=== PATIENT | male | born 1940 | race Caucasian/White ===

== ENCOUNTER → 2018-02-15 | Outpatient (CLI) | payer OTHER ==
[~2018-02-15] MED LIST: ANT125 PO; ASPEC325 PO; BTMOPS5; CHOLTAB3 PO; FLCO60; FLVUNK PO; MULT-506 PO; NICO21DI12 EXT; OMEG10007 PO; OXYC-57 PO; PYRI100T4 PO; VTMB12UNK PO; VTMEUNK
--- NOTE | 2018-02-15 17:10 | DIAGNOSTIC IMAGING REPORT ---
RENAL ULTRASOUND CLINICAL HISTORY: Gross hematuria. COMPARISON STUDY: None. TECHNIQUE: Sonography of the kidneys and the urinary bladder was performed. FINDINGS: The right kidney measures 10.8 x 5.7 x 5.9 cm and the left kidney measures 12 x 5.8 x 6.6 cm. There is mild right collecting system prominence without rip hydronephrosis. There is no left hydronephrosis. A few small renal cysts are noted. No shadowing renal calculi are noted. Both ureteral jets were identified. Note was made of multiple echogenic nonmobile abnormalities which appear adherent to the bladder wall. Several these contain color flow. These measure up to 2.2 cm. IMPRESSION: 1. Multiple echogenic lesions which appear adherent to the bladder wall, several of which contain color flow. These may be partially calcified. Given the clinical history, the findings are suspicious for multifocal urothelial lesions and correlation with cystoscopy to evaluate for malignancy. 2. Mild right pelvicaliectasis without rip hydronephrosis. Electronically signed by: Tanner Becker M.D. 02/15/2018 5:09 PM Dictated Date/Time: 02/15/2018 5:03 PM
== END | disposition home or self-care (01) ==
LOC: C.ULTR 16:15
PROVIDERS: ATTEND Internal Medicine
DX: R31.0 Gross hematuria (principal)

== ENCOUNTER 2018-05-30 13:24 | Inpatient (IN) | payer OTHER ==
[~2018-05-30] VITALS: Ht 172.7 cm; Wt 83.5 kg
[~2018-05-30 13:24] MED LIST changes: -ANT125 PO; -ASPEC325 PO; +ASPI81TA28 PO; +ATOR-22 PO; +AUG0.05C12 TOP; -BTMOPS5; +CHOL100010 PO; -CHOLTAB3 PO; +CYAN100020 PO; -FLCO60; +FLUO-245; -FLVUNK PO; +FOLITAB13 PO; +LISI10TA PO; +LUTE15CA PO; +MAGN250T3 PO; -NICO21DI12 EXT; +ONDA-170 PO; +OXGN; -OXYC-57 PO; +PROC10TA PO; +SILD1TAB25 PO; +TIMO0.5S2 OP; +UMEC1AER INH; +VITA1TAB4 PO; -VTMB12UNK PO; -VTMEUNK
[2018-05-30] MEDS ORDERED: SODIUM CHLORIDE 0.9% 1000ML 1,000 ML IV STA (13:59)
--- NOTE | 2018-05-30 14:03 | EMERGENCY ROOM VISIT NOTE ---
History Report prepared by Darnell: Main Santos Under the Supervision of: Dr. Oleg Keita M.D. First contact with patient: 13:35 Chief Complaint: SYNCOPE Stated Complaint: SYNCOPE/HYPERTENSION History of Present Illness The patient is a 77 year old white male with a past medical history of bladder cancer who presents to the Emergency Room from the [facility] after having a syncopal episode that occurred immediately prior to arrival. The patient's states that the patient was receiving IV-chemotherapy this morning when he went to use the restroom. The patient was on he way back to his room when he became suddenly "lightheaded." The notes that he was supporting his weight on the IV-bag davis and was shaking. He then lost consciousness and dropped to the ground. The states that the [facility] nurses noted that he was unresponsive for about 3 minutes. The patient notes that he feels well right now and denies any headache, chest pain, shortness of breath, or weakness. The patient is followed by Dr. Corbett at [facility] urology oncology for his bladder cancer. He wears 1 liter of oxygen at baseline. Source of History: patient Onset: Immediately [employer] Position: head Quality: other ("lightheaded" ) Timing: other (3 minute syncopal episode) Associated Symptoms: + LOC, No headache, No chest pain, No SOB Review of Systems See HPI for pertinent positives and negatives. A total of ten systems were reviewed and were otherwise negative. Past Medical & Surgical History of bladder cancer. Social History Smoking Status: Current Every Day Smoker Drug Use: none Marital Status: Housing Status: lives with family Current/Historical Medications Scheduled Aspirin (Aspirin), 325 MG PO DAILY Atorvastatin (Lipitor), 20 MG PO DAILY Betamethasone Dipropionate Aug (Diprolene Af), 1 APPLN TOP BID Cholecalciferol (Vitamin D), 1 TAB PO DAILY Cyanocobalamin (Vitamin B12), 1,000 MG PO DAILY Fluocinonide Emulsified Base (Fluocinonide Emulsified), DIRECTED Folic Acid-Vit B2-Vit B6-Vit B (Folic Acid Xtra), 800 MCG PO DAILY Home O2 Therapy (Oxygen), 1 LITER NA PRN Lisinopril (Prinivil), 10 MG PO DAILY Lutein-Zeaxanthin (Lutein), 20 MG PO DAILY Magnesium (Magnacaps), 100 MG PO DAILY Multivitamin (Multivitamin), 1 TAB PO DAILY Pyridoxine (Vitamin B6), 100 MG PO DAILY Timolol Maleate (Ophth) (Timoptic), 1 DROP OPB QAM Umeclidinium-Vilanterol (Anoro Ellipta 62.5-25 Mcg/INH), 1 PUFF INH DAILY Vitamin E (Vitamin E), 1 CAP PO DAILY Scheduled PRN Ondansetron Hcl (Zofran), 8 MG PO TID PRN for Nausea Sildenafil Citrate (Revatio), 1 TAB PO DAILY PRN for ERECTILE DYSFUNCTION Allergies Coded Allergies: No Known Allergies (Verified , 05/30/18) Physical Exam Vital Signs Date Time Temp Pulse Resp B/P (MAP) Pulse Ox O2 Delivery O2 Flow Rate FiO2 05/30/18 17:30 99 20 146/101 94 Nasal Cannula 2.0 05/30/18 15:30 05/30/18 15:30 96 19 140/87 96 Nasal Cannula 2.0 100 143/91 100 166/100 05/30/18 14:40 99 18 115/72 96 Nasal Cannula 2.0 05/30/18 13:41 97 Nasal Cannula 1.0 05/30/18 13:39 99 05/30/18 13:30 96 Nasal Cannula 1.0 05/30/18 13:30 36.4 100 24 140/80 77 Room Air Physical Exam GENERAL: Awake, alert, well-appearing, NAD. Nasal cannula in place. HENT: Normocephalic, atraumatic. EYES: Normal conjunctiva. Sclera non-icteric. RightPERRL. No anisocoria. Irregular and unreactive left pupil. NECK: Supple. No nuchal rigidity. FROM. RESPIRATORY: No rhonchi, wheezing. Crackles at the left abse. CARDIAC: RRR, no MRG ABDOMEN: Soft, NTND, BS+ MSK: No chest wall TTP, no LE edema NEURO: GCS 15, CN 2-12 intact, moves all 4s on command SKIN: No rash or jaundice noted. Medical Decision & Procedures ER Provider Diagnostic Interpretation: Radiology results as stated below per my review and radiologist interpretation: CHEST ONE VIEW PORTABLE HISTORY: EVALUATE ALTERED MENTAL STATUS/WEAKNESS COMPARISON: None. FINDINGS: Bibasilar linear densities favor subsegmental atelectasis. The lungs are otherwise clear. The heart is normal in size. No pleural effusions. No pneumothorax. No evidence for pulmonary edema. IMPRESSION: No acute process. Electronically signed by: Zuhair Pate M.D. 05/30/2018 2:14 PM Dictated Date/Time: 05/30/2018 2:[address] OF THE HEAD WITHOUT CONTRAST CLINICAL HISTORY: Syncope. Weakness. COMPARISON STUDY: Head CT November 22, 2010 and MRI of the brain April 28, 2011. CT DOSE: 881.47 mGy.cm TECHNIQUE: Helical axial images of the head were obtained without IV contrast. Automated exposure control was utilized for the study. A dose lowering technique was utilized adhering to the principles of ALARA. FINDINGS: No acute intracranial hemorrhage, midline shift or mass effect is present. Ventricular system is unremarkable for age. Basilar cisterns are patent. There are no extra axial collections. White matter hypodensities suggest extensive small vessel disease. There are no findings to suggest acute dural sinus thrombosis or acute territorial infarct. There are no significant calvarial abnormalities. There is mild ethmoid sinus mucosal thickening. Mastoid air cells are clear. IMPRESSION: No acute intracranial findings. Electronically signed by: Tanner Becker M.D. 05/30/2018 2:41 PM Dictated Date/Time: 05/30/2018 2:33 PM Laboratory Results 05/30/18 13:40 Red Blood Count 3.54, Mean Corpuscular Volume 93.2, Mean Corpuscular Hemoglobin 29.4, Mean Corpuscular Hemoglobin Concent 31.5, Mean Platelet Volume 10.0, Neutrophils (%) (Auto) 73.6, Lymphocytes (%) (Auto) 16.1, Monocytes (%) (Auto) 4.9, Eosinophils (%) (Auto) 4.0, Basophils (%) (Auto) 0.4, Neutrophils # (Auto) 4.96, Lymphocytes # (Auto) 1.09, Monocytes # (Auto) 0.33, Eosinophils # (Auto) 0.27, Basophils # (Auto) 0.03 05/30/18 13:40 Test 05/30/18 13:40 White Blood Count 6.75 K/uL (4.8-10.8) Red Blood Count 3.54 M/uL (4.7-6.1) Hemoglobin 10.4 g/dL (14.0-18.0) Hematocrit 33.0 % (42-52) Mean Corpuscular Volume 93.2 fL (80-100) Mean Corpuscular Hemoglobin 29.4 pg (25-34) Mean Corpuscular Hemoglobin Concent 31.5 g/dl (32-36) Platelet Count 423 K/uL (130-400) Mean Platelet Volume 10.0 fL (7.4-10.4) Neutrophils (%) (Auto) 73.6 % Lymphocytes (%) (Auto) 16.1 % Monocytes (%) (Auto) 4.9 % Eosinophils (%) (Auto) 4.0 % Basophils (%) (Auto) 0.4 % Neutrophils # (Auto) 4.96 K/uL (1.4-6.5) Lymphocytes # (Auto) 1.09 K/uL (1.2-3.4) Monocytes # (Auto) 0.33 K/uL (0.11-0.59) Eosinophils # (Auto) 0.27 K/uL (0-0.5) Basophils # (Auto) 0.03 K/uL (0-0.2) RDW Standard Deviation 66.5 fL (36.4-46.3) RDW Coefficient of Variation 21.7 % (11.5-14.5) Immature Granulocyte % (Auto) 1.0 % Immature Granulocyte # (Auto) 0.07 K/uL (0.00-0.02) Polychromasia 1+ Anisocytosis PRESENT Spherocytes 1+ Stomatocytes 1+ Urine Color YELLOW Urine Appearance CLEAR (CLEAR) Urine pH 7.0 (4.5-7.5) Urine Specific Hamer 1.009 (1.000-1.030) Urine Protein NEG (NEG) Urine Glucose (UA) TRACE (NEG) Urine Ketones NEG (NEG) Urine Occult Blood TRACE (NEG) Urine Nitrite NEG (NEG) Urine Bilirubin NEG (NEG) Urine Urobilinogen NEG (NEG) Urine Leukocyte Esterase TRACE (NEG) Urine WBC (Auto) 5-10 /hpf (0-5) Urine RBC (Auto) 0-4 /hpf (0-4) Urine Hyaline Casts (Auto) 1-5 /lpf (0-5) Urine Epithelial Cells (Auto) 0-5 /lpf (0-5) Urine Bacteria (Auto) NEG (NEG) Anion Gap 7.0 mmol/L (3-11) Est Creatinine Clear Calc Drug Dose 65.2 ml/min Estimated GFR () 81.0 Estimated GFR (Non- 69.9 BUN/Creatinine Ratio 16.7 (10-20) Calcium Level 7.8 mg/dl (8.5-10.1) Magnesium Level 1.5 mg/dl (1.8-2.4) Total Bilirubin 0.2 mg/dl (0.2-1) Direct Bilirubin < 0.1 mg/dl (0-0.2) Aspartate Amino Transf (AST/SGOT) 71 U/L (15-37) Alanine Aminotransferase (ALT/SGPT) 49 U/L (12-78) Alkaline Phosphatase 103 U/L (45-117) Troponin I 0.051 ng/ml (0-0.045) Total Protein 7.5 gm/dl (6.4-8.2) Albumin 3.3 gm/dl (3.4-5.0) Thyroid Stimulating Hormone (TSH) 1.330 uIu/ml (0.300-4.500) Laboratory results reviewed by me Medications Administered Medications (Trade) Dose Ordered Sig/Zakiya Route Start Time Stop Time Status Last Admin Dose Admin Sodium Chloride 1,000 ml @ 999 mls/hr Q1H1M STAT IV 05/30/18 13:59 05/30/18 14:59 DC 05/30/18 13:59 999 MLS/HR Magnesium Oxide (Mag-Ox Tab) 800 mg ONE STAT PO 05/30/18 14:48 05/30/18 14:50 DC 05/30/18 15:19 800 MG Potassium Chloride (Klor-Con M10) 20 meq STK-MED ONCE .ROUTE 05/30/18 15:07 05/30/18 15:08 DC 05/30/18 15:19 20 MEQ Calcium Carbonate (Tums Chew Tab) 1,500 mg ONE STAT PO 05/30/18 15:40 05/30/18 15:42 DC 05/30/18 17:03 1,500 MG Aspirin (Aspirin Chew) 324 mg NOW STAT PO 05/30/18 16:28 05/30/18 16:29 DC 05/30/18 17:02 324 MG ECG Per My Interpretation Indication: syncope Rate (beats per minute): 104 Rhythm: sinus tachycardia Findings: ST depression (Anterior and lateral), other (Normal interval, normal axis) Comparison ECG Date: 04/29/2011 Change: ST-depressions are new ED Course 1349: The patient was evaluated in room A2. A complete history and physical exam was performed. 1532: I updated the patient at this time. I suggest he stay in the hospital, he declines admission at this time. Denies chest pain or SOB. 1637: The patient is now willing to stay. 1658: I discussed the case with U[facility] Hospitalist ZACHARY Garland. She will evaluate for further treatment. Medical Decision The patient is a 77 year old white male with a past medical history of bladder cancer who presents to the Emergency Room from the [facility] after having a syncopal episode that occurred immediately prior to arrival. Nursing notes reviewed. Ancillary studies and prior records reviewed. Differential diagnosis: Etiologies such as vasovagal event, infection, hypoglycemia, electrolyte abnormalities, cardiac sources, intracerebral event, toxicologic, neurologic, as well as others were entertained. Patient was seen and evaluated the bedside. Patient does have a prior history of bladder CA and was at [facility] today which point he did receive IV Lasix did have a positional change and had a subsequent syncopal episode. He is apparently difficult to arouse for approximately 3 minutes. No evidence of any seizure-like activity and did have a normal sugar. The patient is unsure as to whether or not he is incontinent as he was walking around with an IV pole with fluids and this also spilled onto the floor where he had fallen. No prior history of seizures. Patient currently denies any chest pain, shortness of breath, or chest pain. Patient does have an irregular left pupil which is chronic per patient. The patient has a normal neurologic exam at baseline and no issues currently. Patient did have blood work completed, EKG, troponin, CT of the brain and chest x-ray. Patient CT brain negative. Chest x-ray is unremarkable. Patient's blood work does show that the patient does have some electrolyte abnormalities which were repleted. The patient's EKG is concerning as he does have some new ST segment changes in the lateral anteriorly concerning for depression. Again the patient denies any chest pains or shortness of breath. Troponin is not undetectable. Again the patient denies any chest pain or shortness of breath. Patient was given an aspirin. I did order a CT PE protocol to further rule out PE as a possible source even given the patient's lack of other symptoms. I did speak with the on-call hospitalist who agreed to further evaluate and treat the patient. Patient was counseled on smoking cessation. Medication Reconcilliation Current Medication List: was personally reviewed by me Blood Pressure Screening Patient's blood pressure: Elevated blood pressure Consults Time Called: 1649 [facility] Returned Call: [phone] I discussed the case with [facility] SHANEKA. She will evaluate for further treatment. Impression Primary Impression: Syncope Additional Impressions: Acute electrocardiogram changes Elevated troponin Anemia Hypocalcemia Hypomagnesemia Encounter for smoking cessation counseling Scribe Attestation The scribe's documentation has been prepared under my direction and personally reviewed by me in its entirety. I confirm that the note above accurately reflects all work, treatment, procedures, and medical decision making performed by me. Departure Information Dispostion Being Evaluated By Hospitalist Referrals Donal Crabtree MD (PCP) Patient Instructions My [facility] Problem Qualifiers Primary Impression: Syncope Syncope type: unspecified Qualified Codes: R55 - Syncope and collapse Additional Impressions: Anemia Anemia type: unspecified type Qualified Codes: D64.9 - Anemia, unspecified
--- NOTE | 2018-05-30 14:16 | DIAGNOSTIC IMAGING REPORT ---
CHEST ONE VIEW PORTABLE HISTORY: EVALUATE ALTERED MENTAL STATUS/WEAKNESS COMPARISON: None. FINDINGS: Bibasilar linear densities favor subsegmental atelectasis. The lungs are otherwise clear. The heart is normal in size. No pleural effusions. No pneumothorax. No evidence for pulmonary edema. IMPRESSION: No acute process. Electronically signed by: Zuhair Pate M.D. 05/30/2018 2:14 PM Dictated Date/Time: 05/30/2018 2:13 PM
[2018-05-30 14:24] LABS: BASO % 0.4 %; BASO ABS # 0.03 K/uL (0-0.2); EOS ABS # 0.27 K/uL (0-0.5); HEMOGLOBIN 10.4 g/dL (14.0-18.0); IG# 0.07 K/uL (0.00-0.02); LYMPH % 16.1 %; LYMPH ABS # 1.09 K/uL (1.2-3.4); MEAN CELL VOLUME 93.2 fL (80-100); MEAN CORPUSCULAR HEMOGLOBIN 29.4 pg (25-34); MEAN CORPUSCULAR HGB CONC 31.5 g/dl (32-36); MONO % 4.9 %; MONO ABS # 0.33 K/uL (0.11-0.59); NEUT % 73.6 %; NEUT ABS # 4.96 K/uL (1.4-6.5); PLATELET COUNT 423 K/uL (130-400); RED CELL DISTRIBUTION WIDTH CV 21.7 % (11.5-14.5); RED CELL DISTRIBUTION WIDTH SD 66.5 fL (36.4-46.3); WHITE BLOOD COUNT 6.75 K/uL (4.8-10.8)
--- NOTE | 2018-05-30 14:42 | DIAGNOSTIC IMAGING REPORT ---
CT OF THE HEAD WITHOUT CONTRAST CLINICAL HISTORY: Syncope. Weakness. COMPARISON STUDY: Head CT November 22, 2010 and MRI of the brain April 28, 2011. CT DOSE: 881.47 mGy.cm TECHNIQUE: Helical axial images of the head were obtained without IV contrast. Automated exposure control was utilized for the study. A dose lowering technique was utilized adhering to the principles of ALARA. FINDINGS: No acute intracranial hemorrhage, midline shift or mass effect is present. Ventricular system is unremarkable for age. Basilar cisterns are patent. There are no extra axial collections. White matter hypodensities suggest extensive small vessel disease. There are no findings to suggest acute dural sinus thrombosis or acute territorial infarct. There are no significant calvarial abnormalities. There is mild ethmoid sinus mucosal thickening. Mastoid air cells are clear. IMPRESSION: No acute intracranial findings. Electronically signed by: Tanner Becker M.D. 05/30/2018 2:41 PM Dictated Date/Time: 05/30/2018 2:33 PM
[2018-05-30] MEDS ORDERED: OXGN (14:43)
[2018-05-30] MEDS ORDERED: MAGN100C PO (14:43)
[2018-05-30 14:45] LABS: ALBUMIN 3.3 gm/dl (3.4-5.0); ALKALINE PHOSPHATASE 103 U/L (45-117); ALT/SGPT 49 U/L (12-78); AST/SGOT 71 U/L (15-37); BLOOD UREA NITROGEN 17 mg/dl (7-18); CALCIUM 7.8 mg/dl (8.5-10.1); CARBON DIOXIDE 28 mmol/L (21-32); CREATININE 1.04 mg/dl (0.60-1.40); GLUCOSE 189 mg/dl (70-99); POTASSIUM 4.3 mmol/L (3.5-5.1); SODIUM 138 mmol/L (136-145); TOTAL PROTEIN 7.5 gm/dl (6.4-8.2)
[2018-05-30] MEDS ORDERED: ASPECOTC PO (14:46)
[2018-05-30] MEDS ORDERED: TIMO-31 OPB (14:46)
[2018-05-30] MEDS ORDERED: POTASSIUM CHLORIDE 20 MEQ TABCR PO STA (14:48)
[2018-05-30] MEDS ORDERED: MAGNESIUM OXIDE 400 MG TAB PO STA (14:48)
[2018-05-30] MEDS ORDERED: POTASSIUM CHLORIDE 10 MEQ TABCR ONE (15:07)
[2018-05-30] MEDS ORDERED: CALCIUM CARBONATE 500 MG CHEWABLE PO STA (15:40)
[2018-05-30] MEDS ORDERED: ASPIRIN 324 MG CHEW PO STA (16:28)
[2018-05-30] MEDS ORDERED: OPTIRAY 320 IV PRN (17:15)
--- NOTE | 2018-05-30 17:33 | DIAGNOSTIC IMAGING REPORT ---
(CHEST FOR PE) ANGIO WITH CT DOSE: 462.24 mGy.cm HISTORY: 77 years-old Male with . Presents with acute atypical chest pain TECHNIQUE: Multiple CTA images of the chest were obtained after the intravenous administration of 100 ml Optiray 320. Coronal and sagittal MIPS were obtained from the axial data set and were submitted for review. A dose lowering technique was utilized adhering to the principles of ALARA. COMPARISON: Chest radiograph of same day FINDINGS: CTA: Heart is upper limits of normal in size without pericardial effusion. Coronary arterial and aortic annular calcifications are noted. There is no thoracic aortic aneurysm or dissection. Extensive mixed atheromatous and atherosclerotic plaque formation about the thoracic aorta and proximal great vessels. The distal thoracic aorta is not well opacified secondary to contrast bolus timing. The pulmonary arterial tree is opacified to the level of the proximal segmental branches. The distal segmental and subsegmental branches are not well-seen secondary to contrast bolus timing and respiratory motion. No focal filling defects identified to suggest pulmonary thromboembolic disease. CT CHEST: No dominant thyroid nodule identified. Mildly prominent nonenlarged mediastinal and hilar lymph nodes are likely physiologic. There are bilateral partially calcified pleural plaques. No pneumothorax. Trace right pleural effusion. Moderate emphysema. Bilateral bronchial wall thickening with areas of mucous plugging. 3 mm solid nodule of the right upper lobe on image 220 series 4 appears to be centrally calcified suggesting a granuloma. There are subsegmental right basilar opacities of the basal right lower lobe and right middle lobe, not well seen secondary to respiratory motion. 3 mm fissural lymph nodes seen adjacent to the left major fissure, image 122 series 4. Punctate calculus of the superior pole left kidney. Small sliding-type hilar hernia. The soft tissues are within normal limits. The bones appear to be intact. There are degenerative changes of the shoulders and spine. IMPRESSION: 1. No acute aortic pathology or evidence of pulmonary thromboembolic disease. 2. Emphysema with bilateral bronchial wall thickening suggestive of bronchitis. Associated bronchial secretions are also noted. 3. Subsegmental groundglass opacities of the basal right lower lobe and right middle lobe are suspicious for pneumonitis with trace right pleural effusion. 4. Small hiatal hernia. 5. Punctate nonobstructing calculus of the superior pole left kidney. 6. 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 The above report was generated using voice recognition software. It may contain grammatical, syntax or spelling errors. Electronically signed by: Saqib Sepulveda M.D. 05/30/2018 5:31 PM Dictated Date/Time: 05/30/2018 5:19 PM
[2018-05-30 17:48] VITALS: O2SAT 94; BMI 28.6
[2018-05-30] MEDS ORDERED: ONDANSETRON INJ 2 MG/ML 2 ML VIAL IV PRN (18:30)
[2018-05-30] MEDS ORDERED: PROCHLORPERAZINE MALEATE 10 MG TAB PO ONE (18:45)
[2018-05-30] MEDS ORDERED: FOLI800T PO (18:59)
[2018-05-30] MEDS ORDERED: OMEP20CA9 PO (18:59)
[2018-05-30] MEDS ORDERED: MAGN250T8 PO (18:59)
[2018-05-30] MEDS ORDERED: LORA-741 PO (18:59)
[2018-05-30] MEDS ORDERED: LPT40 PO (18:59)
[2018-05-30] MEDS ORDERED: PROC10TA PO (18:59)
[2018-05-30] MEDS ORDERED: CHOL100010 PO (18:59)
[2018-05-30] MEDS ORDERED: VNTHFA/IN INH (18:59)
[2018-05-30] MEDS ORDERED: OXYB5TAB21 PO (18:59)
[2018-05-30] MEDS ORDERED: PROCHLORPERAZINE MALEATE 10 MG TAB PO PRN (19:00)
[2018-05-30] MEDS ORDERED: LEVALBUTEROL/IPRATROPIUM NEB INH PRN (19:00)
[2018-05-30] MEDS: ACETAMINOPHEN 325 MG TAB PO PRN (19:07)
[2018-05-30] MEDS ORDERED: GLUCOSE 10 TABS/TUBE PO PRN (19:15)
[2018-05-30] MEDS ORDERED: CARBOHYDRATES FOR HYPOGLYCEMIA PO PRN (19:15)
[2018-05-30] MEDS ORDERED: DEXTROSE 50% 50 ML SYR IV PRN (19:15)
[2018-05-30] MEDS ORDERED: GLUCAGON FOR INJ 1 MG VIAL SQ PRN (19:15)
[2018-05-30] MEDS ORDERED: GLUCOSE 40% GEL 15 GM TUBE PO PRN (19:15)
--- NOTE | 2018-05-30 19:21 | DIAGNOSTIC IMAGING REPORT ---
L SHOULDER MIN 2 VIEWS ROUTINE, L HUMERUS MIN 2 VIEWS ROUTINE, L ELBOW MIN 3 VIEWS ROUTINE, L WRIST MIN 3 VIEWS ROUTINE HISTORY: 77 years-old Male L arm pain acute pain of the left upper extremity COMPARISON: None available TECHNIQUE: 3 views of the left shoulder, 2 views of the left humerus, 3 views of the left elbow and 4 views of the left wrist FINDINGS: SHOULDER: Rotator cuff calcific tendinosis with calcifications measuring up to 5 mm. Moderate glenohumeral and AC joint osteoarthritis. No acute fracture or dislocation. Interstitial opacities about the left lung. HUMERUS: No acute fracture or dislocation. ELBOW: Degenerative marginal spurring about the elbow. There is no acute fracture, dislocation, opaque foreign body or large joint effusion. WRIST: Widening of the scapholunate interval compatible with scapholunate ligamentous injury. Mild radiocarpal with moderate triscaphe and severe first carpometacarpal osteoarthritis. Peripheral arterial calcifications noted. No acute fracture or dislocation. IMPRESSION: 1. No acute fracture or dislocation of the imaged left upper extremity. 2. Degenerative and chronic findings as above. The above report was generated using voice recognition software. It may contain grammatical, syntax or spelling errors. Electronically signed by: Saqib Sepulveda M.D. 05/30/2018 7:20 PM Dictated Date/Time: 05/30/2018 7:16 PM
[2018-05-30] MEDS ORDERED: IPRATROPIUM BROMIDE NEB SOLN 0.02% 2.5 ML VIAL INH PRN (19:30)
[2018-05-30] MEDS ORDERED: LEVALBUTEROL 1.25MG/0.5ML NEB INH PRN (19:30)
[2018-05-30 19:41] LABS: PTT PATIENT 25.3 SECONDS (21.0-31.0)
[2018-05-30 19:45] VITALS: BP 170/84; PULSE 108; TEMP 36.6; O2SAT 93
--- NOTE | 2018-05-30 19:48 | History and Physical ---
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 Patient was receiving chemo today. He had dose IV Lasix 20 mg 1 L NSS and was receiving and he got up to use the bathroom when walking back became dizzy and lightheaded and had syncopal episode. It is reported patient had LOC for 3 minutes. It is reported patient was hypoxic 70% up to 94% with Oximask applied and his pulse was 103. Patient was denying any chest pain or shortness of breath in ER. Patient reports left arm pain primarily to left humerus and left anterior elbow that has been intermittent for the past 3 weeks and also left chest pain, patient is unsure if the 2 are related. States notices pain primarily at night. Pain sometimes self resolves after 30 minutes or sometimes will take Tylenol. Patient was taken off aspirin April secondary to thrombocytopenia with platelet count of 70. It has since been up in the 300s. Patient was taken off lisinopril several weeks ago per secondary to hypertension. Chronic dry cough, denies worsening. Denies fever/chills, diaphoresis, N/V/D/C, GILLETTE, vision changes, neck pain, increased SOB, orthopnea, palpitations, hemoptysis, sore throat, choking, otalgia, rhinorrhea, abdominal pain, paresthesias, extremity weakness, extremity edema, rashes, urinary symptoms. Past Medical/Surgical History Medical Problems: (1) Bladder cancer Status: Chronic (2) Carotid atherosclerosis Status: Chronic (3) COPD (chronic obstructive pulmonary disease) Status: Chronic (4) DM type 2 (diabetes mellitus, type 2) Status: Chronic (5) Dyslipidemia Status: Chronic (6) Glaucoma Status: Chronic (7) HTN (hypertension) Status: Chronic (8) Tobacco abuse Status: Chronic (9) Tourette syndrome Status: Chronic Surgical Problems: (1) History of bladder surgery Status: Resolved (2) History of carotid endarterectomy Permanent Comment: Left Status: Resolved (3) Hx of cataract surgery Status: Resolved Family History Diabetes mellitus FH: heart disease Hypertension Social History Smoking Status: Current Every Day Smoker (down to 0.5 ppd ) Smokeless Tobacco Use: No Alcohol Use: none Drug Use: none Marital Status: Housing status: lives with significant other Immunizations History of Influenza Vaccine: N/A History of Tetanus Vaccine?: Unknown History of Pneumococcal: Yes History of Hepatitis B Vaccine: No Allergies Coded Allergies: No Known Allergies (Verified , 05/30/18) Home Medications Scheduled Albuterol Hfa (Ventolin Hfa), 2 PUFFS INH Q4 Atorvastatin (Lipitor), 1 TAB PO PM Betamethasone Dipropionate Aug (Diprolene Af), 1 APPLN TOP BID Cholecalciferol (Vitamin D), 1 TAB PO DAILY Cyanocobalamin (Vitamin B12), 1,000 MG PO DAILY Folic Acid (Folic Acid), 1 TAB PO DAILY Home O2 Therapy (Oxygen), 1 LITER NA CONTINOUS Lutein-Zeaxanthin (Lutein), 20 MG PO DAILY Magnesium Oxide (Mg Supplement (Magnesium), 1 TAB PO TID Omeprazole (Prilosec), 20 MG PO DAILY Oxybutynin Chloride (Ditropan Xl), 1 TAB PO DAILY Pyridoxine (Vitamin B6), 100 MG PO DAILY Timolol Maleate (Ophth) (Timoptic), 1 DROP OPB QAM Umeclidinium-Vilanterol (Anoro Ellipta 62.5-25 Mcg/INH), 1 PUFF INH DAILY Vitamin E (Vitamin E), 1 CAP PO DAILY Scheduled PRN Lorazepam (Ativan), 0.5 MG PO BID PRN for Anxiety Ondansetron Hcl (Zofran), 8 MG PO TID PRN for Nausea Prochlorperazine Maleate (Compazine), 1 TAB PO Q6 PRN for Nausea Sildenafil Citrate (Revatio), 1 TAB PO DAILY PRN for ERECTILE DYSFUNCTION Review of Systems See HPI for pertinent positives & negatives. All other systems reviewed and were otherwise negative Physical Exam Vital Signs Date Time Temp Pulse Resp B/P (MAP) Pulse Ox O2 Delivery O2 Flow Rate FiO2 05/30/18 17:48 94 Nasal Cannula 2.0 05/30/18 17:42 106 05/30/18 17:30 99 20 146/101 94 Nasal Cannula 2.0 05/30/18 15:30 05/30/18 15:30 96 19 140/87 96 Nasal Cannula 2.0 100 143/91 100 166/100 05/30/18 14:40 99 18 115/72 96 Nasal Cannula 2.0 05/30/18 13:41 97 Nasal Cannula 1.0 05/30/18 13:39 99 05/30/18 13:30 96 Nasal Cannula 1.0 05/30/18 13:30 36.4 100 24 140/80 77 Room Air General Appearance: WD/WN, no apparent distress Head: normocephalic, atraumatic Eyes: EOMI, sclerae normal, + pertinent finding (left pupil larger than right ( chronic)) ENT: hearing grossly normal, pharynx normal, + pertinent finding (mucous membranes moist) Neck: supple, trachea midline Respiratory/Chest: no respiratory distress, no accessory muscle use, + decreased breath sounds (faint scattered wheeze, clears with coughing) Cardiovascular: no murmur, normal peripheral pulses, + tachycardia (106) Abdomen/GI: normal bowel sounds, non tender, soft Extremities/Musculoskelatal: no calf tenderness, normal capillary refill, no pedal edema, normal range of motion, + pertinent finding (left upper extremity: no edema/erythema/ecchymosis, ROM intact to shoulder, elbow, wrist. Humerus, anterior elbow with tenderness which improves with palpation area) Neurologic/Psych: alert, normal mood/affect, oriented x 3 Skin: warm/dry Diagnostics Laboratory Results Results Past 24 Hours Test 05/30/18 13:40 05/30/18 18:50 05/30/18 19:00 Range/Units White Blood Count 6.75 4.8-10.8 K/uL Red Blood Count 3.54 4.7-6.1 M/uL Hemoglobin 10.4 14.0-18.0 g/dL Hematocrit 33.0 42-52 % Mean Corpuscular Volume 93.2 80-100 fL Mean Corpuscular Hemoglobin 29.4 25-34 pg Mean Corpuscular Hemoglobin Concent 31.5 32-36 g/dl Platelet Count 423 130-400 K/uL Mean Platelet Volume 10.0 7.4-10.4 fL Neutrophils (%) (Auto) 73.6 % Lymphocytes (%) (Auto) 16.1 % Monocytes (%) (Auto) 4.9 % Eosinophils (%) (Auto) 4.0 % Basophils (%) (Auto) 0.4 % Neutrophils # (Auto) 4.96 1.4-6.5 K/uL Lymphocytes # (Auto) 1.09 1.2-3.4 K/uL Monocytes # (Auto) 0.33 0.11-0.59 K/uL Eosinophils # (Auto) 0.27 0-0.5 K/uL Basophils # (Auto) 0.03 0-0.2 K/uL RDW Standard Deviation 66.5 36.4-46.3 fL RDW Coefficient of Variation 21.7 11.5-14.5 % Immature Granulocyte % (Auto) 1.0 % Immature Granulocyte # (Auto) 0.07 0.00-0.02 K/uL Polychromasia 1+ Anisocytosis PRESENT Spherocytes 1+ Stomatocytes 1+ Urine Color YELLOW Urine Appearance CLEAR CLEAR Urine pH 7.0 4.5-7.5 Urine Specific [place] 1.009 1.000-1.030 Urine Protein NEG NEG Urine Glucose (UA) TRACE NEG Urine Ketones NEG NEG Urine Occult Blood TRACE NEG Urine Nitrite NEG NEG Urine Bilirubin NEG NEG Urine Urobilinogen NEG NEG Urine Leukocyte Esterase TRACE NEG Urine WBC (Auto) 5-10 0-5 /hpf Urine RBC (Auto) 0-4 0-4 /hpf Urine Hyaline Casts (Auto) 1-5 0-5 /lpf Urine Epithelial Cells (Auto) 0-5 0-5 /lpf Urine Bacteria (Auto) NEG NEG Sodium Level 138 136-145 mmol/L Potassium Level 4.3 3.5-5.1 mmol/L Chloride Level 103 98-107 mmol/L Carbon Dioxide Level 28 21-32 mmol/L Anion Gap 7.0 3-11 mmol/L Blood Urea Nitrogen 17 7-18 mg/dl Creatinine 1.04 0.60-1.40 mg/dl Est Creatinine Clear Calc Drug Dose 65.2 ml/min Estimated GFR () 81.0 Estimated GFR (Non- 69.9 BUN/Creatinine Ratio 16.7 10-20 Random Glucose 189 70-99 mg/dl Calcium Level 7.8 8.5-10.1 mg/dl Magnesium Level 1.5 1.8-2.4 mg/dl Total Bilirubin 0.2 0.2-1 mg/dl Direct Bilirubin < 0.1 0-0.2 mg/dl Aspartate Amino Transf (AST/SGOT) 71 15-37 U/L Alanine Aminotransferase (ALT/SGPT) 49 12-78 U/L Alkaline Phosphatase 103 45-117 U/L Troponin I 0.051 0-0.045 ng/ml Total Protein 7.5 6.4-8.2 gm/dl Albumin 3.3 3.4-5.0 gm/dl Thyroid Stimulating Hormone (TSH) 1.330 0.300-4.500 uIu/ml Diagnostic Radiology CXR: IMPRESSION: No acute process. CT HEAD: IMPRESSION: No acute intracranial findings. CT CHEST: IMPRESSION: 1. No acute aortic pathology or evidence of pulmonary thromboembolic disease. 2. Emphysema with bilateral bronchial wall thickening suggestive of bronchitis. Associated bronchial secretions are also noted. 3. Subsegmental groundglass opacities of the basal right lower lobe and right middle lobe are suspicious for pneumonitis with trace right pleural effusion. 4. Small hiatal hernia. 5. Punctate nonobstructing calculus of the superior pole left kidney. 6. 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 L SHOULDER/HUMERUS/ELBOW/WRIST XRAY: FINDINGS: SHOULDER: Rotator cuff calcific tendinosis with calcifications measuring up to 5 mm. Moderate glenohumeral and AC joint osteoarthritis. No acute fracture or dislocation. Interstitial opacities about the left lung. HUMERUS: No acute fracture or dislocation. ELBOW: Degenerative marginal spurring about the elbow. There is no acute fracture, dislocation, opaque foreign body or large joint effusion. WRIST: Widening of the scapholunate interval compatible with scapholunate ligamentous injury. Mild radiocarpal with moderate triscaphe and severe first carpometacarpal osteoarthritis. Peripheral arterial calcifications noted. No acute fracture or dislocation. EKG EKG: sinus tachycardia, rate 105, ST depression anterior lateral leads Read by inspector subassembly: Sinus tachycardia ST depression, consider subendocardial injury Abnormal ECG When compared with ECG of 29-APR-2011 15:18, ST now depressed in Anterolateral leads Nonspecific T wave abnormality now evident in Inferior leads Confirmed by FRANCIE BERRY ([id number]) on 05/30/2018 4:40:29 PM Impression Assessment and Plan Pt is 77 y/o M with PMH of bladder CA surgery and on current chemo, COPD oxygen dependent 1L O2, dyslipidemia, HTN, glaucoma, history of carotid atherosclerotic disease S/P left carotid endarterectomy, 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 Patient was receiving chemo today. He had dose IV Lasix 20 mg 1 L NSS and was receiving and he got up to use the bathroom when walking back became dizzy and lightheaded and had syncopal episode. It is reported patient had LOC for 3 minutes. It is reported patient was hypoxic 70% up to 94% with Oximask applied and his pulse was 103. Patient was denying any chest pain or shortness of breath in ER. SYNCOPE DDX: secondary to hypoxia, orthostatic hypotension, ACS, carotid stenosis, arrhythmia In ER afebrile, pulse: 100, R: 24 down to 19, current BP: 146/101, 77% on RA up to 96% on 2L NC. No hypotension with orthostatics in ER. No PE on CT chest. Hx carotid u/s 11/2017: Internal carotid artery less than 50% stenosis, right internal coronary artery 50-69% stenosis (stable since 2014). Hx L carotid endarterectomy -tele to monitor for arrhythmias -carotid u/s -echo -cbc, prp in am EKG CHANGES MILDLY ELEVATED TROPONIN R/O ACS Risk factors: HTN, hyperlipidemia, tobacco use. Hx atherosclerotic dz carotids In ER pt with ST depression to anterior, lateral leads on EKG. Troponin: 0.05. Pt was denying CP. Does c/o L arm pain, and some L CP to Admitting providers. History stress echo 11/2015: Diffuse inferior lateral ST segment depression and T -wave inversion occurred with exercise and persisted through recovery, stress test was terminated secondary to to fatigue, patient denied any chest pain. -Monitor Vitals -Repeat EKG in am -Will trend troponin -Echo -lipid panel, continue statin -ASA -Nitro paste -Cardiology consult - spoke with information director, recommends holding IV heparin at this time -monitor cbc, prp, magnesium labs HYPOMAGNESIA magnesium: 1.5, given magnesium 800mg po in ER -monitor -will continue pt's home magnesium of 250mg TID for now, monitor and adjust as appropriate H/O BLADDER CA S/P SURGERY On current chemo. Follows with Dr Franks oncology, Dr Corbett urology [facility]. On cisplatin & gemcitabine, started 04/04/18 Had chemo today -Pt receives compazine night of chemo treatment and zofran 30 minutes prior to breakfast and dinner the day after chemo treatment HTN Elevated: Likely situational Recently discontinued on lisinopril 2/2 low blood pressures current BP 146/101 -monitor -nitro paste with holding parameters L ARM PAIN Xray L shoulder, humerus, elbow, wrist no acute fracture. degenerative changes -Tylenol prn -may need to consider ortho consult DM II A1c: 6.5 on 10/2017 -A1c in am -basal bolus insulin per protocol COPD CHRONIC HYPOXIC RESPIRATORY FAILURE On 1L oxygen NC continuous Has some faint wheezing clears with cough. Reports chronic cough, no increase or sputum production. Denies increased SOB. Afebrile. no leukocytosis. -continue supplemental oxygen -continue home inhalers -Xopenex/Atrovent nebs prn HX ATHEROSCLEROTIC DISEASE Hx carotid artery atherosclerosis s/p L carotid endarterectomy Hx atherosclerosis disease aorta, possible aortic dissection Hx carotid u/s 11/2017: Internal carotid artery less than 50% stenosis, right internal coronary artery 50-69% stenosis (stable since 2014). -continue statin, ASA -U/S carotids DYSLIPIDEMIA -continue statin GERD -continue PPI TOBACCO ABUSE -smoking cessation discussed, pt reports cut back to 0.5ppd DVT Prophylaxis -Heparin SQ Admit tele Full Code as per discussion with pt and pt's on phone Follows with Dr Crabtree for routine care Pt was seen with Dr Mora. See addendum Attending Note: Patient is a 77 yr male with multiple comorbidities presents with history of a syncope episode after receiving chemotherapy today. Patient was found to be hypoxic and was placed on Oxymask. Patient lost consciousness for about 3 minutes. He reports intermittent left sided chest pain and left arm pain since 2 -3 weeks duration. He has been taken off of Aspirin and lisinopril secondary to thrombocytopenia and low blood pressures. Please review HPI for details. His Troponin is elevated at 0.[address] depression in liseth-lateral leads. Internist Line Service Person was made aware. On Exam Patient had B/L scattered wheezes, Tachycardia and Left eye pupillary dilatation and blurry vision. Chest Pain R/O ACS Possible NSTEMI: H/O Diffuse inferior lateral ST segment depression and T-wave inversion on prior stress test Trend Cardiac Enzymes Check resting ECHO Low Inclination to start IV heparin if troponin trends up or chest pain worsens Cardiology consulted Nitro for BP management Left UE Imaging studies negative for any fractures continue statin, resume aspirin Rest of management as above Possible Bronchitis/Pneumonitis as per CT Empirically start on Abx Syncope Work up as above I personally reviewed the record. Patient is interviewed and examined at bedside. Patient's care is coordinated with Marley Laguna PA-C. Please refer to the documentation above for details of patient's presentation and for discussion of other issues. Advanced Directives Existing Living Will: No Existing Power of Weigher And Mixer: No Resuscitation Status VTE Prophylaxis Will order VTE Prophylaxis: Yes Additional Copies To Donal Crabtree MD
[2018-05-30] MEDS: ATORVASTATIN 40 MG TAB PO SCH (21:00)
[2018-05-30] MEDS: CEFTRIAXONE SOD INJ 1 GM in DEXTROSE 5% ADD-VANTAGE 50ML 50 ML IV SCH (21:19)
[2018-05-30] MEDS: DOXYCYCLINE HYCLATE 100 MG CAP PO SCH (21:20)
[2018-05-30] MEDS: MAGNESIUM OXIDE 400 MG TAB PO SCH (21:21)
[2018-05-30] MEDS ORDERED: MoRPHine SULFATE 2 MG/ML CARP IV PRN (21:30)
[2018-05-30] MEDS: INSULIN GLARGINE SOLOSTAR 100 UNITS/ML 3 ML PEN SC SCH (21:30)
[2018-05-30] MEDS: INSULIN ASPART 100 UNITS/ML 3 ML PEN SC SCH (21:31)
[2018-05-30] MEDS: NITROGLYCERIN 2% OINTMENT 30GM TUBE EXT SCH (21:49)
[2018-05-30] MEDS ORDERED: HEPARIN SOD 5000 UNIT/0.5 ML CARP SQ SCH (22:00)
[2018-05-30] MEDS: HEPARIN 25,000 UNIT/500ML D5W 500 ML IV SCH (22:48)
[2018-05-30] MEDS: LORAZEPAM 0.5 MG TAB PO PRN (23:14)
[2018-05-31] VITALS (10 sets, daily range): BP systolic 93–164; BP diastolic 58–81; PULSE 68–110; TEMP 36.4–37.9; O2SAT 90–94; Ht 172.7 cm; Wt 83.5 kg
[2018-05-31] MEDS: NITROGLYCERIN 2% OINTMENT 30GM TUBE EXT SCH ×5 (00:10→23:24)
[2018-05-31] MEDS ORDERED: METOPROLOL TARTRATE 1 MG/ML VIAL IV. SCH (04:00)
[2018-05-31 04:57] LABS: HEMATOCRIT 31.7 % (42-52); HEMOGLOBIN 10.2 g/dL (14.0-18.0); MEAN CELL VOLUME 93.5 fL (80-100); MEAN CORPUSCULAR HEMOGLOBIN 30.1 pg (25-34); MEAN CORPUSCULAR HGB CONC 32.2 g/dl (32-36); MEAN PLATELET VOLUME 9.7 fL (7.4-10.4); PLATELET COUNT 340 K/uL (130-400); RED CELL DISTRIBUTION WIDTH CV 21.8 % (11.5-14.5); RED CELL DISTRIBUTION WIDTH SD 72.2 fL (36.4-46.3); WHITE BLOOD COUNT 9.54 K/uL (4.8-10.8)
[2018-05-31 05:13] LABS: PTT PATIENT 44.9 SECONDS (21.0-31.0)
[2018-05-31 05:15] LABS: CALCIUM 8.2 mg/dl (8.5-10.1); CREATININE 1.07 mg/dl (0.60-1.40); POTASSIUM 5.5 mmol/L (3.5-5.1)
[2018-05-31] MEDS ORDERED: METOPROLOL TARTRATE 1 MG/ML VIAL IV PRN (06:00)
[2018-05-31] MEDS: HEPARIN 25,000 UNIT/500ML D5W 500 ML IV SCH ×3 (06:06→16:59)
[2018-05-31] MEDS: METOPROLOL TARTRATE 25 MG TAB PO SCH ×2 (06:11→21:00)
[2018-05-31] MEDS ORDERED: HEPARIN IV BOLUS 3,000 UNIT in SYRINGE 0 ML IV ONE (06:15)
[2018-05-31 06:16] LABS: HEMOGLOBIN A1C 7.5 % (4.5-5.6)
[2018-05-31] MEDS ORDERED: SODIUM POLYST. SULF SUSP 15G/60ML PO ONE (06:45)
[2018-05-31] MEDS ORDERED: MAGNESIUM SULFATE 1GM / D5W 100 ML IV ONE (06:45)
[2018-05-31] MEDS ORDERED: ONDANSETRON 8 MG TAB PO SCH ×2 (07:30→16:30)
--- NOTE | 2018-05-31 08:09 | DIAGNOSTIC IMAGING REPORT ---
CAROTID ARTERY ULTRASOUND CLINICAL HISTORY: Syncope. History of atherosclerosis. Previous left carotid endarterectomy. COMPARISON STUDY: None. TECHNIQUE: Real-time, grayscale, and color Doppler sonography of the carotid and vertebral arteries was performed. Images were viewed in the transverse and longitudinal planes. FINDINGS: There is extensive atherosclerotic plaque. Velocity measurements are listed below. COMMON CAROTID PEAK SYSTOLIC VELOCITY (CM/S): RIGHT 78 LEFT 120 ICA PEAK SYSTOLIC VELOCITY (CM/S): RIGHT 345 LEFT 154 Systolic ratio between the right internal to common carotid artery is elevated at 4.4. Systolic ratio between the left internal to common carotid artery is normal 1.3. Therefore, there is no evidence for a high-grade stenosis of the left internal carotid artery. Antegrade flow is seen in the vertebral arteries. The external carotid arteries are patent. Blood pressure could not be obtained in this patient due to IV. IMPRESSION: Extensive atherosclerotic plaque with findings suggestive of greater than 70% stenosis of the proximal right internal carotid artery. Electronically signed by: Tanner Becker M.D. 05/31/2018 8:08 AM Dictated Date/Time: 05/31/2018 8:04 AM
[2018-05-31] MEDS: CYANOCOBALAMIN 500 MCG TAB (VIT B-12) PO SCH (08:22)
[2018-05-31] MEDS: PYRIDOXINE HCL 50 MG TAB PO SCH (08:22)
[2018-05-31] MEDS: ASPIRIN 81 MG ECTAB PO SCH (08:22)
[2018-05-31] MEDS: DOXYCYCLINE HYCLATE 100 MG CAP PO SCH ×2 (08:22→21:34)
[2018-05-31] MEDS: CHOLECALCIFEROL 1000 INTER.UNIT TAB PO SCH (08:22)
[2018-05-31] MEDS: PANTOprazole SOD 40 MG TAB PO SCH (08:22)
[2018-05-31] MEDS: TOCOPHERYL, DL-ALPHA 400 INTER.UNIT CAP PO SCH (08:22)
[2018-05-31] MEDS: MAGNESIUM OXIDE 400 MG TAB PO SCH ×3 (08:22→21:33)
[2018-05-31] MEDS: OXYBUTYNIN CHLORIDE 5 MG TABCR PO SCH (08:22)
[2018-05-31] MEDS: TIMOLOL MALEATE 0.5% OP SOLN 5 ML BTL OPB SCH (08:23)
[2018-05-31] MEDS: INSULIN ASPART 100 UNITS/ML 3 ML PEN SC SCH ×4 (08:42→21:00)
[2018-05-31] MEDS: INSULIN GLARGINE SOLOSTAR 100 UNITS/ML 3 ML PEN SC SCH ×2 (08:43→21:39)
[2018-05-31] MEDS ORDERED: NURSING VERBAL MED ORDER ONE (08:45)
[2018-05-31 12:50] LABS: POTASSIUM 4.9 mmol/L (3.5-5.1)
[2018-05-31 13:28] LABS: PHOSPHORUS 4.3 mg/dl (2.5-4.9)
--- NOTE | 2018-05-31 14:06 | Cardiology Consultation ---
Cardiology Consultation Date of Service May 31, 2018. Cardiology Consultation Indication: Consultation for non-STEMI History: This is a 77-year-old male patient with a complex medical history. He has Tourette's syndrome. He is also an avid cigarette smoker with COPD and diffuse arteriosclerotic vascular disease. Recently he was diagnosed with bladder cancer and underwent local resection but is also receiving chemotherapy including [place]. He is status post carotid endarterectomy. 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 He had a ureteral stent placed which was recently removed. He received chemotherapy yesterday. He got up to go to the bathroom and suddenly had a syncopal event. He states that after that event he had mild chest discomfort that lasted through most of the day. He was admitted to the hospital yesterday. His troponins have peaked at 25. His admission EKG reveals lateral ST segment depressions. He is currently pain-free and has no current cardiac complaints during my evaluation. Allergies: No known medical allergies Reported Home Medications Medications Dose Route/Sig Max Daily Dose Days Date Category Compazine (Prochlorperazine Maleate) 10 Mg Tab 1 Tab PO Q6 PRN 7 05/30/18 Reported Ditropan Xl (Oxybutynin Chloride) 5 Mg Tab 1 Tab PO DAILY 30 05/30/18 Reported Prilosec (Omeprazole) 20 Mg Cap 20 Mg PO DAILY 05/30/18 Reported Magnesium (Magnesium Oxide (Mg Supplement) 250 Mg Tab 1 Tab PO TID 05/30/18 Reported Ativan (Lorazepam) 0.5 Mg Tab 0.5 Mg PO BID PRN 05/30/18 Reported Folic Acid 800 Mcg Tab 1 Tab PO DAILY 05/30/18 Reported Lipitor (Atorvastatin Calcium) 40 Mg Tab 1 Tab PO PM 05/30/18 Reported Ventolin Hfa (Albuterol) 200 Puffs/90297 Mcg Aers 2 Puffs INH Q4 05/30/18 Reported Timoptic (Timolol Maleate (Ophth)) 0.5 % Raya 1 Drop OPB QAM 05/30/18 Reported Oxygen Gas 1 Liter NA CONTINOUS 05/30/18 Reported Vitamin E 400 Unit Tab 1 Cap PO DAILY 04/10/18 Reported Vitamin D (Cholecalciferol) 1,000 Unit Tab 1 Tab PO DAILY 04/10/18 Reported Anoro Ellipta 62.5-25 Mcg/INH (Umeclidinium-Vilanterol) 1 Aer Aer 1 Puff INH DAILY 04/10/18 Reported Revatio (Sildenafil Citrate) 20 Mg Tab 1 Tab PO DAILY PRN 04/10/18 Reported Zofran (Ondansetron HCl) 8 Mg Tab 8 Mg PO TID PRN 04/10/18 Reported Lutein (Lutein-Zeaxanthin) 1 Cap Cap 20 Mg PO DAILY 04/10/18 Reported Vitamin B12 (Cyanocobalamin) 1,000 Mcg Tab 1,000 Mg PO DAILY 04/10/18 Reported Diprolene Af (Betamethasone Dipropionate Aug) 0.05 % Cre 1 Appln TOP BID 04/10/18 Reported Vitamin B6 (Pyridoxine HCl) 100 Mg Tab 100 Mg PO DAILY 04/28/11 Reported Past medical history: As outlined above the patient has been an avid smoker his whole life and has tobacco associated COPD. He has Tourette's syndrome. He has diffuse arteriosclerotic vascular disease and is status post carotid endarterectomy. Earlier this year he was found to have a penetrating ulcerated atheromatous plaque of his descending thoracic aorta felt medical management was indicated. He is also had a previous CT of the abdomen that shows a likely chronic dissection of the abdominal aorta. On the CT there is also evidence of calcium of the coronary arteries consistent with coronary artery disease. He has been treated for bladder cancer which when locally resected indicated invasion into the bladder muscle. He has been receiving chemotherapy including [place] which she received the morning of admission. Social history: The patient lives with his . He has a long smoking history Family history: Noncontributory Review of systems: The 10 point review of systems is negative except for the history of chief complaint Vital Signs Past 12 Hours Date Time Temp Pulse Resp B/P (MAP) Pulse Ox O2 Delivery O2 Flow Rate FiO2 05/31/18 12:30 36.8 84 16 117/64 (81) 94 Nasal Cannula 2.0 05/31/18 08:00 Nasal Cannula 2.0 05/31/18 07:36 36.5 68 16 101/58 (72) 90 Nasal Cannula 3.0 05/31/18 04:12 36.7 110 24 121/68 (85) 90 2.0 General Appearance: Alert and Oriented x3. NAD. Head: Normocephalic Atraumatic. Eyes: PERRLA, EOMI, conjunctiva and sclera clear Neck: Supple. No carotid bruits noted. No JVD. No HJD. Respiratory: Breath sounds clear to auscultation bilaterally. No w/r/r. Cardiovascular: Reg rate and rhythm. S1 and S2 noted. No murmurs, rubs, gallops. PMI non displace. Abdomen: Normal bowel sounds, soft nontender. no abdominal bruits. Extremities: No edema, no clubbing or cyanosis. distal pulses 2/4 bilaterally. Neuro: No focal deficits. Psychiatric: Normal affect. Last 24 Hours Test 05/30/18 20:12 05/30/18 21:24 05/31/18 01:06 05/31/18 04:49 Troponin I 0.580 ng/ml 9.600 ng/ml 12.900 ng/ml Bedside Glucose 227 mg/dl White Blood Count 9.54 K/uL Red Blood Count 3.39 M/uL Hemoglobin 10.2 g/dL Hematocrit 31.7 % Mean Corpuscular Volume 93.5 fL Mean Corpuscular Hemoglobin 30.1 pg Mean Corpuscular Hemoglobin Concent 32.2 g/dl RDW Standard Deviation 72.2 fL RDW Coefficient of Variation 21.8 % Platelet Count 340 K/uL Mean Platelet Volume 9.7 fL Activated Partial Thromboplast Time 44.9 SECONDS Partial Thromboplastin Ratio 1.7 Sodium Level 137 mmol/L Potassium Level 5.5 mmol/L Chloride Level 101 mmol/L Carbon Dioxide Level 32 mmol/L Anion Gap 4.0 mmol/L Blood Urea Nitrogen 23 mg/dl Creatinine 1.07 mg/dl Est Creatinine Clear Calc Drug Dose 63.4 ml/min Estimated GFR () 78.3 Estimated GFR (Non- 67.5 BUN/Creatinine Ratio 21.1 Random Glucose 116 mg/dl Estimated Average Glucose 169 mg/dl Hemoglobin A1c 7.5 % Calcium Level 8.2 mg/dl Magnesium Level 1.6 mg/dl Triglycerides Level 63 mg/dl Cholesterol Level 122 mg/dl HDL Cholesterol 63 mg/dl LDL Cholesterol, Calculated 46 mg/dl VLDL Cholesterol, Calculated 13 mg/dl Cholesterol/HDL Ratio 1.9 Test 05/31/18 08:29 05/31/18 11:46 05/31/18 12:02 Bedside Glucose 128 mg/dl 112 mg/dl Activated Partial Thromboplast Time 87.0 SECONDS Partial Thromboplastin Ratio 3.3 Potassium Level 4.9 mmol/L Phosphorus Level 4.3 mg/dl Magnesium Level 1.8 mg/dl Troponin I 24.500 ng/ml Impression: 1. Non-STEMI infarct 2. Severe diffuse arteriosclerotic vascular disease 3. Tobacco associated COPD 4. Bladder cancer Recommendations: The patient is complex. He has severe arteriosclerotic vascular disease and now has a recent infarct. He has significant aortic pathology as well as a previous carotid endarterectomy. He received [place] yesterday and I believe if we taken to the cardiac catheterization lab it would be potentially catastrophic to his kidneys. He is currently clinically stable and I believe that we should continue to treat him medically unless he becomes unstable.
--- NOTE | 2018-05-31 18:38 | Progress Note ---
Progress Note Date of Service May 31, 2018. Progress Note Subjective: Patient examined multiple times today and again at 6:30 PM. denies chest pain or shortness of breath. denies arm pain Physical Exam General Appearance: occasional grunts and shakes from history of Tourette syndrome Head: normocephalic, atraumatic Eyes: EOMI, ENT: hearing grossly normal, pharynx normal Neck: supple, trachea midline Respiratory/Chest: no respiratory distress, no accessory muscle use, good air entry, no wheezes Cardiovascular: regular rate Abdomen/GI: normal bowel sounds, non tender, soft Extremities/Musculoskelatal: no calf tenderness, normal capillary refill, no pedal edema, normal range of motion, Neurologic/Psych: alert, normal mood/affect, oriented x 3 Assessment and Plan Pt is 77 y/o M with PMH of bladder CA surgery and on current chemo, COPD oxygen dependent 1L O2, dyslipidemia, HTN, glaucoma, history of carotid atherosclerotic disease S/P left carotid endarterectomy, 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 Patient found to have NSTEMI -has been on heparin drip -cardiology has evaluated the patient and aware that troponin has been as high as 24.5 -however because of recent cis-[place] and other co-morbidities, cardiology service has opted for continue medical management with heparin drip -despite elevation in troponins patient currently denies chest pain -continue aspirin and statin and metoprolol Syncope may be from NSTEMI -currently asymptomatic HX ATHEROSCLEROTIC DISEASE Hx carotid artery atherosclerosis s/p L carotid endarterectomy Hx atherosclerosis disease aorta, possible aortic dissection Hx carotid u/s 11/2017: Internal carotid artery less than 50% stenosis, right internal coronary artery 50-69% stenosis (stable since 2014). -there is extensive atherosclerotic plaque with findings suggestive of greater than 70% stenosis of the proximal right internal carotid artery -would continue heparin drip at this time COPD CHRONIC HYPOXIC RESPIRATORY FAILURE On 1L oxygen [place] continuous -continue supplemental oxygen -continue home inhalers -Xopenex/Atrovent nebs prn Left ARM PAIN -Xray L shoulder, humerus, elbow, wrist no acute fracture. degenerative changes -pain controlled currently H/O BLADDER CA S/P SURGERY -On current chemo. Follows with Dr Franks oncology, Dr Corbett urology [place]. On cisplatin & gemcitabine, started 04/04/18 Hypomagnesemia -improving on oral magnesium Blood pressure controlled DM II HbA1c 7.5 -basal bolus insulin per protocol GERD -continue PPI TOBACCO ABUSE -smoking cessation counseling Tourette Syndrome -occasional grunts and shakes from history of Tourette syndrome DVT Prophylaxis
[2018-05-31 20:16] LABS: PTT PATIENT 62.6 SECONDS (21.0-31.0)
[2018-05-31] MEDS: CEFTRIAXONE SOD INJ 1 GM in DEXTROSE 5% ADD-VANTAGE 50ML 50 ML IV SCH (21:32)
[2018-05-31] MEDS: ATORVASTATIN 40 MG TAB PO SCH (21:33)
[2018-05-31] MEDS: LORAZEPAM 0.5 MG TAB PO PRN (21:33)
[2018-05-31] MEDS: ACETAMINOPHEN 325 MG TAB PO PRN (21:33)
[2018-05-31 21:43] LABS: HEMATOCRIT 28.3 % (42-52); HEMOGLOBIN 9.2 g/dL (14.0-18.0)
[2018-06-01] VITALS (11 sets, daily range): BP systolic 94–120; BP diastolic 55–70; PULSE 70–102; TEMP 36.3–37; O2SAT 90–93
[2018-06-01 05:22] LABS: HEMATOCRIT 30.5 % (42-52); HEMOGLOBIN 9.7 g/dL (14.0-18.0); MEAN CELL VOLUME 94.4 fL (80-100); MEAN PLATELET VOLUME 9.7 fL (7.4-10.4); PLATELET COUNT 298 K/uL (130-400); RED CELL DISTRIBUTION WIDTH CV 22.2 % (11.5-14.5); RED CELL DISTRIBUTION WIDTH SD 73.2 fL (36.4-46.3); WHITE BLOOD COUNT 9.14 K/uL (4.8-10.8)
[2018-06-01 05:34] LABS: MEAN CORPUSCULAR HGB CONC 31.8 g/dl (32-36)
[2018-06-01] MEDS: NITROGLYCERIN 2% OINTMENT 30GM TUBE EXT SCH ×4 (05:46→23:32)
[2018-06-01 06:01] LABS: CALCIUM 8.1 mg/dl (8.5-10.1); CREATININE 1.2 mg/dl (0.60-1.40); POTASSIUM 4.6 mmol/L (3.5-5.1); TOTAL PROTEIN 7.1 gm/dl (6.4-8.2)
[2018-06-01 06:03] LABS: PTT PATIENT 68.6 SECONDS (21.0-31.0)
[2018-06-01] MEDS: HEPARIN 25,000 UNIT/500ML D5W 500 ML IV SCH ×2 (06:14→12:21)
[2018-06-01] MEDS: ONDANSETRON 4 MG TAB PO SCH ×2 (08:29→16:52)
[2018-06-01] MEDS: METOPROLOL TARTRATE 25 MG TAB PO SCH ×2 (08:30→21:00)
[2018-06-01] MEDS: CHOLECALCIFEROL 1000 INTER.UNIT TAB PO SCH (08:30)
[2018-06-01] MEDS: CYANOCOBALAMIN 500 MCG TAB (VIT B-12) PO SCH (08:30)
[2018-06-01] MEDS: OXYBUTYNIN CHLORIDE 5 MG TABCR PO SCH (08:30)
[2018-06-01] MEDS: TOCOPHERYL, DL-ALPHA 400 INTER.UNIT CAP PO SCH (08:30)
[2018-06-01] MEDS: PANTOprazole SOD 40 MG TAB PO SCH (08:30)
[2018-06-01] MEDS: MAGNESIUM OXIDE 400 MG TAB PO SCH ×3 (08:31→21:18)
[2018-06-01] MEDS: DOXYCYCLINE HYCLATE 100 MG CAP PO SCH ×2 (08:31→21:19)
[2018-06-01] MEDS: PYRIDOXINE HCL 50 MG TAB PO SCH (08:31)
[2018-06-01] MEDS: ASPIRIN 81 MG ECTAB PO SCH (08:31)
[2018-06-01] MEDS: UMECLIDINIUM VILANTEROL INH SCH (08:32)
[2018-06-01] MEDS: TIMOLOL MALEATE 0.5% OP SOLN 5 ML BTL OPB SCH (08:32)
[2018-06-01] MEDS: INSULIN GLARGINE SOLOSTAR 100 UNITS/ML 3 ML PEN SC SCH ×2 (08:40→21:06)
[2018-06-01] MEDS: INSULIN ASPART 100 UNITS/ML 3 ML PEN SC SCH ×4 (08:40→21:00)
[2018-06-01] MEDS ORDERED: CLOPIDOGREL BISULFATE 75 MG TAB PO ONE (11:00)
--- NOTE | 2018-06-01 11:00 | Cardiology Follow-Up ---
Subjective Subjective Date of Service: Jun 01, 2018. Pt evaluation today including: conversation w/ patient, conversation w/ family , physical exam, chart review, lab review, review of studies, conversation w/ sr solutions consultant Additional Details: The patient has had no additional chest pain. He has no new cardiac complaints today. He does have some darkened urine but no rip blood. Problem List Medical Problems: (1) Acute electrocardiogram changes Status: Acute (2) Elevated troponin Status: Acute (3) Syncope Status: Acute Objective Vital Signs Last Vital Signs Documentation Date Time Temp Pulse Resp B/P (MAP) Pulse Ox O2 Delivery O2 Flow Rate FiO2 06/01/18 08:00 Nasal Cannula 2.0 06/01/18 07:05 36.8 98 20 115/65 (82) 92 Physical Exam: General Appearance: no apparent distress ENT: normal ENT inspection Neck: no adenopathy, thyroid normal, no JVD Respiratory/Chest: no respiratory distress, no accessory muscle use, + wheezing Cardiovascular: regular rate, rhythm, no JVD, no murmur Abdomen: normal bowel sounds, non tender, soft, no organomegaly Extremities: normal range of motion, non-tender, normal inspection Neurologic/Psychiatric: activity therapy teacher II-XII nml as tested, no motor/sensory deficits, alert Skin: normal color, warm/dry, no rash Lymphatic: no adenopathy Assessment and Plan Impression: 1. Non-STEMI infarct 2. Severe diffuse arteriosclerotic vascular disease 3. Tobacco associated COPD 4. Bladder cancer receiving systemic chemotherapy Recommendations: As outlined previously I believe we should try to treat him medically. So far he has remained stable with no additional chest pain. His echocardiogram shows preserved left ventricular function and no serious wall motion abnormalities. He continues on IV heparin and aspirin. He stated that he did have some dark urine this morning but does not describe blood. This is certainly going to be a concern and we may have to stop anticoagulation. I will put him on Plavix 75 mg daily along with the heparin and aspirin for now. If he starts to have hematuria then we may have to reconsider our antiplatelet therapy. Medications: Current Inpatient Medications Medications (Trade) Dose Ordered Sig/Zakiya Route Start Time Stop Time Status Last Admin Dose Admin Ioversol (Optiray 320) 111 ml UD PRN IV 05/30/18 17:15 06/03/18 17:14 Acetaminophen (Tylenol Tab) 650 mg Q4H PRN PO 05/30/18 18:30 06/29/18 18:29 05/31/18 21:33 650 MG Ondansetron HCl (Zofran Inj) 4 mg Q6H PRN IV 05/30/18 18:30 06/29/18 18:29 Nitroglycerin (Nitroglycerin 2% Oint) 1 inch Q6 EXT 05/30/18 18:30 06/29/18 18:29 06/01/18 05:46 1 INCH Aspirin (Ecotrin Tab) 81 mg QAM PO 05/31/18 09:00 06/30/18 08:59 06/01/18 08:31 81 MG Atorvastatin Calcium (Lipitor Tab) 40 mg PM PO 05/30/18 21:00 06/29/18 20:59 05/31/18 21:33 40 MG Cholecalciferol (Vitamin D Tab) 1,000 inter.unit DAILY PO 05/31/18 09:00 06/30/18 08:59 06/01/18 08:30 1,000 INTER.UNIT Lorazepam (Ativan Tab) 0.5 mg BID PRN PO 05/30/18 19:00 06/29/18 18:59 05/31/18 21:33 0.5 MG Oxybutynin Chloride (Ditropan-Xl Tab) 5 mg DAILY PO 05/31/18 09:00 06/30/18 08:59 06/01/18 08:30 5 MG Prochlorperazine Maleate (Compazine Tab) 10 mg Q6 PRN PO 05/30/18 19:00 06/29/18 18:59 05/31/18 21:56 10 MG Pyridoxine HCl (Vitamin B-6 Tab) 100 mg DAILY PO 05/31/18 09:00 06/30/18 08:59 06/01/18 08:31 100 MG Timolol Maleate (Timoptic 0.5% Oph Soln) 1 drops QAM OPB 05/31/18 09:00 06/30/18 08:59 06/01/18 08:32 1 DROPS Cyanocobalamin (Vitamin B-12 Tab) 1,000 mcg DAILY PO 05/31/18 09:00 06/30/18 08:59 06/01/18 08:30 1,000 MCG Folic Acid (Folvite Tab) 1 mg DAILY PO 05/31/18 09:00 06/30/18 08:59 06/01/18 08:30 1 MG Magnesium Oxide (Mag-Ox Tab) 400 mg TID PO 05/30/18 21:00 06/29/18 20:59 06/01/18 08:31 400 MG Pantoprazole Sodium (Protonix Tab) 40 mg DAILY PO 05/31/18 09:00 06/30/18 08:59 06/01/18 08:30 40 MG eo-[id number]-[id number] Acetate (Vitamin E Cap) 400 interunit DAILY PO 05/31/18 09:00 06/30/18 08:59 06/01/18 08:30 400 INTERUNIT Insulin Glargine (Lantus Solostar Pen) 5 units Q12 SC 05/30/18 21:00 06/29/18 20:59 Future hold 06/01/18 08:40 5 UNITS Insulin Aspart (novoLOG ASPART) SLIDING SCALE If C... ACHS SC 05/30/18 21:00 06/29/18 20:59 06/01/18 08:40 9 UNITS Glucose (Glucose 40% Gel) 15-30 GRAMS 15 GRAMS... UD PRN PO 05/30/18 19:15 06/29/18 19:14 Glucose (Glucose Chew Tab) 4-8 Tablets 4 Tabl... UD PRN PO 05/30/18 19:15 06/29/18 19:14 Dextrose (Dextrose 50% 50ML Syringe) 25-50ML 25ML FOR ... UD PRN IV 05/30/18 19:15 06/29/18 19:14 Glucagon (Glucagon Inj) 1 mg UD PRN SQ 05/30/18 19:15 06/29/18 19:14 Carbohydrates (Carbohydrates For Hypoglycemia) 15-30 GRAMS 15 grams if BSG 54-69... UD PRN PO 05/30/18 19:15 06/29/18 19:14 Ipratropium [place] (Atrovent 0.02% 0.5MG/2.5ML Neb) 0.5 mg Q6R PRN INH 05/30/18 19:30 06/29/18 19:29 Levalbuterol (Xopenex 1.25MG/ 0.5ML Neb) 1.25 mg Q6R PRN INH 05/30/18 19:30 06/29/18 19:29 Ceftriaxone Sodium 1 gm/ Dextrose 50 ml @ 100 mls/hr Q24H IV 05/30/18 21:00 06/06/18 20:59 05/31/18 21:32 100 MLS/HR Doxycycline Hyclate (Vibramycin Cap) 100 mg BID PO 05/30/18 21:00 06/06/18 20:59 06/01/18 08:31 100 MG Morphine Sulfate (MoRPHine SULFATE INJ) 2 mg Q2HWA PRN IV 05/30/18 21:30 06/13/18 21:29 Heparin Sodium/ Dextrose 500 ml @ 27 mls/hr [id number] IV 05/30/18 22:00 06/29/18 21:59 06/01/18 06:14 27 MLS/HR Metoprolol Tartrate (Lopressor Iv) 2.5 mg Q6H PRN IV 05/31/18 06:00 06/30/18 03:59 Metoprolol Tartrate (Lopressor Tab) 25 mg BID PO 05/31/18 05:45 06/30/18 05:44 06/01/18 08:30 25 MG Ondansetron HCl (Zofran Tab) 4 mg BID@0730,1630 PO 06/01/18 07:30 07/01/18 07:29 06/01/18 08:29 4 MG Prochlorperazine Maleate (Compazine Tab) 5 mg HS PO 06/01/18 21:00 07/01/18 20:59 Clopidogrel Bisulfate (plAVix TAB) 75 mg QAM PO 06/02/18 09:00 07/02/18 08:59 Clopidogrel Bisulfate (plAVix TAB) 75 mg NOW ONCE PO 06/01/18 11:00 06/01/18 11:01 Lab Results: Last 24 Hours Test 05/31/18 11:46 05/31/18 12:02 05/31/18 16:35 05/31/18 19:18 Bedside Glucose 112 mg/dl 139 mg/dl Activated Partial Thromboplast Time 87.0 SECONDS 62.6 SECONDS Partial Thromboplastin Ratio 3.3 2.4 Potassium Level 4.9 mmol/L Phosphorus Level 4.3 mg/dl Magnesium Level 1.8 mg/dl Troponin I 24.500 ng/ml 11.400 ng/ml Test 05/31/18 20:38 05/31/18 21:19 06/01/18 05:05 06/01/18 07:25 Bedside Glucose 121 mg/dl 117 mg/dl Hemoglobin 9.2 g/dL 9.7 g/dL Hematocrit 28.3 % 30.5 % White Blood Count 9.14 K/uL Red Blood Count 3.23 M/uL Mean Corpuscular Volume 94.4 fL Mean Corpuscular Hemoglobin 30.0 pg Mean Corpuscular Hemoglobin Concent 31.8 g/dl RDW Standard Deviation 73.2 fL RDW Coefficient of Variation 22.2 % Platelet Count 298 K/uL Mean Platelet Volume 9.7 fL Activated Partial Thromboplast Time 68.6 SECONDS Partial Thromboplastin Ratio 2.6 Sodium Level 136 mmol/L Potassium Level 4.6 mmol/L Chloride Level 97 mmol/L Carbon Dioxide Level 35 mmol/L Anion Gap 4.0 mmol/L Blood Urea Nitrogen 28 mg/dl Creatinine 1.20 mg/dl Est Creatinine Clear Calc Drug Dose 55.6 ml/min Estimated GFR () 68.1 Estimated GFR (Non- 58.8 BUN/Creatinine Ratio 23.5 Random Glucose 100 mg/dl Calcium Level 8.1 mg/dl Total Bilirubin 0.3 mg/dl Aspartate Amino Transf (AST/SGOT) 103 U/L Alanine Aminotransferase (ALT/SGPT) 57 U/L Alkaline Phosphatase 80 U/L Total Protein 7.1 gm/dl Albumin 3.0 gm/dl Globulin 4.1 gm/dl Albumin/Globulin Ratio 0.7
[2018-06-01] MEDS: ALBUTEROL HFA 8 GM INHALER INH SCH ×3 (13:28→21:09)
--- NOTE | 2018-06-01 17:45 | Progress Note ---
Progress Note Date of Service Jun 01, 2018. Progress Note Subjective: Patient examined. Denies chest pain or shortness of breath or arm pain. Has hematuria Physical Exam General Appearance: occasional grunts and shakes from history of Tourette syndrome Head: normocephalic, atraumatic Eyes: EOMI, ENT: hearing grossly normal, pharynx normal Neck: supple, trachea midline Respiratory/Chest: no respiratory distress, no accessory muscle use, good air entry, no wheezes Cardiovascular: regular rate Abdomen/GI: normal bowel sounds, non tender, soft Extremities/Musculoskelatal: no calf tenderness, normal capillary refill, no pedal edema, normal range of motion, Neurologic/Psych: alert, normal mood/affect, oriented x 3 Assessment and Plan Pt is 77 y/o M with PMH of bladder CA surgery and on current chemo, COPD oxygen dependent 1L O2, dyslipidemia, HTN, glaucoma, history of carotid atherosclerotic disease S/P left carotid endarterectomy, 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 Patient found to have NSTEMI -has been on heparin drip for medical management as was evaluated by cardiology -patient has hematuria while on heparin drip -will discontinue heparin drip by tomorrow AM to ensure 48 hour of therapeutic heparinization -cardiology started patient on plavix -continue aspirin and statin and metoprolol Syncope may be from NSTEMI -currently asymptomatic HX ATHEROSCLEROTIC DISEASE Hx carotid artery atherosclerosis s/p L carotid endarterectomy Hx atherosclerosis disease aorta, possible aortic dissection Hx carotid u/s 11/2017: Internal carotid artery less than 50% stenosis, right internal coronary artery 50-69% stenosis (stable since 2014). -there is extensive atherosclerotic plaque with findings suggestive of greater than 70% stenosis of the proximal right internal carotid artery -would continue heparin drip at this time Left ARM PAIN -Xray L shoulder, humerus, elbow, wrist no acute fracture. degenerative changes -pain controlled currently COPD CHRONIC HYPOXIC RESPIRATORY FAILURE On 1L oxygen [place] continuous -continue supplemental oxygen -continue home inhalers -Xopenex/Atrovent nebs prn H/O bladder cancer and bladder surgery -Follows with Dr. Lonny Franks oncology, Dr Corbett urology [place] - has been previously on cisplatin & gemcitabine which was started 04/04/18 -has hematuria likely provoked by anticoagulation, would trend CBC Anemia /Hematuria -has chronic anemia, would monitor CBC with hematuria Hypomagnesemia -improving on oral magnesium Blood pressure controlled DM II HbA1c 7.5 -basal bolus insulin per protocol GERD -continue PPI TOBACCO ABUSE -smoking cessation counseling Tourette Syndrome -occasional grunts and shakes from history of Tourette syndrome DVT Prophylaxis: on heparin drip, will order SCDs once off heparin drip
[2018-06-01] MEDS ORDERED: PROCHLORPERAZINE MALEATE 5 MG TAB PO SCH (21:00)
[2018-06-01] MEDS: CEFTRIAXONE SOD INJ 1 GM in DEXTROSE 5% ADD-VANTAGE 50ML 50 ML IV SCH (21:09)
[2018-06-01] MEDS: ATORVASTATIN 40 MG TAB PO SCH (21:18)
[2018-06-02] VITALS: O2SAT 91
[2018-06-02 00:26] VITALS: BP 102/60; PULSE 75; TEMP 36.9; O2SAT 92
[2018-06-02] MEDS ORDERED: *HEPARIN DRIP*STOP ORDER ONE (01:00)
[2018-06-02 04:30] LABS: HEMATOCRIT 27.3 % (42-52); HEMOGLOBIN 8.6 g/dL (14.0-18.0); MEAN CELL VOLUME 94.1 fL (80-100); MEAN CORPUSCULAR HEMOGLOBIN 29.7 pg (25-34); MEAN CORPUSCULAR HGB CONC 31.5 g/dl (32-36); MEAN PLATELET VOLUME 9.8 fL (7.4-10.4); PLATELET COUNT 230 K/uL (130-400); RED CELL DISTRIBUTION WIDTH CV 21.5 % (11.5-14.5); RED CELL DISTRIBUTION WIDTH SD 71.2 fL (36.4-46.3)
[2018-06-02 04:39] LABS: PTT PATIENT 27.7 SECONDS (21.0-31.0)
[2018-06-02] MEDS: NITROGLYCERIN 2% OINTMENT 30GM TUBE EXT SCH ×2 (05:42→12:00)
[2018-06-02 06:57] VITALS: PULSE 95; TEMP 36.9; O2SAT 95
[2018-06-02] MEDS: ONDANSETRON 4 MG TAB PO SCH (07:26)
[2018-06-02] MEDS: TIMOLOL MALEATE 0.5% OP SOLN 5 ML BTL OPB SCH (08:04)
[2018-06-02] MEDS: DOXYCYCLINE HYCLATE 100 MG CAP PO SCH (08:04)
[2018-06-02] MEDS: ALBUTEROL HFA 8 GM INHALER INH SCH ×2 (08:04→12:00)
[2018-06-02] MEDS: UMECLIDINIUM VILANTEROL INH SCH (08:04)
[2018-06-02] MEDS: ASPIRIN 81 MG ECTAB PO SCH (08:05)
[2018-06-02] MEDS: METOPROLOL TARTRATE 25 MG TAB PO SCH (08:05)
[2018-06-02] MEDS: CYANOCOBALAMIN 500 MCG TAB (VIT B-12) PO SCH (08:05)
[2018-06-02] MEDS: MAGNESIUM OXIDE 400 MG TAB PO SCH (08:06)
[2018-06-02] MEDS: TOCOPHERYL, DL-ALPHA 400 INTER.UNIT CAP PO SCH (08:06)
[2018-06-02] MEDS: PYRIDOXINE HCL 50 MG TAB PO SCH (08:06)
[2018-06-02] MEDS: INSULIN GLARGINE SOLOSTAR 100 UNITS/ML 3 ML PEN SC SCH (08:15)
[2018-06-02] MEDS: INSULIN ASPART 100 UNITS/ML 3 ML PEN SC SCH ×2 (08:15→12:00)
[2018-06-02 08:25] VITALS: BP 111/75; PULSE 88; TEMP 36.5; O2SAT 90
[2018-06-02] MEDS: PANTOprazole SOD 40 MG TAB PO SCH (08:36)
[2018-06-02] MEDS: OXYBUTYNIN CHLORIDE 5 MG TABCR PO SCH (08:36)
[2018-06-02] MEDS: CHOLECALCIFEROL 1000 INTER.UNIT TAB PO SCH (08:36)
[2018-06-02] MEDS ORDERED: CLOPIDOGREL BISULFATE 75 MG TAB PO SCH (09:00)
--- NOTE | 2018-06-02 11:24 | Progress Note ---
Internal Med Progress Note Date of Service: Jun 02, 2018. Provider Documentation: Subjective: Patient examined. Denies chest pain or shortness of breath or arm pain. Has hematuria but reports that the urine is more clear since being off the heparin drip Physical Exam General Appearance: occasional grunts and shakes from history of Tourette syndrome Head: normocephalic, atraumatic Eyes: EOMI, ENT: hearing grossly normal, pharynx normal Neck: supple, trachea midline Respiratory/Chest: no respiratory distress, no accessory muscle use, good air entry, no wheezes Cardiovascular: regular rate Abdomen/GI: normal bowel sounds, non tender, soft Extremities/Musculoskelatal: no calf tenderness, normal capillary refill, no pedal edema, normal range of motion, Neurologic/Psych: alert, normal mood/affect, oriented x 3 ASSESSMENT & PLAN: Hospital Course and Plans Pt is 77 y/o M with PMH of bladder CA surgery and on current chemo, COPD oxygen dependent 1L O2, dyslipidemia, HTN, glaucoma, history of carotid atherosclerotic disease S/P left carotid endarterectomy, 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 Patient found to have NSTEMI (non ST elevation myocardial infarction) -troponin peaked at 24.5 -evaluated by cardiology service -echocardiogram shows preserved left ventricular function and no serious wall motion abnormalities. -patient completed 48 hours of heparin drip for medical management of NSTEMI -cardiology started patient on clopidogrel, also to be discharged with aspirin and statin and metoprolol Syncope may be from NSTEMI -currently asymptomatic HX ATHEROSCLEROTIC DISEASE Hx carotid artery atherosclerosis s/p L carotid endarterectomy Hx atherosclerosis disease aorta, possible aortic dissection Hx carotid u/s 11/2017: Internal carotid artery less than 50% stenosis, right internal coronary artery 50-69% stenosis (stable since 2014). -there is extensive atherosclerotic plaque with findings suggestive of greater than 70% stenosis of the proximal right internal carotid artery -completed heparin drip during the hospital course Left ARM PAIN -Xray L shoulder, humerus, elbow, wrist no acute fracture. degenerative changes -pain controlled currently COPD CHRONIC HYPOXIC RESPIRATORY FAILURE On 1L oxygen [place] continuous -continue supplemental oxygen -was empirically given antibiotics for bronchitis but antibiotics can be stopped on discahrge -continue home inhalers / bronchodilators H/O bladder cancer and bladder surgery -Follows with Dr. Lonny Franks oncology, Dr Corbett urology [place] - has been previously on cisplatin & gemcitabine which was started 04/04/18 -has hematuria likely provoked by anticoagulation -patient would need to have outpatient repeat CBC Anemia /Hematuria -has chronic anemia, patient would need to have outpatient repeat CBC Hypomagnesemia -has been treated with supplements Blood pressure controlled DM II HbA1c 7.5 -discharge with metformin GERD -continue PPI TOBACCO USE -smoking cessation encouraged Tourette Syndrome -occasional grunts and shakes from history of Tourette syndrome Discharge to home Patient will have new medication prescription of aspirin daily, clopidogrel daily, metoprolol twice a day, and continue atorvastatin for heart health Patient also with new medication prescription of metformin daily for Diabetes Patient should have follow up appointments to these clinic appointments as below. Patient should have outpatient CBC lab checked to follow up the hematuria Upcoming appointments 06/06/2018 8:45 AM Lab [facility] 06/06/2018 9:45 AM Chair 5 Hem Onc [facility] Hematology/Oncology Treatment, [place] 06/08/2018 1:00 PM Donal Crabtree MD General Internal Medicine [facility] 06/15/2018 10:00 AM Jung Gallardo DO Cardiology, [facility] Vital Signs: Date Time Temp Pulse Resp B/P (MAP) Pulse Ox O2 Delivery O2 Flow Rate FiO2 06/02/18 11:40 36.5 88 16 90 Nasal Cannula 06/02/18 08:25 36.5 88 16 111/75 (87) 90 Nasal Cannula 3.0 06/02/18 08:00 Nasal Cannula 2.0 06/02/18 06:57 36.9 95 20 95 Nasal Cannula 2.0 06/02/18 00:26 36.9 75 18 102/60 (74) 92 Nasal Cannula 3.0 06/02/18 00:00 91 Nasal Cannula 2.0 06/01/18 21:14 90 95/57 (70) 90 06/01/18 19:17 36.9 79 18 96/58 (71) 91 Nasal Cannula 3.0 06/01/18 19:16 37.0 78 16 102/58 (73) 93 Nasal Cannula 3.0 83 99 06/01/18 18:20 78 102/58 (73) 06/01/18 16:00 90 Nasal Cannula 2.5 06/01/18 14:52 37.0 70 16 101/63 (87) 93 Nasal Cannula 3.0 Lab Results: Results Past 24 Hours Test 06/01/18 16:49 06/01/18 20:55 06/02/18 04:14 06/02/18 07:28 Range/Units Bedside Glucose 105 116 97 70-99 mg/dl White Blood Count 6.20 4.8-10.8 K/uL Red Blood Count 2.90 4.7-6.1 M/uL Hemoglobin 8.6 14.0-18.0 g/dL Hematocrit 27.3 42-52 % Mean Corpuscular Volume 94.1 80-100 fL Mean Corpuscular Hemoglobin 29.7 25-34 pg Mean Corpuscular Hemoglobin Concent 31.5 32-36 g/dl RDW Standard Deviation 71.2 36.4-46.3 fL RDW Coefficient of Variation 21.5 11.5-14.5 % Platelet Count 230 130-400 K/uL Mean Platelet Volume 9.8 7.4-10.4 fL Activated Partial Thromboplast Time 27.7 21.0-31.0 SECONDS Partial Thromboplastin Ratio 1.1
[2018-06-02] MEDS ORDERED: ASPI-461 PO (11:35)
[2018-06-02] MEDS ORDERED: LPR25 PO (11:35)
[2018-06-02] MEDS ORDERED: PLV75 PO (11:35)
[2018-06-02] MEDS ORDERED: GLC500 OR (11:37)
[2018-06-02 11:40] VITALS: BP 111/75; PULSE 88; TEMP 36.5; O2SAT 90
--- NOTE | 2018-06-02 11:57 | Discharge Instructions ---
Discharge Instructions Date of Service Jun 02, 2018. Admission Reason for Admission: Elevated Troponin,Syncope Discharge Discharge Diagnosis / Problem: NSTEMI, syncope, diabetes mellitus type 2, hematuria Discharge Goals Goal(s): Improve function, Improve disease control Activity Recommendations Activity Limitations: per Instructions/Follow-up section . 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 Patient found to have NSTEMI (non ST elevation myocardial infarction) -troponin peaked at 24.5 -evaluated by cardiology service -echocardiogram shows preserved left ventricular function and no serious wall motion abnormalities. -patient completed 48 hours of heparin drip for medical management of NSTEMI -cardiology started patient on clopidogrel, also to be discharged with aspirin and statin and metoprolol Syncope may be from NSTEMI -currently asymptomatic HX ATHEROSCLEROTIC DISEASE Hx carotid artery atherosclerosis s/p L carotid endarterectomy Hx atherosclerosis disease aorta, possible aortic dissection Hx carotid u/s 11/2017: Internal carotid artery less than 50% stenosis, right internal coronary artery 50-69% stenosis (stable since 2014). -there is extensive atherosclerotic plaque with findings suggestive of greater than 70% stenosis of the proximal right internal carotid artery -completed heparin drip during the hospital course Left ARM PAIN -Xray L shoulder, humerus, elbow, wrist no acute fracture. degenerative changes -pain controlled currently COPD CHRONIC HYPOXIC RESPIRATORY FAILURE On 1L oxygen [place] continuous -continue supplemental oxygen -was empirically given antibiotics for bronchitis but antibiotics can be stopped on discahrge -continue home inhalers / bronchodilators H/O bladder cancer and bladder surgery -Follows with Dr. Lonny Franks oncology, Dr Corbett urology [place] - has been previously on cisplatin & gemcitabine which was started 04/04/18 -has hematuria likely provoked by anticoagulation -patient would need to have outpatient repeat CBC Anemia /Hematuria -has chronic anemia, patient would need to have outpatient repeat CBC Hypomagnesemia -has been treated with supplements Blood pressure controlled DM II HbA1c 7.5 -discharge with metformin GERD -continue PPI TOBACCO USE -smoking cessation encouraged Tourette Syndrome -occasional grunts and shakes from history of Tourette syndrome Discharge to home Patient will have new medication prescription of aspirin daily, clopidogrel daily, metoprolol twice a day, and continue atorvastatin for heart health Patient also with new medication prescription of metformin daily for Diabetes Patient should have follow up appointments to these clinic appointments as below. Patient should have outpatient CBC lab checked to follow up the hematuria Upcoming appointments 06/06/2018 8:45 AM Lab [facility] Laboratory [facility] 06/06/2018 9:45 AM Chair 5 Hem Onc [facility] Hematology/Oncology Treatment, [place] 06/08/2018 1:00 PM Donal Crabtree MD General Internal Medicine [facility] 06/15/2018 10:00 AM Jung Gallardo DO Cardiology, [facility] Current Hospital Diet Patient's current hospital diet: AHA Diet (Heart Healthy), Diabetes Type 2 Diet Discharge Diet Recommended Diet: Diabetes Type 2 Diet Pending Studies Studies pending at discharge: no Laboratory Results 06/02/18 04:14 06/01/18 05:05 Test 05/30/18 13:40 05/31/18 04:49 05/31/18 12:02 05/31/18 19:18 Immature Granulocyte % (Auto) 1.0 % White Blood Count 6.75 K/uL (4.8-10.8) Red Blood Count 3.54 M/uL (4.7-6.1) Hemoglobin 10.4 g/dL (14.0-18.0) Hematocrit 33.0 % (42-52) Mean Corpuscular Volume 93.2 fL (80-100) Mean Corpuscular Hemoglobin 29.4 pg (25-34) Mean Corpuscular Hemoglobin Concent 31.5 g/dl (32-36) Platelet Count 423 K/uL (130-400) Mean Platelet Volume 10.0 fL (7.4-10.4) Neutrophils (%) (Auto) 73.6 % Lymphocytes (%) (Auto) 16.1 % Monocytes (%) (Auto) 4.9 % Eosinophils (%) (Auto) 4.0 % Basophils (%) (Auto) 0.4 % Neutrophils # (Auto) 4.96 K/uL (1.4-6.5) Lymphocytes # (Auto) 1.09 K/uL (1.2-3.4) Monocytes # (Auto) 0.33 K/uL (0.11-0.59) Eosinophils # (Auto) 0.27 K/uL (0-0.5) Basophils # (Auto) 0.03 K/uL (0-0.2) Immature Granulocyte # (Auto) 0.07 K/uL (0.00-0.02) Polychromasia 1+ Anisocytosis PRESENT Spherocytes 1+ Stomatocytes 1+ Prothrombin Time 10.1 SECONDS (9.0-12.0) Prothromb Time International Ratio 1.0 (0.9-1.1) Urine Color YELLOW Urine Appearance CLEAR (CLEAR) Urine pH 7.0 (4.5-7.5) Urine Specific [place] 1.009 (1.000-1.030) Urine Protein NEG (NEG) Urine Glucose (UA) TRACE (NEG) Urine Ketones NEG (NEG) Urine Occult Blood TRACE (NEG) Urine Nitrite NEG (NEG) Urine Bilirubin NEG (NEG) Urine Urobilinogen NEG (NEG) Urine Leukocyte Esterase TRACE (NEG) Urine WBC (Auto) 5-10 /hpf (0-5) Urine RBC (Auto) 0-4 /hpf (0-4) Urine Hyaline Casts (Auto) 1-5 /lpf (0-5) Urine Epithelial Cells (Auto) 0-5 /lpf (0-5) Urine Bacteria (Auto) NEG (NEG) Direct Bilirubin < 0.1 mg/dl (0-0.2) Thyroid Stimulating Hormone (TSH) 1.330 uIu/ml (0.300-4.500) Estimated Average Glucose 169 mg/dl Hemoglobin A1c 7.5 % (4.5-5.6) Triglycerides Level 63 mg/dl (0-150) Cholesterol Level 122 mg/dl (0-200) HDL Cholesterol 63 mg/dl LDL Cholesterol, Calculated 46 mg/dl VLDL Cholesterol, Calculated 13 mg/dl Cholesterol/HDL Ratio 1.9 Phosphorus Level 4.3 mg/dl (2.5-4.9) Magnesium Level 1.8 mg/dl (1.8-2.4) Troponin I 11.400 ng/ml (0-0.045) Test 06/01/18 05:05 06/02/18 04:14 06/02/18 07:28 Anion Gap 4.0 mmol/L (3-11) Est Creatinine Clear Calc Drug Dose 55.6 ml/min Estimated GFR () 68.1 Estimated GFR (Non- 58.8 BUN/Creatinine Ratio 23.5 (10-20) Calcium Level 8.1 mg/dl (8.5-10.1) Total Bilirubin 0.3 mg/dl (0.2-1) Aspartate Amino Transf (AST/SGOT) 103 U/L (15-37) Alanine Aminotransferase (ALT/SGPT) 57 U/L (12-78) Alkaline Phosphatase 80 U/L (45-117) Total Protein 7.1 gm/dl (6.4-8.2) Albumin 3.0 gm/dl (3.4-5.0) Globulin 4.1 gm/dl (2.5-4.0) Albumin/Globulin Ratio 0.7 (0.9-2) Red Blood Count 2.90 M/uL (4.7-6.1) Mean Corpuscular Volume 94.1 fL (80-100) Mean Corpuscular Hemoglobin 29.7 pg (25-34) Mean Corpuscular Hemoglobin Concent 31.5 g/dl (32-36) RDW Standard Deviation 71.2 fL (36.4-46.3) RDW Coefficient of Variation 21.5 % (11.5-14.5) Mean Platelet Volume 9.8 fL (7.4-10.4) Activated Partial Thromboplast Time 27.7 SECONDS (21.0-31.0) Partial Thromboplastin Ratio 1.1 Bedside Glucose 97 mg/dl (70-99) Hemoglobin A1c Test 05/31/18 04:49 Range/Units Estimated Average Glucose 169 mg/dl Hemoglobin A1c 7.5 H 4.5-5.6 % Lipid Panel Test 05/31/18 04:49 Range/Units Triglycerides Level 63 0-150 mg/dl Cholesterol Level 122 0-200 mg/dl HDL Cholesterol 63 mg/dl Cholesterol/HDL Ratio 1.9 LDL Cholesterol, Calculated 46 mg/dl Medical Emergencies . Who to Call and When: Medical Emergencies: If at any time you feel your situation is an emergency, please call 911 immediately. . Non-Emergent Contact Non-Emergency issues call your: Primary Care Provider, Frontload Driver, Oncologist Call Non-Emergent contact if: you have any medication questions . . "Provider Documentation" section prepared by Phu Travis. .
--- NOTE | 2018-06-02 11:59 | Discharge Summary ---
Discharge Summary Date of Service Jun 02, 2018. Discharge Summary Admission Date: May 30, 2018 at 18:20 Discharge Date: Jun 02, 2018 Discharge Disposition: Home Principal Diagnosis: NSTEMI (non ST elevation myocardial infarction), syncope, diabetes mellitus type 2, hematuria secondary to heparin Secondary Diagnoses/Problems: bladder cancer on recent chemotherapy, hypomagnesemia COPD history and oxygen dependent carotid atherosclerotic disease [place] Medication Reconciliation New Medications: Metformin HCl (Metformin HCl) 500 Mg Tab 1 TAB OR DAILY for 30 Days, #30 TAB Aspirin (Aspirin) 81 Mg Tab 81 MG PO QAM for 30 Days, #30 TAB Clopidogrel Bisulfate (Clopidogrel) 75 Mg Tab 75 MG PO QAM for 30 Days, #30 TAB Metoprolol Tartrate (Lopressor) 25 Mg Tab 25 MG PO BID for 30 Days, #60 TAB Continued Medications: Albuterol Hfa (Ventolin Hfa) 200 Puffs/42505 Mcg Aers 2 PUFFS INH Q4 for SOB/Wheezing, #1 INHALER Atorvastatin (Lipitor) 40 Mg Tab 1 TAB PO PM Betamethasone Dipropionate Aug (Diprolene Af) 0.05 % Cre 1 APPLN TOP BID, #50 GM Cholecalciferol (Vitamin D) 1,000 Unit Tab 1 TAB PO DAILY Cyanocobalamin (Vitamin B12) 1,000 Mcg Tab 1000 MG PO DAILY Folic Acid (Folic Acid) 800 Mcg Tab 1 TAB PO DAILY Home O2 Therapy (Oxygen) Gas 1 LITER NA CONTINOUS Lorazepam (Ativan) 0.5 Mg Tab 0.5 MG PO BID PRN for Anxiety, TAB Lutein-Zeaxanthin (Lutein) 1 Cap Cap 20 MG PO DAILY Magnesium Oxide (Mg Supplement (Magnesium) 250 Mg Tab 1 TAB PO TID Omeprazole (Prilosec) 20 Mg Cap 20 MG PO DAILY, CAP Ondansetron Hcl (Zofran) 8 Mg Tab 8 MG PO TID PRN for Nausea Oxybutynin Chloride (Ditropan Xl) 5 Mg Tab 1 TAB PO DAILY for 30 Days, #30 TAB 5 Refills Prochlorperazine Maleate (Compazine) 10 Mg Tab 1 TAB PO Q6 PRN for Nausea for 7 Days, #30 TAB 3 Refills Pyridoxine (Vitamin B6) 100 Mg Tab 100 MG PO DAILY, 0 Refills Sildenafil Citrate (Revatio) 20 Mg Tab 1 TAB PO DAILY PRN for ERECTILE DYSFUNCTION Timolol Maleate (Ophth) (Timoptic) 0.5 % Raya 1 DROP OPB QAM Umeclidinium-Vilanterol (Anoro Ellipta 62.5-25 Mcg/INH) 1 Aer Aer 1 PUFF INH DAILY Vitamin E (Vitamin E) 400 Unit Tab 1 CAP PO DAILY Admission Information HPI (per Admitting provider): Pt is 77 y/o M with PMH of bladder CA surgery and on current chemo, COPD oxygen dependent 1L O2, dyslipidemia, HTN, glaucoma, history of carotid atherosclerotic disease S/P left carotid endarterectomy, 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 Patient was receiving chemo today. He had dose IV Lasix 20 mg 1 L NSS and was receiving and he got up to use the bathroom when walking back became dizzy and lightheaded and had syncopal episode. It is reported patient had LOC for 3 minutes. It is reported patient was hypoxic 70% up to 94% with Oximask applied and his pulse was 103. Patient was denying any chest pain or shortness of breath in ER. Patient reports left arm pain primarily to left humerus and left anterior elbow that has been intermittent for the past 3 weeks and also left chest pain, patient is unsure if the 2 are related. States notices pain primarily at night. Pain sometimes self resolves after 30 minutes or sometimes will take Tylenol. Patient was taken off aspirin April secondary to thrombocytopenia with platelet count of 70. It has since been up in the 300s. Patient was taken off lisinopril several weeks ago per secondary to hypertension. Chronic dry cough, denies worsening. Denies fever/chills, diaphoresis, N/V/D/C, GILLETTE, vision changes, neck pain, increased SOB, orthopnea, palpitations, hemoptysis, sore throat, choking, otalgia, rhinorrhea, abdominal pain, paresthesias, extremity weakness, extremity edema, rashes, urinary symptoms. Physical Exam (per Admitting): General Appearance: WD/WN, no apparent distress Head: normocephalic, atraumatic Eyes: EOMI, sclerae normal, + pertinent finding (left pupil larger than right (chronic)) ENT: hearing grossly normal, pharynx normal, + pertinent finding (mucous membranes moist) Neck: supple, trachea midline Respiratory/Chest: no respiratory distress, no accessory muscle use, + decreased breath sounds (faint scattered wheeze, clears with coughing) Cardiovascular: no murmur, normal peripheral pulses, + tachycardia (106) Abdomen/GI: normal bowel sounds, non tender, soft Extremities/Musculoskelatal: no calf tenderness, normal capillary refill, no pedal edema, normal range of motion, + pertinent finding (left upper extremity: no edema/erythema/ecchymosis, ROM intact to shoulder, elbow, wrist. 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 Patient found to have NSTEMI (non ST elevation myocardial infarction) -troponin peaked at 24.5 -evaluated by cardiology service -echocardiogram shows preserved left ventricular function and no serious wall motion abnormalities. -patient completed 48 hours of heparin drip for medical management of NSTEMI -cardiology started patient on clopidogrel, also to be discharged with aspirin and statin and metoprolol Syncope may be from NSTEMI -currently asymptomatic HX ATHEROSCLEROTIC DISEASE Hx carotid artery atherosclerosis s/p L carotid endarterectomy Hx atherosclerosis disease aorta, possible aortic dissection Hx carotid u/s 11/2017: Internal carotid artery less than 50% stenosis, right internal coronary artery 50-69% stenosis (stable since 2014). -there is extensive atherosclerotic plaque with findings suggestive of greater than 70% stenosis of the proximal right internal carotid artery -completed heparin drip during the hospital course Left ARM PAIN -Xray L shoulder, humerus, elbow, wrist no acute fracture. degenerative changes -pain controlled currently COPD CHRONIC HYPOXIC RESPIRATORY FAILURE On 1L oxygen [place] continuous -continue supplemental oxygen -was empirically given antibiotics for bronchitis but antibiotics can be stopped on discahrge -continue home inhalers / bronchodilators H/O bladder cancer and bladder surgery -Follows with Dr. Lonny Franks oncology, Dr Corbett urology [place] - has been previously on cisplatin & gemcitabine which was started 04/04/18 -has hematuria likely provoked by anticoagulation -patient would need to have outpatient repeat CBC Anemia /Hematuria -has chronic anemia, patient would need to have outpatient repeat CBC Hypomagnesemia -has been treated with supplements Blood pressure controlled DM II HbA1c 7.5 -discharge with metformin GERD -continue PPI TOBACCO USE -smoking cessation encouraged Tourette Syndrome -occasional grunts and shakes from history of Tourette syndrome Discharge to home Patient will have new medication prescription of aspirin daily, clopidogrel daily, metoprolol twice a day, and continue atorvastatin for heart health Patient also with new medication prescription of metformin daily for Diabetes Patient should have follow up appointments to these clinic appointments as below. Patient should have outpatient CBC lab checked to follow up the hematuria Upcoming appointments 06/06/2018 8:45 AM Lab [facility] Laboratory [facility] 06/06/2018 9:45 AM Chair 5 Hem Onc [facility] Hematology/Oncology Treatment, [place] 06/08/2018 1:00 PM Donal Crabtree MD General Internal Medicine [facility] 06/15/2018 10:00 AM Jung Gallardo DO Cardiology, [facility] Total time spent on discharge = 40 minutes This includes examination of the patient, discharge planning, medication reconciliation, and communication with other providers. Discharge Instructions see above
== END 2018-06-02 13:18 | disposition home or self-care (01) | DRG 281 ==
LOC: EDBD 13:24 → C.EDA 13:24 → C.MED 18:20 → ENRESERV 18:44 → EDBEDREQ 19:04 → C.MED 06-01 22:57
PROVIDERS: ADMIT Internal Medicine; ATTEND Hospitalist
DX: I21.4 Non-ST elevation (NSTEMI) myocardial infarction (principal); T45.515A Adverse effect of anticoagulants, initial encounter; J96.11 Chronic respiratory failure with hypoxia; I10 Essential (primary) hypertension; C67.9 Malignant neoplasm of bladder, unspecified; Z79.82 Long term (current) use of aspirin; E83.50 Unspecified disorder of calcium metabolism; E83.42 Hypomagnesemia; Z71.6 Tobacco abuse counseling; F95.2 Tourette's disorder; J44.9 Chronic obstructive pulmonary disease, unspecified; Z99.81 Dependence on supplemental oxygen; H40.9 Unspecified glaucoma; E78.5 Hyperlipidemia, unspecified; E11.9 Type 2 diabetes mellitus without complications; I70.0 Atherosclerosis of aorta; K21.9 Gastro-esophageal reflux disease without esophagitis; R31.0 Gross hematuria; Y92.238 Other place in hospital as the place of occurrence of the external cause; I65.29 Occlusion and stenosis of unspecified carotid artery; D64.9 Anemia, unspecified; F17.210 Nicotine dependence, cigarettes, uncomplicated

== ENCOUNTER 2019-02-03 18:39 | Inpatient (IN) ==
[2019-02-03] MEDS ORDERED: methylPREDNISolone 125 MG/2 ML VIAL IV STA (18:58)
[2019-02-03] MEDS ORDERED: ALBUT/IPRATROP 3MG/0.5MG NEB 3 ML VIAL NEB STA (18:58)
[2019-02-03 19:30] LABS: Basophils # (auto) 0.03 K/uL (0-0.2); Basophils % (auto) 0.3 %; Eosinophils # (auto) 0.34 K/uL (0-0.5); Eosinophils % (auto) 3.2 %; Hematocrit (blood only) 28.3 % (42-52); Hemoglobin 9.1 g/dL (14.0-18.0); Immature Granulocytes # (auto) 0.07 K/uL (0.00-0.02); Immature Granulocytes % (auto) 0.7 %; Lymphocytes # (auto) 1.39 K/uL (1.2-3.4); Mean Corpuscular Hgb Conc 32.2 g/dL (32-36); Mean Corpuscular Volume 104.8 fL (80-100); Mean Platelet Volume 10.4 fL (7.4-10.4); Monocytes # (auto) 1.36 K/uL (0.11-0.59); Monocytes % (auto) 12.7 %; Neutrophils # (auto) 7.52 K/uL (1.4-6.5); Neutrophils % (auto) 70.1 %; Nucleated RBC # (auto) 0.06 K/uL (0-0); Nucleated RBC % (auto) 0.6 %; Platelet Count 165 K/uL (130-400); RDW Coefficient of Variation 23.3 % (11.5-14.5); RDW Standard Deviation 87.4 fL (36.4-46.3); White Blood Count 10.71 K/uL (4.8-10.8)
--- NOTE | 2019-02-03 19:34 | XRay Report ---
XR chest 1V portable HISTORY: 78 years-old Male jordan L lung sounds diminished R side wheezing hx ca acute wheezing with hi story of lung cancer COMPARISON: Chest radiograph 10/18/2018, chest CT 10/09/2018 TECHNIQUE: Portable AP view the chest FINDINGS: Cardiac silhouette is mildly enlarged. There is mild pulmonary vascular congestion with interstitial coarsening. Patchy right greater than left bibasilar alveolar opacities are noted with small right pl eural effusion. Calcification the thoracic aortic arch. Degenerative changes of the shoulders and spi ne. IMPRESSION: 1. Cardiomegaly with pulmonary vascular congestion and mild interstitial coarsening suggestive of mil d pulmonary edema. 2. Small right pleural effusion with right greater than left bibasilar airspace opacities. Correlate clinically to exclude pneumonitis. The above report was generated using voice recognition software. It may contain grammatical, syntax o r spelling errors. Electronically signed by: Saqib Sepulveda M.D. 02/03/2019 7:33 PM
[2019-02-03 19:40] LABS: Prothrombin Time 10.6 Seconds (9.0-12.0)
[2019-02-03 19:41] LABS: Alanine Aminotransferase 44 U/L (12-78); Albumin Level 2.6 gm/dl (3.4-5.0); Aspartate Aminotransferase 35 U/L (15-37); BUN Creatinine Ratio 24.9 (10-20); Bilirubin Direct < 0.1 mg/dl (0-0.2); Blood Urea Nitrogen 22 mg/dl (7-18); Calcium 8.6 mg/dl (8.5-10.1); Carbon Dioxide 34 mmol/L (21-32); Chloride 101 mmol/L (98-107); Creatinine Clr Calc Pharmacy 69.5 ml/min; Est GFR (African American) 96.3; Est GFR (Non-African American) 83.1; Glucose 102 mg/dl (70-99); Magnesium 1.9 mg/dl (1.8-2.4); Potassium 4.1 mmol/L (3.5-5.1); Sodium 138 mmol/L (136-145)
[2019-02-03 19:53] LABS: Anisocytosis Present
[2019-02-03 20:05] LABS: Alkaline Phosphatase 93 U/L (45-117); Bilirubin,Total 0.3 mg/dl (0.2-1); NT Pro B Type Natriuretic Pept 2529 pg/ml (0-1800); Total Protein 6.9 gm/dl (6.4-8.2); Troponin I 0.075 ng/ml (0-0.045)
[2019-02-03 20:09] LABS: Influenza A virus by PCR Neg for Influ A (Neg); Influenza B virus by PCR Neg for Influ B (Neg)
[2019-02-03 20:21] LABS: Oxygen Saturation VBG 69.7 %; pH VBG 7.39 (7.36-7.41)
[2019-02-03] MEDS ORDERED: OPTIRAY 320 125ml IV PRN (20:29)
--- NOTE | 2019-02-03 20:54 | CT Scan Report ---
CT angio chest PE protocol CT DOSE: 424.97 mGy.cm HISTORY: 78 years-old Male with ro pe. Acute shortness of breath with atypical chest pain TECHNIQUE: Multiple CTA images of the chest were obtained after the intravenous administration of 119 ml Optiray 320. Coronal and sagittal MIPS were obtained from the axial data set and were submitted for review. All measurements were obtained according to NASCET criteria. A dose lowering technique w as utilized adhering to the principles of ALARA. COMPARISON: CTA chest 05/30/2018. FINDINGS: CTA: Heart is upper limits of normal in size. No pericardial effusion. Coronary arterial calcifications ar e noted. Calcification of the aorta and proximal great vessels without aneurysm or dissection. Calcif ied plaque at the origin of the left subclavian artery results in 70% luminal narrowing. The pulmonar y arterial tree is opacified to level the proximal segmental branches and demonstrates no focal filli ng defects to suggest pulmonary thromboembolic disease. CT CHEST: No dominant thyroid nodule identified. Prominent mediastinal and hilar lymph nodes. Unchanged. Bilate ral calcified pleural plaques redemonstrated. Small left and small to moderate right pleural effusion s. No pneumothorax. Moderate emphysema. Bilateral intralobular septal thickening with moderate bilate ral bronchial wall thickening. Bibasilar right greater the left groundglass with dependent predominan t consolidation. There are no suspicious pulmonary nodules or masses identified. Subpleural reticulat ion with groundglass densities are noted within the right middle lobe which are unchanged suggestive of scarring/atelectasis. Central airways appear to be generally patent. Mild wall thickening about the distal esophagus. Small sliding-type hiatal hernia. Mild generalized b kaitlin wall edema. The bones appear to be intact. Degenerative changes of the spine and shoulders. IMPRESSION: 1. No acute aortic pathology or evidence of pulmonary thromboembolic disease. 2. Mild pulmonary edema with small left and small to moderate right pleural effusions. 3. Right greater than left bibasilar dependent predominant groundglass and consolidative opacities fa vor compressive atelectasis. Superimposed pneumonitis is considered less likely however is also withi n the differential. 4. Emphysema. 5. Bilateral calcified pleural plaques redemonstrated suggestive of asbestos related pleural disease. 6. Small sliding-type hiatal hernia with mild wall thickening of the mid and distal esophagus. The above report was generated using voice recognition software. It may contain grammatical, syntax o r spelling errors. Electronically signed by: aSqib Sepulveda M.D. 02/03/2019 8:52 PM
[2019-02-03] MEDS ORDERED: FUROSEMIDE 40 MG/4 ML VIAL IV STA (21:26)
--- NOTE | 2019-02-03 22:52 | History & Physical Report ---
Date of Service February 03, 2019 Assessment & Plan (1) Respiratory failure with hypoxia and hypercapnia: (2) CHF exacerbation: (3) COPD (chronic obstructive pulmonary disease): (4) CAD (coronary artery disease): (5) Carotid atherosclerosis: (6) Tobacco abuse: (7) Bladder cancer: (8) Tourette syndrome: (9) Dyslipidemia: (10) DM type 2 (diabetes mellitus, type 2): (11) HTN (hypertension): History of Present Illness Chief Complaint: Shortness of breath Primary Care Provider: Donal Crabtree MD 78-year-old male with a past medical history of hypertension, diabetes type 2, hyperlipidemia, Tourette's syndrome, COPD, glaucoma, urothelial bladder cancer, coronary artery disease with an acute SD, tobacco use disorder, and carotid disease presents the emergency room tonight with shortness of breath which is been getting progressively worse for the last 2-3 days. On scans patient was found to be in congestive heart failure and had lower extremity edema. He admitted under inpatient status likely to be here more than 2 midnights. According to his he was getting progressively short of breath over the last 2-3 days, she tried to keep his legs elevated, but she was unable to treat a shortness of breath at home. She notes that he is not on any cardiac meds at home for edema. Assessment and Plan Acute systolic congestive heart failure Respiratory failure with hypoxemia and hypercarbia Edema Type 2 diabetes Hypertension Dyslipidemia COPD Urothelial bladder cancer CAD Tobacco use Carotid disease We will continue outpatient medications were appropriate, will give him IV Lasix 40 mg every 12, monitor daily labs, cardiology consult if does not improve, insulin sliding scale, pharmacy to monitor glucose, DVT prophylaxis with subcu heparin and SCDs. Influenza negative., Inhalers/nebulizers. Cards eval, TTE IMPRESSION: CXR 1. Cardiomegaly with pulmonary vascular congestion and mild interstitial coarsening suggestive of mild pulmonary edema. 2. Small right pleural effusion with right greater than left bibasilar airspace opacities. Correlate clinically to exclude pneumonitis. IMPRESSION: CTA Chest 1. No acute aortic pathology or evidence of pulmonary thromboembolic disease. 2. Mild pulmonary edema with small left and small to moderate right pleural effusions. 3. Right greater than left bibasilar dependent predominant groundglass and consolidative opacities favor compressive atelectasis. Superimposed pneumonitis is considered less likely however is also within the differential. 4. Emphysema. 5. Bilateral calcified pleural plaques redemonstrated suggestive of asbestos related pleural disease. 6. Small sliding-type hiatal hernia with mild wall thickening of the mid and distal esophagus. ROS-No Headache, No Visual Changes, No Fever, No Chills, No Neck Pain or Stiffness, No Chest Pain, No Palpitations, No SOB, No VASQUEZ, No Cough, No Sputum, No Wheezing, No Abdominal Pain, No Diarrhea, No Hematemesis, No Hemoptysis, No Unexpected Weight Loss, No Flank pain, No Melena, No Hematochezia, No Frequency, No Urgency, No Burning, No Hematuria, No Rashes, No Diaphoresis. Appetite is Normal Physical Exam Gen-AAO x 3, NAD, Afebrile Head-NCAT, EOMI, PERRLA, Anicteric Sclera, No Posterior Pharyngeal Erythema Neck-Supple, No JVD, No Thyromegaly, No Masses, No LAD, No Bruits Lungs-B/L Rales, No Rhonchi, mild wheezing, better after cough, no Crepitus Chest-No S4, +S1, +S2, No S3, No Murmurs, No Rubs, No Gallops, No Ectopy Abdomen-Soft, Bowel Sounds Present, Non Tender, Non Distended, No Hepatomegaly, No Splenomegaly, No Palpable Masses, No Rebound, No Rigidity, No Guarding Musculoskeletal-Full Range of Motion Bilaterally, No CVAT Extremities-No Cyanosis, No Clubbing, + Edema Nuero-Cranial Nerves II-XII grossly intact, Motor WNL, DTRs WNL, Strength WNL, No Focal Psych-Normal Mood PMH-hypertension, diabetes type 2, hyperlipidemia, Tourette's syndrome, COPD, glaucoma, bladder cancer, urothelial bladder CA, carotid disease, coronary a rtery disease, acute SD, tobacco use disorder, has received XRT PSH-bladder surgery, EGD, left heart cath. 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 Meds reviewed and Reconciled Labs Reviewed Allergies Allergy/AdvReac Type Severity Reaction Status Date / Time No Known Allergies Allergy Verified 02/03/19 21:19 Home Medications Home Medications Medication Instructions Recorded Confirmed Type acetaminophen [Tylenol Extra 500 mg PO Q6H PRN 02/03/19 02/03/19 History Strength] albuterol sulfate [Ventolin HFA] 2 puff INHALATION Q4H PRN 02/03/19 02/03/19 History aspirin 81 mg PO QAM 02/03/19 02/03/19 History atorvastatin 40 mg PO QDD 02/03/19 02/03/19 History betamethasone, augmented 1 applic TOPICAL BID 02/03/19 02/03/19 History [Diprolene] cholecalciferol (vitamin D3) 1,000 unit PO QAM 02/03/19 02/03/19 History [Vitamin D3] clopidogrel [Plavix] 75 mg PO QAM 02/03/19 02/03/19 History cyanocobalamin (vitamin B-12) 1,000 mcg PO QAM 02/03/19 02/03/19 History [Vitamin B-12] folic acid 0.8 mg PO QAM 02/03/19 02/03/19 History lorazepam 0.5 mg SUBLINGUAL BID PRN 02/03/19 02/03/19 History lutein 20 mg PO QAM 02/03/19 02/03/19 History magnesium 250 mg PO QAM 02/03/19 02/03/19 History metformin 500 mg PO QDD 02/03/19 02/03/19 History metoprolol tartrate 25 mg PO BIDM 02/03/19 02/03/19 History multivitamin 1 tab PO QAM 02/03/19 02/03/19 History nitroglycerin [Nitrostat] 0.4 mg SUBLINGUAL UD 02/03/19 02/03/19 History oxybutynin chloride 5 mg PO QDD 02/03/19 02/03/19 History pyridoxine (vitamin B6) [Vitamin 100 mg PO QAM 02/03/19 02/03/19 History B-6] sildenafil (antihypertensive) 20 mg PO DAILY PRN 02/03/19 02/03/19 History [Revatio] timolol maleate 1 drp OPL QAM 02/03/19 02/03/19 History trazodone 50 mg PO HS 02/03/19 02/03/19 History umeclidinium-vilanterol [Anoro 1 inh INHALATION PM 02/03/19 02/03/19 History Ellipta] Past Med/Surg History Medical History HTN (hypertension) (Chronic) DM type 2 (diabetes mellitus, type 2) (Chronic) Dyslipidemia (Chronic) Tourette syndrome (Chronic) Glaucoma (Chronic) Bladder cancer (Chronic 02/22/18) "Gross hematuria Status post urine for cytology February 22, 2018 revealing urothelial carcinoma Status post TURBT March 06, 2018, invasion into the muscularis propria Clinical T2 N0 M0 Initiation of neoadjuvant chemotherapy Day 1 of cycle 3 May 30, 2018. Patient passed out and was brought to the emergency room and admitted. He had an SD. Deemed nonsurgical and non-chemotherapy candidate. Current plan of treatment is radiation therapy alone. Patient is seeking a second opinion cardiology evaluation to determine if he could be a surgical candidate." COPD (chronic obstructive pulmonary disease) (Chronic) Carotid atherosclerosis (Chronic) Tobacco abuse (Chronic) Social History Preferred Language: Indonesian Beliefs That Will Affect Care: None Feels Safe at Home: Yes Smoking Status: Current every day smoker Physical Exam Vital Signs (Past 24 Hours): Last Vital Signs Temp 36.7 C 02/03/19 18:44 Pulse 78 02/03/19 21:00 Resp 30 H 02/03/19 21:00 BP 148/79 H 02/03/19 21:00 Pulse Ox 78 L 02/03/19 21:05 Results & Data Laboratory Results Allergies No Known Allergies Allergy (Verified 02/03/19 21:19) Height/Weight/Isolation Height 5 ft 8.5 in Weight 80.7 kg CBC 02/03/19 02/03/19 02/03/19 19:10 19:10 19:10 WBC 10.71 RBC 2.70 L Hgb 9.1 L Hct 28.3 L MCV 104.8 H MCH 33.7 MCHC 32.2 RDW Std Deviation 87.4 H RDW Coeff of Silvano 23.3 H Plt Count 165 MPV 10.4 Immature Gran % (Auto) 0.7 Neut % (Auto) 70.1 Lymph % (Auto) 13.0 Bates % (Auto) 12.7 Eos % (Auto) 3.2 Baso % (Auto) 0.3 Immature Gran # (Auto) 0.07 H Neut # (Auto) 7.52 H Lymph # (Auto) 1.39 Bates # (Auto) 1.36 H Eos # (Auto) 0.34 Baso # (Auto) 0.03 Absolute Nucleated RBC 0.06 H Nucleated RBC % (auto) 0.6 Anisocytosis Present PT 10.6 INR 1.0 APTT 27.0 PTT Ratio 1.0 VBG pH VBG pCO2 VBG pO2 VBG HCO3 VBG O2 Saturation VBG Base Excess Barometric Pressure Sodium 138 Potassium 4.1 Chloride 101 Carbon Dioxide 34 H Anion Gap 3.0 BUN 22 H Creatinine 0.89 Est Cr Clr Drug Dosing 69.5 Est GFR ( Amer) 96.3 Est GFR (Non-Af Amer) 83.1 BUN/Creatinine Ratio 24.9 H Glucose 102 H Lactate Calcium 8.6 Magnesium 1.9 Total Bilirubin 0.3 Direct Bilirubin < 0.1 AST 35 ALT 44 Alkaline Phosphatase 93 Troponin I 0.075 H* NT-Pro-B Natriuret Pep 2529 H Total Protein 6.9 Albumin 2.6 L Lipase 44 L Influenza Type A (PCR) Influenza Type B (PCR) 02/03/19 02/03/19 02/03/19 19:10 19:10 20:01 WBC RBC Hgb Hct MCV MCH MCHC RDW Std Deviation RDW Coeff of Silvano Plt Count MPV Immature Gran % (Auto) Neut % (Auto) Lymph % (Auto) Bates % (Auto) Eos % (Auto) Baso % (Auto) Immature Gran # (Auto) Neut # (Auto) Lymph # (Auto) Bates # (Auto) Eos # (Auto) Baso # (Auto) Absolute Nucleated RBC Nucleated RBC % (auto) Anisocytosis PT INR APTT PTT Ratio VBG pH 7.39 VBG pCO2 58 H VBG pO2 38 VBG HCO3 34 VBG O2 Saturation 69.7 VBG Base Excess 8.0 Barometric Pressure 723.7 Sodium Potassium Chloride Carbon Dioxide Anion Gap BUN Creatinine Est Cr Clr Drug Dosing Est GFR ( Amer) Est GFR (Non-Af Amer) BUN/Creatinine Ratio Glucose Lactate 0.9 Calcium Magnesium Total Bilirubin Direct Bilirubin AST ALT Alkaline Phosphatase Troponin I NT-Pro-B Natriuret Pep Total Protein Albumin Lipase Influenza Type A (PCR) Neg for Influ A Influenza Type B (PCR) Neg for Influ B Chemistry 02/03/19 19:10 Sodium 138 Potassium 4.1 Chloride 101 Carbon Dioxide 34 H Anion Gap 3.0 BUN 22 H Creatinine 0.89 Glucose 102 H Microbiology 02/03/19 19:25 Blood Blood Culture - Pending 02/03/19 19:10 Blood Blood Culture - Pending (1) CHF exacerbation Heart failure type: unspecified Qualified Code(s): I50.9 - Heart failure, unspecified
[2019-02-03] MEDS ORDERED: DEXTROSE 50% 50 ML SYRINGE IV PRN (23:37)
[2019-02-03] MEDS ORDERED: GLUCOSE 10 TABS/TUBE PO PRN (23:37)
[2019-02-03] MEDS ORDERED: LORazepam 0.5 MG TAB SL PRN (23:37)
[2019-02-03] MEDS ORDERED: ACETAMINOPHEN 325 MG TAB PO PRN (23:37)
[2019-02-03] MEDS ORDERED: NITROGLYCERIN SL 0.4 MG/TAB TAB SL SCH (23:37)
[2019-02-03] MEDS ORDERED: ACETAMINOPHEN 500 MG TAB PO PRN (23:37)
[2019-02-03] MEDS ORDERED: CARBOHYDRATES FOR HYPOGLYCEMIA PO PRN (23:37)
[2019-02-03] MEDS ORDERED: POLYETHYLENE (MIRALAX) 17 GM PACK PO PRN (23:37)
[2019-02-03] MEDS ORDERED: ONDANSETRON INJ 2 MG/ML 2 ML VIAL IV PRN (23:37)
[2019-02-03] MEDS ORDERED: GLUCOSE 40% GEL 15 GM TUBE PO PRN (23:37)
[2019-02-03] MEDS ORDERED: GLUCAGON FOR INJ 1 MG VIAL SQ PRN (23:37)
[2019-02-03] MEDS ORDERED: ALBUTEROL HFA 8 GM INHALER INH PRN (23:37)
[2019-02-04] MEDS ORDERED: PHARMACY GLYCEMIC MGMT CONSULT PRN (00:07)
--- NOTE | 2019-02-04 00:29 | Emergency Department Note ---
Entered by Marino Franks acting as a scribe for History of Present Illness General Chief complaint: Shortness of Breath/Dyspnea Stated complaint: SOB, LOW 02, BLOOD PRESSURE HIGH Time Seen by Provider: 02/03/19 18:53 Source: patient Limitations: no limitations History of Present Illness Onset (ago): hour(s) (this afternoon) Location: chest Pain Consistency: + constant Quality: + constant Associated symptoms: + denies other symptoms (abdominal pain, diarrhea, black stools, ); no chest pain, no fever/chills and no nausea/vomiting Treatments prior to arrival: other (albuterol) The patient is a 78 year old male who presents to the Emergency Room with compla ints of constant SOB starting this afternoon. The patient's states the patient went to the bathroom today and when he returned he felt weak and his O2 sat was down. The patient's states the patient finished chemotherapy last week for bladder cancer. She states the patient gets radiation at [facility]. The states the patient has swollen calves. The states the patient wears 1L of O2 at night and does not wear O2 during the daytime. The patient notes he has been coughing. The patient denies chest pain, abdominal pain, nausea, vomiting, diarrhea, fevers, black stool, and blood coming up with his cough. The patient's states she gave the patient albuterol before coming to the ED and that did not help much. She states the patient had plural effusion on the left side for a while. She states Dr. Franks is their radiation oncologist doctor. Home Medications Home Medications Medication Instructions Recorded Confirmed Type acetaminophen [Tylenol Extra 500 mg PO Q6H PRN 02/03/19 02/03/19 History Strength] albuterol sulfate [Ventolin HFA] 2 puff INHALATION Q4H PRN 02/03/19 02/03/19 History aspirin 81 mg PO QAM 02/03/19 02/03/19 History atorvastatin 40 mg PO QDD 02/03/19 02/03/19 History betamethasone, augmented 1 applic TOPICAL BID 02/03/19 02/03/19 History [Diprolene] cholecalciferol (vitamin D3) 1,000 unit PO QAM 02/03/19 02/03/19 History [Vitamin D3] clopidogrel [Plavix] 75 mg PO QAM 02/03/19 02/03/19 History cyanocobalamin (vitamin B-12) 1,000 mcg PO QAM 02/03/19 02/03/19 History [Vitamin B-12] folic acid 0.8 mg PO QAM 02/03/19 02/03/19 History lorazepam 0.5 mg SUBLINGUAL BID PRN 02/03/19 02/03/19 History lutein 20 mg PO QAM 02/03/19 02/03/19 History magnesium 250 mg PO QAM 02/03/19 02/03/19 History metformin 500 mg PO QDD 02/03/19 02/03/19 History metoprolol tartrate 25 mg PO BIDM 02/03/19 02/03/19 History multivitamin 1 tab PO QAM 02/03/19 02/03/19 History nitroglycerin [Nitrostat] 0.4 mg SUBLINGUAL UD 02/03/19 02/03/19 History oxybutynin chloride 5 mg PO QDD 02/03/19 02/03/19 History pyridoxine (vitamin B6) [Vitamin 100 mg PO QAM 02/03/19 02/03/19 History B-6] sildenafil (antihypertensive) 20 mg PO DAILY PRN 02/03/19 02/03/19 History [Revatio] timolol maleate 1 drp OPL QAM 02/03/19 02/03/19 History trazodone 50 mg PO HS 02/03/19 02/03/19 History umeclidinium-vilanterol [Anoro 1 inh INHALATION PM 02/03/19 02/03/19 History Ellipta] Allergies Allergy/AdvReac Type Severity Reaction Status Date / Time No Known Allergies Allergy Verified 02/03/19 21:19 Past Med/Surg History Medical History HTN (hypertension) (Chronic) DM type 2 (diabetes mellitus, type 2) (Chronic) Dyslipidemia (Chronic) Tourette syndrome (Chronic) Glaucoma (Chronic) Bladder cancer (Chronic 02/22/18) "Gross hematuria Status post urine for cytology February 22, 2018 revealing urothelial carcinoma Status post TURBT March 06, 2018, invasion into the muscularis propria Clinical T2 N0 M0 Initiation of neoadjuvant chemotherapy Day 1 of cycle 3 May 30, 2018. Patient passed out and was brought to the emergency room and admitted. He had an DC. Deemed nonsurgical and non-chemotherapy candidate. Current plan of treatment is radiation therapy alone. Patient is seeking a second opinion cardiology evaluation to determine if he could be a surgical candidate." COPD (chronic obstructive pulmonary disease) (Chronic) Carotid atherosclerosis (Chronic) Tobacco abuse (Chronic) Social History Preferred Language: German Communication Ability: Effective Beliefs That Will Affect Care: None Current Living Situation: Spouse Other Information That Helps Us Care for You: No Feels Safe at Home: Yes Safety Concerns: Feels Safe At This Time Smoking Status: Current every day smoker Hx Alcohol Use: No Hx Substance Use: No Review of Systems See HPI for pertinent positives & negatives. and A total of 10 systems reviewed and were otherwise negative Physical Exam Vital Signs Vital Signs - 24 hr 02/03/19 18:44 02/03/19 18:58 02/03/19 19:00 Temperature 36.7 C Temperature Source Oral Sepsis Recent Fever Within 48 Hours No Sepsis New/Unexplained Change in Mental Status No Sepsis Action Taken by Nursing No Action Required Pulse Rate 87 Pulse Rate [Left] Pulse Rate from SpO2 Sensor Pulse Rhythm Regular Pulse Strength Normal Respiratory Rate 22 Respiratory Effort / Characteristics Non-Labored Spontaneous Respiratory Depth Normal Respiratory Pattern Regular Blood Pressure 143/77 H Blood Pressure [Right Arm] Blood Pressure Mean 99 Blood Pressure Mean [Right Arm] Blood Pressure Position Sitting Pulse Oximetry 83 L 95 84 L Pulse Oximetry [Right Index Finger] Oxygen Delivery Method Room Air Nasal Cannula Nasal Cannula Oxygen Delivery Method [Right Index Finger] Oxygen Flow Rate 3 0 Oxygen Flow Rate [Right Index Finger] 02/03/19 19:59 02/03/19 20:34 02/03/19 20:35 Temperature Temperature Source Sepsis Recent Fever Within 48 Hours Sepsis New/Unexplained Change in Mental Status Sepsis Action Taken by Nursing Pulse Rate 80 80 Pulse Rate [Left] 81 Pulse Rate from SpO2 Sensor 82 81 Pulse Rhythm Pulse Strength Respiratory Rate 22 31 H 26 H Respiratory Effort / Characteristics Respiratory Depth Respiratory Pattern Blood Pressure 151/69 H 152/87 H Blood Pressure [Right Arm] 152/87 H Blood Pressure Mean 96 108 Blood Pressure Mean [Right Arm] 108 Blood Pressure Position Pulse Oximetry 96 92 92 Pulse Oximetry [Right Index Finger] Oxygen Delivery Method Nasal Cannula Nasal Cannula Nasal Cannula Oxygen Delivery Method [Right Index Finger] Oxygen Flow Rate 3 3 3 Oxygen Flow Rate [Right Index Finger] 03/30/19 21:00 02/03/19 21:05 02/03/19 21:31 Temperature Temperature Source Sepsis Recent Fever Within 48 Hours Sepsis New/Unexplained Change in Mental Status Sepsis Action Taken by Nursing Pulse Rate 78 81 Pulse Rate [Left] Pulse Rate from SpO2 Sensor 78 78 Pulse Rhythm Pulse Strength Respiratory Rate 30 H 22 Respiratory Effort / Characteristics Respiratory Depth Respiratory Pattern Blood Pressure 148/79 H 147/74 H Blood Pressure [Right Arm] Blood Pressure Mean 102 98 Blood Pressure Mean [Right Arm] Blood Pressure Position Pulse Oximetry 92 78 L 92 Pulse Oximetry [Right Index Finger] Oxygen Delivery Method Nasal Cannula Room Air Nasal Cannula Oxygen Delivery Method [Right Index Finger] Oxygen Flow Rate 3 4 Oxygen Flow Rate [Right Index Finger] 02/03/19 22:00 02/03/19 22:31 02/03/19 23:30 Temperature 36.8 C Temperature Source Oral Sepsis Recent Fever Within 48 Hours Sepsis New/Unexplained Change in Mental Status Sepsis Action Taken by Nursing Pulse Rate Pulse Rate [Left] 84 Pulse Rate from SpO2 Sensor 84 81 Pulse Rhythm Pulse Strength Respiratory Rate 18 Respiratory Effort / Characteristics Non-Labored Spontaneous Respiratory Depth Normal Respiratory Pattern Regular Blood Pressure 160/97 H 152/75 H Blood Pressure [Right Arm] 143/84 H Blood Pressure Mean 118 100 Blood Pressure Mean [Right Arm] 103 Blood Pressure Position Pulse Oximetry 93 94 95 Pulse Oximetry [Right Index Finger] Oxygen Delivery Method Nasal Cannula Nasal Cannula Nasal Cannula Oxygen Delivery Method [Right Index Finger] Oxygen Flow Rate 4 4 4 Oxygen Flow Rate [Right Index Finger] 02/03/19 23:37 Temperature Temperature Source Sepsis Recent Fever Within 48 Hours Sepsis New/Unexplained Change in Mental Status Sepsis Action Taken by Nursing Pulse Rate Pulse Rate [Left] Pulse Rate from SpO2 Sensor Pulse Rhythm Pulse Strength Respiratory Rate Respiratory Effort / Characteristics Respiratory Depth Respiratory Pattern Blood Pressure Blood Pressure [Right Arm] Blood Pressure Mean Blood Pressure Mean [Right Arm] Blood Pressure Position Pulse Oximetry Pulse Oximetry [Right Index Finger] 96 Oxygen Delivery Method Oxygen Delivery Method [Right Index Finger] Nasal Cannula Oxygen Flow Rate Oxygen Flow Rate [Right Index Finger] 4 GENERAL: He is oriented to person, place, and time. He appears well-developed and well-nourished. He does not appear distressed. HENT: Exam performed. - Head: Normocephalic and atraumatic. - Right Ear: External ear normal. No mastoid tenderness. - Left Ear: External ear normal. No mastoid tenderness. - Mouth/Throat: The oropharynx is clear and moist. No trismus in the jaw. No dental abscesses or uvula swelling. No oropharyngeal exudate or tonsillar abscesses. EYES: Conjunctivae and EOM are normal. Pupils are equal, round, and reactive to light. Right eye exhibits no discharge. Left eye exhibits no discharge. No scleral icterus. NECK: Normal range of motion. Neck supple. No JVD present. No spinous process tenderness present. No carotid bruit present. No rigidity. No tracheal deviation and normal range of motion present. No Brudzinski's sign and no Kernig's sign noted. CV: Normal rate, regular rhythm, normal heart sounds and intact distal pulses. There is no peripheral edema. Palpable radial pulses bue. PULM/CHEST: Left sided lung sounds diminished. Scant expiratory wheezes on right side. - Chest Wall: He exhibits no tenderness. ABD: The abdomen is soft. Bowel sounds are normal. He has no distension. No mass is present. There is no tenderness. There is no rebound, no guarding, no Pimentel's sign and no tenderness at McBurney's point. Rovsig negative. MUSC/SKEL: Normal range of motion. There is no peripheral edema, tenderness or deformity. LYMPH: No cervical adenopathy. NEURO: He is alert and oriented to person, place, and time. He has normal strength. No cranial nerve deficit or sensory deficit. Coordination and gait normal. GCS eye subscore is 4. GCS verbal subscore is 5. GCS motor subscore is 6. Cerebellar tests wnl. SKIN: Skin is warm and dry. He is not diaphoretic. PSYCH: He has a normal mood and affect. Behavior is normal. Judgment and thought content normal. Course 1854: Past medical records reviewed. The patient was evaluated in room D3A, and a complete history and physical examination were performed. 2220: I reevaluated the patient. The patient's O2 sat dropped to 78 when he was not on O2. He is currently on 4L O2. Imaging shows no PE but it does show findings consistent with congestive heart failure. Labs show a proBNP of 2529 and an elevated troponin of 0.075. It is thought that the troponin elevation is due to the patient's acute exacerbation of congestive heart failure. Patient not reporting any chest pain. He initally wanted to leave AMA and I advised against this. He was going to sign out AMA but his stated she preferred him to be admitted as he had difficulty breathing and she cannot take care of him at home. He is agreeable to stay. I reviewed the patient's case with Dr. Gregoria South Hospitalist. He will evaluate the patient for further management. No anticoagulation will be started on this patient at this moment as the troponin elevation is again thought to be due to the patient's CHF. Hospitalist team will trend the troponin. Administered Medications Ioversol (Optiray 320 125ml) 119 ml IV ONCE PRN PRN Reason: Interaction Checking Stop: 02/07/19 20:28 Last Admin: 02/03/19 20:29 Dose: 119 ml Documented by: [id number] Discontinued Medications Albuterol (Duoneb) 3 ml NEB NOW STA Stop: 02/03/19 18:59 Last Admin: 02/03/19 19:43 Dose: 3 ml Documented by: [id number] Furosemide (Lasix) 40 mg IV NOW STA Stop: 02/03/19 21:27 Last Admin: 02/03/19 21:36 Dose: 40 mg Documented by: [id number] Methylprednisolone (Solumedrol) 125 mg IV NOW STA Stop: 02/03/19 18:59 Last Admin: 02/03/19 19:43 Dose: 125 mg Documented by: [id number] Medical Decision Making Medical Records Attestation: I reviewed the patient's medical records. Home Medications Current Medication List: was personally reviewed by me Laboratory Data Attestation: I reviewed the patient's lab results. Result diagrams: 02/03/19 19:10 02/03/19 19:10 Lab Results 02/03/19 02/03/19 02/03/19 Range/Units 19:10 19:10 19:10 WBC 10.71 (4.8-10.8) K/uL RBC 2.70 L (4.7-6.1) M/uL Hgb 9.1 L (14.0-18.0) g/dL Hct 28.3 L (42-52) % MCV 104.8 H (80-100) fL MCH 33.7 (25-34) pg MCHC 32.2 (32-36) g/dL RDW Std Deviation 87.4 H (36.4-46.3) fL RDW Coeff of Silvano 23.3 H (11.5-14.5) % Plt Count 165 (130-400) K/uL MPV 10.4 (7.4-10.4) fL Immature Gran % (Auto) 0.7 % Neut % (Auto) 70.1 % Lymph % (Auto) 13.0 % Russell % (Auto) 12.7 % Eos % (Auto) 3.2 % Baso % (Auto) 0.3 % Immature Gran # (Auto) 0.07 H (0.00-0.02) K/uL Neut # (Auto) 7.52 H (1.4-6.5) K/uL Lymph # (Auto) 1.39 (1.2-3.4) K/uL Russell # (Auto) 1.36 H (0.11-0.59) K/uL Eos # (Auto) 0.34 (0-0.5) K/uL Baso # (Auto) 0.03 (0-0.2) K/uL Absolute Nucleated RBC 0.06 H (0-0) K/uL Nucleated RBC % (auto) 0.6 % Anisocytosis Present PT 10.6 (9.0-12.0) Seconds INR 1.0 (0.9-1.1) APTT 27.0 (21.0-31.0) Seconds PTT Ratio 1.0 VBG pH (7.36-7.41) VBG pCO2 (38-50) mmHg VBG pO2 mmHg VBG HCO3 mmol/L VBG O2 Saturation % VBG Base Excess mEq/L Barometric Pressure mm/Hg Sodium 138 (136-145) mmol/L Potassium 4.1 (3.5-5.1) mmol/L Chloride 101 (98-107) mmol/L Carbon Dioxide 34 H (21-32) mmol/L Anion Gap 3.0 (3-11) BUN 22 H (7-18) mg/dl Creatinine 0.89 (0.6-1.4) mg/dl Est Cr Clr Drug Dosing 69.5 ml/min Est GFR ( Amer) 96.3 Est GFR (Non-Af Amer) 83.1 BUN/Creatinine Ratio 24.9 H (10-20) Glucose 102 H (70-99) mg/dl Lactate (0.4-2.0) mmol/L Calcium 8.6 (8.5-10.1) mg/dl Magnesium 1.9 (1.8-2.4) mg/dl Total Bilirubin 0.3 (0.2-1) mg/dl Direct Bilirubin < 0.1 (0-0.2) mg/dl AST 35 (15-37) U/L ALT 44 (12-78) U/L Alkaline Phosphatase 93 (45-117) U/L Troponin I 0.075 H* (0-0.045) ng/ml NT-Pro-B Natriuret Pep 2529 H (0-1800) pg/ml Total Protein 6.9 (6.4-8.2) gm/dl Albumin 2.6 L (3.4-5.0) gm/dl Lipase 44 L (73-393) U/L Influenza Type A (PCR) (Neg) Influenza Type B (PCR) (Neg) 02/03/19 02/03/19 02/03/19 Range/Units 19:10 19:10 20:01 WBC (4.8-10.8) K/uL RBC (4.7-6.1) M/uL Hgb (14.0-18.0) g/dL Hct (42-52) % MCV (80-100) fL MCH (25-34) pg MCHC (32-36) g/dL RDW Std Deviation (36.4-46.3) fL RDW Coeff of Silvano (11.5-14.5) % Plt Count (130-400) K/uL MPV (7.4-10.4) fL Immature Gran % (Auto) % Neut % (Auto) % Lymph % (Auto) % Russell % (Auto) % Eos % (Auto) % Baso % (Auto) % Immature Gran # (Auto) (0.00-0.02) K/uL Neut # (Auto) (1.4-6.5) K/uL Lymph # (Auto) (1.2-3.4) K/uL Russell # (Auto) (0.11-0.59) K/uL Eos # (Auto) (0-0.5) K/uL Baso # (Auto) (0-0.2) K/uL Absolute Nucleated RBC (0-0) K/uL Nucleated RBC % (auto) % Anisocytosis PT (9.0-12.0) Seconds INR (0.9-1.1) APTT (21.0-31.0) Seconds PTT Ratio VBG pH 7.39 (7.36-7.41) VBG pCO2 58 H (38-50) mmHg VBG pO2 38 mmHg VBG HCO3 34 mmol/L VBG O2 Saturation 69.7 % VBG Base Excess 8.0 mEq/L Barometric Pressure 723.7 mm/Hg Sodium (136-145) mmol/L Potassium (3.5-5.1) mmol/L Chloride (98-107) mmol/L Carbon Dioxide (21-32) mmol/L Anion Gap (3-11) BUN (7-18) mg/dl Creatinine (0.6-1.4) mg/dl Est Cr Clr Drug Dosing ml/min Est GFR ( Amer) Est GFR (Non-Af Amer) BUN/Creatinine Ratio (10-20) Glucose (70-99) mg/dl Lactate 0.9 (0.4-2.0) mmol/L Calcium (8.5-10.1) mg/dl Magnesium (1.8-2.4) mg/dl Total Bilirubin (0.2-1) mg/dl Direct Bilirubin (0-0.2) mg/dl AST (15-37) U/L ALT (12-78) U/L Alkaline Phosphatase (45-117) U/L Troponin I (0-0.045) ng/ml NT-Pro-B Natriuret Pep (0-1800) pg/ml Total Protein (6.4-8.2) gm/dl Albumin (3.4-5.0) gm/dl Lipase (73-393) U/L Influenza Type A (PCR) Neg for Influ A (Neg) Influenza Type B (PCR) Neg for Influ B (Neg) Imaging Data Radiologist's Impression: Radiology results as stated below per my review and the radiologist's interpretation: XR chest 1V portable HISTORY: 78 years-old Male jordan L lung sounds diminished R side wheezing hx ca acute wheezing with history of lung cancer COMPARISON: Chest radiograph 10/18/2018, chest CT 10/09/2018 TECHNIQUE: Portable AP view the chest FINDINGS: Cardiac silhouette is mildly enlarged. There is mild pulmonary vascular congestion with interstitial coarsening. Patchy right greater than left bibasilar alveolar opacities are noted with small right pleural effusion. Calcification the thoracic aortic arch. Degenerative changes of the shoulders and spine. IMPRESSION: 1. Cardiomegaly with pulmonary vascular congestion and mild interstitial coarsening suggestive of mild pulmonary edema. 2. Small right pleural effusion with right greater than left bibasilar airspace opacities. Correlate clinically to exclude pneumonitis. The above report was generated using voice recognition software. It may contain grammatical, syntax or spelling errors. Electronically signed by: Saqib Sepulveda M.D. 02/03/2019 7:[address] angio chest PE protocol CT DOSE: 424.97 mGy.cm HISTORY: 78 years-old Male with ro pe. Acute shortness of breath with atypical chest pain TECHNIQUE: Multiple CTA images of the chest were obtained after the intravenous administration of 119 ml Optiray 320. Coronal and sagittal MIPS were obtained from the axial data set and were submitted for review. All measurements were obtained according to NASCET criteria. A dose lowering technique was utilized adhering to the principles of ALARA. COMPARISON: CTA chest 05/30/2018. FINDINGS: CTA: Heart is upper limits of normal in size. No pericardial effusion. Coronary arterial calcifications are noted. Calcification of the aorta and proximal great vessels without aneurysm or dissection. Calcified plaque at the origin of the left subclavian artery results in 70% luminal narrowing. The pulmonary arterial tree is opacified to level the proximal segmental branches and demonstrates no focal filling defects to suggest pulmonary thromboembolic disease. CT CHEST: No dominant thyroid nodule identified. Prominent mediastinal and hilar lymph nodes. Unchanged. Bilateral calcified pleural plaques redemonstrated. Small left and small to moderate right pleural effusions. No pneumothorax. Moderate emphysema. Bilateral intralobular septal thickening with moderate bilateral bronchial wall thickening. Bibasilar right greater the left groundglass with dependent predominant consolidation. There are no suspicious pulmonary nodules or masses identified. Subpleural reticulation with groundglass densities are not ed within the right middle lobe which are unchanged suggestive of scarring/atelectasis. Central airways appear to be generally patent. Mild wall thickening about the distal esophagus. Small sliding-type hiatal hernia. Mild generalized body wall edema. The bones appear to be intact. Degenerative changes of the spine and shoulders. IMPRESSION: 1. No acute aortic pathology or evidence of pulmonary thromboembolic disease. 2. Mild pulmonary edema with small left and small to moderate right pleural effusions. 3. Right greater than left bibasilar dependent predominant groundglass and consolidative opacities favor compressive atelectasis. Superimposed pneumonitis is considered less likely however is also within the differential. 4. Emphysema. 5. Bilateral calcified pleural plaques redemonstrated suggestive of asbestos related pleural disease. 6. Small sliding-type hiatal hernia with mild wall thickening of the mid and distal esophagus. The above report was generated using voice recognition software. It may contain grammatical, syntax or spelling errors. Electronically signed by: Saqib Sepulveda M.D. 02/03/2019 8:52 PM ECG Data Attestation: I personally reviewed and interpreted this ECG as follows: Indication: SOB/dyspnea Rate (beats per minute): 81 Rhythm: sinus with SA Findings: + other (OH, QRS, and QTc wnls); no ST depression and no ST elevation Blood Pressure Blood Pressure Findings: Elevated blood pressure Blood Pressure Disposition: further management by hospitalist COLE Narrative 1853: Past medical records reviewed. The patient was evaluated in room D3A, and a complete history and physical examination were performed. 0: I reevaluated the patient. The patient's O2 sat dropped to 78 when he was not on O2. He is currently on 4L O2. Imaging shows no PE but it does show findings consistent with congestive heart failure. Labs show a proBNP of 2529 and an elevated troponin of 0.075. It is thought that the troponin elevation is due to the patient's acute exacerbation of congestive heart failure. Patient not reporting any chest pain. He initally wanted to leave AMA and I advised against this. He was going to sign out AMA but his stated she preferred him to be admitted as he had difficulty breathing and she cannot take care of him at home. He is agreeable to stay. I reviewed the patient's case with Dr. Gregoria South Hospitalist. He will evaluate the patient for further management. No anticoagulation will be started on this patient at this moment as the troponin elevation is again thought to be due to the patient's CHF. Hospitalist team will trend the troponin. Impression & Plan Hypoxia, CHF exacerbation Discharge Plan Visit Data Chief Complaint: Shortness of Breath/Dyspnea Stated Complaint: SOB, LOW 02, BLOOD PRESSURE HIGH ED Provider: Michael Ling Discharge Problem: Hypoxia, CHF exacerbation Patient Disposition: Being Evaluated by Hospitalist Discharge Instructions Interventions: ED Discharge Assessment Last Done: 02/03/19 22:58 Discharge Problem: CHF exacerbation Qualifiers: Heart failure type: unspecified Qualified Code(s): I50.9 - Heart failure, unspecified The scribe's documentation has been prepared under my direction and personally reviewed by me in its entirety. I confirm that the note above accurately reflects all work, treatment, procedures, and medical decision making performed by me.
[2019-02-04] MEDS: INSULIN ASPART 100 UNITS/ML 3 ML PEN SC SCH ×3 (01:16→11:41)
[2019-02-04] MEDS: HEPARIN SOD 5,000 UNIT/0.5 ML VIAL SQ SCH ×2 (05:27→13:24)
[2019-02-04] MEDS ORDERED: FUROSEMIDE 40 MG in SYRINGE 0 ML IV SCH (06:00)
[2019-02-04 06:17] LABS: Hematocrit (blood only) 27.9 % (42-52); Mean Corpuscular Hgb Conc 32.3 g/dL (32-36); Mean Platelet Volume 10.9 fL (7.4-10.4); Nucleated RBC # (auto) 0.02 K/uL (0-0); Nucleated RBC % (auto) 0.3 %; Platelet Count 181 K/uL (130-400); RDW Coefficient of Variation 22.8 % (11.5-14.5); RDW Standard Deviation 83.3 fL (36.4-46.3); Red Blood Count 2.71 M/uL (4.7-6.1); White Blood Count 6.86 K/uL (4.8-10.8)
[2019-02-04 06:52] LABS: BUN Creatinine Ratio 23.1 (10-20); Calcium 8.5 mg/dl (8.5-10.1); Creatinine Clr Calc Pharmacy 49.4 ml/min; Est GFR (African American) 65.7; Est GFR (Non-African American) 56.7; Potassium 4.7 mmol/L (3.5-5.1); Troponin I 0.062 ng/ml (0-0.045)
[2019-02-04 07:08] LABS: Beta-Hydroxybutyrate 0.71 mg/dl (0.2-2.81)
[2019-02-04] MEDS ORDERED: METOPROLOL TARTRATE 25 MG TAB PO SCH (08:00)
[2019-02-04] MEDS ORDERED: INSULIN GLARGINE SOLOSTAR 100 UNITS/ML 3 ML PEN SC STA (08:26)
[2019-02-04] MEDS ORDERED: ASPIRIN 81 MG ECTAB PO SCH (09:00)
[2019-02-04] MEDS ORDERED: TIMOLOL MALEATE 0.25% OP SOLN 5 ML BTL OPL SCH (09:00)
[2019-02-04] MEDS ORDERED: BETAMETHASONE DIP AUG 0.05% OINT 15 GM TUBE TOP SCH (09:00)
[2019-02-04] MEDS ORDERED: CLOPIDOGREL BISULFATE 75 MG TAB PO SCH (09:00)
[2019-02-04] MEDS ORDERED: MULTIVITAMIN TAB PO SCH (09:00)
[2019-02-04] MEDS ORDERED: MAGNESIUM OXIDE 400 MG TAB PO SCH (09:00)
[2019-02-04] MEDS ORDERED: CHOLECALCIFEROL 1,000 UNITS TAB PO SCH (09:00)
[2019-02-04] MEDS ORDERED: NON-FORMULARY MEDICATION (Lutein 20 MG) PO SCH (09:00)
[2019-02-04] MEDS ORDERED: CYANOCOBALAMIN 500 MCG TABLET (VITAMIN B-12) PO SCH (09:00)
[2019-02-04] MEDS ORDERED: PYRIDOXINE HCL 50 MG TAB PO SCH (09:00)
[2019-02-04] MEDS ORDERED: FOLIC ACID 400 MCG TAB PO SCH (09:00)
[2019-02-04 12:05] VITALS: BP 141/73; PULSE 74; O2SAT 92
--- NOTE | 2019-02-04 12:09 | Hospitalist Progress Note ---
Date of Service February 04, 2019 Assessment & Plan (1) Respiratory failure with hypoxia and hypercapnia: (2) CHF exacerbation: Acute heart failure with reduced ejection fraction and diastolic dysfunction CTA chest showed no acute aortic pathology or evidence of pulmonary thromboembolic disease. Mild pulmonary edema with small left and small to moderate right pleural effusions. CXR on admission showed Cardiomegaly with pulmonary vascular congestion Doubt about any infectious process Influenza PCR negative and procalcitonin negative Pro BNP above 2.5K Received Lasix IV and solumedrol in the ER On IV lasix for now Cardio on board ECHO Showed moderate size inferior septal and inferior wall motion abnormality with akinesis of the basal inferior septal wall. Grade 1 diastolic dysfunction with Ejection fraction 45-50%. Repeat CXR showed cardiomegaly with decreased pulmonary edema. Small right and trace left pleural effusions with mildly improved aeration of the lung bases. Case discussed with cardiology and recommended to change lasix to 40mg oral Check BMP in 1 week while on lasix Clinically improves OK from cardiology standpoint to discharge home Follow up with PCP with 1 week Follow up with cardio in 1-2 weeks Elevated Troponin Chronic trop elevation by reviewing chart Possible related to CHF exacerbation Trop 0.075->0.059-->0.62 Continue aspirin, plavix, statin and metoprolol Echo pending Clinically stable Diabetes Type 2 BS elevated mostly due to steroid Hba1c pending Metformin on hold Pharmacy on board for glycemic management On insulin sliding sliding scale Monitor BS Tobacco abuse Counseling on smoking cessation Bladder Cancer Completed chemotherapy Follow with Dr. Franks DVT px on heparin subq CODE STATUS FULL CODE Disposition Discharge Home Continue Oxygen supplement Follow up with PCP Subjective Pt was seen and examined Lying in bed with no distress Pt said that he feels fine He said that his breathing is good Pt said that he feels back to his baseline He is complaint about the food He wants to go home today Denies any chest pain, palpitation, dizziness Physical Exam Vital Signs (Past 24 Hours): Last Vital Signs Temp 36.3 C L 02/04/19 07:56 Pulse 89 02/04/19 07:56 Resp 18 02/04/19 07:56 BP 134/72 02/04/19 07:56 Pulse Ox 93 02/04/19 11:22 Physical Exam: General- No acute distress Head- atraumatic Eyes- PERRL, EOMI, ENT- oropharynx clear Neck- supple, no JVD Lungs- diminished BS Heart- regular rhythm Abdomen- normal bowel sounds, soft, nontender Extremities- no calf tenderness, No edema Neuro- alert, oriented x 3; PERRL, EOMI; no facial palsy; no dysarthria Skin- warm & dry (1) CHF exacerbation Heart failure type: unspecified Qualified Code(s): I50.9 - Heart failure, unspecified
--- NOTE | 2019-02-04 14:01 | XRay Report ---
XR chest 1V portable HISTORY: 78 years-old Male f/u follow-up study in a patient with acute shortness of breath and bibas ilar opacities COMPARISON: Chest radiograph and CTA chest 02/03/2019 TECHNIQUE: Portable AP view of the chest FINDINGS: Decreased pulmonary edema. Cardiac silhouette is enlarged, unchanged. Emphysema without pneumothorax. Small right and trace left pleural effusions. Mildly improved aeration of the lung bases. Calcificat ion the thoracic aortic arch. Degenerative changes of the shoulders and spine. IMPRESSION: 1. Cardiomegaly with decreased pulmonary edema. 2. Small right and trace left pleural effusions with mildly improved aeration of the lung bases. 3. Emphysema. The above report was generated using voice recognition software. It may contain grammatical, syntax o r spelling errors. Electronically signed by: Saqib Sepulveda M.D. 02/04/2019 2:00 PM
--- NOTE | 2019-02-04 14:04 | Pharmacy Report ---
Pharmacy Glycemic Short Note 2 - Date of Service February 04, 2019 - Glycemic Short BSG Results (Last 24 hours): 02/03/19 02/04/19 02/04/19 19:10 05:25 07:08 Glucose 102 H 347 H POC Glucose 355 H* 02/04/19 11:15 Glucose POC Glucose 79 OUTPATIENT ANTIDIABETIC REGIMEN: * Metformin 500mg QD ASSESSMENT: * Mr. Arce is a 78yo M unknown to the pharmacy glycemic service. FBS was 355mg/dL this AM, likely steroid induced hyperglycemia. Will provide a one time lantus dose to help suppress hyperglycemia. A1C is ordered for tomorrow. PLAN FOR INPATIENT GLYCEMIC CONTROL: * Hold outpatient oral diabetes medications * Basal insulin 15 units X1 this AM to prevent sustained hyperglycemia * Bolus insulin * NovoLog per scale ACHS or Q6hrs while NPO * Goal Range: Low 120 mg/dL - High 150 mg/dL * Correction Factor: 30 mg/dL/unit * Nutritional / Prandial insulin per carb ratio of 1 unit per 10 grams CHO consumed
--- NOTE | 2019-02-04 14:28 | Cardiology Consultation ---
Date of Consultation February 04, 2019 Assessment & Plan (1) Acute heart failure with reduced ejection fraction and diastolic d ysfunction: Mr. Arce has a complex history of bladder carcinoma and recently completed chemotherapy and radiation therapy. As noted, he received 2 doses of IV furosemide with subsequent significant urine output and improvement in his subjective symptoms of lower extremity swelling and shortness of breath. CT and chest x-ray both revealed pleural effusions, and repeat chest x-ray today reveals a small right and trace left pleural effusion with improved aeration of the lung bases compared to the prior studies. I would recommend ongoing treatment for his chronic coronary heart disease including aspirin, clopidogrel, and atorvastatin. Given his LV systolic dysfunction, metoprolol tartrate is to be transitioned to the evidence based beta-lisbet for systolic heart failure, metoprolol succinate. Would recommend discharging the patient on furosemide 40 mg daily. Based on review of his past chest x-ray data, I think he would benefit from daily diuretic therapy. He will need a chemistry panel to follow-up his electrolytes and kidney function within a week of discharge. Recommend PCP and cardiology follow-up. Perhaps cardiology follow-up with Dr. Gallardo or [place] within 1-2 weeks of discharge. He was noted to have a low-grade temperature on his most recent set of vital signs at 12:02 PM. He has no symptoms suggestive of infection. His nurse took his temperature again while he was standing at the bedside on 02/04/19 at 2:44 PM and his temperature is normal at 36.7 C (98.1 F). She recalls that when his previous vital signs were taken that he had been drinking hot coffee and perhaps this caused an erroneous result. History of Present Illness Attending Physician: Darinel Banks MD History of Present Illness Adrian Arce is a 78-year-old male seen in cardiology consultation per the request of Dr. Kinney for the evaluation of congestive heart failure. The patient's primary fishery division chief is Dr. Gallardo of our practice with most recently seen the patient in routine outpatient cardiology follow-up in October 2018. At that time stable cardiac signs and symptoms were noted. The patient has a complex history of bladder carcinoma for which he is received chemotherapy and radiation therapy. While receiving chemotherapy he had a non-ST segment elevation myocardial infarction May 2018 with peak troponin of 24.5 at that time. An echocardiogram performed during that admission revealed inferoseptal and inferior wall motion abnormality and moderate left ventricular systolic dysfunction. 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 The patient was found to have a high-grade stenosis of the mid LAD that underwent successful PCI and placement of a drug-eluting stent. A 50% residual lesion was noted in the left circumflex after the first marginal. The patient presented via the emergency room last night with progressive shortness of breath and "low oxygen levels at home ". He received 40 mg of IV furosemide last night in the emergency room and again this morning and he feels markedly improved subjectively. 1.785 L of urine output was noted overnight last night and an additional 1.2 L was noted thus far today. He states that his lower legs have been swollen and this is resolved. The patient states he feels much better and he is very enthusiastic to go home. Allergies Allergy/AdvReac Type Severity Reaction Status Date / Time No Known Allergies Allergy Verified 02/03/19 21:19 Home Medications Home Medications Medication Instructions Recorded Confirmed Type acetaminophen [Tylenol Extra 500 mg PO Q6H PRN 02/03/19 02/03/19 History Strength] albuterol sulfate [Ventolin HFA] 2 puff INHALATION Q4H PRN 02/03/19 02/03/19 History aspirin 81 mg PO QAM 02/03/19 02/03/19 History atorvastatin 40 mg PO QDD 02/03/19 02/03/19 History betamethasone, augmented 1 applic TOPICAL BID 02/03/19 02/03/19 History [Diprolene] cholecalciferol (vitamin D3) 1,000 unit PO QAM 02/03/19 02/03/19 History [Vitamin D3] clopidogrel [Plavix] 75 mg PO QAM 02/03/19 02/03/19 History cyanocobalamin (vitamin B-12) 1,000 mcg PO QAM 02/03/19 02/03/19 History [Vitamin B-12] folic acid 0.8 mg PO QAM 02/03/19 02/03/19 History lorazepam 0.5 mg SUBLINGUAL BID PRN 02/03/19 02/03/19 History lutein 20 mg PO QAM 02/03/19 02/03/19 History magnesium 250 mg PO QAM 02/03/19 02/03/19 History metformin 500 mg PO QDD 02/03/19 02/03/19 History metoprolol tartrate 25 mg PO BIDM 02/03/19 02/03/19 History multivitamin 1 tab PO QAM 02/03/19 02/03/19 History nitroglycerin [Nitrostat] 0.4 mg SUBLINGUAL UD 02/03/19 02/03/19 History oxybutynin chloride 5 mg PO QDD 02/03/19 02/03/19 History pyridoxine (vitamin B6) [Vitamin 100 mg PO QAM 02/03/19 02/03/19 History B-6] sildenafil (antihypertensive) 20 mg PO DAILY PRN 02/03/19 02/03/19 History [Revatio] timolol maleate 1 drp OPL QAM 02/03/19 02/03/19 History trazodone 50 mg PO HS 02/03/19 02/03/19 History umeclidinium-vilanterol [Anoro 1 inh INHALATION PM 02/03/19 02/03/19 History Ellipta] Patient History Medical History HTN (hypertension) (Chronic) DM type 2 (diabetes mellitus, type 2) (Chronic) Dyslipidemia (Chronic) Tourette syndrome (Chronic) Glaucoma (Chronic) Bladder cancer (Chronic 02/22/18) "Gross hematuria Status post urine for cytology February 22, 2018 revealing urothelial carcinoma Status post TURBT March 06, 2018, invasion into the muscularis propria Clinical T2 N0 M0 Initiation of neoadjuvant chemotherapy Day 1 of cycle 3 May 30, 2018. Patient passed out and was brought to the emergency room and admitted. He had an [place]. Deemed nonsurgical and non-chemotherapy candidate. Current plan of treatment is radiation therapy alone. Patient is seeking a second opinion cardiology evaluation to determine if he could be a surgical candidate." COPD (chronic obstructive pulmonary disease) (Chronic) Carotid atherosclerosis (Chronic) Tobacco abuse (Chronic) Social History Preferred Language: Gabonese Communication Ability: Effective Beliefs That Will Affect Care: None Current Living Situation: Spouse Other Information That Helps Us Care for You: No Feels Safe at Home: Yes Safety Concerns: Feels Safe At This Time Smoking Status: Current every day smoker Hx Alcohol Use: No Hx Substance Use: No Review of Systems 10 point review of systems was reviewed and is negative with the exception of that above Physical Exam Vital Signs (Past 24 Hours): Last Vital Signs Temp 37.8 C H 02/04/19 12:02 Pulse 74 02/04/19 12:02 Resp 18 02/04/19 12:02 BP 141/73 H 02/04/19 12:02 Pulse Ox 92 02/04/19 12:02 Physical Exam: General: no acute distress and stated age Eyes: conjunctiva are pink and non-injected, sclera clear Neck: normal jugular venous pulse, no hepatojugular reflux Chest: normal shape and normal respiratory effort Lungs: Mildly decreased breath sounds in the bases bilaterally Cardiac Exam: - regular heart sounds, no murmurs, rubs, or gallops, no jugular venous distention Abdomen: abdomen soft, non-tender, no abnormal masses and no hepatosplenomegaly Extremities: no edema and no cyanosis Neuro:awake, coversant, follows commands, no focal motor deficits Results & Data Laboratory Results Cardiac Enzymes 02/03/19 02/04/19 02/04/19 Range/Units 19:10 00:24 05:25 AST 35 (15-37) U/L Troponin I 0.075 H* 0.059 H* 0.062 H* (0-0.045) ng/ml Coagulation 02/03/19 Range/Units 19:10 PT 10.6 (9.0-12.0) Seconds APTT 27.0 (21.0-31.0) Seconds CBC 02/03/19 02/04/19 Range/Units 19:10 05:25 WBC 10.71 6.86 (4.8-10.8) K/uL RBC 2.70 L 2.71 L (4.7-6.1) M/uL Hgb 9.1 L 9.0 L (14.0-18.0) g/dL Hct 28.3 L 27.9 L (42-52) % Plt Count 165 181 (130-400) K/uL Neut # (Auto) 7.52 H (1.4-6.5) K/uL Lymph # (Auto) 1.39 (1.2-3.4) K/uL Martin # (Auto) 1.36 H (0.11-0.59) K/uL Eos # (Auto) 0.34 (0-0.5) K/uL Baso # (Auto) 0.03 (0-0.2) K/uL Comprehensive Metabolic Panel 02/03/19 02/04/19 Range/Units 19:10 05:25 Sodium 138 139 (136-145) mmol/L Potassium 4.1 4.7 (3.5-5.1) mmol/L Chloride 101 99 (98-107) mmol/L Carbon Dioxide 34 H 37 H (21-32) mmol/L BUN 22 H 28 H (7-18) mg/dl Creatinine 0.89 1.23 D (0.6-1.4) mg/dl Glucose 102 H 347 H (70-99) mg/dl Calcium 8.6 8.5 (8.5-10.1) mg/dl Direct Bilirubin < 0.1 (0-0.2) mg/dl AST 35 (15-37) U/L ALT 44 (12-78) U/L Alkaline Phosphatase 93 (45-117) U/L Total Protein 6.9 (6.4-8.2) gm/dl Albumin 2.6 L (3.4-5.0) gm/dl Intake and Output 02/03/19 02/04/19 02/04/19 22:59 06:59 14:59 Intake Total 240 / 240 Output Total 1085 / 1785 700 / 1785 1200 / 1200 Balance -1085 / -1785 -700 / -1785 -960 / -960 Intake: Oral 240 / 240 Output: Urine 1085 / 1785 700 / 1785 1200 / 1200 Other: Weight 80.7 kg 79.1 kg Diagnostic Findings Echocardiogram performed today 02/04/19 reviewed independently by the undersigned: There is a moderate-sized inferoseptal and inferior wall motion abnormality with akinesis of the basal inferoseptal wall, and the inferior wall at the basal and mid levels. Mild mitral regurgitation is present. Grade 1 diastolic dysfunction is noted. Compared to the images of the prior study dated 05/31/18, the inferoseptal and inferior wall motion abnormality is consistent with right coronary artery territory scar and is unchanged. There is been a subtle overall improvement in the left ventricular systolic function with ejection fraction of 35-40% on the prior study as compared to 45-50% on the present study. Although an EKG had been ordered during the patient's emergency room stay, I cannot find evidence in the tracing in the MUSE system or on his paper chart. Repeat EKG performed today 02/04/19 at 2:40 PM reveals stable sinus rhythm at 76 bpm with borderline QT interval prolongation of 480 ms. Mild repolarization abnormalities noted in the inferior leads consistent with his history of RCA territory myocardial infarction. Stable findings. Medications Administered Current Inpatient Medications Acetaminophen (Tylenol) 650 mg PO Q4H PRN PRN Reason: Pain or Fever Stop: 03/05/19 23:36 Albuterol (Ventolin Hfa) 2 puffs INH Q4H PRN PRN Reason: Shortness Of Breath Or Wheezin Stop: 03/05/19 23:36 Aspirin (Ecotrin Ectab) 81 mg PO QAM [facility] Stop: 03/06/19 08:59 Last Admin: 02/04/19 07:45 Dose: 81 mg Documented by: Atorvastatin Calcium (Lipitor) 40 mg PO QDD [facility] Stop: 03/06/19 16:29 Last Admin: 02/04/19 07:45 Dose: 40 mg Documented by: Betamethasone Dipropion Augmented (Diprolene 0.05%) 1 appln TOP BID [facility] Stop: 03/06/19 08:59 Last Admin: 02/04/19 07:51 Dose: Not Given Documented by: Clopidogrel Bisulfate (Plavix) 75 mg PO QAM [facility] Stop: 03/06/19 08:59 Last Admin: 02/04/19 07:45 Dose: 75 mg Documented by: Cyanocobalamin (Vitamin B-12) 1,000 mcg PO QAM [facility] Stop: 03/06/19 08:59 Last Admin: 02/04/19 07:46 Dose: 1,000 mcg Documented by: Dextrose (Dextrose 50%) 25 - 50 ml IV UD PRN; Protocol PRN Reason: Hypoglycemia Protocol Stop: 03/05/19 23:36 Folic Acid (Folvite) 800 mcg PO QAM [facility] Stop: 03/06/19 08:59 Last Admin: 02/04/19 07:47 Dose: 800 mcg Documented by: Glucagon (Glucagen) 1 mg SQ UD PRN; Protocol PRN Reason: Hypoglycemia Protocol Stop: 03/05/19 23:36 Glucose (Dex4 Glucose) 4 - 8 tabs PO UD PRN; Protocol PRN Reason: Hypoglycemia Protocol Stop: 03/05/19 23:36 Glucose (Glucose 40%) 15 - 30 gm PO UD PRN; Protocol PRN Reason: Hypoglycemia Protocol Stop: 03/05/19 23:36 Heparin Sodium (Porcine) (Heparin Sodium (Porcine)) 5,000 units SQ Q8 [facility] Stop: 03/06/19 05:59 Last Admin: 02/04/19 13:24 Dose: 5,000 units Documented by: Furosemide 40 mg/ Syringe 4 mls @ 4 mls/min IV Q12H [facility] Stop: 03/06/19 05:59 Last Admin: 02/04/19 05:27 Dose: 4 mls/min Documented by: Insulin Aspart (Novolog Flexpen) 0 units SC ACHS [facility] Stop: 03/06/19 01:59 Last Admin: 02/04/19 11:41 Dose: Not Given Documented by: Ioversol (Optiray 320 125ml) 119 ml IV ONCE PRN PRN Reason: Interaction Checking Stop: 02/07/19 20:28 Last Admin: 02/03/19 20:29 Dose: 119 ml Documented by: Lorazepam (Ativan) 0.5 mg SL BID PRN PRN Reason: Anxiety Stop: 03/05/19 23:36 Magnesium Oxide (Mag-Ox) 400 mg PO QAM [facility] Stop: 03/06/19 08:59 Last Admin: 02/04/19 07:46 Dose: 400 mg Documented by: Metoprolol Tartrate (Lopressor) 25 mg PO BIDM [facility] Stop: 03/06/19 07:59 Last Admin: 02/04/19 07:48 Dose: 25 mg Documented by: Miscellaneous (Carbohydrates For Hypoglycemia) 15 - 30 gm PO UD PRN PRN Reason: Hypoglycemia Treatment Stop: 03/05/19 23:36 Miscellaneous (Order Awaiting Action) 1 ea N/A DAILY [facility] Stop: 03/06/19 08:59 Last Admin: 02/04/19 07:49 Dose: Not Given Documented by: Miscellaneous Information (Consult Glycemic Management Pharmacy) 1 ea N/A UD PRN; Protocol PRN Reason: Consult Stop: 03/06/19 00:06 Multivitamins (Multivitamin Tab) 1 tab PO QAM [facility] Stop: 03/06/19 08:59 Last Admin: 02/04/19 07:46 Dose: 1 tab Documented by: Nitroglycerin (Nitrostat) 0.4 mg SL UD [facility] Stop: 03/05/19 23:36 Ondansetron HCl (Zofran) 4 mg IV Q6H PRN PRN Reason: Nausea Stop: 03/05/19 23:36 Oxybutynin Chloride (Ditropan) 5 mg PO QDD [facility] Stop: 03/06/19 16:29 Last Admin: 02/04/19 00:46 Dose: 5 mg Documented by: Polyethylene Glycol (Miralax Powder Packet) 17 gm PO DAILY PRN PRN Reason: Constipation Stop: 03/05/19 23:36 Pyridoxine HCl (Vitamin B-6) 100 mg PO [facility] Stop: 03/06/19 08:59 Last Admin: 02/04/19 07:49 Dose: 100 mg Documented by: Timolol Maleate (Timoptic 0.25% Oph) 1 drops OPL [facility] Stop: 03/06/19 08:59 Last Admin: 02/04/19 07:50 Dose: 1 drops Documented by: Trazodone HCl (Desyrel) 50 mg PO [facility] Stop: 03/06/19 20:59 Last Admin: 02/04/19 00:46 Dose: 50 mg Documented by: Vitamin D (Vitamin D3) [facility] Stop: 03/06/19 08:59 Last Admin: 02/04/19 07:45 Dose: 1,000 units Documented by:
[2019-02-04 14:44] VITALS: TEMP 98.2
[2019-02-04] MEDS ORDERED: ATORVASTATIN 40 MG TAB PO SCH (16:30)
[2019-02-04] MEDS ORDERED: OXYBUTYNIN CHLORIDE 5 MG TAB PO SCH (16:30)
[2019-02-04] MEDS ORDERED: TRAZODONE HCL 50 MG TAB PO SCH (21:00)
[2019-02-05 08:09] LABS: Estimated Average Glucose 151 mg/dl; Hemoglobin A1C 6.9 % (4.5-5.6)
--- NOTE | 2019-02-05 08:37 | Discharge Summary ---
Date of Service February 03, 2019 Admission HPI Per Admitting Provider 78-year-old male with a past medical history of hypertension, diabetes type 2, hyperlipidemia, Tourette's syndrome, COPD, glaucoma, urothelial bladder cancer, coronary artery disease with an acute [place], tobacco use disorder, and carotid disease presents the emergency room tonight with shortness of breath which is been getting progressively worse for the last 2-3 days. On scans patient was found to be in congestive heart failure and had lower extremity edema. He admitted under inpatient status likely to be here more than 2 midnights. According to his he was getting progressively short of breath over the last 2-3 days, she tried to keep his legs elevated, but she was unable to treat a shortness of breath at home. She notes that he is not on any cardiac meds at home for edema. Assessment and Plan Acute systolic congestive heart failure Respiratory failure with hypoxemia and hypercarbia Edema Type 2 diabetes Hypertension Dyslipidemia COPD Urothelial bladder cancer CAD Tobacco use Carotid disease We will continue outpatient medications were appropriate, will give him IV Lasix 40 mg every 12, monitor daily labs, cardiology consult if does not improve, insulin sliding scale, pharmacy to monitor glucose, DVT prophylaxis with subcu heparin and SCDs. Influenza negative., Inhalers/nebulizers. Cards eval, TTE IMPRESSION: CXR 1. Cardiomegaly with pulmonary vascular congestion and mild interstitial coarsening suggestive of mild pulmonary edema. 2. Small right pleural effusion with right greater than left bibasilar airspace opacities. Correlate clinically to exclude pneumonitis. IMPRESSION: CTA Chest 1. No acute aortic pathology or evidence of pulmonary thromboembolic disease. 2. Mild pulmonary edema with small left and small to moderate right pleural effusions. 3. Right greater than left bibasilar dependent predominant groundglass and consolidative opacities favor compressive atelectasis. Superimposed pneumonitis is considered less likely however is also within the differential. 4. Emphysema. 5. Bilateral calcified pleural plaques redemonstrated suggestive of asbestos related pleural disease. 6. Small sliding-type hiatal hernia with mild wall thickening of the mid and distal esophagus. ROS-No Headache, No Visual Changes, No Fever, No Chills, No Neck Pain or Stiffness, No Chest Pain, No Palpitations, No SOB, No VASQUEZ, No Cough, No Sputum, No Wheezing, No Abdominal Pain, No Diarrhea, No Hematemesis, No Hemoptysis, No Unexpected Weight Loss, No Flank pain, No Melena, No Hematochezia, No Frequency, No Urgency, No Burning, No Hematuria, No Rashes, No Diaphoresis. Appetite is Normal Admission Exam Per Admitting Provider Gen-AAO x 3, NAD, Afebrile Head-NCAT, EOMI, PERRLA, Anicteric Sclera, No Posterior Pharyngeal Erythema Neck-Supple, No JVD, No Thyromegaly, No Masses, No LAD, No Bruits Lungs-B/L Rales, No Rhonchi, mild wheezing, better after cough, no Crepitus Chest-No S4, +S1, +S2, No S3, No Murmurs, No Rubs, No Gallops, No Ectopy Abdomen-Soft, Bowel Sounds Present, Non Tender, Non Distended, No Hepatomegaly, No Splenomegaly, No Palpable Masses, No Rebound, No Rigidity, No Guarding Musculoskeletal-Full Range of Motion Bilaterally, No CVAT Extremities-No Cyanosis, No Clubbing, + Edema Nuero-Cranial Nerves II-XII grossly intact, Motor WNL, DTRs WNL, Strength WNL, No Focal Psych-Normal Mood Principal Diagnosis Respiratory failure with hypoxia and hypercapnia: CHF exacerbation: Elevated Troponin DM type 2 Discharge Exam General- No acute distress Head- atraumatic Eyes- PERRL, EOMI, ENT- oropharynx clear Neck- supple, no JVD Lungs- diminished BS Heart- regular rhythm Abdomen- normal bowel sounds, soft, nontender Extremities- no calf tenderness, No edema Neuro- alert, oriented x 3; PERRL, EOMI; no facial palsy; no dysarthria Skin- warm & dry Discharge Data Allergies Allergy/AdvReac Type Severity Reaction Status Date / Time No Known Allergies Allergy Verified 02/03/19 21:19 Consultations 02/03/19 21:30 ED Decision to Admit Stat 02/03/19 23:58 Consult Cardiology Routine Ordered Studies 02/03/19 18:58 CT angio chest PE protocol Stat CT angio chest PE protocol CT DOSE: 424.97 mGy.cm HISTORY: 78 years-old Male with ro pe. Acute shortness of breath with atypical chest pain TECHNIQUE: Multiple CTA images of the chest were obtained after the intravenous administration of 119 ml Optiray 320. Coronal and sagittal MIPS were obtained from the axial data set and were submitted for review. All measurements were obtained according to NASCET criteria. A dose lowering technique was utilized adhering to the principles of ALARA. COMPARISON: CTA chest 05/30/2018. FINDINGS: CTA: Heart is upper limits of normal in size. No pericardial effusion. Coronary arterial calcifications are noted. Calcification of the aorta and proximal great vessels without aneurysm or dissection. Calcified plaque at the origin of the left subclavian artery results in 70% luminal narrowing. The pulmonary arterial tree is opacified to level the proximal segmental branches and demonstrates no focal filling defects to suggest pulmonary thromboembolic disease. CT CHEST: No dominant thyroid nodule identified. Prominent mediastinal and hilar lymph nodes. Unchanged. Bilateral calcified pleural plaques redemonstrated. Small left and small to moderate right pleural effusions. No pneumothorax. Moderate emphysema. Bilateral intralobular septal thickening with moderate bilateral bronchial wall thickening. Bibasilar right greater the left groundglass with dependent predominant consolidation. There are no suspicious pulmonary nodules or masses identified. Subpleural reticulation with groundglass densities are noted within the right middle lobe which are unchanged suggestive of scarring/atelectasis. Central airways appear to be generally patent. Mild wall thickening about the distal esophagus. Small sliding-type hiatal hernia. Mild generalized body wall edema. The bones appear to be intact. Degenerative changes of the spine and shoulders. IMPRESSION: 1. No acute aortic pathology or evidence of pulmonary thromboembolic disease. 2. Mild pulmonary edema with small left and small to moderate right pleural effusions. 3. Right greater than left bibasilar dependent predominant groundglass and consolidative opacities favor compressive atelectasis. Superimposed pneumonitis is considered less likely however is also within the differential. 4. Emphysema. 5. Bilateral calcified pleural plaques redemonstrated suggestive of asbestos related pleural disease. 6. Small sliding-type hiatal hernia with mild wall thickening of the mid and distal esophagus. The above report was generated using voice recognition software. It may contain grammatical, syntax or spelling errors. Electronically signed by: Saqib Sepulveda M.D. 02/03/2019 8:52 PM Dictated: 02/03/192043 Transcribed: 02/03/192043 XR chest 1V portable HISTORY: 78 years-old Male jordan L lung sounds diminished R side wheezing hx ca acute wheezing with history of lung cancer COMPARISON: Chest radiograph 10/18/2018, chest CT 10/09/2018 TECHNIQUE: Portable AP view the chest FINDINGS: Cardiac silhouette is mildly enlarged. There is mild pulmonary vascular congestion with interstitial coarsening. Patchy right greater than left bibasilar alveolar opacities are noted with small right pleural effusion. Calcification the thoracic aortic arch. Degenerative changes of the shoulders and spine. IMPRESSION: 1. Cardiomegaly with pulmonary vascular congestion and mild interstitial coarsening suggestive of mild pulmonary edema. 2. Small right pleural effusion with right greater than left bibasilar airspace opacities. Correlate clinically to exclude pneumonitis. The above report was generated using voice recognition software. It may contain grammatical, syntax or spelling errors. Electronically signed by: Saqib Sepulveda M.D. 02/03/2019 7:33 PM Dictated: 02/03/191930 Transcribed: 02/03/191930 XR chest 1V portable HISTORY: 78 years-old Male f/u follow-up study in a patient with acute shortnes s of breath and bibasilar opacities COMPARISON: Chest radiograph and CTA chest 02/03/2019 TECHNIQUE: Portable AP view of the chest FINDINGS: Decreased pulmonary edema. Cardiac silhouette is enlarged, unchanged. Emphysema without pneumothorax. Small right and trace left pleural effusions. Mildly improved aeration of the lung bases. Calcification the thoracic aortic arch. Degenerative changes of the shoulders and spine. IMPRESSION: 1. Cardiomegaly with decreased pulmonary edema. 2. Small right and trace left pleural effusions with mildly improved aeration of the lung bases. 3. Emphysema. The above report was generated using voice recognition software. It may contain grammatical, syntax or spelling errors. Electronically signed by: Saqib Sepulveda M.D. 02/04/2019 2:00 PM Dictated: 02/04/19 1358 Transcribed: 02/04/19 1358 Hospital Course (1) Respiratory failure with hypoxia and hypercapnia: Possible related CHF exarcebation CXR on admission showed Cardiomegaly with pulmonary vascular congestion Doubt about any infectious process F (2) CHF exacerbation: Acute heart failure with reduced ejection fraction and diastolic dysfunction CTA chest showed no acute aortic pathology or evidence of pulmonary thromboembolic disease. Mild pulmonary edema with small left and small to moderate right pleural effusions. CXR on admission showed Cardiomegaly with pulmonary vascular congestion Doubt about any infectious process Influenza PCR negative and procalcitonin negative Pro BNP above 2.5K Received Lasix IV and solumedrol in the ER On IV lasix for now Cardio on board ECHO Showed moderate size inferior septal and inferior wall motion abnormality with akinesis of the basal inferior septal wall. Grade 1 diastolic dysfunction with Ejection fraction 45-50%. Repeat CXR showed cardiomegaly with decreased pulmonary edema. Small right and trace left pleural effusions with mildly improved aeration of the lung bases. Case discussed with cardiology and recommended to change lasix to 40mg oral Check BMP in 1 week while on lasix Clinically improves OK from cardiology standpoint to discharge home Follow up with PCP with 1 week Follow up with cardio in 1-2 weeks Elevated Troponin Chronic trop elevation by reviewing chart Possible related to CHF exacerbation Trop 0.075->0.059-->0.62 Continue aspirin, plavix, statin and metoprolol Echo pending Clinically stable Diabetes Type 2 BS elevated mostly due to steroid Hba1c pending Metformin on hold Pharmacy on board for glycemic management On insulin sliding sliding scale Monitor BS Tobacco abuse Counseling on smoking cessation Bladder Cancer Completed chemotherapy Follow with Dr. Franks DVT px on heparin subq CODE STATUS FULL CODE Disposition Discharge Home Continue Oxygen supplement Follow up with PCP Total Time Total Time Spent Total Time Spent (In Minutes): 35 minutes Total Time Includes: Examination of the Patient, Discharge Planning, Medication Reconciliation, Communication With Other Providers and Other Discharge Plan Discharge Items Patient Disposition: Home - Self-Care Reason For Visit: CHF,EDEMA Discharge Diagnosis: Respiratory failure with hypoxia and hypercapnia: CHF exacerbation: Elevated Troponin DM type 2 Discharge Goals: Decrease discomfort, Improve disease control, Improve function and Increase independence Activity: Resume your previous activity Non-emergency contact: Primary Care Provider and [employer] Manager Call non-emergency contact if: you have any medication questions, your symptoms worsen and your temperature is above 101 Follow-up/Referrals: Donal Crabtree MD [Primary Care Provider] - Diet: Carb Consistent or DM2 and Heart Healthy Addtl Provider Instructions: Follow up with your primary care provider in 1 week (Please call to schedule for the follow up appointment) Follow up with cardiology on Tuesday (Already have an appointment schedule) Check BMP in 1 week to monitor electrolytes and kidney function Continue oxygen supplement OK to resume Metformin tomorrow night Follow a low salt diet Fluid restriction to 1.5 liter daily Fall precaution Prescriptions: New metoprolol succinate 50 mg Tablet Extended Release 24 Hr 50 mg PO QAM 30 Days Qty: 30 RF: 0 furosemide [Lasix] 40 mg tablet 40 mg PO DAILY Qty: 30 RF: 0 Continued multivitamin Tablet 1 tab PO QAM RF: 0 atorvastatin 40 mg Tablet 40 mg PO QDD RF: 0 trazodone 50 mg Tablet 50 mg PO HS RF: 0 cyanocobalamin (vitamin B-12) [Vitamin B-12] 1,000 mcg Tablet 1,000 mcg PO QAM RF: 0 clopidogrel [Plavix] 75 mg Tablet 75 mg PO QAM RF: 0 aspirin 81 mg Tablet,Delayed Release (Dr/Ec) 81 mg PO QAM RF: 0 acetaminophen [Tylenol Extra Strength] 500 mg Tablet 500 mg PO Q6H PRN (Reason: Pain) RF: 0 lorazepam 0.5 mg Tablet 0.5 mg SUBLINGUAL BID PRN (Reason: Anxiety) RF: 0 nitroglycerin [Nitrostat] 0.4 mg Tablet, Sublingual 0.4 mg sublingual UD RF: 0 betamethasone, augmented [Diprolene] 0.05 % Ointment 1 applic TOPICAL BID RF: 0 magnesium 250 mg Tablet 250 mg PO QAM RF: 0 pyridoxine (vitamin B6) [Vitamin B-6] 100 mg Tablet 100 mg PO QAM RF: 0 albuterol sulfate [Ventolin HFA] 90 mcg/actuation Hfa Aerosol Inhaler 2 puff INHALATION Q4H PRN (Reason: Shortness Of Breath Or Wheezing) RF: 0 timolol maleate 0.5 % Drops 1 drp OPL QAM RF: 0 oxybutynin chloride 5 mg Tablet 5 mg PO QDD RF: 0 metformin 500 mg Tablet Extended Release 24 Hr 500 mg PO QDD RF: 0 folic acid 800 mcg Tablet 0.8 mg PO QAM RF: 0 cholecalciferol (vitamin D3) [Vitamin D3] 1,000 unit Capsule 1,000 unit PO QAM RF: 0 sildenafil (antihypertensive) [Revatio] 20 mg Tablet 20 mg PO DAILY PRN (Reason: PAH) RF: 0 lutein 20 mg Tablet 20 mg PO QAM RF: 0 Anoro Ellipta 62.5-25 mcg/actuation Blister With Device 1 inh INHALATION PM RF: 0 Discontinued metoprolol tartrate 25 mg Tablet 25 mg PO BIDM RF: 0 Stand-Alone Forms: [facility] Discharge Orders: Discharge Order (Routine); Ordered 02/04/19 Ordered By: Darinel Banks Admission Data Admit Date/Time: 02/03/19 22:45 Attending Provider: Darinel Banks Admit Provider: Phu Kinney Primary Care Provider: Donal Crabtree Other Providers: Phu Kinney ; [place] Service: Telemetry Other Interventions: Discharge Summary Assessment (RN) Last Done: 02/04/19 15:00 DC Date/Time DO NOT enter until pt leaves facility: 02/04/19 16:44
[2019-02-05] MEDS ORDERED: METOPROLOL SUCC 50MG EXT REL TAB PO SCH (09:00)
== END 2019-02-04 16:44 | disposition home or self-care (01) | DRG 291 ==
LOC: ED 18:39 → 2S 22:45

== ENCOUNTER 2019-07-27 15:02 | Inpatient (IN) ==
[2019-07-27 16:16] LABS: Hematocrit (blood only) 20.9 % (42-52); Hemoglobin 6.4 g/dL (14.0-18.0); Mean Corpuscular Hemoglobin 28.7 pg (25-34); Mean Corpuscular Hgb Conc 30.6 g/dL (32-36); Mean Corpuscular Volume 93.7 fL (80-100); Platelet Count 340 K/uL (130-400); RDW Standard Deviation 71.4 fL (36.4-46.3); Red Blood Count 2.23 M/uL (4.7-6.1)
[2019-07-27 16:24] LABS: Partial Thromboplastin Ratio 0.8; Partial Thromboplastin Time 22.8 Seconds (21.0-31.0); Prothrombin Time 10.3 Seconds (9.0-12.0)
[2019-07-27 16:27] LABS: BUN Creatinine Ratio 21.4 (10-20); Calcium 8.5 mg/dl (8.5-10.1); Creatinine Clr Calc Pharmacy 47.5 ml/min; Est GFR (African American) 62.6; Potassium 4.2 mmol/L (3.5-5.1)
[2019-07-27] MEDS ORDERED: SODIUM CHLORIDE 0.9% 250 ML IV PRN ×2 (16:28→18:58)
[2019-07-27 16:52] LABS: Ferritin 42.6 ng/ml (8-388); Troponin I 0.021 ng/ml (0-0.045)
[2019-07-27 16:58] LABS: Anisocytosis Present; Basophils # (auto) 0.02 K/uL (0-0.2); Basophils % (auto) 0.3 %; Eosinophils % (auto) 5.3 %; Hypochromasia Present; Immature Granulocytes # (auto) 0.03 K/uL (0.00-0.02); Immature Granulocytes % (auto) 0.4 %; Lymphocytes # (auto) 0.53 K/uL (1.2-3.4); Monocytes # (auto) 1.72 K/uL (0.11-0.59); Monocytes % (auto) 22.6 %; Neutrophils % (auto) 64.4 %; Polychromasia 1+
[2019-07-27 17:02] LABS: Reticulocyte % 5.3 % (0.5-2.0); Reticulocytes # 0.12 10^6/uL (0.02-0.10)
[2019-07-27] MEDS ORDERED: PANTOprazole 80 MG in DEXTROSE 5% 100 ML IV ONE (17:15)
[2019-07-27 17:59] LABS: Folate (Folic Acid) > 24.00 ng/ml (>5.38); Vitamin B12 1691 pg/ml (211-911)
--- NOTE | 2019-07-27 18:04 | Emergency Department Note ---
Entered by Jayjay Claire acting as a scribe for Michael Ling History of Present Illness General Chief complaint: Referred by Doctor Stated complaint: PCP REFERRED, POTENTIAL BLOOD LOSS Time Seen by Provider: 07/27/19 15:28 Source: other (benefits director) History of Present Illness Onset (ago): hour(s) (this morning) Location: chest Pain Consistency: + other (episode) Quality: + other (low blood pressure) Associated symptoms: + other (-blood in urine/stools; -black stools ); no chest pain The patient is a 78 year old male who presents to the Emergency Room with complaints of an episode of low blood pressure that occurred earlier this morning, per the patient's benefits director. The patient went to see his PCP, Dr. Crabtree, for symptoms, and blood work at the patient's PCP showed hemoglobin level of 1.5, according to the patient's benefits director. The benefits director reports the patient had a carotid endarterectomy on July 02. The benefits director reports the s urgery went well but complications occurred the next morning when the patient was found unresponsive. The benefits director states the patient's heart rate got too low. The patient denies chest pain, blood in urine/stool, or black stool. The benefits director reports the patient's kidney values are low and that the patient has been on oxygen ever since the endarterectomy. Home Medications Home Medications Medication Instructions Recorded Confirmed Type Anoro Ellipta 1 inh INHALATION PM 02/03/19 07/27/19 History albuterol sulfate [Ventolin HFA] 2 puff INHALATION Q4H PRN 02/03/19 07/27/19 History aspirin 81 mg PO QAM 02/03/19 07/27/19 History atorvastatin 40 mg PO QDD 02/03/19 07/27/19 History betamethasone, augmented 1 applic TOPICAL BID 02/03/19 07/27/19 History [Diprolene] cholecalciferol (vitamin D3) 1,000 unit PO QAM 02/03/19 07/27/19 History [Vitamin D3] clopidogrel [Plavix] 75 mg PO QAM 02/03/19 07/27/19 History cyanocobalamin (vitamin B-12) 1,000 mcg PO QAM 02/03/19 07/27/19 History [Vitamin B-12] folic acid 0.8 mg PO QAM 02/03/19 07/27/19 History lutein 20 mg PO QAM 02/03/19 07/27/19 History magnesium 250 mg PO QAM 02/03/19 07/27/19 History metformin 500 mg PO QDD 02/03/19 07/27/19 History multivitamin 1 tab PO QAM 02/03/19 07/27/19 History nitroglycerin [Nitrostat] 0.4 mg SUBLINGUAL UD PRN 02/03/19 07/27/19 History oxybutynin chloride 5 mg PO QDD 02/03/19 07/27/19 History pyridoxine (vitamin B6) [Vitamin 100 mg PO QAM 02/03/19 07/27/19 History B-6] sildenafil (antihypertensive) 20 mg PO DAILY PRN 02/03/19 07/27/19 History [Revatio] timolol maleate 1 drp OPL QAM 02/03/19 07/27/19 History ascorbic acid (vitamin C) [Vitamin 500 mg PO Q2D 07/27/19 07/27/19 History C] ferrous sulfate [iron] 325 mg PO Q2D 07/27/19 07/27/19 History furosemide [Lasix] 20 mg PO QAM 07/27/19 07/27/19 History metoprolol succinate 6.25 mg PO BID 07/27/19 07/27/19 History trazodone 50 mg PO HS 07/27/19 07/27/19 History Allergies Allergy/AdvReac Type Severity Reaction Status Date / Time No Known Allergies Allergy Verified 07/27/19 17:39 Past Med/Surg History Medical History HTN (hypertension) (Chronic) DM type 2 (diabetes mellitus, type 2) (Chronic) Dyslipidemia (Chronic) Tourette syndrome (Chronic) Glaucoma (Chronic) Bladder cancer (Chronic 02/22/18) Onset of gross hematuria Status post cystoscopy and finding of urothelial cell carcinoma of the bladder 02/22/2018 Status post TURBT 03/06/2018 Initiation of systemic chemotherapy 04/04/2018 gemcitabine and cisplatin Status post acute AL 05/30/2018. Chemotherapy stopped. Status post cardiac catheterization with stent placement 07/14/2018 Recheck cystoscopy 09/06/2018 at [facility]. Biopsy shows residual noninvasive high-grade papillary urothelial carcinoma. Recommendation for combined radiation and chemotherapy. Patient now had improved cardiac status. Status post completion of combined radiation and chemotherapy 01/23/2019. He received 6440 cGy. COPD (chronic obstructive pulmonary disease) (Chronic) Carotid atherosclerosis (Chronic) Tobacco abuse (Chronic) Family History Other No significant family history Social History Preferred Language: [place] Communication Ability: Effective Audio Video Tech Required: Yes Beliefs That Will Affect Care: None Current Living Situation: Spouse Feels Safe at Home: Yes Smoking Status: Current every day smoker Tobacco Type: cigarettes ; Hx Alcohol Use: No Hx Substance Use: No Review of Systems See HPI for pertinent positives & negatives. and A total of 10 systems reviewed and were otherwise negative Physical Exam Vital Signs Vital Signs - 24 hr 07/27/19 15:25 07/27/19 15:35 07/27/19 15:58 Temperature 36.8 C Temperature Source Oral Sepsis Recent Fever Within 48 Hours No Sepsis Action Taken by Nursing No Action Required Pulse Rate 101 H 91 H Pulse Rhythm Regular Respiratory Rate 26 H 24 Blood Pressure 114/56 L 107/55 L Blood Pressure Mean 75 72 Blood Pressure Position Sitting Pulse Oximetry 98 92 Oxygen Delivery Method Nasal Cannula Room Air Room Air Oxygen Flow Rate 2 07/27/19 16:00 07/27/19 16:30 07/27/19 17:52 Temperature 36.7 C Temperature Source Oral Sepsis Recent Fever Within 48 Hours Sepsis Action Taken by Nursing Pulse Rate 91 H 94 H 94 H Pulse Rhythm Respiratory Rate 24 17 20 Blood Pressure 94/55 L 108/62 121/80 Blood Pressure Mean 68 77 93 Blood Pressure Position Pulse Oximetry 98 99 95 Oxygen Delivery Method Room Air Room Air Oxygen Flow Rate 2 GENERAL: He is oriented to person, place, and time. He appears well-developed and well-nourished. He does not appear distressed. HENT: Exam performed. - Head: Normocephalic and atraumatic. - Right Ear: External ear normal. No mastoid tenderness. - Left Ear: External ear normal. No mastoid tenderness. - Mouth/Throat: The oropharynx is clear and moist. No trismus in the jaw. No de ntal abscesses or uvula swelling. No oropharyngeal exudate or tonsillar abscesses. EYES: Conjunctivae and EOM are normal. Pupils are equal, round, and reactive to light. Right eye exhibits no discharge. Left eye exhibits no discharge. No scleral icterus. NECK: Normal range of motion. Neck supple. No JVD present. No spinous process tenderness present. No carotid bruit present. No rigidity. No tracheal deviation and normal range of motion present. No Brudzinski's sign and no Kernig's sign noted. CV: Normal rate, regular rhythm, normal heart sounds and intact distal pulses. There is no peripheral edema. Palpable radial pulses bue. PULM/CHEST: Effort normal and breath sounds normal. No respiratory distress. No stridor. He has no wheezes. He has no rales. - Chest Wall: He exhibits no tenderness. ABD: The abdomen is soft. Bowel sounds are normal. He has no distension. No mass is present. There is no tenderness. There is no rebound, no guarding, no Pimentel's sign and no tenderness at McBurney's point. Rovsig negative. MUSC/SKEL: Normal range of motion. There is no peripheral edema, tenderness or deformity. RECTAL: Melanotic stool that was hemoccult positive. LYMPH: No cervical adenopathy. NEURO: He is alert and oriented to person, place, and time. He has normal strength. No cranial nerve deficit or sensory deficit. Coordination and gait normal. GCS eye subscore is 4. GCS verbal subscore is 5. GCS motor subscore is 6. Cerebellar tests wnl. SKIN: Skin is warm, dry, and pale. He is not diaphoretic. PSYCH: He has a normal mood and affect. Behavior is normal. Judgment and thought content normal. Course 1530: Past medical records reviewed. The patient was seen by Dr. Conley for low blood pressure and fatigue. [employer] was able to obtain records from [facility] which showed the patient's hemoglobin level was at7.2 The patient was evaluated in room A4B. A complete history and physical exam was performed. 1630: Vital signs stable. Labs show hemoglobin of 6.4. Patient will be transfused 2 units of packed red blood cells and be started on Protonix. I reviewed the patient's case with Guillermina South. Dr. BermanXiao South will evaluate the patient for further management. Consultations Consultation #1: I reviewed the patient's case with Guillermina South. I performed a rectal exam that showed melanotic stool that was hemoccult positive with 2 units of packed red blood cells. The patient will be started on Protonix. Dr. Berman-Jonas South will evaluate the patient for further management. Time: 16:30 Medical Decision Making Medical Records Attestation: I reviewed the patient's medical records. Home Medications Current Medication List: was personally reviewed by me Laboratory Data Attestation: I reviewed the patient's lab results. Result diagrams: 07/27/19 16:02 07/27/19 16:02 Lab Results 07/27/19 07/27/19 07/27/19 Range/Units 16:02 16:02 16:02 WBC 7.60 (4.8-10.8) K/uL RBC 2.23 L (4.7-6.1) M/uL Hgb 6.4 L* (14.0-18.0) g/dL Hct 20.9 L* (42-52) % MCV 93.7 (80-100) fL MCH 28.7 (25-34) pg MCHC 30.6 L (32-36) g/dL RDW Std Deviation 71.4 H (36.4-46.3) fL RDW Coeff of Silvano 21.0 H (11.5-14.5) % Plt Count 340 (130-400) K/uL MPV 9.0 (7.4-10.4) fL Immature Gran % (Auto) 0.4 % Neut % (Auto) 64.4 % Lymph % (Auto) 7.0 % [place] % (Auto) 22.6 % Eos % (Auto) 5.3 % Baso % (Auto) 0.3 % Reticulocyte % (Auto) (0.5-2.0) % Immature Gran # (Auto) 0.03 H (0.00-0.02) K/uL Neut # (Auto) 4.90 (1.4-6.5) K/uL Lymph # (Auto) 0.53 L (1.2-3.4) K/uL [place] # (Auto) 1.72 H (0.11-0.59) K/uL Eos # (Auto) 0.40 (0-0.5) K/uL Baso # (Auto) 0.02 (0-0.2) K/uL Reticulocyte # (0.02-0.10) 10^6/uL Polychromasia 1+ Hypochromasia Present Anisocytosis Present PT 10.3 (9.0-12.0) Seconds INR 1.0 (0.9-1.1) APTT 22.8 (21.0-31.0) Seconds PTT Ratio 0.8 Sodium 135 L (136-145) mmol/L Potassium 4.2 (3.5-5.1) mmol/L Chloride 94 L (98-107) mmol/L Carbon Dioxide 38 H (21-32) mmol/L Anion Gap 3.0 (3-11) BUN 27 H (7-18) mg/dl Creatinine 1.28 (0.6-1.4) mg/dl Est Cr Clr Drug Dosing 47.5 ml/min Est GFR ( Amer) 62.6 Est GFR (Non-Af Amer) 54.0 BUN/Creatinine Ratio 21.4 H (10-20) Glucose 143 H (70-99) mg/dl Calcium 8.5 (8.5-10.1) mg/dl Iron 30 L (35-175) mcg/dl TIBC 303 (250-450) mcg/dl Transferrin 225 (200-360) mg/dl Ferritin 42.6 (8-388) ng/ml Troponin I 0.021 (0-0.045) ng/ml Vitamin B12 (211-911) pg/ml Folate (>5.38) ng/ml Blood Type Antibody Screen Crossmatch 07/27/19 07/27/19 07/27/19 Range/Units 16:02 16:05 16:52 WBC (4.8-10.8) K/uL RBC (4.7-6.1) M/uL Hgb (14.0-18.0) g/dL Hct (42-52) % MCV (80-100) fL MCH (25-34) pg MCHC (32-36) g/dL RDW Std Deviation (36.4-46.3) fL RDW Coeff of Silvano (11.5-14.5) % Plt Count (130-400) K/uL MPV (7.4-10.4) fL Immature Gran % (Auto) % Neut % (Auto) % Lymph % (Auto) % [place] % (Auto) % Eos % (Auto) % Baso % (Auto) % Reticulocyte % (Auto) 5.3 H (0.5-2.0) % Immature Gran # (Auto) (0.00-0.02) K/uL Neut # (Auto) (1.4-6.5) K/uL Lymph # (Auto) (1.2-3.4) K/uL [place] # (Auto) (0.11-0.59) K/uL Eos # (Auto) (0-0.5) K/uL Baso # (Auto) (0-0.2) K/uL Reticulocyte # 0.12 H (0.02-0.10) 10^6/uL Polychromasia Hypochromasia Anisocytosis PT (9.0-12.0) Seconds INR (0.9-1.1) APTT (21.0-31.0) Seconds PTT Ratio Sodium (136-145) mmol/L Potassium (3.5-5.1) mmol/L Chloride (98-107) mmol/L Carbon Dioxide (21-32) mmol/L Anion Gap (3-11) BUN (7-18) mg/dl Creatinine (0.6-1.4) mg/dl Est Cr Clr Drug Dosing ml/min Est GFR ( Amer) Est GFR (Non-Af Amer) BUN/Creatinine Ratio (10-20) Glucose (70-99) mg/dl Calcium (8.5-10.1) mg/dl Iron (35-175) mcg/dl TIBC (250-450) mcg/dl Transferrin (200-360) mg/dl Ferritin (8-388) ng/ml Troponin I (0-0.045) ng/ml Vitamin B12 1691 H (211-911) pg/ml Folate > 24.00 (>5.38) ng/ml Blood Type O Positive Antibody Screen NEGATIVE Crossmatch See Detail Blood Pressure Blood Pressure Findings: Low blood pressure Blood Pressure Disposition: further management by hospitalist [facility] Narrative 8790: Past medical records reviewed. The patient was seen by Dr. Conley for low blood pressure and fatigue. [employer] was able to obtain records from [facility] which showed the patient's hemoglobin level was at7.2 The patient was evaluated in room A4B. A complete history and physical exam was performed. 1630: Vital signs stable. Labs show hemoglobin of 6.4. Patient will be transfused 2 units of packed red blood cells and be started on Protonix. I reviewed the patient's case with Guillermina South. Dr. Berman- Hospitalist [facility] will evaluate the patient for further management. Impression & Plan Anemia, Acute GI bleeding Critical Care Time Critical Care Time: Yes Total Critical Care Time: 43 I have personally spent 43 minutes of critical care time in the direct man agement of this patient. This includes bedside care, interpretation of diagnostic studies, and testing, discussion with consultants, patient, and family members, and other required patient management activities. This 43 minutes is in excess of all separately billable procedures. Discharge Plan Visit Data Chief Complaint: Referred by Doctor Stated Complaint: PCP REFERRED, POTENTIAL BLOOD LOSS ED Provider: Michael Ling Discharge Problem: Anemia, Acute GI bleeding Patient Disposition: Being Evaluated by Hospitalist Forms Stand Alone Forms: [facility] Prescriptions Prescriptions: No Action ferrous sulfate [iron] 325 mg (65 mg iron) Tablet 325 mg PO Q2D RF: 0 furosemide [Lasix] 20 mg Tablet 20 mg PO QAM RF: 0 metoprolol succinate 25 mg Tablet Extended Release 24 Hr 6.25 mg PO BID RF: 0 trazodone 50 mg Tablet 50 mg PO HS RF: 0 ascorbic acid (vitamin C) [Vitamin C] 500 mg Tablet 500 mg PO Q2D RF: 0 multivitamin Tablet 1 tab PO QAM RF: 0 atorvastatin 40 mg Tablet 40 mg PO QDD RF: 0 cyanocobalamin (vitamin B-12) [Vitamin B-12] 1,000 mcg Tablet 1,000 mcg PO QAM RF: 0 clopidogrel [Plavix] 75 mg Tablet 75 mg PO QAM RF: 0 aspirin 81 mg Tablet,Delayed Release (Dr/Ec) 81 mg PO QAM RF: 0 nitroglycerin [Nitrostat] 0.4 mg Tablet, Sublingual 0.4 mg sublingual UD PRN (Reason: Chest Pain) RF: 0 betamethasone, augmented [Diprolene] 0.05 % Ointment 1 applic TOPICAL BID RF: 0 magnesium 250 mg Tablet 250 mg PO QAM RF: 0 pyridoxine (vitamin B6) [Vitamin B-6] 100 mg Tablet 100 mg PO QAM RF: 0 albuterol sulfate [Ventolin HFA] 90 mcg/actuation Hfa Aerosol Inhaler 2 puff INHALATION Q4H PRN (Reason: Shortness Of Breath Or Wheezing) RF: 0 timolol maleate 0.5 % Drops 1 drp OPL QAM RF: 0 oxybutynin chloride 5 mg Tablet 5 mg PO QDD RF: 0 metformin 500 mg Tablet Extended Release 24 Hr 500 mg PO QDD RF: 0 folic acid 800 mcg Tablet 0.8 mg PO QAM RF: 0 cholecalciferol (vitamin D3) [Vitamin D3] 1,000 unit Capsule 1,000 unit PO QAM RF: 0 sildenafil (antihypertensive) [Revatio] 20 mg Tablet 20 mg PO DAILY PRN (Reason: PAH) RF: 0 lutein 20 mg Tablet 20 mg PO QAM RF: 0 Anoro Ellipta 62.5-25 mcg/actuation Blister With Device 1 inh INHALATION PM RF: 0 Referrals Referrals: Donal Crabtree MD [Primary Care Provider] - Discharge Problem: Anemia Qualifiers: Anemia type: unspecified type Qualified Code(s): D64.9 - Anemia, unspecified The scribe's documentation has been prepared under my direction and personally reviewed by me in its entirety. I confirm that the note above accurately reflects all work, treatment, procedures, and medical decision making performed by me.
--- NOTE | 2019-07-27 18:13 | XRay Report ---
XR chest 1V portable CLINICAL HISTORY: 78 years-old Male presenting with anemia. TECHNIQUE: Portable upright AP view of the chest was obtained. COMPARISON: 05/25/2019. FINDINGS: Atherosclerosis of the aortic arch. Cardiac silhouette borderline enlarged. Interval decrease of the now trace right pleural effusion or pleural thickening. Improved aeration of the right lower lung, al though there is basilar predominant right lung reticular and irregular linear opacities. Left lung de monstrates new reticular and hazy opacities at the left lung base. Overall diffusely coarsened lung m arkings. No pneumothorax. Degenerative changes of the thoracic spine. Upper abdomen normal. IMPRESSION: 1. Basilar predominant reticular lung markings may suggest underlying fibrotic change or other chron ic lung disease, right greater than left. New or increased left basilar opacity. Superimposed aspirat ion or developing infiltrate not excluded. 2. Decreased effusion and improved aeration of the right lung base in comparison to prior. Electronically signed by: Alfonso Willoughby M.D. 07/27/2019 6:11 PM
[2019-07-27] MEDS: PANTOprazole 40 MG in DEXTROSE 5% 100 ML IV SCH ×2 (18:21→23:45)
[2019-07-27] MEDS ORDERED: CARBOHYDRATES FOR HYPOGLYCEMIA PO PRN (18:58)
[2019-07-27] MEDS ORDERED: GLUCOSE 10 TABS/TUBE PO PRN (18:58)
[2019-07-27] MEDS ORDERED: GLUCOSE 40% GEL 15 GM TUBE PO PRN (18:58)
[2019-07-27] MEDS ORDERED: ACETAMINOPHEN 325 MG TAB PO PRN (18:58)
[2019-07-27] MEDS ORDERED: FUROSEMIDE 40 MG/4 ML VIAL IV ONE (18:58)
[2019-07-27] MEDS ORDERED: DEXTROSE 50% 50 ML SYRINGE IV PRN (18:58)
[2019-07-27] MEDS ORDERED: GLUCAGON FOR INJ 1 MG VIAL SQ PRN (18:58)
--- NOTE | 2019-07-27 19:15 | History & Physical Report ---
Date of Service July 27, 2019 Assessment & Plan (1) Anemia: (2) Melena: -Admit to telemetry -Patient presenting by referral PCP for evaluation of anemia that was found on outpatient labs today -Recently, patient has been having black stools and episodes of hypotension (metoprolol and furosemide doses have been being decreased) -On aspirin and Plavix for history of coronary stent placed 06/2018, S/P right CEA 07/02/2019 -In the ER, Hgb found to be 6.4; rectal exam reveals a black, heme positive stool; hemodynamically stable -Baseline hemoglobin ~ 8.5-10 -Received PPI bolus and drip in ED, will continue with -Hold aspirin and Plavix -Clear liquids, n.p.o. after midnight -GI consult, case discussed with Dr. Gee (3) History of right-sided carotid endarterectomy: -S/P 07/02/19 at [facility] [place] -Reached out to vascular surgery who advises that patient needs aspirin only going forward (4) CAD (coronary artery disease): -Appears stable, no reports of chest pain -S/P AI to LAD 07/2018 -Discussed with cardiology, okay to discontinue Plavix at this point and continue aspirin only -Continue statin and beta-lisbet (beta-lisbet dose has been being decreased as an outpatient due to hypotension) (5) Ischemic cardiomyopathy: (6) Systolic and diastolic CHF, chronic: -echo 06/2019: EF 45-49%, grade I diastolic dysfunction -Appears euvolemic -Outpatient dose of furosemide has been being decreased secondary to hypotension -will give Lasix 40 mg IV in between PRBC (7) CKD (chronic kidney disease), stage III: -Baseline creatinine runs in the low ones -Creatinine 1.2 today -Continue to follow renal functions (8) COPD (chronic obstructive pulmonary disease): -Appears stable -No signs of acute exacerbation -Continue home inhalers and O2 (9) DM type 2 (diabetes mellitus, type 2): -Hgb A1c 6.3 06/2019 -Hold oral agents and utilize NovoLog protocol hospitalized (10) Bladder cancer: -No acute issues -Follows with [facility] and Dr. Lonny Franks locally (11) Elevated vitamin B12 level: -Elevated vitamin B12 level noted at 1691 -Hold oral replacement (12) DVT prophylaxis: -SCDs due to suspected GI bleeding History of Present Illness Chief Complaint: Referred by PCP for abnormal labs Primary Care Provider: Donal Crabtree MD 78-year-old male who was sent to the ED by referral PCP for evaluation of abnormal labs. Over the past several days, patient has been having episodes of hypotension at home. has been decreasing his metoprolol and furosemide doses. He was evaluated by his PCP today for these hypotensive episodes. Labs were drawn that demonstrated a hemoglobin of 7.2. Patient was advised to go to the ED for further evaluation. Upon questioning, patient reports black stools over the past 3 days. He did start taking iron about 3 weeks ago. He is also on aspirin and Plavix for cardiac stent placed 07/2018. Patient was recently admitted to [facility] 07/02 through 07/08 for elective right carotid en darterectomy. Postoperatively, patient passed out and was found to be hypotensive and bradycardic. He received atropine and epinephrine, was also intubated and placed in ICU. Patient was found to be anemic and received 2 unit PRBC. He was able to be extubated the following day. Episode was felt to be secondary to increased paresthetic tone in the setting of recent carotid surgery. In addition to the recent black stools and episodes of hypotension, patient also has felt generally weak. He has fallen about 3 times in the past 1 week. He reports feeling lightheaded and dizzy however denies any loss of consciousness. He denies chest pain. Has chronic exertional shortness of breath which is unchanged from baseline. No abdominal pain, nausea, vomiting, diarrhea. He denies fevers and chills. No urinary symptoms. In the ED, Hgb is found to be 6.4. Rectal exam by ED physician revealed dark stool which is heme positive. Patient is hemodynamically stable. He was given a Protonix bolus and started on a drip. Allergies Allergy/AdvReac Type Severity Reaction Status Date / Time No Known Allergies Allergy Verified 07/27/19 17:39 Home Medications Home Medications Medication Instructions Recorded Confirmed Type Anoro Ellipta 1 inh INHALATION PM 02/03/19 07/27/19 History albuterol sulfate [Ventolin HFA] 2 puff INHALATION Q4H PRN 02/03/19 07/27/19 History aspirin 81 mg PO QAM 02/03/19 07/27/19 History atorvastatin 40 mg PO QDD 02/03/19 07/27/19 History betamethasone, augmented 1 applic TOPICAL BID 02/03/19 07/27/19 History [Diprolene] cholecalciferol (vitamin D3) 1,000 unit PO QAM 02/03/19 07/27/19 History [Vitamin D3] clopidogrel [Plavix] 75 mg PO QAM 02/03/19 07/27/19 History cyanocobalamin (vitamin B-12) 1,000 mcg PO QAM 02/03/19 07/27/19 History [Vitamin B-12] folic acid 0.8 mg PO QAM 02/03/19 07/27/19 History lutein 20 mg PO QAM 02/03/19 07/27/19 History magnesium 250 mg PO QAM 02/03/19 07/27/19 History metformin 500 mg PO QDD 02/03/19 07/27/19 History multivitamin 1 tab PO QAM 02/03/19 07/27/19 History nitroglycerin [Nitrostat] 0.4 mg SUBLINGUAL UD PRN 02/03/19 07/27/19 History oxybutynin chloride 5 mg PO QDD 02/03/19 07/27/19 History pyridoxine (vitamin B6) [Vitamin 100 mg PO QAM 02/03/19 07/27/19 History B-6] sildenafil (antihypertensive) 20 mg PO DAILY PRN 02/03/19 07/27/19 History [Revatio] timolol maleate 1 drp OPL QAM 02/03/19 07/27/19 History ascorbic acid (vitamin C) [Vitamin 500 mg PO Q2D 07/27/19 07/27/19 History C] ferrous sulfate [iron] 325 mg PO Q2D 07/27/19 07/27/19 History furosemide [Lasix] 20 mg PO QAM 07/27/19 07/27/19 History metoprolol succinate 6.25 mg PO BID 07/27/19 07/27/19 History trazodone 50 mg PO HS 07/27/19 07/27/19 History Past Med/Surg History Medical History CKD (chronic kidney disease), stage III (Chronic) Octaviano de la Tourette syndrome (Chronic) Ischemic cardiomyopathy (Chronic) Systolic and diastolic CHF, chronic (Chronic) echo 06/2019 - EF 45-49%, grade I diastolic dysfunction CAD (coronary artery disease) (Chronic) cath 07/2018 - 100% RCA occlusion, s/p AI to LAD Respiratory failure with hypoxia and hypercapnia (Chronic) HTN (hypertension) (Chronic) DM type 2 (diabetes mellitus, type 2) (Chronic) Dyslipidemia (Chronic) Tourette syndrome (Chronic) Glaucoma (Chronic) Bladder cancer (Chronic 02/22/18) Onset of gross hematuria Status post cystoscopy and finding of urothelial cell carcinoma of the bladder 02/22/2018 Status post TURBT 03/06/2018 Initiation of systemic chemotherapy 04/04/2018 gemcitabine and cisplatin Status post acute NE 05/30/2018. Chemotherapy stopped. Status post cardiac catheterization with stent placement 07/14/2018 Recheck cystoscopy 09/06/2018 at [facility]. Biopsy shows residual noninvasive high-grade papillary urothelial carcinoma. Recommendation for combined radiation and chemotherapy. Patient now had improved cardiac status. Status post completion of combined radiation and chemotherapy 01/23/2019. He received 6440 cGy. COPD (chronic obstructive pulmonary disease) (Chronic) Carotid atherosclerosis (Chronic) Tobacco abuse (Chronic) Surgical History History of right-sided carotid endarterectomy (Chronic) History of left-sided carotid endarterectomy (Chronic) Status post surgical removal and fulguration of bladder neoplasm (Chronic) History of cataract surgery (Chronic) Family History Mother Diabetes Stroke Other No significant family history Social History Preferred Language: Tajik Communication Ability: Effective Chair Upholsterer Required: Yes Beliefs That Will Affect Care: None Current Living Situation: Spouse Feels Safe at Home: Yes Safety Concerns: Feels Safe At This Time Smoking Status: Current every day smoker Tobacco Type: cigarettes ; Cigarettes Per Day: 15 ; Do You Dip or Chew Tobacco: No ; Second Hand Exposure: No ; Hx Alcohol Use: No Hx Substance Use: No Review of Systems Review of Systems: ROS per HPI, all other systems reviewed and negative Physical Exam Constitutional: WD/WN, vitals as above Eyes: PERRL, conjunctivae normal, anicteric sclerae ENMT: external ear and nose normal, oropharynx normal Respiratory: normal respiratory effort; no respiratory distress Auscult ation: + diminished lung sounds and + crackles (faint, BL bases) Cardiovascular: Rate/Rhythm: regular rate and regular rhythm Vessels: normal peripheral pulses Extremities: no edema Gastrointestinal (Abdomen): normal bowel sounds, soft, nontender, no hepatosplenomegaly Inspection/Auscultation: + abdomen distended Musculoskeletal: no cyanosis or clubbing, extremities motor strength 5/5 Skin: no rashes, warm and dry Neurologic: PERRL, EOMI, accommodation nl, no face palsy, no dysarthria Psychiatric: A+Ox3, euthymic affect Results & Data Vital Signs (Past 12 Hours) Vital Signs Temp Pulse Resp BP Pulse Ox 07/27/19 18:19 36.7 C 79 20 106/90 95 07/27/19 18:07 36.7 C 87 18 117/70 96 07/27/19 18:00 88 23 117/70 98 07/27/19 17:52 36.7 C 94 H 29 H 121/80 95 07/27/19 17:30 93 H 30 H 94/70 L 98 07/27/19 17:00 84 28 H 114/61 98 07/27/19 16:30 94 H 17 108/62 99 07/27/19 16:00 91 H 24 94/55 L 98 07/27/19 15:58 91 H 24 107/55 L 92 07/27/19 15:25 36.8 C 101 H 26 H 114/56 L 98 Laboratory Results Short CBC 07/27/19 Range/Units 16:02 WBC 7.60 (4.8-10.8) K/uL Hgb 6.4 L* (14.0-18.0) g/dL Hct 20.9 L* (42-52) % Plt Count 340 (130-400) K/uL BMP 07/27/19 16:02 Sodium 135 L Potassium 4.2 Chloride 94 L Carbon Dioxide 38 H BUN 27 H Creatinine 1.28 Glucose 143 H Calcium 8.5 Cardiac Enzymes 07/27/19 Range/Units 16:02 Troponin I 0.021 (0-0.045) ng/ml Diagnostic Findings CXR IMPRESSION: 1. Basilar predominant reticular lung markings may suggest underlying fibrotic change or other chronic lung disease, right greater than left. New or increased left basilar opacity. Superimposed aspiration or developing infiltrate not excluded. 2. Decreased effusion and improved aeration of the right lung base in comparison to prior. Code Status & VTE Plan Code Status Patient is a full code as per my discussion with him. VTE Prophylaxis Plan VTE Prophylaxis will be ordered: Yes Supervising Physician Co-Signing Physician Notes HISTORY: Record reviewed. Patient interviewed and examined in the ED. Care coordinated with AMBER Merchant. Please refer to her documentation for patient's history. Briefly, 78 YO M with history of CAD s/p PCI with AI, status post recent carotid endarterectomy, and other problems. Referred to ED for evaluation of anemia. Recent dark stools. On low dose aspirin and clopidogrel. No recent NSAID's. EXAM: General- no distress Lungs- bibasilar rales; no respiratory distress Cardiovascular- RRR; no murmur; no gallop; no JVD; no pretibial edema Abdomen- + bowel sounds, soft, nontender Extremities- no cyanosis; no calf tenderness Neuro- alert, oriented Skin- warm & dry DATA: Hgb 6.4, MCV 93. Plts 340,000. PT 10.3, INR 22.8. BUN 27, creat 1.28. Other lab studies as noted. Chest x-ray reviewed by the undersigned and formally interpreted by Radiology. Chronic changes suggesting underlying interstitial lung disease, new or increased left basilar opacity, improved right pleural effusion. EKG performed at 1548 reviewed and demonstrated normal sinus rhythm at 90/ minute, intraventricular conduction delay, ST depression inferiorly and laterally. ASSESSMENT AND PLAN: Severe anemia. Rectal exam per ED provider revealed heme positive stools. Packed RBCs ordered. On aspirin and clopidogrel for coronary disease with drug-eluting stent as well as carotid disease. Case discussed with Cardiology and Vascular Surgery. Continue low-dose aspirin. Hold clopidogrel. PPI. Consult GI. Please refer to NUHA Dias's documentation for discussion of other issues.
[2019-07-27] MEDS ORDERED: FUROSEMIDE 40 MG in SYRINGE 0 ML IV ONE (19:45)
[2019-07-27] MEDS: METOPROLOL SUCC 25MG EXT REL TAB PO SCH (20:45)
[2019-07-27] MEDS ORDERED: TRAZODONE HCL 50 MG TAB PO SCH (21:00)
[2019-07-27] MEDS: INSULIN ASPART 100 UNITS/ML 3 ML PEN SC SCH (21:03)
[2019-07-28 01:25] LABS: Hematocrit (blood only) 26.8 % (42-52); Hemoglobin 8.6 g/dL (14.0-18.0)
[2019-07-28] MEDS: PANTOprazole 40 MG in DEXTROSE 5% 100 ML IV SCH ×3 (04:51→15:17)
[2019-07-28 06:27] LABS: Hematocrit (blood only) 26.5 % (42-52); Hemoglobin 8.4 g/dL (14.0-18.0); Mean Corpuscular Hemoglobin 29.2 pg (25-34); Mean Corpuscular Hgb Conc 31.7 g/dL (32-36); Mean Platelet Volume 8.9 fL (7.4-10.4); Platelet Count 307 K/uL (130-400); RDW Coefficient of Variation 18.5 % (11.5-14.5); RDW Standard Deviation 60.5 fL (36.4-46.3); Red Blood Count 2.88 M/uL (4.7-6.1); White Blood Count 8.68 K/uL (4.8-10.8)
[2019-07-28 06:45] LABS: BUN Creatinine Ratio 17.6 (10-20); Calcium 8.4 mg/dl (8.5-10.1); Creatinine Clr Calc Pharmacy 51.1 ml/min; Est GFR (African American) 68.4; Potassium 3.8 mmol/L (3.5-5.1)
[2019-07-28] MEDS: INSULIN ASPART 100 UNITS/ML 3 ML PEN SC SCH ×2 (08:35→12:04)
[2019-07-28] MEDS: METOPROLOL SUCC 25MG EXT REL TAB PO SCH (08:37)
[2019-07-28] MEDS ORDERED: NON-FORMULARY MEDICATION (Lutein 20 MG) PO SCH (09:00)
[2019-07-28] MEDS ORDERED: FUROSEMIDE 20 MG TAB PO SCH (09:00)
[2019-07-28] MEDS ORDERED: CHOLECALCIFEROL 1,000 UNITS TAB PO SCH (09:00)
[2019-07-28] MEDS ORDERED: FERROUS SULFATE 325 MG TAB PO SCH (09:00)
[2019-07-28] MEDS ORDERED: PYRIDOXINE HCL 50 MG TAB PO SCH (09:00)
[2019-07-28] MEDS ORDERED: MAGNESIUM OXIDE 400 MG TAB PO SCH (09:00)
[2019-07-28] MEDS ORDERED: NON-FORMULARY MEDICATION (Folic Acid 0.8 MG) PO SCH (09:00)
[2019-07-28] MEDS ORDERED: ASCORBIC ACID 500 MG TAB PO SCH (09:00)
[2019-07-28] MEDS ORDERED: MULTIVITAMIN TAB PO SCH (09:00)
[2019-07-28] MEDS ORDERED: TIMOLOL MALEATE 0.25% OP SOLN 5 ML BTL OPL SCH (09:00)
--- NOTE | 2019-07-28 09:15 | Gastrointestinal Consultation ---
Date of Consultation July 28, 2019 Assessment & Plan (1) Melena: 78 yo male with CAD, vascular dz, DM, CHF, COPD s/p recent CEA admitted with dark stool and hgb of 6.4. BUN not significantly elevated. Last BM was 2 days ago (not acutely continuing to bleed). Suspect he had UGI bleed a few weeks ago. While he does not need an urgent EGD, he should have an outpatient EGD in the next few weeks. WOuld treat with omeprazole 20 mg BID or Protonix 40 mg BID and advance diet. Ok to discharge to home from Gi standpoint.Discussed with primary hospitalist. (2) Anemia: (3) CKD (chronic kidney disease), stage III: (4) Ischemic cardiomyopathy: (5) Systolic and diastolic CHF, chronic: (6) CAD (coronary artery disease): (7) DM type 2 (diabetes mellitus, type 2): History of Present Illness Reason for Consultation: anemia melena Attending Physician: Hermila Solis MD History of Present Illness Mr. Arce is a 78 yo male with multiple comorbidities including CAD s/p AI a little over a year ago, recent CEA (right) 2-3 weeks ago, COPD, CKD and DM. He is on ASA and Plavix and presented ot the ER after having labs done by PCP which were significant for hgb of 6.4 (baseline 8.5-9). BUN 21. He tells me that he was started on iron about a month ago and since that time his stools have been very dark. He denies any nausea or vomiting. No abdominal pain. Denies problems with heartburn or reflux. Not on a PPI at home. He has no known history of PUD. Denies any problems with rectal bleeding. He was given 2 units of PRBCs and hgb now stable at 8.6. Vascular and cardiology are in agreement with stopping the plavix and continuing ASA. Patient feels well and wants to go home. Last BM was 2 days ago. Allergies Allergy/AdvReac Type Severity Reaction Status Date / Time No Known Allergies Allergy Verified 07/27/19 17:39 Home Medications Home Medications Medication Instructions Recorded Confirmed Type Anoro Ellipta 1 inh INHALATION PM 02/03/19 07/27/19 History albuterol sulfate [Ventolin HFA] 2 puff INHALATION Q4H PRN 02/03/19 07/27/19 History aspirin 81 mg PO QAM 02/03/19 07/27/19 History atorvastatin 40 mg PO QDD 02/03/19 07/27/19 History betamethasone, augmented 1 applic TOPICAL BID 02/03/19 07/27/19 History [Diprolene] cholecalciferol (vitamin D3) 1,000 unit PO QAM 02/03/19 07/27/19 History [Vitamin D3] clopidogrel [Plavix] 75 mg PO QAM 02/03/19 07/27/19 History cyanocobalamin (vitamin B-12) 1,000 mcg PO QAM 02/03/19 07/27/19 History [Vitamin B-12] folic acid 0.8 mg PO QAM 02/03/19 07/27/19 History lutein 20 mg PO QAM 02/03/19 07/27/19 History magnesium 250 mg PO QAM 02/03/19 07/27/19 History metformin 500 mg PO QDD 02/03/19 07/27/19 History multivitamin 1 tab PO QAM 02/03/19 07/27/19 History nitroglycerin [Nitrostat] 0.4 mg SUBLINGUAL UD PRN 02/03/19 07/27/19 History oxybutynin chloride 5 mg PO QDD 02/03/19 07/27/19 History pyridoxine (vitamin B6) [Vitamin 100 mg PO QAM 02/03/19 07/27/19 History B-6] sildenafil (antihypertensive) 20 mg PO DAILY PRN 02/03/19 07/27/19 History [Revatio] timolol maleate 1 drp OPL QAM 02/03/19 07/27/19 History ascorbic acid (vitamin C) [Vitamin 500 mg PO Q2D 07/27/19 07/27/19 History C] ferrous sulfate [iron] 325 mg PO Q2D 07/27/19 07/27/19 History furosemide [Lasix] 20 mg PO QAM 07/27/19 07/27/19 History metoprolol succinate 6.25 mg PO BID 07/27/19 07/27/19 History trazodone 50 mg PO HS 07/27/19 07/27/19 History Patient History Medical History CKD (chronic kidney disease), stage III (Chronic) Octaviano de la Tourette syndrome (Chronic) Ischemic cardiomyopathy (Chronic) Systolic and diastolic CHF, chronic (Chronic) echo 06/2019 - EF 45-49%, grade I diastolic dysfunction CAD (coronary artery disease) (Chronic) cath 07/2018 - 100% RCA occlusion, s/p AI to LAD Respiratory failure with hypoxia and hypercapnia (Chronic) HTN (hypertension) (Chronic) DM type 2 (diabetes mellitus, type 2) (Chronic) Dyslipidemia (Chronic) Tourette syndrome (Chronic) Glaucoma (Chronic) Bladder cancer (Chronic 02/22/18) Onset of gross hematuria Status post cystoscopy and finding of urothelial cell carcinoma of the bladder 02/22/2018 Status post TURBT 03/06/2018 Initiation of systemic chemotherapy 04/04/2018 gemcitabine and cisplatin Status post acute NE 05/30/2018. Chemotherapy stopped. Status post cardiac catheterization with stent placement 07/14/2018 Recheck cystoscopy 09/06/2018 at [facility]. Biopsy shows residual noninvasive high-grade papillary urothelial carcinoma. Recommendation for combined radiation and chemotherapy. Patient now had improved cardiac status. Status post completion of combined radiation and chemotherapy 01/23/2019. He received 6440 cGy. COPD (chronic obstructive pulmonary disease) (Chronic) Carotid atherosclerosis (Chronic) Tobacco abuse (Chronic) Surgical History History of right-sided carotid endarterectomy (Chronic) History of left-sided carotid endarterectomy (Chronic) Status post surgical removal and fulguration of bladder neoplasm (Chronic) History of cataract surgery (Chronic) Family History Mother Diabetes Stroke Other No significant family history Social History Preferred Language: Chinese Communication Ability: Effective Nurse Intern Required: Yes Beliefs That Will Affect Care: None Current Living Situation: Spouse Feels Safe at Home: Yes Safety Concerns: Feels Safe At This Time Smoking Status: Current every day smoker Tobacco Type: cigarettes ; Cigarettes Per Day: 15 ; Do You Dip or Chew Tobacco: No ; Second Hand Exposure: No ; Hx Alcohol Use: No Hx Substance Use: No Review of Systems Review of Systems: All systems reviewed & are unremarkable except as noted in HPI & below Physical Exam Constitutional: WD/WN, vitals as above Eyes: PERRL, conjunctivae normal, anicteric sclerae Neck: trachea midline, no thyromegaly Respiratory: normal respiratory effort, lungs clear to auscultation Cardiovascular: RRR, no murmur, no edema Gastrointestinal (Abdomen): normal bowel sounds, soft, nontender, no hepatosplenomegaly Musculoskeletal: no cyanosis or clubbing, extremities motor strength 5/5 Skin: healing incision right neck Neurologic: CN's II-XI intact bilaterally Results & Data Vital Signs (Past 12 Hours) Vital Signs Temp Pulse Pulse Resp BP BP BP 07/28/19 07:38 36.8 C 74 20 98/57 L 07/28/19 03:31 36.8 C 83 20 91/55 L 07/27/19 23:47 36.7 C 74 18 106/56 L 07/27/19 23:41 36.6 C 72 18 93/59 L 07/27/19 23:00 36.6 C 83 18 112/59 L 07/27/19 22:30 36.7 C 84 18 124/62 07/27/19 22:00 36.6 C 88 18 118/63 07/27/19 21:45 36.6 C 85 18 114/71 07/27/19 21:31 36.6 C 88 18 115/61 07/27/19 21:26 36.6 C 89 18 133/66 07/27/19 21:21 36.8 C 91 H 18 135/61 Pulse Ox 07/28/19 07:38 98 07/28/19 03:31 91 07/27/19 23:47 99 07/27/19 23:41 100 07/27/19 23:00 99 07/27/19 22:30 100 07/27/19 22:00 92 07/27/19 21:45 94 07/27/19 21:31 96 07/27/19 21:26 95 07/27/19 21:21 93
[2019-07-28 15:31] VITALS: BP 114/68; PULSE 76; TEMP 98.1; O2SAT 96
--- NOTE | 2019-07-28 15:35 | Discharge Summary ---
Date of Service July 28, 2019 Admission HPI Per Admitting Provider 78-year-old male who was sent to the ED by referral PCP for evaluation of abnormal labs. Over the past several days, patient has been having episodes of hypotension at home. has been decreasing his metoprolol and furosemide doses. He was evaluated by his PCP today for these hypotensive episodes. Labs were drawn that demonstrated a hemoglobin of 7.2. Patient was advised to go to the ED for further evaluation. Upon questioning, patient reports black stools over the past 3 days. He did start taking iron about 3 weeks ago. He is also on aspirin and Plavix for cardiac stent placed 07/2018. Patient was recently admitted to [facility] 07/02 through 07/08 for elective right carotid endarterectomy. Postoperatively, patient passed out and was found to be hypotensive and bradycardic. He received atropine and epinephrine, was also intubated and placed in ICU. Patient was found to be anemic and received 2 unit PRBC. He was able to be extubated the following day. Episode was felt to be secondary to increased paresthetic tone in the setting of recent carotid surgery. In addition to the recent black stools and episodes of hypotension, patient also has felt generally weak. He has fallen about 3 times in the past 1 week. He reports feeling lightheaded and dizzy however denies any loss of consciousness. He denies chest pain. Has chronic exertional shortness of breath which is unchanged from baseline. No abdominal pain, nausea, vomiting, diarrhea. He denies fevers and chills. No urinary symptoms. In the ED, Hgb is found to be 6.4. Rectal exam by ED physician revealed dark stool which is heme positive. Patient is hemodynamically stable. He was given a Protonix bolus and started on a drip. Principal Diagnosis Anemia/possible GI bleed Discharge Exam GENERAL: No sign of distress, HEENT: Sclera nonicteric, pink-purple bilateral equal reactive to light extraocular muscle intact Normal oral mucosa, neck: No JVD, no thyromegaly, trachea midline Lungs: Clear to auscultate, no wheeze or rales Cardiovascular: Regular S1 and S2, no murmur or gallop, no JVD, no lower extremity edema Abdomen: Soft, nontender, bowel sounds active, no hepatosplenomegaly Extremities: No rash or deformity, normal joint, Neuro: No focal neurological deficit, no dysarthria, no facial droop Psych: Alert awake oriented x3: Euthymic Skin: No rash LYMPH NODES: No cervical lymphadenopathy Discharge Data Allergies Allergy/AdvReac Type Severity Reaction Status Date / Time No Known Allergies Allergy Verified 07/27/19 17:39 Consultations 07/27/19 16:31 ED Decision to Admit Stat 07/27/19 18:58 Consult Gastroenterology Routine Hospital Course (1) Anemia: (2) Melena: \ -Patient presenting by referral PCP for evaluation of anemia that was found on outpatient labs Hemoglobin was 6.4, status post 2 units of PRBC transfusion hemoglobin improved to 8.4, no evidence of GI bleed Patient has been -On aspirin and Plavix for history of coronary stent placed 06/2018, S/P right CEA 07/02/2019 After discussion with cardiology, Plavix discontinued, secondary to high risk for bleeding Appreciate input from GI, no evidence of active bleeding, patient has chronic dark stools secondary to iron supplement Hemodynamic compromise Recommends to advance diet, stable to be discharged home with p.o. PPI GI office will contact patient to schedule outpatient EGD/colonoscopy (3) History of right-sided carotid endarterectomy: -S/P 07/02/19 [place] [facility] [place]Reached out to vascular surgery who advises that patient needs aspirin only going forward Plavix discontinued Patient will be continued with low-dose aspirin only, Patient is advised to take it after meal to prevent GI bleed (4) CAD (coronary artery disease): -No complaint of angina, no shortness of breath no dyspnea on exertion -S/P AI to LAD 07/2018 Patient been on more than 12 months of dual antiplatelet from aspirin and Plavix Given presentation with anemia and concern for GI bleed Plavix discontinued (plan of care discussed with cardiology, in agreement) Patient will continue with low-dose aspirin 81 mg daily -Continue statin and beta-lisbet (5) Ischemic cardiomyopathy: (6) Systolic and diastolic CHF, chronic: -echo 06/2019: EF 45-49%, grade I diastolic dysfunction -Volume status remained stable (7) CKD (chronic kidney disease), stage III: Function at baseline (8) COPD (chronic obstructive pulmonary disease): -Appears stable -No signs of acute exacerbation -Continue home inhalers and O2 (9) DM type 2 (diabetes mellitus, type 2): -Hgb A1c 6.3 06/2019 Treated with NovoLog sliding scale while in hospital Outpatient oral antidiabetic meds resumed on discharge (10) Bladder cancer: -No acute issues -Follows with [facility] and hematology oncology Dr. Lonny Franks locally (11) Elevated vitamin B12 level: -Elevated vitamin B12 level noted at 1691 -Hold oral replacement (12) DVT prophylaxis: -SCDs due to suspected GI bleeding CODE STATUS: Full code Disposition, stable to be discharged home to Total Time Total Time Spent Total Time Spent (In Minutes): Approximately 40 minutes Total Time Includes: Examination of the Patient, Discharge Planning, Medication Reconciliation and Communication With Other Providers Discharge Plan Discharge Items Patient Disposition: Home - Self-Care Reason For Visit: ANEMIA,GI BLEED Discharge Diagnosis: Anemia: Possible GI bleed/history of prostate cancer Activity: Resume your previous activity Non-emergency contact: Primary Care Provider Call non-emergency contact if: you have any medication questions Follow-up/Referrals: Donal Crabtree MD [Primary Care Provider] - Lesli Gee [Physician] - (Please follow-up with gastroenterology Dr. Gee in [facility] clinic You will need both screening EGD and colonoscopy,) Diet: Carb Consistent or DM2 and Heart Healthy Addtl Attending Provider Instructions: Continue take iron supplement New medication: Omeprazole 40 mg by mouth daily Change in medication: Do not take Plavix Repeat lab work: Complete metabolic panel in 1 week Hospital follow-up with family physician in 1 week Need gastroenterology follow-up in clinic, he will need both EGD and colonoscopy as an outpatient for further investigation for anemia Pending Studies at Discharge: Yes Studies:: Lab work: CBC: Complete blood work in 1 week to assess anemia Stand-Alone Forms: [facility] Medications and DC Order Prescriptions: New omeprazole 40 mg capsule,delayed release(DR/EC) 40 mg PO DAILY Qty: 30 RF: 3 Continued ferrous sulfate [iron] 325 mg (65 mg iron) Tablet 325 mg PO Q2D RF: 0 furosemide [Lasix] 20 mg Tablet 20 mg PO QAM RF: 0 metoprolol succinate 25 mg Tablet Extended Release 24 Hr 6.25 mg PO BID RF: 0 trazodone 50 mg Tablet 50 mg PO HS RF: 0 ascorbic acid (vitamin C) [Vitamin C] 500 mg Tablet 500 mg PO Q2D RF: 0 multivitamin Tablet 1 tab PO QAM RF: 0 atorvastatin 40 mg Tablet 40 mg PO QDD RF: 0 cyanocobalamin (vitamin B-12) [Vitamin B-12] 1,000 mcg Tablet 1,000 mcg PO QAM RF: 0 aspirin 81 mg Tablet,Delayed Release (Dr/Ec) 81 mg PO QAM RF: 0 nitroglycerin [Nitrostat] 0.4 mg Tablet, Sublingual 0.4 mg sublingual UD PRN (Reason: Chest Pain) RF: 0 betamethasone, augmented [Diprolene] 0.05 % Ointment 1 applic TOPICAL BID RF: 0 magnesium 250 mg Tablet 250 mg PO QAM RF: 0 pyridoxine (vitamin B6) [Vitamin B-6] 100 mg Tablet 100 mg PO QAM RF: 0 albuterol sulfate [Ventolin HFA] 90 mcg/actuation Hfa Aerosol Inhaler 2 puff INHALATION Q4H PRN (Reason: Shortness Of Breath Or Wheezing) RF: 0 timolol maleate 0.5 % Drops 1 drp OPL QAM RF: 0 oxybutynin chloride 5 mg Tablet 5 mg PO QDD RF: 0 metformin 500 mg Tablet Extended Release 24 Hr 500 mg PO QDD RF: 0 folic acid 800 mcg Tablet 0.8 mg PO QAM RF: 0 cholecalciferol (vitamin D3) [Vitamin D3] 1,000 unit Capsule 1,000 unit PO QAM RF: 0 sildenafil (antihypertensive) [Revatio] 20 mg Tablet 20 mg PO DAILY PRN (Reason: PAH) RF: 0 lutein 20 mg Tablet 20 mg PO QAM RF: 0 Anoro Ellipta 62.5-25 mcg/actuation Blister With Device 1 inh INHALATION PM RF: 0 Discontinued clopidogrel [Plavix] 75 mg Tablet 75 mg PO QAM RF: 0 Discharge Orders: Discharge Order (Routine); Ordered 07/28/19 Ordered By: Hermila Gill/Other Patient Handouts: Omeprazole Sodium Bicarbonate Oral capsule, Bleeding Gastrointestinal, Anemia Admission Data Admit Date/Time: 07/27/19 17:30 Attending Provider: Hermila Solis Admit Provider: Navi Berman Primary Care Provider: Donal Crabtree Other Providers: Navi Berman ; Lesli Gee Other Interventions: Discharge Summary Assessment (RN) Last Done: 07/28/19 16:08
[2019-07-28] MEDS ORDERED: ATORVASTATIN 40 MG TAB PO SCH (16:30)
[2019-07-28] MEDS ORDERED: OXYBUTYNIN CHLORIDE 5 MG TAB PO SCH (16:30)
--- NOTE | 2019-08-02 07:25 | Coding Query ---
ANEMIA To promote full compliance with coding requirements relating to patient care, physician participation is requested in all cases of ct scan special procedures technologist uncertainty. Please assist us with the question(s) below: Coding Question(s): Please specify the known or suspected type of anemia by placing an "X" within the parenthesis (x). If other, please document type. Examples are: ( x) Acute blood loss anemia ( ) Chronic blood loss anemia ( ) Anemia of chronic disease ( ) Anemia due to renal disease ( ) Anemia in neoplastic disease ( ) Iron deficient anemia ( ) Anemia, unspecified or other ( ) Other: (please specify) ( ) Unable to determine Thank you Kianna JONES
--- NOTE | 2019-08-02 07:28 | Coding Query ---
CODING QUERY To promote full compliance with coding requirements relating to patient care, provider participation is requested in all cases of remote medical coder uncertainty. Please assist us with the question(s) below: Coding Question(s): It was documented that the patient has melena due to a suspected upper GI bleed and that the patient is taking long-term aspirin and plavix. In your clinical opinion would you say that these are related? Physician's Response(s): ( x ) GI bleed d/t medication ( x ) Aspirin ( x) Plavix ( ) GI bleed d/t other reason (please specify) ( ) GI bleed d/t unknown cause Thank you Kianna Rivers Principal Diagnosis: "that condition established after study, to be chiefly responsible for occasioning the admission of the patient to the hospital for care." Co-Existing Principal Diagnosis: "when two or more diagnoses equally meet the criteria for principal diagnosis as determined by the circumstances of admission, diagnostic work up, and/or therapy provided, and the Alphabetic Index, Tabular List, or another coding guideline does not provide sequencing direction, any one of the diagnoses may be sequenced first." "When the physician has documented what appears to be a current diagnosis in the body of the record, but has not included the diagnosis in the final diagnostic statement, the physician should be asked whether the diagnosis should be added." (Source Coding [facility] 2 QTR90. p3-4) ROBERT
== END 2019-07-28 16:36 | disposition home or self-care (01) | DRG 813 ==
LOC: ED 15:02 → 2S 17:30 → SUATTDRO 17:30 → 2S 18:21

== ENCOUNTER 2020-05-22 14:47 | Inpatient (IN) ==
--- NOTE | 2020-05-22 15:34 | Emergency Department Note ---
History of Present Illness General Chief complaint: Hypotension Stated complaint: LOW BP, SHAKING Time Seen by Provider: 05/22/20 15:07 Source: patient Mode of arrival: ambulatory Limitations: no limitations History of Present Illness Provider complaint: hypotension with standing Onset (ago): week(s) 2 Maximum Pain Intensity: 8 Exacerbated By: + none Associated symptoms: + denies other symptoms Treatments prior to arrival: none This is a 79-year-old male who presents with his due to concern for hypotension and weakness with standing. notes this is been going on for approximately 2 weeks. Patient has complicated past medical history including recurrent cancer, coronary artery disease status post stenting, COPD, and diabetes. Patient is not currently undergoing chemoradiation therapy. Patient states he is currently finishing a taper of prednisone from her recent respiratory infection. 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 Patient states he feels fine at rest, however upon standing he begins to feel weak, lightheaded, and states he appears unstable as though he may fall even with assistance. Patient was recently sent for outpatient labs and UA, brought these with review at bedside. She states the rest of his routine cancer surveillance have been negative recently. Pt seen during a time of high acuity and national emergency pandemic while wearing PPE. Home Medications Home Medications Medication Instructions Recorded Confirmed Type Anoro Ellipta 1 inh INHALATION PM 02/03/19 05/22/20 History albuterol sulfate [Ventolin HFA] 2 puff INHALATION TID 02/03/19 05/22/20 History aspirin 81 mg PO QPM 02/03/19 05/22/20 History atorvastatin 40 mg PO QDD 02/03/19 05/22/20 History betamethasone, augmented 1 applic TOPICAL BID PRN 02/03/19 05/22/20 History [Diprolene] cholecalciferol (vitamin D3) 1,000 unit PO QAM 02/03/19 05/22/20 History [Vitamin D3] lutein 20 mg PO Q2D 02/03/19 05/22/20 History multivitamin 1 tab PO QAM 02/03/19 05/22/20 History nitroglycerin [Nitrostat] 0.4 mg SUBLINGUAL UD PRN 02/03/19 05/22/20 History oxybutynin chloride 5 mg PO QDD 02/03/19 05/22/20 History pyridoxine (vitamin B6) [Vitamin 100 mg PO QAM 02/03/19 05/22/20 History B-6] acetaminophen [Tylenol Extra 1,000 mg PO BID PRN 04/28/20 05/22/20 History Strength] ascorbic acid (vitamin C) [Vitamin 500 mg PO DAILY 04/28/20 05/22/20 History C] bisacodyl 5 mg PO QPM PRN 04/28/20 05/22/20 History latanoprost 1 drp OPL HS 04/28/20 05/22/20 History omeprazole 20 mg PO QAM 04/28/20 05/22/20 History prednisone 0 mg PO .TAPER UD 05/22/20 05/22/20 History polyethylene glycol 3350 [Miralax] 17 g PO DAILY PRN 10 Days #10 ea 05/23/20 Rx Allergies Allergy/AdvReac Type Severity Reaction Status Date / Time No Known Allergies Allergy Verified 05/22/20 18:23 Past Med/Surg History Medical History Anemia Bladder cancer Dx'ed 2017- s/p chemo and XRT CAD (coronary artery disease) cath 07/2018 - 100% RCA occlusion, s/p AI to LAD Carotid atherosclerosis s/p CEAs bilaterally CKD (chronic kidney disease), stage III COPD (chronic obstructive pulmonary disease) Degenerative disc disease DM type 2 (diabetes mellitus, type 2) Dyslipidemia GI bleed 07/27/2019--? upper GI Octaviano de la Tourette syndrome Has tics Glaucoma bilt HTN (hypertension) Ischemic cardiomyopathy Myocardial Infarction 06/01/2018 (occurred while receiving chemo treatment for bladder cancer) On home oxygen therapy 2L N/C during day; 4L N/C continuous flow at night Respiratory failure with hypoxia and hypercapnia hx Systolic and diastolic CHF, chronic echo 06/2019 - EF 45-49%, grade I diastolic dysfunction Transient ischemic attack (TIA) 2010--no neurologist, no deficits Surgical History History of bladder surgery TURBT History of cardiac cath 07/26/2018 @ [facility] with 1 stent placed History of cataract surgery bilt History of colonoscopy History of cosmetic plastic surgery to remove droopy skin around neck History of cystoscopy History of esophagogastroduodenoscopy (EGD) History of heart artery stent 1 stent placed History of left-sided carotid endarterectomy 2010 History of right-sided carotid endarterectomy June 2019 History of thoracentesis History of tooth extraction all teeth Status post surgical removal and fulguration of bladder neoplasm Family History Mother Stroke Family history of diabetes mellitus Sister Family history of diabetes mellitus 2 Other No family history of adverse response to anesthesia Social History Preferred Language: Croatian Communication Ability: Effective 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 and A total of 10 systems reviewed and were otherwise negative Physical Exam Vital Signs Vital Signs - 24 hr 05/22/20 14:50 05/22/20 15:47 05/22/20 16:34 Temperature 36.5 C Temperature Source Oral Pulse Rate - Lying 81 Pulse Rate - Sitting 78 Pulse Rate - Standing 83 Pulse Rate 88 84 Pulse Rate from SpO2 Sensor Pulse Rhythm Regular Pulse Strength Normal Respiratory Rate 22 23 Respiratory Effort / Characteristics Non-Labored Spontaneous Respiratory Depth Normal Respiratory Pattern Regular Blood Pressure - Lying 134/72 Blood Pressure - Sitting 140/76 Blood Pressure- Standing 96/73 L Blood Pressure 145/68 H 147/79 H Blood Pressure Mean 93 102 Blood Pressure Position Sitting Pulse Oximetry 93 98 Oxygen Delivery Method Nasal Cannula Oxygen Flow Rate Sepsis Recent Fever Within 48 Hours No Sepsis New/Unexplained Change in Mental Status No Sepsis Action Taken by Nursing No Action Required 05/22/20 17:00 Temperature Temperature Source Pulse Rate - Lying Pulse Rate - Sitting Pulse Rate - Standing Pulse Rate 79 Pulse Rate from SpO2 Sensor 76 Pulse Rhythm Pulse Strength Respiratory Rate 24 Respiratory Effort / Characteristics Respiratory Depth Respiratory Pattern Blood Pressure - Lying Blood Pressure - Sitting Blood Pressure- Standing Blood Pressure Blood Pressure Mean Blood Pressure Position Pulse Oximetry 98 Oxygen Delivery Method Nasal Cannula Oxygen Flow Rate 2 Sepsis Recent Fever Within 48 Hours Sepsis New/Unexplained Change in Mental Status Sepsis Action Taken by Nursing GENERAL: alert, well appearing, well nourished, no distress, non-toxic, intermittent twitching noted states this is consistent with his Tourette's syndrome EYE EXAM: normal conjunctiva, PERRL and EOM's grossly intact OROPHARYNX: no exudate, no erythema, lips, buccal mucosa, and tongue normal and mucous membranes are moist NECK: supple, no nuchal rigidity, no adenopathy, non-tender LUNGS: Clear to auscultation. Normal chest wall mechanics, no w/r/r HEART: no murmurs, S1 normal and S2 normal ABDOMEN: abdomen soft, non-tender, normo-active bowel sounds, no masses, no rebound or guarding. BACK: Back is symmetrical on inspection and there is no deformity, no midline tenderness, no CVA tenderness. SKIN: no rashes and no bruising UPPER EXTREMITIES: upper extremities are grossly normal. FROM, nml pulses b/l. LOWER EXTREMITIES: No pitting edema. FROM, nml pulses b/l. NEURO EXAM: Normal sensorium, cranial nerves II-XII grossly intact, normal speech, no gross weakness of arms, no gross weakness of legs. Gross sensation intact. Course Course 1701: Patient updated on all results. Discussed need for additional inpatient evaluation and treatment. visitor services representative was able to obtain prior outpt cards records which included an echo from 06/2019 with an EF 40-45%. 1739: Case discussed with Mar[facility]gr[facility] hospitalist team. Administered Medications Discontinued Medications Acetaminophen (Tylenol) 650 mg PO Q4H PRN PRN Reason: Pain or Fever Stop: 06/21/20 20:24 Last Admin: 05/23/20 07:56 Dose: 650 mg Documented by: [id number] Admin: 05/23/20 00:47 Dose: 650 mg Documented by: [id number] Ascorbic Acid (Vitamin C) 500 mg PO DAILY [facility] Stop: 06/22/20 08:59 Last Admin: 05/23/20 07:57 Dose: 500 mg Documented by: [id number] Aspirin (Ecotrin Ectab) 81 mg PO DAILY [facility] Stop: 06/22/20 08:59 Last Admin: 05/23/20 07:58 Dose: 81 mg Documented by: [id number] Atorvastatin Calcium (Lipitor) 40 mg PO QDD [facility] Stop: 06/21/20 20:24 Last Admin: 05/22/20 22:04 Dose: 40 mg Documented by: [id number] Bisacodyl (Dulcolax) 5 mg PO QPM PRN PRN Reason: CONSTIPATION Stop: 06/21/20 20:57 Last Admin: 05/23/20 07:56 Dose: 5 mg Documented by: [id number] Docusate Sodium (Colace) 100 mg PO BID [facility] Stop: 06/21/20 20:59 Last Admin: 05/23/20 07:58 Dose: 100 mg Documented by: [id number] Admin: 05/22/20 22:02 Dose: 100 mg Documented by: [id number] Enoxaparin Sodium (Lovenox) 40 mg SQ Q24H [facility] Stop: 06/21/20 20:59 Last Admin: 05/22/20 22:03 Dose: 40 mg Documented by: [id number] Sodium Chloride (Nss 1000ml) 1,000 mls @ 200 mls/hr IV .Q5H [facility] Stop: 06/21/20 16:44 Last Infusion: 05/22/20 23:33 Dose: 0 mls/hr Documented by: [id number] Admin: 05/22/20 17:03 Dose: 200 mls/hr Documented by: [id number] Sodium Chloride (Nss 1000ml) 1,000 mls @ 125 mls/hr IV .Q8H [facility] Stop: 05/23/20 19:10 Last Admin: 05/23/20 09:41 Dose: 80 mls/hr Documented by: [id number] Infusion: 05/23/20 09:39 Dose: 80 mls/hr Documented by: [id number] Admin: 05/22/20 21:09 Dose: 80 mls/hr Documented by: [id number] Insulin Aspart (Novolog Flexpen) 0 units SC ACHS [facility] Stop: 06/21/20 20:59 Last Admin: 05/23/20 13:00 Dose: 3 units Documented by: [id number] Cosigned by: [id number] Admin: 05/23/20 08:01 Dose: 4 units Documented by: [id number] Cosigned by: [id number] Admin: 05/22/20 22:01 Dose: 2 units Documented by: [id number] Cosigned by: [id number] Latanoprost (Xalatan Oph) 1 drops OPL HS [facility] Stop: 06/21/20 20:59 Last Admin: 05/22/20 22:03 Dose: 1 drops Documented by: [id number] Melatonin (Melatonin) 3 mg PO NOW STA Stop: 05/23/20 00:38 Last Admin: 05/23/20 00:47 Dose: 3 mg Documented by: [id number] Multivitamins (Multivitamin Tab) 1 tab PO QAM [facility] Stop: 06/22/20 08:59 Last Admin: 05/23/20 07:57 Dose: 1 tab Documented by: [id number] Oxybutynin Chloride (Ditropan) 5 mg PO QDD [facility] Stop: 06/21/20 20:24 Last Admin: 05/22/20 22:04 Dose: 5 mg Documented by: [id number] Pantoprazole Sodium ([facility]ix) [facility] Stop: 06/22/20 08:59 Last Admin: 05/23/20 07:58 Dose: 40 mg Documented by: [id number] Polyethylene Glycol (Miralax Powder Packet) 17 gm PO ONE ONE Stop: 05/22/20 20:31 Last Admin: 05/22/20 22:08 Dose: 17 gm Documented by: [id number] Prednisone (Prednisone) 10 mg PO DAILY [facility] Stop: 05/23/20 09:01 Last Admin: 05/23/20 07:58 Dose: 10 mg Documented by: [id number] Admin: 05/22/20 22:04 Dose: 10 mg Documented by: [id number] Pyridoxine HCl (Vitamin B-6) 100 mg PO QAM [facility] Stop: 06/22/20 08:59 Last Admin: 05/23/20 07:58 Dose: 100 mg Documented by: [id number] Umeclidinium/Vilanterol (Anoro Ellipta 62.5/25 Mcg Inh) 1 puffs INH PM [facility] Stop: 06/21/20 20:59 Last Admin: 05/22/20 22:02 Dose: 1 puffs Documented by: [id number] Vitamin D (Vitamin D3) 1,000 [facility] [place] Stop: 06/22/20 08:59 Last Admin: 05/23/20 07:57 Dose: 1,000 units Documented by: [id number] Medical Decision Making Differential Diagnosis Differential Diagnosis includes but is not limited to dehydration, stroke, anemia, hypoglycemia, hyponatremia, hypernatremia, urinary tract infection, pneumonia, bronchitis, sepsis, gastroenteritis, additional abdominal pathology, metabolic abnormalities and infections. Medical Records Attestation: I reviewed the patient's medical records. Home Medications Current Medication List: was personally reviewed by me Laboratory Data Attestation: I reviewed the patient's lab results. Result diagrams: 05/23/20 01:54 05/23/20 01:54 Lab Results 05/22/20 05/22/20 05/22/20 Range/Units 16:05 16:05 16:05 WBC 14.36 H (4.8-10.8) K/uL RBC 3.63 L (4.7-6.1) M/uL Hgb 10.6 L (14.0-18.0) g/dL Hct 32.6 L (42-52) % MCV 89.8 (80-100) fL MCH 29.2 (25-34) pg MCHC 32.5 (32-36) g/dL RDW Std Deviation 55.6 H (36.4-46.3) fL RDW Coeff of Silvano 17.1 H (11.5-14.5) % Plt Count 261 (130-400) K/uL MPV 9.7 (7.4-10.4) fL Immature Gran % (Auto) 0.8 % Neut % (Auto) 76.9 % Lymph % (Auto) 7.7 % Roberts % (Auto) 13.0 % Eos % (Auto) 1.4 % Baso % (Auto) 0.2 % Neut # (Auto) 11.04 H (1.4-6.5) K/uL Lymph # (Auto) 1.10 L (1.2-3.4) K/uL Roberts # (Auto) 1.87 H (0.11-0.59) K/uL Eos # (Auto) 0.20 (0-0.5) K/uL Baso # (Auto) 0.03 (0-0.2) K/uL Immature Gran # (Auto) 0.12 H (0.00-0.02) K/uL Polychromasia 1+ Schistocytes Occasional Sodium 130 L (136-145) mmol/L Potassium 4.4 (3.5-5.1) mmol/L Chloride 95 L (98-107) mmol/L Carbon Dioxide 32 (21-32) mmol/L Anion Gap 3.0 (3-11) BUN 35 H (7-18) mg/dl Creatinine 1.29 (0.6-1.4) mg/dl Est Cr Clr Drug Dosing 47.2 ml/min Est GFR ( Amer) 61.6 Est GFR (Non-Af Amer) 53.1 BUN/Creatinine Ratio 27.0 H (10-20) Glucose 99 (70-99) mg/dl Calcium 9.0 (8.5-10.1) mg/dl Magnesium 2.2 (1.8-2.4) mg/dl Total Bilirubin 0.3 (0.2-1) mg/dl AST 19 (15-37) U/L ALT 24 (12-78) U/L Alkaline Phosphatase 94 (45-117) U/L Troponin I 0.110 H* (0-0.045) ng/ml NT-Pro-B Natriuret Pep 1404 (0-1800) pg/ml Total Protein 7.5 (6.4-8.2) gm/dl Albumin 3.4 (3.4-5.0) gm/dl Globulin 4.1 H (2.5-4.0) gm/dl Albumin/Globulin Ratio 0.8 L (0.9-2) Procalcitonin (0-0.5) ng/ml TSH 1.220 (0.300-4.500) uIu/ml Lyme Disease IgG Ab Negative (Negative) Lyme Disease IgM Ab Negative (Negative) 05/22/20 Range/Units 16:05 WBC (4.8-10.8) K/uL RBC (4.7-6.1) M/uL Hgb (14.0-18.0) g/dL Hct (42-52) % MCV (80-100) fL MCH (25-34) pg MCHC (32-36) g/dL RDW Std Deviation (36.4-46.3) fL RDW Coeff of Silvano (11.5-14.5) % Plt Count (130-400) K/uL MPV (7.4-10.4) fL Immature Gran % (Auto) % Neut % (Auto) % Lymph % (Auto) % Roberts % (Auto) % Eos % (Auto) % Baso % (Auto) % Neut # (Auto) (1.4-6.5) K/uL Lymph # (Auto) (1.2-3.4) K/uL Roberts # (Auto) (0.11-0.59) K/uL Eos # (Auto) (0-0.5) K/uL Baso # (Auto) (0-0.2) K/uL Immature Gran # (Auto) (0.00-0.02) K/uL Polychromasia Schistocytes Sodium (136-145) mmol/L Potassium (3.5-5.1) mmol/L Chloride (98-107) mmol/L Carbon Dioxide (21-32) mmol/L Anion Gap (3-11) BUN (7-18) mg/dl Creatinine (0.6-1.4) mg/dl Est Cr Clr Drug Dosing ml/min Est GFR ( Amer) Est GFR (Non-Af Amer) BUN/Creatinine Ratio (10-20) Glucose (70-99) mg/dl Calcium (8.5-10.1) mg/dl Magnesium (1.8-2.4) mg/dl Total Bilirubin (0.2-1) mg/dl AST (15-37) U/L ALT (12-78) U/L Alkaline Phosphatase (45-117) U/L Troponin I (0-0.045) ng/ml NT-Pro-B Natriuret Pep (0-1800) pg/ml Total Protein (6.4-8.2) gm/dl Albumin (3.4-5.0) gm/dl Globulin (2.5-4.0) gm/dl Albumin/Globulin Ratio (0.9-2) Procalcitonin < 0.05 (0-0.5) ng/ml TSH (0.300-4.500) uIu/ml Lyme Disease IgG Ab (Negative) Lyme Disease IgM Ab (Negative) ECG Data Attestation: I personally reviewed and interpreted this ECG as follows: Indication: + weakness Rate (beats per minute): 79 Rhythm: + normal sinus ECG Intervals/blocks: + Normal QRS and + Normal QT ECG [place]: + Normal ECG ST segments: + Nonspecific ST abnormalities Blood Pressure Blood Pressure Findings: Elevated blood pressure Blood Pressure Disposition: further management by hospitalist COLE Narrative Pt here c/o 2 weeks of orthostatic symptoms. Pt with complex medical hx and recent outpt evaluation with labs and imaging. Given persistent sx brought him in. Troponin elevated here. Given outpt echo last year, orthostatic and exertion sx with additional questioning, I feel pt warranted additional evaluation as an inpatient. No evidence of ACS, no chest pain, no overt CHF - pt already taking diuretic. Pt and verbalized understanding and were in agreement. VS stable otw throughout. No evidence of infection. Pt orthostatic here and found to have prerenal azotemia, hx of CKD and while here was given cautious rehydration. H/H stable compared to prior. Case discussed with hospitalist. An order was placed for continuous cardiac monitoring. The monitor shows a rate of 80_ with _normal sinus_ rhythm. Impression & Plan Elevated troponin, Lightheaded, Weakness, HTN (hypertension), Tourette syndrome, Anemia Discharge Plan Visit Data *Final* Discharge Date/Time: 05/22/20 19:16 Chief Complaint: Hypotension Stated Complaint: LOW BP, SHAKING ED Provider: Romina Steve Discharge Problem: Elevated troponin, Lightheaded, Weakness, HTN (hypertension), Tourette syndrome, Anemia Patient Disposition: Admitted As Inpatient Discharge Instructions Interventions: ED Discharge Assessment Last Done: 05/22/20 19:16 Discharge Problem: HTN (hypertension) Qualifiers: Hypertension type: essential hypertension Qualified Code(s): I10 - Essential (primary) hypertension Anemia Qualifiers: Anemia type: unspecified type Qualified Code(s): D64.9 - Anemia, unspecified
[2020-05-22 16:33] LABS: Albumin Level 3.4 gm/dl (3.4-5.0); Creatinine Clr Calc Pharmacy 47.2 ml/min; Est GFR (African American) 61.6; Est GFR (Non-African American) 53.1; Magnesium 2.2 mg/dl (1.8-2.4); Potassium 4.4 mmol/L (3.5-5.1)
[2020-05-22] MEDS ORDERED: SODIUM CHLORIDE 0.9% 1000ML 1,000 ML IV SCH (16:45)
[2020-05-22 16:46] LABS: Albumin Globulin Ratio 0.8 (0.9-2); Bilirubin,Total 0.3 mg/dl (0.2-1); Globulin 4.1 gm/dl (2.5-4.0); Thyroid Stimulating Hormone 1.22 uIu/ml (0.300-4.500); Total Protein 7.5 gm/dl (6.4-8.2); Troponin I 0.11 ng/ml (0-0.045)
[2020-05-22 17:13] LABS: Basophils # (auto) 0.03 K/uL (0-0.2); Basophils % (auto) 0.2 %; Eosinophils % (auto) 1.4 %; Hematocrit (blood only) 32.6 % (42-52); Hemoglobin 10.6 g/dL (14.0-18.0); Immature Granulocytes # (auto) 0.12 K/uL (0.00-0.02); Immature Granulocytes % (auto) 0.8 %; Lymphocytes % (auto) 7.7 %; Mean Corpuscular Hemoglobin 29.2 pg (25-34); Mean Corpuscular Hgb Conc 32.5 g/dL (32-36); Mean Corpuscular Volume 89.8 fL (80-100); Mean Platelet Volume 9.7 fL (7.4-10.4); Monocytes # (auto) 1.87 K/uL (0.11-0.59); Neutrophils # (auto) 11.04 K/uL (1.4-6.5); Neutrophils % (auto) 76.9 %; Platelet Count 261 K/uL (130-400); RDW Coefficient of Variation 17.1 % (11.5-14.5); RDW Standard Deviation 55.6 fL (36.4-46.3); Red Blood Count 3.63 M/uL (4.7-6.1); White Blood Count 14.36 K/uL (4.8-10.8)
[2020-05-22 17:32] LABS: Lyme Ab IgG w/WB Rflx Negative (Negative); Lyme Ab IgM w/WB Rflx Negative (Negative)
[2020-05-22 18:01] LABS: Polychromasia 1+; Schistocytes Occasional
--- NOTE | 2020-05-22 18:22 | XRay Report ---
XR chest 1V portable CLINICAL HISTORY: Dyspnea on exertion COMPARISON STUDY: 07/27/2019 FINDINGS: The heart is mildly enlarged. There is no lobar consolidation. There are interstitial fibro tic changes at the lung bases, similar to the preceding study. No large pleural effusions are visuali zed. There is no lobar consolidation.[ IMPRESSION: Chronic interstitial opacities at the lung bases right more pronounced than left. ACT 112: Negative or not required by law. Electronically signed by: Parrish Cutler M.D. 05/22/2020 6:21 PM
--- NOTE | 2020-05-22 19:09 | History & Physical Report ---
Date of Service May 22, 2020 Assessment & Plan (1) Weakness: (2) Lightheaded: Pt is 79 y/o M with PMH systolic and diastolic CHF with EF: 45-49% and grade 1 diastolic dysfunction in 06/2019, CAD s/p DE to LAD in 07/2018, CKD III, COPD on chronic 2L O2, DM II, metastatic bladder CA, adrenal hyperplasia, H/O right carotid endarterectomy, Tourette's presented to ER with c/o weakness and lightheadedness and shaking that occurs with standing and has been occurring for several weeks. Denies falls +orthostatics in ER IVF Repeat orthostatics tomorrow Obtain CT Head to r/o any mets with h/o bladder CA Fall precautions PT/OT eval Off all BP meds Hold oxybutynin CBC, BMP in am (3) Leukocytosis: WBC: 14. No fever or chills. Had cough that is being treated for COPD exacerbation with prednisone with improvement of cough. Suspect secondary to recent prednisone use Will obtain procalcitonin and lactic acid to r/o infection UA pending CXR: Chronic interstitial opacities at the lung bases right more pronounced than left. (4) Elevated troponin: Troponin: 0.1. No EKG changes. No CP Trend troponin Echo EKG in am Continue aspirin, statin. Is off metoprolol secondary to hypotension (5) Systolic and diastolic CHF, chronic: systolic and diastolic CHF with EF: 45-49% and grade 1 diastolic dysfunction on echo in 06/2019 Off lasix secondary to hypotension No edema or pulmonary congestion Monitor (6) COPD (chronic obstructive pulmonary disease): On Chronic O2 - 2L Recent treatment for COPD flare on 05/12/2020. Had VASQUEZ and productive cough and wheezing and was treated with prednisone taper with decreased cough and wheezing and SOB. No fever/chills. Had negative Covid-19 testing prior to procedure on 04/30/2020 Today on exam without signs of exacerbation Finish today and tomorrow 10mg prednisone (last 2 days in taper course) Continue home inhalers Continue chronic 2L oxygen via [place] (7) DM type 2 (diabetes mellitus, type 2): A1c: 6.1 on 04/04/2020 Off metformin secondary to worsening renal functions Reported BSGs regulated at home Monitor BSGs Novolog sliding scale per protocol (8) HTN (hypertension): Off BP meds secondary to hypotension Continue to monitor (9) CAD (coronary artery disease): S/P AI to LAD in 06/2019 No CP Continue aspirin, statin (10) Bladder cancer: Follows with [facility] and Dr Franks H/O recurrent CA. Plans for starting Keytruda in near future (11) CKD (chronic kidney disease), stage III: Cr: 1.29. Baseline ~1.3 Monitor renal functions Avoid nephrotoxic agents DVT Prophylaxis -Lovenox SQ Full Code as per discussion with pt Follows with Dr Crabtree for routine care Pt was seen and care coordinated with Dr Mora. See addendum History of Present Illness Chief Complaint: Weakness Primary Care Provider: Donal Crabtree MD Pt is 79 y/o M with PMH systolic and diastolic CHF with EF: 45-49% and grade 1 diastolic dysfunction in 06/2019, CAD s/p DE to LAD in 07/2018, CKD III, COPD on c hronic 2L O2, DM II, metastatic bladder CA, adrenal hyperplasia, H/O right carotid endarterectomy, Tourette's presented to ER with c/o weakness and lightheadedness and shaking that occurs with standing and has been occurring for several weeks. Has seen PCP on 05/12/2020 for VASQUEZ and productive cough and wheezing and was treated with prednisone taper with decreased cough and wheezing and SOB. No fever/chills. Had negative Covid-19 testing prior to procedure on 04/30/2020. Followed up with PCP yesterday for symptoms and had labs. Family reports pt's SBPs in low 100's. Do not check BSG when pt has these symptoms of lightheadedness but seems to improve with sitting and resting. Pt with h/o hypotension and has been taken off metoprolol, lasix. Taken off metformin secondary to worsening renal functions. reports doesn't drink much at home. H/O recurrent bladder CA and following with oncology and is to start Keytruda in the near future. Doesn't use walker or cane. Denies fever/chills, diaphoresis, N/V/D/C, GILLETTE, vertigo, syncope, vision changes, neck pain, CP, orthopnea, palpitations, sore throat, choking, otalgia, rhinorrhea, abdominal pain, paresthesias, extremity edema, rashes, urinary symptoms. Allergies Allergy/AdvReac Type Severity Reaction Status Date / Time No Known Allergies Allergy Verified 05/22/20 18:23 Home Medications Home Medications Medication Instructions Recorded Confirmed Type Anoro Ellipta 1 inh INHALATION PM 02/03/19 05/22/20 History albuterol sulfate [Ventolin HFA] 2 puff INHALATION TID 02/03/19 05/22/20 History aspirin 81 mg PO QPM 02/03/19 05/22/20 History atorvastatin 40 mg PO QDD 02/03/19 05/22/20 History betamethasone, augmented 1 applic TOPICAL BID PRN 02/03/19 05/22/20 History [Diprolene] cholecalciferol (vitamin D3) 1,000 unit PO QAM 02/03/19 05/22/20 History [Vitamin D3] lutein 20 mg PO Q2D 02/03/19 05/22/20 History multivitamin 1 tab PO QAM 02/03/19 05/22/20 History nitroglycerin [Nitrostat] 0.4 mg SUBLINGUAL UD PRN 02/03/19 05/22/20 History oxybutynin chloride 5 mg PO QDD 02/03/19 05/22/20 History pyridoxine (vitamin B6) [Vitamin 100 mg PO QAM 02/03/19 05/22/20 History B-6] acetaminophen [Tylenol Extra 1,000 mg PO BID PRN 04/28/20 05/22/20 History Strength] ascorbic acid (vitamin C) [Vitamin 500 mg PO DAILY 04/28/20 05/22/20 History C] bisacodyl 5 mg PO QPM PRN 04/28/20 05/22/20 History latanoprost 1 drp OPL HS 04/28/20 05/22/20 History omeprazole 20 mg PO QAM 04/28/20 05/22/20 History prednisone 0 mg PO .TAPER UD 05/22/20 05/22/20 History Past Med/Surg History Medical History Anemia Bladder cancer Dx'ed 2017- s/p chemo and XRT CAD (coronary artery disease) cath 07/2018 - 100% RCA occlusion, s/p AI to LAD Carotid atherosclerosis s/p CEAs bilaterally CKD (chronic kidney disease), stage III COPD (chronic obstructive pulmonary disease) Degenerative disc disease DM type 2 (diabetes mellitus, type 2) Dyslipidemia GI bleed 07/27/2019--? upper GI Octaviano de la Tourette syndrome Has tics Glaucoma bilt HTN (hypertension) Ischemic cardiomyopathy Myocardial Infarction 06/01/2018 (occurred while receiving chemo treatment for bladder cancer) On home oxygen therapy 2L N/C during day; 4L N/C continuous flow at night Respiratory failure with hypoxia and hypercapnia hx Systolic and diastolic CHF, chronic echo 06/2019 - EF 45-49%, grade I diastolic dysfunction Transient ischemic attack (TIA) 2010--no neurologist, no deficits Surgical History History of bladder surgery TURBT History of cardiac cath 07/26/2018 [place] [facility] [place] 1 stent placed History of cataract surgery bilt History of colonoscopy History of cosmetic plastic surgery to remove droopy skin around neck History of cystoscopy History of esophagogastroduodenoscopy (EGD) History of heart artery stent 1 stent placed History of left-sided carotid endarterectomy 2010 History of right-sided carotid endarterectomy June 2019 History of thoracentesis History of tooth extraction all teeth Status post surgical removal and fulguration of bladder neoplasm Family History Mother Stroke Family history of diabetes mellitus Sister Family history of diabetes mellitus 2 Other No family history of adverse response to anesthesia Social History Preferred Language: Maltese Communication Ability: Effective Insulation Mechanic Required: No Beliefs That Will Affect Care: None Current Living Situation: Spouse Feels Safe at Home: Yes Smoking Status: Current every day smoker Tobacco Type: cigarettes ; Cigarettes Per Day: 20-30 ; Second Hand Exposure: Yes (father smoked) ; Hx Alcohol Use: No Hx Substance Use: No Review of Systems Review of Systems: All systems reviewed & are unremarkable except as noted in HPI & below Physical Exam Physical Exam: General: no distress, WDWN Head: normocephalic, atraumatic Eyes: PERRL, EOM's intact, conjunctiva non-injected, anicteric ENT: normal inspection external ears, nose, mucous membranes moist Neck: supple, trachea midline Lungs: clear, no respiratory distress, no wheezing/rhonchi/rales CV: RRR, no murmur, no pretibial edema Abd: normal BS, soft, non-tender Ext: no cyanosis, no calf tenderness Neuro: A&O x 3, no focal deficits noted, normal affect, +tics (h/o Tourettes) Skin: warm, dry Results & Data Results & Data ([facility]) Vital Signs (Past 12 Hours) Vital Signs Temp Pulse Resp BP Pulse Ox 05/22/20 18:27 89 20 118/70 98 05/22/20 17:00 79 24 98 05/22/20 16:34 84 23 147/79 H 98 05/22/20 14:50 36.5 C 88 22 145/68 H 93 Laboratory Results Short CBC 05/22/20 Range/Units 16:05 WBC 14.36 H (4.8-10.8) K/uL Hgb 10.6 L (14.0-18.0) g/dL Hct 32.6 L (42-52) % Plt Count 261 (130-400) K/uL BMP 05/22/20 16:05 Sodium 130 L Potassium 4.4 Chloride 95 L Carbon Dioxide 32 BUN 35 H Creatinine 1.29 Glucose 99 Calcium 9.0 Cardiac Enzymes 05/22/20 Range/Units 16:05 Troponin I 0.110 H* (0-0.045) ng/ml Liver Function 05/22/20 Range/Units 16:05 Total Bilirubin 0.3 (0.2-1) mg/dl AST 19 (15-37) U/L ALT 24 (12-78) U/L Alkaline Phosphatase 94 (45-117) U/L Albumin 3.4 (3.4-5.0) gm/dl Diagnostic Findings CXR: IMPRESSION: Chronic interstitial opacities at the lung bases right more pronounced than left. Code Status & VTE Plan VTE Prophylaxis Plan VTE Prophylaxis will be ordered: Yes Supervising Physician Co-Signing Physician Notes Patient is a 79-year-old male with history of CHF, CAD, COPD on chronic oxygen dependency, metastatic bladder cancer Tourette's syndrome and other medical problems presents with history of generalized weakness, dizziness associated with shakiness, constipation. Patient was recently being treated for COPD exacerbation by his PCP. He had a negative COVID test last month. His last bowel movement was 2 days ago. He is clinically dehydrated. Please review HPI for complete details of presentation. On exam patient is moderately built and nourished, no apparent distress, normocephalic atraumatic, lungs--decreased breath sounds, clear to auscultation, S1-S2, no murmur, abdomen--soft, mildly distended, bowel sounds are heard, mild generalized tenderness noted. Alert awake oriented,+ tics, grossly no focal deficits, no pedal edema noted. Patient is admitted for management of generalized weakness/dizziness, dehydration, hyponatremia, hypochloremia, mild troponin elevation, leukocytosis. Patient's dizziness likely secondary to orthostatic hypotension. CT head showed no acute findings. Will hold oxybutynin. We will give him IV fluids, monitor volume status closely. Will recheck orthostatics in a.m. Leukocytosis likely secondary to recent prednisone use for COPD exacerbation. Symptoms for COPD improved and no wheezing on exam noted. Will trend troponins and check resting echo and repeat EKG in the morning. Patient denies any chest pain currently. We will continue aspirin, statin. Will check abdominal x-ray for constipation. Will start on bowel regimen. Monitor electrolytes. Chronic anemia noted. PT/OT, fall precautions. I personally reviewed the record. Patient is interviewed and examined at bedside. Patient's care is coordinated with Marley Laguna PA-C. Please refer to the documentation above for details of patient's presentation and for discussion of other issues.
--- NOTE | 2020-05-22 20:09 | CT Scan Report ---
CT head/brain wo con CLINICAL HISTORY: weakness; h/o bladder ca COMPARISON STUDY: 05/30/2018 TECHNIQUE: Axial CT of the brain is performed from the vertex to the skull base. IV contrast was not administered for this examination. A dose lowering technique was utilized adhering to the principles of ALARA. CT DOSE: 537.48 mGy.cm FINDINGS: No intra or extra-axial mass lesions are visualized. There is no CT evidence of acute cortical infarc tion. There is no evidence of midline shift. There is no acute hemorrhage. No calvarial fractures ar e visualized. There are moderate white matter hypodensities likely on a small vessel basis. There is no evidence of pathologic ventricular dilatation. There is no evidence of acute sinusitis IMPRESSION: No acute intracranial findings ACT 112: Negative or not required by law. Electronically signed by: Parrish Cutler M.D. 05/22/2020 8:08 PM
[2020-05-22] MEDS ORDERED: CARBOHYDRATES FOR HYPOGLYCEMIA PO PRN (20:25)
[2020-05-22] MEDS ORDERED: ATORVASTATIN 40 MG TAB PO SCH (20:25)
[2020-05-22] MEDS ORDERED: NITROGLYCERIN SL 0.4 MG/TAB TAB SL PRN (20:25)
[2020-05-22] MEDS ORDERED: OXYBUTYNIN CHLORIDE 5 MG TAB PO SCH (20:25)
[2020-05-22] MEDS ORDERED: GLUCAGON FOR INJ 1 MG VIAL SQ PRN (20:25)
[2020-05-22] MEDS ORDERED: GLUCOSE 40% GEL 15 GM TUBE PO PRN (20:25)
[2020-05-22] MEDS ORDERED: GLUCOSE 10 TABS/TUBE PO PRN (20:25)
[2020-05-22] MEDS ORDERED: DEXTROSE 50% 50 ML SYRINGE IV PRN (20:25)
[2020-05-22] MEDS ORDERED: POLYETHYLENE (MIRALAX) 17 GM PACK PO PRN (20:29)
[2020-05-22] MEDS ORDERED: POLYETHYLENE (MIRALAX) 17 GM PACK PO ONE (20:30)
[2020-05-22] MEDS ORDERED: ALBUT/IPRATROP 3MG/0.5MG NEB 3 ML VIAL NEB PRN (20:31)
[2020-05-22] MEDS ORDERED: bisacodyL 5 MG TABEC PO PRN (20:58)
[2020-05-22] MEDS ORDERED: ALBUTEROL HFA 8 GM INHALER INH PRN (21:00)
[2020-05-22] MEDS ORDERED: ENOXAPARIN INJ 40 MG/0.4 ML SYR SQ SCH (21:00)
[2020-05-22] MEDS ORDERED: LATANOPROST 0.005% OP SOLN 2.5 ML BTL OPL SCH (21:00)
[2020-05-22] MEDS ORDERED: UMECLIDINIUM/VILANTEROL 62.5/25MCG 7 PUFFS/INHALER INH SCH (21:00)
[2020-05-22] MEDS: SODIUM CHLORIDE 0.9% 1000ML 1,000 ML IV SCH (21:09)
[2020-05-22] MEDS: INSULIN ASPART 100 UNITS/ML 3 ML PEN SC SCH (22:01)
[2020-05-22] MEDS: DOCUSATE SODIUM 100 MG CAP PO SCH (22:02)
[2020-05-22] MEDS: predniSONE 10 MG TABLET PO SCH (22:04)
[2020-05-23] MEDS ORDERED: MELATONIN 3 MG TAB PO STA (00:37)
[2020-05-23] MEDS: ACETAMINOPHEN 325 MG TAB PO PRN ×2 (00:47→07:56)
[2020-05-23 02:07] LABS: Hematocrit (blood only) 30.6 % (42-52); Hemoglobin 10.1 g/dL (14.0-18.0); Mean Corpuscular Hemoglobin 29.5 pg (25-34); Mean Corpuscular Volume 89.5 fL (80-100); Mean Platelet Volume 9.4 fL (7.4-10.4); Nucleated RBC # (auto) 0.02 K/uL (0-0); Nucleated RBC % (auto) 0.1 %; Platelet Count 210 K/uL (130-400); RDW Standard Deviation 55.6 fL (36.4-46.3); Red Blood Count 3.42 M/uL (4.7-6.1); White Blood Count 12.98 K/uL (4.8-10.8)
[2020-05-23 02:27] LABS: BUN Creatinine Ratio 22.3 (10-20); Calcium 8.2 mg/dl (8.5-10.1); Creatinine Clr Calc Pharmacy 42.1 ml/min; Est GFR (African American) 54.8; Est GFR (Non-African American) 47.3; Potassium 4.9 mmol/L (3.5-5.1)
[2020-05-23 02:35] LABS: Appearance Urine Clear (Clear); Bilirubin Urine Negative (Negative); Blood Urine Negative (Negative); Color Urine Yellow; Glucose Urine UA Negative (Negative); Ketones Urine Negative (Negative); Leukocyte Esterase Urine Negative (Negative); Nitrite Urine Negative (Negative); Protein Urine Negative (Negative); Urobilinogen Urine Negative (Negative); pH Urine 6.5 (4.5-7.5)
--- NOTE | 2020-05-23 07:34 | XRay Report ---
XR abdomen min 2V CLINICAL HISTORY: constipation pain COMPARISON STUDY: No previous studies for comparison. FINDINGS: The soft tissues, psoas shadows, renal outlines and intestinal gas pattern appear normal. T here is no evidence for bowel obstruction. There is no evidence for free intraperitoneal air. No abno rmal abdominal calcifications are seen. IMPRESSION: Normal study. ACT 112: Negative or not required by law. The above report was generated using voice recognition software. It may contain grammatical, syntax or spelling errors. Electronically signed by: Lico Rodas M.D. 05/23/2020 7:33 AM
[2020-05-23] MEDS: predniSONE 10 MG TABLET PO SCH (07:58)
[2020-05-23] MEDS: DOCUSATE SODIUM 100 MG CAP PO SCH (07:58)
[2020-05-23] MEDS: INSULIN ASPART 100 UNITS/ML 3 ML PEN SC SCH ×2 (08:01→13:00)
[2020-05-23] MEDS ORDERED: ASPIRIN 81 MG ECTAB PO SCH (09:00)
[2020-05-23] MEDS ORDERED: PYRIDOXINE HCL 50 MG TAB PO SCH (09:00)
[2020-05-23] MEDS ORDERED: PANTOprazole 40 MG TAB PO SCH (09:00)
[2020-05-23] MEDS ORDERED: ASCORBIC ACID 500 MG TAB PO SCH (09:00)
[2020-05-23] MEDS ORDERED: MULTIVITAMIN TAB PO SCH (09:00)
[2020-05-23] MEDS ORDERED: CHOLECALCIFEROL 1,000 UNITS 25 MCG TAB PO SCH (09:00)
[2020-05-23] MEDS: SODIUM CHLORIDE 0.9% 1000ML 1,000 ML IV SCH (09:41)
--- NOTE | 2020-05-23 12:55 | Electrocardiogram Report ---
Test Reason : Blood Pressure : / mmHG Vent. Rate : 073 BPM Atrial Rate : 073 BPM P-R Int : 132 ms QRS Dur : 086 ms QT Int : 436 ms P-R-T Axes : 046 051 -88 degrees QTc Int : 480 ms Sinus rhythm with Premature atrial complexes Abnormal ECG When compared with ECG of 22-MAY-2020 15:53, (unconfirmed) Premature atrial complexes are now Present Confirmed by Stu Medina ([id number]) on 05/23/2020 12:55:13 PM Referred By: REFERRED SELF Confirmed By:Josiah Medina
--- NOTE | 2020-05-23 12:58 | Electrocardiogram Report ---
Test Reason : Blood Pressure : / mmHG Vent. Rate : 073 BPM Atrial Rate : 073 BPM P-R Int : 124 ms QRS Dur : 088 ms QT Int : 414 ms P-R-T Axes : 069 051 030 degrees QTc Int : 456 ms Normal sinus rhythm with sinus arrhythmia Abnormal ECG When compared with ECG of 23-MAY-2020 07:05, (unconfirmed) Premature atrial complexes are no longer Present Confirmed by Stu Medina ([id number]) on 05/23/2020 12:58:25 PM Referred By: REFERRED SELF Confirmed By:Josiah Medina
--- NOTE | 2020-05-23 12:59 | Electrocardiogram Report ---
Test Reason : Blood Pressure : / mmHG Vent. Rate : 079 BPM Atrial Rate : 079 BPM P-R Int : 102 ms QRS Dur : 096 ms QT Int : 396 ms P-R-T Axes : 059 043 037 degrees QTc Int : 454 ms Sinus rhythm Left ventricular hypertrophy with repolarization abnormality Abnormal ECG When compared with ECG of 27-JUL-2019 15:48, No significant change was found Confirmed by Stu Medina ([id number]) on 05/23/2020 12:59:36 PM Referred By: REFERRED SELF Confirmed By:Josiah Medina
[2020-05-23 14:49] VITALS: BP 144/67; TEMP 97.7; O2SAT 92
[2020-05-23] MEDS ORDERED: SODIUM CHLORIDE 0.9% 500 ML IV SCH (15:00)
--- NOTE | 2020-05-23 15:37 | Discharge Summary ---
Date of Service May 23, 2020 Admission HPI Per Admitting Provider Pt is 79 y/o M with PMH systolic and diastolic CHF with EF: 45-49% and grade 1 diastolic dysfunction in 06/2019, CAD s/p DE to LAD in 07/2018, CKD III, COPD on chronic 2L O2, DM II, metastatic bladder CA, adrenal hyperplasia, H/O right carotid endarterectomy, Tourette's presented to ER with c/o weakness and lightheadedness and shaking that occurs with standing and has been occurring for several weeks. Has seen PCP on 05/12/2020 for VASQUEZ and productive cough and wheezing and was treated with prednisone taper with decreased cough and wheezing and SOB. No fever/chills. Had negative Covid-19 testing prior to procedure on 04/30/2020. Followed up with PCP yesterday for symptoms and had labs. Family reports pt's SBPs in low 100's. Do not check BSG when pt has these symptoms of lightheadedness but seems to improve with sitting and resting. Pt with h/o hypotension and has been taken off metoprolol, lasix. Taken off metformin secondary to worsening renal functions. reports doesn't drink much at home. H/O recurrent bladder CA and following with oncology and is to start Keytruda in the near future. Doesn't use walker or cane. Denies fever/chills, diaphoresis, N/V/D/C, GILLETTE, vertigo, syncope, vision changes, neck pain, CP, orthopnea, palpitations, sore throat, choking, otalgia, rhinorrhea, abdominal pain, paresthesias, extremity edema, rashes, urinary symptoms. Admission Exam Per Admitting Provider General: no distress, WDWN Head: normocephalic, atraumatic Eyes: PERRL, EOM's intact, conjunctiva non-injected, anicteric ENT: normal inspection external ears, nose, mucous membranes moist Neck: supple, trachea midline Lungs: clear, no respiratory distress, no wheezing/rhonchi/rales CV: RRR, no murmur, no pretibial edema Abd: normal BS, soft, non-tender Ext: no cyanosis, no calf tenderness Neuro: A&O x 3, no focal deficits noted, normal affect, +tics (h/o Tourettes) Skin: warm, dry Principal Diagnosis Dehydration SONYA Discharge Exam General: elderly slim male, sitting up in bed, in no distress Head: normocephalic, atraumatic Eyes: PERRL, EOM's intact, conjunctiva non-injected, anicteric ENT: normal inspection external ears, nose, mucous membranes moist Neck: supple, trachea midline Lungs: clear, no respiratory distress, no wheezing/rhonchi/rales CV: RRR, no murmur, no pretibial edema Abd: normal bowel sounds, soft, non-tender, nondistended Ext: no cyanosis, no calf tenderness, moves extremities spontaneously Neuro: A&O x 3, no focal deficits noted, normal affect, +tics (h/o Tourettes), moves extremities spontaneously Skin: warm, dry Discharge Data Allergies Allergy/AdvReac Type Severity Reaction Status Date / Time No Known Allergies Allergy Verified 05/22/20 18:23 Consultations 05/22/20 17:39 ED Decision to Admit Stat 05/22/20 20:25 Consult Case Management - Discharge Planning Routine Ordered Studies 05/22/20 19:23 CT head/brain wo con Urgent Hospital Course (1) Weakness: (2) Lightheaded: Pt is 79 y/o M with PMH systolic and diastolic CHF with EF: 45-49% and grade 1 diastolic dysfunction in 06/2019, CAD s/p DE to LAD in 07/2018, CKD III, COPD on chronic 2L O2, DM II, metastatic bladder CA, adrenal hyperplasia, H/O ri ght carotid endarterectomy, Tourette's presented to ER with c/o weakness and lightheadedness and shaking that occurs with standing and has been occurring for several weeks. Denies falls +orthostatics in ER IVF Repeat orthostatics today - negative Obtain CT Head to r/o any mets with h/o bladder CA, CT head negative Fall precautions PT/OT eval - per PT safe to go home Off all BP meds Hold oxybutynin CBC, BMP repeated, no sign. changes Pt feels well, clinically much better today and pt is asking to be discharged home. (3) Leukocytosis: WBC: 14. No fever or chills. Had cough that is being treated for COPD exacerbation with prednisone with improvement of cough. Suspect secondary to recent prednisone use procalcitonin - negative, lactic acid -negative UA - negative CXR: Chronic interstitial opacities at the lung bases right more pronounced than left. (4) Elevated troponin: in the setting of SONYA on CKD Troponin: 0.1. No EKG changes on admission noted. No CP troponin trended down Echo obtained, no significant changes Continue aspirin, statin. Is off metoprolol secondary to hypotension (5) Systolic and diastolic CHF, chronic: systolic and diastolic CHF with EF: 45-49% and grade 1 diastolic dysfunction on echo in 06/2019 Off lasix secondary to hypotension No edema or pulmonary congestion Monitor (6) COPD (chronic obstructive pulmonary disease): On Chronic O2 - 2L Recent treatment for COPD flare on 05/12/2020. Had VASQUEZ and productive cough and wheezing and was treated with prednisone taper with decreased cough and wheezing and SOB. No fever/chills. Had negative Covid-19 testing prior to procedure on Today on exam without signs of exacerbation Finish today 10mg prednisone (last day in taper course) Continue home inhalers Continue chronic 2L oxygen via [place] (7) DM type 2 (diabetes mellitus, type 2): A1c: 6.1 on 04/04/2020 Off metformin secondary to worsening renal functions Reported BSGs regulated at home Monitor BSGs Novolog sliding scale per protocol (8) HTN (hypertension): Off BP meds secondary to hypotension Continue to monitor (9) CAD (coronary artery disease): S/P AI to LAD in 06/2019 No CP Continue aspirin, statin (10) Bladder cancer: Follows with [facility] and Dr Franks H/O recurrent CA. Plans for starting Keytruda in near future (11) CKD (chronic kidney disease), stage III: Cr: 1.29. Baseline ~1.3, Cr 1.4 Monitor renal functions Avoid nephrotoxic agents received gentle IVF DVT Prophylaxis -Lovenox SQ Full Code as per discussion with pt Follows with Dr Crabtree for routine care Total Time Total Time Spent Total Time Spent (In Minutes): 35 Discharge Plan Discharge Items Patient Disposition: Home - Self-Care Reason For Visit: WEAKNESS Discharge Diagnosis: Dehydration SONYA Activity: Per Instructions section Non-emergency contact: Primary Care Provider Call non-emergency contact if: you have any medication questions and your symptoms worsen Follow-up/Referrals: Donal Crabtree MD [Primary Care Provider] - 05/30/20 12:00 pm (05/30/2020 12:00 PM Provider Donal Crabtree MD Department General Internal Medicine [facility] ) Diet: Carb Consistent or DM2 and Heart Healthy Addtl Attending Provider Instructions: Follow-up with your primary care doctor within 1 week. We have scheduled appointment with your primary care doctor for May 30. Make sure to watch your fluid level. You should not drink too much fluid however you should also not be dehydrated. Especially if you spend time outside when it's warm or work outside, you can get dehydrated more easily. Recommend to weigh yourself every day, before breakfast and after using the bathroom in the morning. Record this weight. Make your primary care doctor aware of these numbers at your next appointment. It is the best/easiest way to monitor your fluid level. For constipation also recommend to take bonz-rme-pihiowt stool softeners, such as MiraLAX or Colace. Also recommend nutritious diet, higher in protein. If nutrition is a problem, your primary care doctor can refer you to a dietitian/cognos consultant. Pending Studies at Discharge: No Stand-Alone Forms: [facility], Smoking Cessation Medications and DC Order Prescriptions: New polyethylene glycol 3350 [Miralax] 17 gram Powder In Packet 17 g PO DAILY PRN (Reason: constipation) 10 Days Qty: 10 RF: 0 Continued latanoprost 0.005 % Drops 1 drp OPL HS RF: 0 omeprazole 20 mg Capsule,Delayed Release(Dr/Ec) 20 mg PO QAM RF: 0 acetaminophen [Tylenol Extra Strength] 500 mg Tablet 1,000 mg PO BID PRN (Reason: Pain) RF: 0 ascorbic acid (vitamin C) [Vitamin C] 500 mg Tablet 500 mg PO DAILY RF: 0 bisacodyl 5 mg Tablet 5 mg PO QPM PRN (Reason: Constipation) RF: 0 multivitamin Tablet 1 tab PO QAM RF: 0 atorvastatin 40 mg Tablet 40 mg PO QDD RF: 0 aspirin 81 mg Tablet,Delayed Release (Dr/Ec) 81 mg PO QPM RF: 0 nitroglycerin [Nitrostat] 0.4 mg Tablet, Sublingual 0.4 mg sublingual UD PRN (Reason: Chest Pain) RF: 0 betamethasone, augmented [Diprolene] 0.05 % Ointment 1 applic TOPICAL BID PRN (Reason: Rash) RF: 0 pyridoxine (vitamin B6) [Vitamin B-6] 100 mg Tablet 100 mg PO QAM RF: 0 albuterol sulfate [Ventolin HFA] 90 mcg/actuation Hfa Aerosol Inhaler 2 puff INHALATION TID RF: 0 oxybutynin chloride 5 mg Tablet 5 mg PO QDD RF: 0 cholecalciferol (vitamin D3) [Vitamin D3] 1,000 unit Capsule 1,000 unit PO QAM RF: 0 lutein 20 mg Tablet 20 mg PO Q2D RF: 0 Anoro Ellipta 62.5-25 mcg/actuation Blister With Device 1 inh INHALATION PM RF: 0 prednisone 20 mg tablet 0 mg PO .TAPER UD RF: 0 Discharge Orders: Discharge Order (Routine); Ordered 05/23/20 Ordered By: Michael Gill/Other Patient Handouts: Long-Term Complications of Diabetes Admission Data Admit Date/Time: 05/22/20 18:29 Attending Provider: Michael Cisneros Admit Provider: Jose Manuel Mora Primary Care Provider: Donal Crabtree Other Providers: Jose Manuel Mora Other Interventions: Discharge Summary Assessment (RN) Last Done: 05/23/20 15:36 DC Date/Time DO NOT enter until pt leaves facility: 05/23/20 16:06
--- NOTE | 2020-05-23 15:37 | Hospitalist Progress Note ---
Date of Service May 23, 2020 Assessment & Plan (1) Weakness: (2) Lightheaded: Pt is 79 y/o M with PMH systolic and diastolic CHF with EF: 45-49% and grade 1 diastolic dysfunction in 06/2019, CAD s/p DE to LAD in 07/2018, CKD III, COPD on chronic 2L O2, DM II, metastatic bladder CA, adrenal hyperplasia, H/O right carotid endarterectomy, Tourette's presented to ER with c/o weakness and lightheadedness and shaking that occurs with standing and has been occurring for several weeks. Denies falls +orthostatics in ER IVF Repeat orthostatics today - negative Obtain CT Head to r/o any mets with h/o bladder CA, CT head negative Fall precautions PT/OT eval - per PT safe to go home Off all BP meds Hold oxybutynin CBC, BMP repeated, no sign. changes Pt feels well, clinically much better today and pt is asking to be discharged home. (3) Leukocytosis: WBC: 14. No fever or chills. Had cough that is being treated for COPD exacerbation with prednisone with improvement of cough. Suspect secondary to recent prednisone use procalcitonin - negative, lactic acid -negative UA - negative CXR: Chronic interstitial opacities at the lung bases right more pronounced than left. (4) Elevated troponin: Troponin: 0.1. No EKG changeson admission noted. No CP troponin trended down Echo obtained, no significant changes Continue aspirin, statin. Is off metoprolol secondary to hypotension (5) Systolic and diastolic CHF, chronic: systolic and diastolic CHF with EF: 45-49% and grade 1 diastolic dysfunction on echo in 06/2019 Off lasix secondary to hypotension No edema or pulmonary congestion Monitor (6) COPD (chronic obstructive pulmonary disease): On Chronic O2 - 2L Recent treatment for COPD flare on 05/12/2020. Had VASQUEZ and productive cough and wheezing and was treated with prednisone taper with decreased cough and wheezing and SOB. No fever/chills. Had negative Covid-19 testing prior to procedure on 04/30/2020 Today on exam without signs of exacerbation Finish today 10mg prednisone (last day in taper course) Continue home inhalers Continue chronic 2L oxygen via NC (7) DM type 2 (diabetes mellitus, type 2): A1c: 6.1 on 04/04/2020 Off metformin secondary to worsening renal functions Reported BSGs regulated at home Monitor BSGs Novolog sliding scale per protocol (8) HTN (hypertension): Off BP meds secondary to hypotension Continue to monitor (9) CAD (coronary artery disease): S/P AI to LAD in 06/2019 No CP Continue aspirin, statin (10) Bladder cancer: Follows with [facility] and Dr Franks H/O recurrent CA. Plans for starting Keytruda in near future (11) CKD (chronic kidney disease), stage III: Cr: 1.29. Baseline ~1.3 Monitor renal functions Avoid nephrotoxic agents DVT Prophylaxis -Lovenox SQ Full Code as per discussion with pt Follows with Dr Crabtree for routine care Admission and Anticipated Discharge Date Admission Date: May 22, 2020 Subjective Pt is sitting up in bed in NAD. Denies any fever, chills, chest pain, shortness of breath, dizziness, lightheadedness. Also denies any abd. pain, nausea or vomiting. Pt wants to go home as he is feeling much better. Orthostatics negative today. PT/OT evaluated pt - pt safe to return home. Echo obtained, doesn't show any significant changes. Review of Systems Review of Systems: All systems reviewed & are unremarkable except as noted in HPI & below Constitutional: no fever and no chills Respiratory: no cough and no dyspnea Cardiovascular: no chest pain and no palpitations Gastrointestinal: no abdominal pain, no nausea and no vomiting Physical Exam Physical Exam: General: elderly slim male, sitting up in bed, in no distress Head: normocephalic, atraumatic Eyes: PERRL, EOM's intact, conjunctiva non-injected, anicteric ENT: normal inspection external ears, nose, mucous membranes moist Neck: supple, trachea midline Lungs: clear, no respiratory distress, no wheezing/rhonchi/rales CV: RRR, no murmur, no pretibial edema Abd: normal bowel sounds, soft, non-tender, nondistended Ext: no cyanosis, no calf tenderness, moves extremities spontaneously Neuro: A&O x 3, no focal deficits noted, normal affect, +tics (h/o Tourettes), moves extremities spontaneously Skin: warm, dry Results & Data Results & Data ([facility]) Vital Signs (Past 12 Hours) Vital Signs Temp Pulse Pulse Resp BP Pulse Ox 05/23/20 14:48 36.5 C 77 18 144/67 H 92 05/23/20 08:00 76 Laboratory Results 05/23/20 05/23/20 05/23/20 Range/Units 11:36 07:44 02:10 WBC (4.8-10.8) K/uL RBC (4.7-6.1) M/uL Hgb (14.0-18.0) g/dL Hct (42-52) % MCV (80-100) fL MCH (25-34) pg MCHC (32-36) g/dL RDW Std Deviation (36.4-46.3) fL RDW Coeff of Silvano (11.5-14.5) % Plt Count (130-400) K/uL MPV (7.4-10.4) fL Immature Gran % (Auto) % Neut % (Auto) % Lymph % (Auto) % [place] % (Auto) % Eos % (Auto) % Baso % (Auto) % Neut # (Auto) (1.4-6.5) K/uL Lymph # (Auto) (1.2-3.4) K/uL [place] # (Auto) (0.11-0.59) K/uL Eos # (Auto) (0-0.5) K/uL Baso # (Auto) (0-0.2) K/uL Immature Gran # (Auto) (0.00-0.02) K/uL Absolute Nucleated RBC (0-0) K/uL Nucleated RBC % (auto) % Polychromasia Schistocytes Sodium (136-145) mmol/L Potassium (3.5-5.1) mmol/L Chloride (98-107) mmol/L Carbon Dioxide (21-32) mmol/L Anion Gap (3-11) BUN (7-18) mg/dl Creatinine (0.6-1.4) mg/dl Est Cr Clr Drug Dosing ml/min Est GFR ( Amer) Est GFR (Non-Af Amer) BUN/Creatinine Ratio (10-20) Glucose (70-99) mg/dl POC Glucose 118 H 139 H (70-99) mg/dl Lactate (0.4-2.0) mmol/L Calcium (8.5-10.1) mg/dl Magnesium (1.8-2.4) mg/dl Total Bilirubin (0.2-1) mg/dl AST (15-37) U/L ALT (12-78) U/L Alkaline Phosphatase (45-117) U/L Troponin I (0-0.045) ng/ml NT-Pro-B Natriuret Pep (0-1800) pg/ml Total Protein (6.4-8.2) gm/dl Albumin (3.4-5.0) gm/dl Globulin (2.5-4.0) gm/dl Albumin/Globulin Ratio (0.9-2) Procalcitonin (0-0.5) ng/ml TSH (0.300-4.500) uIu/ml Urine Color Yellow Urine Appearance Clear (Clear) Urine pH 6.5 (4.5-7.5) Ur Specific [place] 1.010 (1.000-1.030) Urine Protein Negative (Negative) Urine Glucose (UA) Negative (Negative) Urine Ketones Negative (Negative) Urine Blood Negative (Negative) Urine Nitrite Negative (Negative) Urine Bilirubin Negative (Negative) Urine Urobilinogen Negative (Negative) Ur Leukocyte Esterase Negative (Negative) Lyme Disease IgG Ab (Negative) Lyme Disease IgM Ab (Negative) 05/23/20 05/23/20 05/23/20 Range/Units 01:54 01:54 01:54 WBC 12.98 H (4.8-10.8) K/uL RBC 3.42 L (4.7-6.1) M/uL Hgb 10.1 L (14.0-18.0) g/dL Hct 30.6 L (42-52) % MCV 89.5 (80-100) fL MCH 29.5 (25-34) pg MCHC 33.0 (32-36) g/dL RDW Std Deviation 55.6 H (36.4-46.3) fL RDW Coeff of Silvano 17.0 H (11.5-14.5) % Plt Count 210 (130-400) K/uL MPV 9.4 (7.4-10.4) fL Immature Gran % (Auto) % Neut % (Auto) % Lymph % (Auto) % [place] % (Auto) % Eos % (Auto) % Baso % (Auto) % Neut # (Auto) (1.4-6.5) K/uL Lymph # (Auto) (1.2-3.4) K/uL [place] # (Auto) (0.11-0.59) K/uL Eos # (Auto) (0-0.5) K/uL Baso # (Auto) (0-0.2) K/uL Immature Gran # (Auto) (0.00-0.02) K/uL Absolute Nucleated RBC 0.02 H (0-0) K/uL Nucleated RBC % (auto) 0.1 % Polychromasia Schistocytes Sodium 137 D (136-145) mmol/L Potassium 4.9 (3.5-5.1) mmol/L Chloride 102 (98-107) mmol/L Carbon Dioxide 30 (21-32) mmol/L Anion Gap 5.0 (3-11) BUN 32 H (7-18) mg/dl Creatinine 1.42 H (0.6-1.4) mg/dl Est Cr Clr Drug Dosing 42.1 ml/min Est GFR ( Amer) 54.8 Est GFR (Non-Af Amer) 47.3 BUN/Creatinine Ratio 22.3 H (10-20) Glucose 127 H (70-99) mg/dl POC Glucose (70-99) mg/dl Lactate (0.4-2.0) mmol/L Calcium 8.2 L (8.5-10.1) mg/dl Magnesium (1.8-2.4) mg/dl Total Bilirubin (0.2-1) mg/dl AST (15-37) U/L ALT (12-78) U/L Alkaline Phosphatase (45-117) U/L Troponin I 0.094 H* (0-0.045) ng/ml NT-Pro-B Natriuret Pep (0-1800) pg/ml Total Protein (6.4-8.2) gm/dl Albumin (3.4-5.0) gm/dl Globulin (2.5-4.0) gm/dl Albumin/Globulin Ratio (0.9-2) Procalcitonin (0-0.5) ng/ml TSH (0.300-4.500) uIu/ml Urine Color Urine Appearance (Clear) Urine pH (4.5-7.5) Ur Specific [place] (1.000-1.030) Urine Protein (Negative) Urine Glucose (UA) (Negative) Urine Ketones (Negative) Urine Blood (Negative) Urine Nitrite (Negative) Urine Bilirubin (Negative) Urine Urobilinogen (Negative) Ur Leukocyte Esterase (Negative) Lyme Disease IgG Ab (Negative) Lyme Disease IgM Ab (Negative) 05/22/20 05/22/20 05/22/20 Range/Units 21:40 21:40 20:40 WBC (4.8-10.8) K/uL RBC (4.7-6.1) M/uL Hgb (14.0-18.0) g/dL Hct (42-52) % MCV (80-100) fL MCH (25-34) pg MCHC (32-36) g/dL RDW Std Deviation (36.4-46.3) fL RDW Coeff of Silvano (11.5-14.5) % Plt Count (130-400) K/uL MPV (7.4-10.4) fL Immature Gran % (Auto) % Neut % (Auto) % Lymph % (Auto) % [place] % (Auto) % Eos % (Auto) % Baso % (Auto) % Neut # (Auto) (1.4-6.5) K/uL Lymph # (Auto) (1.2-3.4) K/uL [place] # (Auto) (0.11-0.59) K/uL Eos # (Auto) (0-0.5) K/uL Baso # (Auto) (0-0.2) K/uL Immature Gran # (Auto) (0.00-0.02) K/uL Absolute Nucleated RBC (0-0) K/uL Nucleated RBC % (auto) % Polychromasia Schistocytes Sodium (136-145) mmol/L Potassium (3.5-5.1) mmol/L Chloride (98-107) mmol/L Carbon Dioxide (21-32) mmol/L Anion Gap (3-11) BUN (7-18) mg/dl Creatinine (0.6-1.4) mg/dl Est Cr Clr Drug Dosing ml/min Est GFR ( Amer) Est GFR (Non-Af Amer) BUN/Creatinine Ratio (10-20) Glucose (70-99) mg/dl POC Glucose 203 H (70-99) mg/dl Lactate 1.1 (0.4-2.0) mmol/L Calcium (8.5-10.1) mg/dl Magnesium (1.8-2.4) mg/dl Total Bilirubin (0.2-1) mg/dl AST (15-37) U/L ALT (12-78) U/L Alkaline Phosphatase (45-117) U/L Troponin I 0.116 H* (0-0.045) ng/ml NT-Pro-B Natriuret Pep (0-1800) pg/ml Total Protein (6.4-8.2) gm/dl Albumin (3.4-5.0) gm/dl Globulin (2.5-4.0) gm/dl Albumin/Globulin Ratio (0.9-2) Procalcitonin (0-0.5) ng/ml TSH (0.300-4.500) uIu/ml Urine Color Urine Appearance (Clear) Urine pH (4.5-7.5) Ur Specific [place] (1.000-1.030) Urine Protein (Negative) Urine Glucose (UA) (Negative) Urine Ketones (Negative) Urine Blood (Negative) Urine Nitrite (Negative) Urine Bilirubin (Negative) Urine Urobilinogen (Negative) Ur Leukocyte Esterase (Negative) Lyme Disease IgG Ab (Negative) Lyme Disease IgM Ab (Negative) 05/22/20 05/22/20 05/22/20 Range/Units 16:05 16:05 16:05 WBC (4.8-10.8) K/uL RBC (4.7-6.1) M/uL Hgb (14.0-18.0) g/dL Hct (42-52) % MCV (80-100) fL MCH (25-34) pg MCHC (32-36) g/dL RDW Std Deviation (36.4-46.3) fL RDW Coeff of Silvano (11.5-14.5) % Plt Count (130-400) K/uL MPV (7.4-10.4) fL Immature Gran % (Auto) % Neut % (Auto) % Lymph % (Auto) % [place] % (Auto) % Eos % (Auto) % Baso % (Auto) % Neut # (Auto) (1.4-6.5) K/uL Lymph # (Auto) (1.2-3.4) K/uL [place] # (Auto) (0.11-0.59) K/uL Eos # (Auto) (0-0.5) K/uL Baso # (Auto) (0-0.2) K/uL Immature Gran # (Auto) (0.00-0.02) K/uL Absolute Nucleated RBC (0-0) K/uL Nucleated RBC % (auto) % Polychromasia Schistocytes Sodium 130 L (136-145) mmol/L Potassium 4.4 (3.5-5.1) mmol/L Chloride 95 L (98-107) mmol/L Carbon Dioxide 32 (21-32) mmol/L Anion Gap 3.0 (3-11) BUN 35 H (7-18) mg/dl Creatinine 1.29 (0.6-1.4) mg/dl Est Cr Clr Drug Dosing 47.2 ml/min Est GFR ( Amer) 61.6 Est GFR (Non-Af Amer) 53.1 BUN/Creatinine Ratio 27.0 H (10-20) Glucose 99 (70-99) mg/dl POC Glucose (70-99) mg/dl Lactate (0.4-2.0) mmol/L Calcium 9.0 (8.5-10.1) mg/dl Magnesium 2.2 (1.8-2.4) mg/dl Total Bilirubin 0.3 (0.2-1) mg/dl AST 19 (15-37) U/L ALT 24 (12-78) U/L Alkaline Phosphatase 94 (45-117) U/L Troponin I 0.110 H* (0-0.045) ng/ml NT-Pro-B Natriuret Pep 1404 (0-1800) pg/ml Total Protein 7.5 (6.4-8.2) gm/dl Albumin 3.4 (3.4-5.0) gm/dl Globulin 4.1 H (2.5-4.0) gm/dl Albumin/Globulin Ratio 0.8 L (0.9-2) Procalcitonin < 0.05 (0-0.5) ng/ml TSH 1.220 (0.300-4.500) uIu/ml Urine Color Urine Appearance (Clear) Urine pH (4.5-7.5) Ur Specific [place] (1.000-1.030) Urine Protein (Negative) Urine Glucose (UA) (Negative) Urine Ketones (Negative) Urine Blood (Negative) Urine Nitrite (Negative) Urine Bilirubin (Negative) Urine Urobilinogen (Negative) Ur Leukocyte Esterase (Negative) Lyme Disease IgG Ab Negative (Negative) Lyme Disease IgM Ab Negative (Negative) 05/22/20 Range/Units 16:05 WBC 14.36 H (4.8-10.8) K/uL RBC 3.63 L (4.7-6.1) M/uL Hgb 10.6 L (14.0-18.0) g/dL Hct 32.6 L (42-52) % MCV 89.8 (80-100) fL MCH 29.2 (25-34) pg MCHC 32.5 (32-36) g/dL RDW Std Deviation 55.6 H (36.4-46.3) fL RDW Coeff of Silvano 17.1 H (11.5-14.5) % Plt Count 261 (130-400) K/uL MPV 9.7 (7.4-10.4) fL Immature Gran % (Auto) 0.8 % Neut % (Auto) 76.9 % Lymph % (Auto) 7.7 % [place] % (Auto) 13.0 % Eos % (Auto) 1.4 % Baso % (Auto) 0.2 % Neut # (Auto) 11.04 H (1.4-6.5) K/uL Lymph # (Auto) 1.10 L (1.2-3.4) K/uL [place] # (Auto) 1.87 H (0.11-0.59) K/uL Eos # (Auto) 0.20 (0-0.5) K/uL Baso # (Auto) 0.03 (0-0.2) K/uL Immature Gran # (Auto) 0.12 H (0.00-0.02) K/uL Absolute Nucleated RBC (0-0) K/uL Nucleated RBC % (auto) % Polychromasia 1+ Schistocytes Occasional Sodium (136-145) mmol/L Potassium (3.5-5.1) mmol/L Chloride (98-107) mmol/L Carbon Dioxide (21-32) mmol/L Anion Gap (3-11) BUN (7-18) mg/dl Creatinine (0.6-1.4) mg/dl Est Cr Clr Drug Dosing ml/min Est GFR ( Amer) Est GFR (Non-Af Amer) BUN/Creatinine Ratio (10-20) Glucose (70-99) mg/dl POC Glucose (70-99) mg/dl Lactate (0.4-2.0) mmol/L Calcium (8.5-10.1) mg/dl Magnesium (1.8-2.4) mg/dl Total Bilirubin (0.2-1) mg/dl AST (15-37) U/L ALT (12-78) U/L Alkaline Phosphatase (45-117) U/L Troponin I (0-0.045) ng/ml NT-Pro-B Natriuret Pep (0-1800) pg/ml Total Protein (6.4-8.2) gm/dl Albumin (3.4-5.0) gm/dl Globulin (2.5-4.0) gm/dl Albumin/Globulin Ratio (0.9-2) Procalcitonin (0-0.5) ng/ml TSH (0.300-4.500) uIu/ml Urine Color Urine Appearance (Clear) Urine pH (4.5-7.5) Ur Specific [place] (1.000-1.030) Urine Protein (Negative) Urine Glucose (UA) (Negative) Urine Ketones (Negative) Urine Blood (Negative) Urine Nitrite (Negative) Urine Bilirubin (Negative) Urine Urobilinogen (Negative) Ur Leukocyte Esterase (Negative) Lyme Disease IgG Ab (Negative) Lyme Disease IgM Ab (Negative) Medications Administered Current Inpatient Medications Acetaminophen (Tylenol) 650 mg PO Q4H PRN PRN Reason: Pain or Fever Stop: 06/21/20 20:24 Last Admin: 05/23/20 07:56 Dose: 650 mg Documented by: Albuterol (Ventolin Hfa) 2 puffs INH TID PRN; Protocol PRN Reason: Shortness Of Breath Stop: 06/21/20 20:59 Albuterol (Duoneb) 3 ml NEB Q4R PRN PRN Reason: Shortness Of Breath Or Wheezing Stop: 06/21/20 22:59 Ascorbic Acid (Vitamin C) 500 mg PO DAILY DALJIT Stop: 06/22/20 08:59 Last Admin: 05/23/20 07:57 Dose: 500 mg Documented by: Aspirin (Ecotrin Ectab) 81 mg PO DAILY DALJIT Stop: 06/22/20 08:59 Last Admin: 05/23/20 07:58 Dose: 81 mg Documented by: Atorvastatin Calcium (Lipitor) 40 mg PO QDD DALJIT Stop: 06/21/20 20:24 Last Admin: 05/22/20 22:04 Dose: 40 mg Documented by: Bisacodyl (Dulcolax) 5 mg PO QPM PRN PRN Reason: CONSTIPATION Stop: 06/21/20 20:57 Last Admin: 05/23/20 07:56 Dose: 5 mg Documented by: Dextrose (Dextrose 50%) 25 - 50 ml IV UD PRN; Protocol PRN Reason: Hypoglycemia Protocol Stop: 06/21/20 20:24 Docusate Sodium (Colace) 100 mg PO BID DALJIT Stop: 06/21/20 20:59 Last Admin: 05/23/20 07:58 Dose: 100 mg Documented by: Enoxaparin Sodium (Lovenox) 40 mg SQ Q24H DALJIT Stop: 06/21/20 20:59 Last Admin: 05/22/20 22:03 Dose: 40 mg Documented by: Glucagon (Glucagen) 1 mg SQ UD PRN; Protocol PRN Reason: Hypoglycemia Protocol Stop: 06/21/20 20:24 Glucose (Dex4 Glucose) 4 - 8 tabs PO UD PRN; Protocol PRN Reason: Hypoglycemia Protocol Stop: 06/21/20 20:24 Glucose (Glucose 40%) 15 - 30 gm PO UD PRN; Protocol PRN Reason: Hypoglycemia Protocol Stop: 06/21/20 20:24 Sodium Chloride (Nss 1000ml) 1,000 mls @ 125 mls/hr IV .Q8H DALJIT Stop: 05/23/20 19:10 Last Admin: 05/23/20 09:41 Dose: 80 mls/hr Documented by: Insulin Aspart (Novolog Flexpen) 0 units SC ACHS DALJIT Stop: 06/21/20 20:59 Last Admin: 05/23/20 13:00 Dose: 3 units Documented by: Latanoprost (Xalatan Oph) 1 drops OPL HS DALJIT Stop: 06/21/20 20:59 Last Admin: 05/22/20 22:03 Dose: 1 drops Documented by: Miscellaneous (Carbohydrates For Hypoglycemia) 15 - 30 gm PO UD PRN PRN Reason: Hypoglycemia Protocol Stop: 06/21/20 20:24 [facility]it[facility] ([facility]itamin Tab) [facility] Stop: 06/22/20 08:59 Last Admin: 05/23/20 07:57 Dose: 1 tab Documented by: Nitroglycerin (Nitrostat) 0.4 mg SL UD PRN PRN Reason: Chest Pain Stop: 06/21/20 20:24 Oxybutynin Chloride (Ditropan) 5 mg PO QDD [facility] Stop: 06/21/20 20:24 Last Admin: 05/22/20 22:04 Dose: 5 mg Documented by: Pantoprazole Sodium (Protonix) [facility] [place] Stop: 06/22/20 08:59 Last Admin: 05/23/20 07:58 Dose: 40 mg Documented by: Polyethylene Glycol (Miralax Powder Packet) 17 gm PO DAILY PRN PRN Reason: Constipation Stop: 06/21/20 20:28 Pyridoxine HCl (Vitamin B-6) 100 mg PO [facility] Stop: 06/22/20 08:59 Last Admin: 05/23/20 07:58 Dose: 100 mg Documented by: Umeclidinium/Vilanterol (Anoro Ellipta 62.5/25 Mcg Inh) 1 puffs INH PM [facility] Stop: 06/21/20 20:59 Last Admin: 05/22/20 22:02 Dose: 1 puffs Documented by: Vitamin D (Vitamin D3) 1,000 units [facility] [place] Stop: 06/22/20 08:59 Last Admin: 05/23/20 07:57 Dose: 1,000 units Documented by: (1) HTN (hypertension) Hypertension type: essential hypertension Qualified Code(s): I10 - Essential (primary) hypertension
[2020-05-23 15:38] VITALS: PULSE 78
[2020-05-23] MEDS ORDERED: OXYBUTYNIN CHLORIDE 5 MG TAB PO SCH (16:30)
== END 2020-05-23 16:06 | disposition home or self-care (01) | DRG 683 ==
LOC: ED 14:47 → SUATTDRO 18:29 → 2N 18:29

== ENCOUNTER 2020-06-06 19:39 | Inpatient (IN) ==
[2020-06-06] MEDS ORDERED: PANTOprazole 40 MG in SYRINGE 0 ML IV ONE (20:43)
[2020-06-06] MEDS ORDERED: PANTOprazole 40 MG in DEXTROSE 5% 100 ML IV SCH (20:45)
--- NOTE | 2020-06-06 20:56 | Emergency Department Note ---
Impression & Plan GIB (gastrointestinal bleeding), Syncope ED Provider Note NAME: THELMA GORDON AGE: 79 SEX: M : 1940 ARRIVES VIA: Walk-In INFORMANT: Patient, ED PROVIDER(S): Oleg Keita MD Chief Complaint: GI bleed HPI: Patient does presents with his due to the concern for the possibility of rectal bleeding. The patient has had some dark tarry stools which the is noticed over the last several weeks. The patient has recently been started on iron does suffer from anemia. The patient has had recurrent syncopal events. The patient did not have one today but he has had a recent heart monitor which did not show anything conclusive. The patient does have a known history of COPD chronically does wear oxygen. The patient also does have a history of recurrent bladder cancer recently rediagnosed after biopsy showed positive findings. Patient does not complain of any urinary symptoms. Patient has been seen recently in the outpatient setting and recently started Keytruda for additional treatment. The patient does admit to continuing to smoke. ROS: See HPI for pertinent positives and negatives. A total of 10 systems were reviewed and otherwise negative. Past medical history: See below Surgical history: See below Social history: See below Physical Exam: GENERAL: Well appearing, well nourished, NAD, non-toxic. EYE EXAM: Normal conjunctiva. PERRL, no anisocoria and EOM's grossly intact w/o pain. NECK: Supple, no nuchal rigidity, no adenopathy, non-tender. No signs of meningismus. LUNGS: Clear to auscultation. Normal chest wall mechanics. HEART: NSR, no MRG. ABDOMEN: Abdomen soft, not peritonitic, normo-active bowel sounds, no masses, no rebound or guarding. BACK: No CVA TTP. SKIN: No rashes and no bruising. UPPER EXTREMITIES: Upper extremities are grossly normal. LOWER EXTREMITIES: Grossly normal, no edema. NEURO EXAM: A&O x3, cranial nerves II-XII grossly intact, normal speech, moves all 4 extremities on command w/o issue. Differential diagnoses: Diverticulosis, AVM, coagulopathy, colitis, inflammatory bowel disease, malignancy, [place] tear, esophagitis, peptic ulcer disease, variceal bleed, gastritis, epistaxis, fissure, hemorrhoids, as well as other pathologies. Course: Patient was seen and evaluated the bedside. Full history physical exam was performed. EKG: Indication: Syncope Normal sinus rhythm, rate of 92, normal axis. Slight depression in the lateral leads. Depressions do appear to be old from May 23, 2020 comparison EKG. Imaging Studies: Radiology results as stated below per my review in the radiologist's interpretation: Cardiac monitoring: An order was placed for continuous cardiac monitoring. The monitor shows a rate of 88 with sinus rhythm. MDM: Patient did present with concern for GI bleed. Patient does have a known histor y of Tourette's so much of the history is gathered from his who is present at the bedside. Patient is only on baby aspirin. Patient was started on PPI bolus and drip. Patient reportedly had a positive stool sample for blood earlier today. Patient is not noticed any bright red blood per rectum. Blood work was obtained which shows a hemoglobin less than 9. Given this and the fact that he is on aspirin with a known history of cancer and believe he would benefit from monitoring and treatment. Patient does have positive troponin but this is chronically positive. He denies any chest pains or shortness of breath. I did speak with the on-call hospitalist Dr. Alvarenga and the patient was admitted to the [facility] medicine service. Past Med/Surg History Medical History Anemia Bladder cancer Dx'ed 2017- s/p chemo and XRT CAD (coronary artery disease) cath 07/2018 - 100% RCA occlusion, s/p AI to LAD Carotid atherosclerosis s/p CEAs bilaterally CKD (chronic kidney disease), stage III COPD (chronic obstructive pulmonary disease) Degenerative disc disease DM type 2 (diabetes mellitus, type 2) Dyslipidemia GI bleed 07/27/2019--? 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 - EF 45-49%, grade I diastolic dysfunction Transient ischemic attack (TIA) 2010--no neurologist, no deficits Surgical History History of bladder surgery TURBT [place] [facility] [place] History of cataract surgery bilt History of colonoscopy History of cosmetic plastic surgery to remove droopy skin around neck History of cystoscopy History of esophagogastroduodenoscopy (EGD) History of heart artery stent 1 stent placed History of left-sided carotid endarterectomy 2010 History of right-sided carotid endarterectomy June 2019 History of thoracentesis History of tooth extraction all teeth Status post surgical removal and fulguration of bladder neoplasm Family History Mother Stroke Family history of diabetes mellitus Sister Family history of diabetes mellitus 2 Other No family history of adverse response to anesthesia Social History (Updated 06/07/20 @ 00:15 by Oleg Keita MD) Smoking Status: Current some day smoker Cigarettes Per Day: 20-30; Second Hand Exposure: No; Hx Alcohol Use: No Hx Substance Use: No Preferred Language: Greek Communication Ability: Effective 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 Beliefs That Will Affect Care: None Current Living Situation: Spouse Feels Safe at Home: Yes Allergies Allergies Allergy/AdvReac Type Severity Reaction Status Date / Time No Known Allergies Allergy Verified 06/06/20 21:12 Home Meds Home Medications Medication Instructions Recorded Confirmed Anoro Ellipta 1 inh INHALATION PM 02/03/19 06/06/20 albuterol sulfate [Ventolin HFA] 2 puff INHALATION QID PRN 02/03/19 06/06/20 aspirin 81 mg PO QPM 02/03/19 06/06/20 atorvastatin 40 mg PO QDD 02/03/19 06/06/20 betamethasone, augmented 1 applic TOPICAL BID PRN 02/03/19 06/06/20 [Diprolene] cholecalciferol (vitamin D3) 1,000 unit PO QAM 02/03/19 06/06/20 [Vitamin D3] lutein 20 mg PO Q2D 02/03/19 06/06/20 nitroglycerin [Nitrostat] 0.4 mg SUBLINGUAL UD PRN 02/03/19 06/06/20 oxybutynin chloride 5 mg PO QDD 02/03/19 06/06/20 pyridoxine (vitamin B6) [Vitamin 100 mg PO QAM 02/03/19 06/06/20 B-6] acetaminophen [Tylenol Extra 1,000 mg PO BID PRN 04/28/20 06/06/20 Strength] ascorbic acid (vitamin C) [Vitamin 500 mg PO DAILY 04/28/20 06/06/20 C] bisacodyl 5 mg PO QPM PRN 04/28/20 06/06/20 latanoprost 1 drp OPL 04/28/20 06/06/20 omeprazole 20 mg PO QAM 04/28/20 06/06/20 cyanocobalamin (vitamin B-12) 0 mcg PO DAILY 06/06/20 06/06/20 [Vitamin B-12] docusate sodium 100 mg PO BID 06/06/20 06/06/20 ferrous sulfate 325 mg PO DAILY 06/06/20 06/06/20 polyethylene glycol 3350 [Miralax] 17 g PO HS 06/06/20 06/06/20 Results & Data (ED) Vital Signs Vital Signs - 24 hr 06/06/20 19:48 06/06/20 20:43 06/06/20 20:46 Temperature 37.0 C Temperature Source Oral Pulse Rate - Lying Pulse Rate - Sitting Pulse Rate 84 93 H Pulse Rate from SpO2 Sensor 93 H Respiratory Rate 22 23 Respiratory Effort / Characteristics Non-Labored Respiratory Depth Normal Blood Pressure - Lying Blood Pressure - Sitting Blood Pressure 110/62 131/67 Blood Pressure Mean 78 92 Pulse Oximetry 90 99 Oxygen Delivery Method Nasal Cannula Nasal Cannula Nasal Cannula Oxygen Flow Rate 2 2 2 Sepsis Recent Fever Within 48 Hours No Sepsis New/Unexplained Change in Mental Status No Sepsis Action Taken by Nursing No Action Required 06/06/20 21:00 06/06/20 22:00 06/06/20 22:30 Temperature Temperature Source Pulse Rate - Lying 94 H Pulse Rate - Sitting 99 H Pulse Rate 92 H 95 H Pulse Rate from SpO2 Sensor 93 H Respiratory Rate 22 20 Respiratory Effort / Characteristics Respiratory Depth Blood Pressure - Lying 102/63 Blood Pressure - Sitting 86/51 L Blood Pressure Blood Pressure Mean Pulse Oximetry 99 99 Oxygen Delivery Method Nasal Cannula Nasal Cannula Oxygen Flow Rate 2 2 Sepsis Recent Fever Within 48 Hours Sepsis New/Unexplained Change in Mental Status Sepsis Action Taken by [facility] Medications Current Medication List: was personally reviewed by me Laboratory Data Attestation: I reviewed the patient's lab results. Result diagrams: 06/06/20 20:48 06/06/20 20:48 Lab Results 06/06/20 06/06/20 06/06/20 Range/Units 20:48 20:48 20:48 WBC 9.95 (4.8-10.8) K/uL RBC 3.03 L (4.7-6.1) M/uL Hgb 8.9 L (14.0-18.0) g/dL Hct 28.3 L (42-52) % MCV 93.4 (80-100) fL MCH 29.4 (25-34) pg MCHC 31.4 L (32-36) g/dL RDW Std Deviation 64.2 H (36.4-46.3) fL RDW Coeff of Silvano 19.4 H (11.5-14.5) % Plt Count 180 (130-400) K/uL MPV 10.9 H (7.4-10.4) fL Immature Gran % (Auto) 0.4 % Neut % (Auto) 75.0 % Lymph % (Auto) 12.7 % [place] % (Auto) 7.4 % Eos % (Auto) 4.3 % Baso % (Auto) 0.2 % Neut # (Auto) 7.46 H (1.4-6.5) K/uL Lymph # (Auto) 1.26 (1.2-3.4) K/uL [place] # (Auto) 0.74 H (0.11-0.59) K/uL Eos # (Auto) 0.43 (0-0.5) K/uL Baso # (Auto) 0.02 (0-0.2) K/uL Immature Gran # (Auto) 0.04 H (0.00-0.02) K/uL Absolute Nucleated RBC 0.02 H (0-0) K/uL Nucleated RBC % (auto) 0.2 % PT 10.8 (9.0-12.0) Seconds INR 1.0 (0.9-1.1) APTT 26.6 (21.0-31.0) Seconds PTT Ratio 1.0 Sodium (136-145) mmol/L Potassium (3.5-5.1) mmol/L Chloride (98-107) mmol/L Carbon Dioxide (21-32) mmol/L Anion Gap (3-11) BUN (7-18) mg/dl Creatinine (0.6-1.4) mg/dl Est Cr Clr Drug Dosing Est GFR ( Amer) Est GFR (Non-Af Amer) BUN/Creatinine Ratio (10-20) Glucose (70-99) mg/dl Calcium (8.5-10.1) mg/dl Phosphorus (2.5-4.9) mg/dl Magnesium (1.8-2.4) mg/dl Total Bilirubin (0.2-1) mg/dl AST (15-37) U/L ALT (12-78) U/L Alkaline Phosphatase (45-117) U/L Troponin I (0-0.045) ng/ml Total Protein (6.4-8.2) gm/dl Albumin (3.4-5.0) gm/dl Globulin (2.5-4.0) gm/dl Albumin/Globulin Ratio (0.9-2) Blood Type O Positive Antibody Screen NEGATIVE Crossmatch See Detail 06/06/20 Range/Units 20:48 WBC (4.8-10.8) K/uL RBC (4.7-6.1) M/uL Hgb (14.0-18.0) g/dL Hct (42-52) % MCV (80-100) fL MCH (25-34) pg MCHC (32-36) g/dL RDW Std Deviation (36.4-46.3) fL RDW Coeff of Silvano (11.5-14.5) % Plt Count (130-400) K/uL MPV (7.4-10.4) fL Immature Gran % (Auto) % Neut % (Auto) % Lymph % (Auto) % [place] % (Auto) % Eos % (Auto) % Baso % (Auto) % Neut # (Auto) (1.4-6.5) K/uL Lymph # (Auto) (1.2-3.4) K/uL [place] # (Auto) (0.11-0.59) K/uL Eos # (Auto) (0-0.5) K/uL Baso # (Auto) (0-0.2) K/uL Immature Gran # (Auto) (0.00-0.02) K/uL Absolute Nucleated RBC (0-0) K/uL Nucleated RBC % (auto) % PT (9.0-12.0) Seconds INR (0.9-1.1) APTT (21.0-31.0) Seconds PTT Ratio Sodium 133 L (136-145) mmol/L Potassium 4.4 (3.5-5.1) mmol/L Chloride 98 (98-107) mmol/L Carbon Dioxide 31 (21-32) mmol/L Anion Gap 4.0 (3-11) BUN 22 H (7-18) mg/dl Creatinine 1.29 (0.6-1.4) mg/dl Est Cr Clr Drug Dosing Not Reportable Est GFR ( Amer) 61.6 Est GFR (Non-Af Amer) 53.1 BUN/Creatinine Ratio 16.7 (10-20) Glucose 130 H (70-99) mg/dl Calcium 8.3 L (8.5-10.1) mg/dl Phosphorus 3.2 (2.5-4.9) mg/dl Magnesium 2.1 (1.8-2.4) mg/dl Total Bilirubin 0.2 (0.2-1) mg/dl AST 21 (15-37) U/L ALT 23 (12-78) U/L Alkaline Phosphatase 102 (45-117) U/L Troponin I 0.086 H* (0-0.045) ng/ml Total Protein 7.3 (6.4-8.2) gm/dl Albumin 3.1 L (3.4-5.0) gm/dl Globulin 4.2 H (2.5-4.0) gm/dl Albumin/Globulin Ratio 0.7 L (0.9-2) Blood Type Antibody Screen Crossmatch Administered Medications Pantoprazole Sodium 40 mg/ (Dextrose) 100 mls @ 20 mls/hr IV Q5H [facility] Stop: 06/07/20 01:44 Last Admin: 06/06/20 21:35 Dose: 8 mg/hr, 20 mls/hr Documented by: [id number] Pantoprazole Sodium 40 mg/ (Dextrose) 100 mls @ 20 mls/hr IV Q5H DALJIT Stop: 07/06/20 21:12 Last Admin: 06/06/20 21:35 Dose: Not Given Documented by: [id number] Discontinued Medications Pantoprazole Sodium 40 mg/ (Syringe) 10 mls @ 5 mls/min IV NOW ONE Stop: 06/06/20 20:44 Last Admin: 06/06/20 21:01 Dose: Not Given Documented by: [id number] Pantoprazole Sodium (Protonix Bolus/Drip) 0 mls @ 1 mls/hr IV ONE STA Stop: 06/06/20 20:59 Last Admin: 06/06/20 21:18 Dose: Not Given Documented by: [id number] Pantoprazole Sodium 80 mg/ (Dextrose) 120 mls @ 400 mls/hr IV NOW ONE Stop: 06/06/20 21:15 Last Infusion: 06/06/20 21:49 Dose: 0 mls/hr Documented by: [id number] Admin: 06/06/20 21:17 Dose: 400 mls/hr Documented by: [id number] Ioversol (Optiray 320 100ml) 94 ml IV ONCE ONE Stop: 06/06/20 23:46 Last Admin: 06/06/20 23:46 Dose: 94 ml Documented by: [id number] Discharge Plan Visit Data Chief Complaint: GI Bleed Stated Complaint: GI BLEED, SYNCOPE ED Provider: Oleg Keita Discharge Problem: GIB (gastrointestinal bleeding), Syncope Discharge Instructions Interventions: ED Discharge Assessment Last Done: 06/06/20 23:16 Discharge Problem: GIB (gastrointestinal bleeding) Qualifiers: GI bleed type/associated pathology: unspecified gastrointestinal hemorrhage type Qualified Code(s): K92.2 - Gastrointestinal hemorrhage, unspecified Syncope Qualifiers: Syncope type: unspecified Qualified Code(s): R55 - Syncope and collapse
[2020-06-06] MEDS ORDERED: PANTOPRAZOLE BOLUS/DRIP 1 EA IV STA (20:58)
[2020-06-06] MEDS ORDERED: PANTOprazole 80 MG in DEXTROSE 5% 100 ML IV ONE (20:58)
--- NOTE | 2020-06-06 21:00 | XRay Report ---
XR chest 1V portable CLINICAL HISTORY: syncope COMPARISON STUDY: 05/22/2020 FINDINGS: The heart is mildly enlarged. There is mild chronic right-sided volume loss. There is stabl e basilar interstitial thickening right greater than left. There is no acute lobar consolidation[ IMPRESSION: Stable chronic interstitial basilar opacities right more pronounced than left. ACT 112: Negative or not required by law. Electronically signed by: Parrish Cutler M.D. 06/06/2020 8:58 PM
[2020-06-06 21:03] LABS: Basophils # (auto) 0.02 K/uL (0-0.2); Basophils % (auto) 0.2 %; Eosinophils # (auto) 0.43 K/uL (0-0.5); Eosinophils % (auto) 4.3 %; Hematocrit (blood only) 28.3 % (42-52); Hemoglobin 8.9 g/dL (14.0-18.0); Immature Granulocytes # (auto) 0.04 K/uL (0.00-0.02); Immature Granulocytes % (auto) 0.4 %; Lymphocytes # (auto) 1.26 K/uL (1.2-3.4); Lymphocytes % (auto) 12.7 %; Mean Corpuscular Hemoglobin 29.4 pg (25-34); Mean Corpuscular Hgb Conc 31.4 g/dL (32-36); Mean Corpuscular Volume 93.4 fL (80-100); Mean Platelet Volume 10.9 fL (7.4-10.4); Monocytes # (auto) 0.74 K/uL (0.11-0.59); Monocytes % (auto) 7.4 %; Neutrophils # (auto) 7.46 K/uL (1.4-6.5); Nucleated RBC # (auto) 0.02 K/uL (0-0); Nucleated RBC % (auto) 0.2 %; Platelet Count 180 K/uL (130-400); RDW Coefficient of Variation 19.4 % (11.5-14.5); RDW Standard Deviation 64.2 fL (36.4-46.3); Red Blood Count 3.03 M/uL (4.7-6.1); White Blood Count 9.95 K/uL (4.8-10.8)
[2020-06-06 21:14] LABS: Partial Thromboplastin Time 26.6 Seconds (21.0-31.0); Prothrombin Time 10.8 Seconds (9.0-12.0)
[2020-06-06 21:20] LABS: Alanine Aminotransferase 23 U/L (12-78); Albumin Level 3.1 gm/dl (3.4-5.0); Aspartate Aminotransferase 21 U/L (15-37); BUN Creatinine Ratio 16.7 (10-20); Blood Urea Nitrogen 22 mg/dl (7-18); Calcium 8.3 mg/dl (8.5-10.1); Carbon Dioxide 31 mmol/L (21-32); Chloride 98 mmol/L (98-107); Est GFR (African American) 61.6; Est GFR (Non-African American) 53.1; Glucose 130 mg/dl (70-99); Magnesium 2.1 mg/dl (1.8-2.4); Potassium 4.4 mmol/L (3.5-5.1); Sodium 133 mmol/L (136-145)
[2020-06-06 21:26] LABS: Albumin Globulin Ratio 0.7 (0.9-2); Alkaline Phosphatase 102 U/L (45-117); Bilirubin,Total 0.2 mg/dl (0.2-1); Globulin 4.2 gm/dl (2.5-4.0); Phosphorus 3.2 mg/dl (2.5-4.9); Total Protein 7.3 gm/dl (6.4-8.2); Troponin I 0.086 ng/ml (0-0.045)
[2020-06-06] MEDS: PANTOprazole 40 MG in DEXTROSE 5% 100 ML IV SCH (21:35)
--- NOTE | 2020-06-06 22:53 | History & Physical Report ---
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 Oxybutynin contributory Rule out adrenal disorder Episodic spells of decreased responsiveness Secondary to orthostasis Rule out arrhythmia Rule out seizure disorder chronic diastolic heart failure (EF 50-55%, TTE 2019), patient on the dry side hx CAD status post stent PVD status post surgery COPD, ongoing tobacco abuse, pulmonary status at baseline DM 2 diet-controlled, well-controlled as of recent outpatient hemoglobin A1c of 6.07 Mar 2020 hx metastatic bladder cancer status post surgery status post chemoradiation ongoing immunotherapy (Keytruda) hx Tourette's syndrome Medical telemetry IV PPI Serial H&H, transfuse PRBC to maintain hemoglobin between 9-10 given symptomatic anemia GI consult RE UGIB Appropriate to hold aspirin for now. DC oxybutynin given propensity to cause orthostatic hypotension Outpatient hormone blood work as per Endocrinology recommendations. Consider inpatient Cardiology eval if with recurrent episodes of orthostasis RE ? pharmacologic therapy for orthostatic hypotension EEG RE episodic spells rule out atypical seizures ISS BG goal [id number] Nicotine patch PRN DVT prophylaxis. SCDs RE GI bleed Full code Patient's requesting updates from providers. Domenica Arce, contact #[phone]. Text document was generated using Ufree voice recognition software. It may contain grammatical or spelling errors. Kindly contact undersigned for clarification of any documentation item in questi on. History of Present Illness Chief Complaint: Melena, anemia Primary Care Provider: Donal Crabtree MD History obtained from patient, family, and records. Medical history significant for chronic diastolic heart failure (EF 50-55%, TTE 2019), CAD status post stent, VHD (mild to moderate MR/TR 2019 TTE), PVD status post surgery, hypertension, hyperlipidemia, COPD, ongoing tobacco abuse, DM 2 diet-controlled, chronic anemia (baseline hemoglobin of 10), hx metastatic bladder cancer status post surgery status post chemoradiation ongoing immunotherapy (Keytruda), hx Tourette's syndrome, history gastric/colonic AVMs, colonic polyps, internal hemorrhoids as per records, history of adrenal hyperplasia as per records. Patient noted to have dark tarry stools with minimal abdominal discomfort the last few weeks. No headache. No OTC NSAID intake other than home aspirin. Episodic spells noted at home by in the last 6 weeks described as patient having decreased responsiveness for a few moments. No actual grand mal seizures/incontinence/tongue biting symptoms noted. Patient with some arm/hand shaking and mouth dropping open. Heart rate would be normal to fast as per patient . Usually related to exertion. Patient without chest pain. Some shortness of breath/fatigue with exertion as per patient. Last confinement 2 weeks ago for weakness and lightheadedness occurring with standing. Symptoms attributed to orthostasis. Patient discharged home. Patient still with episodic weakness/lightheadedness symptoms at home after discharge as per . BP still low and patient still with weakness/shaking as per PCP note from 2 weeks ago. PCP stopped BP meds. [facility] [place] manager rn contacted via [employer] by PCP for episodic hypotension, adrenal nodularity on outpatient CAT scans. Hormonal evaluation recommended by specialist. [facility] ER visit a few days ago. Hemoglobin noted to be trending down in the last week as per . 9.2 (06/01) to 8.3 (06/03) Stools noted to be melanotic without emesis. Outpatient stool Hemoccult noted to be positive. Outpatient hemoglobin yesterday noted to be 8.4. Patient directed by PCP to ER. PPI bolus drip initiated at the ER for UGI B. Orthostatic vitals noted to be positive at the ER. Medical History as above 2019 EGD medium-sized hiatal hernia, 2 nonbleeding angiectasia's of the stomach. 2018 colonoscopy showed single nonbleeding colonic angiectasia. Internal hemorrhoids. Nodular mucosa at distal transverse colon. Surgical History : Cataract surgery, thromboendarterectomy, urologic procedures, bladder tumor fulguration Family History : Diabetes, heart disease Personal/Social history : 1 pack daily, no EtOH intake, businessman Allergies Allergy/AdvReac Type Severity Reaction Status Date / Time No Known Allergies Allergy Verified 06/06/20 21:12 Home Medications Home Medications Medication Instructions Recorded Confirmed Type Anoro Ellipta 1 inh INHALATION PM 02/03/19 06/06/20 History albuterol sulfate [Ventolin HFA] 2 puff INHALATION QID PRN 02/03/19 06/06/20 History aspirin 81 mg PO QPM 02/03/19 06/06/20 History atorvastatin 40 mg PO QDD 02/03/19 06/06/20 History betamethasone, augmented 1 applic TOPICAL BID PRN 02/03/19 06/06/20 History [Diprolene] cholecalciferol (vitamin D3) 1,000 unit PO QAM 02/03/19 06/06/20 History [Vitamin D3] lutein 20 mg PO Q2D 02/03/19 06/06/20 History nitroglycerin [Nitrostat] 0.4 mg SUBLINGUAL UD PRN 02/03/19 06/06/20 History oxybutynin chloride 5 mg PO QDD 02/03/19 06/06/20 History pyridoxine (vitamin B6) [Vitamin 100 mg PO QAM 02/03/19 06/06/20 History B-6] acetaminophen [Tylenol Extra 1,000 mg PO BID PRN 04/28/20 06/06/20 History Strength] ascorbic acid (vitamin C) [Vitamin 500 mg PO DAILY 04/28/20 06/06/20 History C] bisacodyl 5 mg PO QPM PRN 04/28/20 06/06/20 History latanoprost 1 drp OPL HS 04/28/20 06/06/20 History omeprazole 20 mg PO QAM 04/28/20 06/06/20 History cyanocobalamin (vitamin B-12) 0 mcg PO DAILY 06/06/20 06/06/20 History [Vitamin B-12] docusate sodium 100 mg PO BID 06/06/20 06/06/20 History ferrous sulfate 325 mg PO DAILY 06/06/20 06/06/20 History polyethylene glycol 3350 [Miralax] 17 g PO HS 06/06/20 06/06/20 History Past Med/Surg History Medical History Anemia Bladder cancer Dx'ed 2017- s/p chemo and XRT CAD (coronary artery disease) cath 07/2018 - 100% RCA occlusion, s/p AI to LAD Carotid atherosclerosis s/p CEAs bilaterally CKD (chronic kidney disease), stage III COPD (chronic obstructive pulmonary disease) Degenerative disc disease DM type 2 (diabetes mellitus, type 2) Dyslipidemia GI bleed 07/27/2019--? 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 - EF 45-49%, grade I diastolic dysfunction Transient ischemic attack (TIA) 2010--no neurologist, no deficits Surgical History History of bladder surgery TURBT History of cardiac cath 07/26/2018 @ [facility] [place] with 1 stent placed History of cataract surgery bilt History of colonoscopy History of cosmetic plastic surgery to remove droopy skin around neck History of cystoscopy History of esophagogastroduodenoscopy (EGD) History of heart artery stent 1 stent placed History of left-sided carotid endarterectomy 2010 History of right-sided carotid endarterectomy June 2019 History of thoracentesis History of tooth extraction all teeth Status post surgical removal and fulguration of bladder neoplasm Family History Mother Stroke Family history of diabetes mellitus Sister Family history of diabetes mellitus 2 Other No family history of adverse response to anesthesia Social History Smoking Status: Current some day smoker Cigarettes Per Day: 20-30; Second Hand Exposure: No; Hx Alcohol Use: No Hx Substance Use: No Preferred Language: Korean Communication Ability: Effective Criminal Investigative Agent Required: No Beliefs That Will Affect Care: None Current Living Situation: Spouse Other Information That Helps Us Care for You: No Feels Safe at Home: Yes Safety Concerns: Feels Safe At This Time Review of Systems Review of Systems: As per HPI, all 10 systems reviewed, all other ROS negative Physical Exam Physical Exam: GENERAL: Slightly restless, pleasant, looks younger for stated age, no respiratory distress SKIN: Pallor, warm HEENT: Pale palpebral conjunctivae, no ptosis, dry buccal mucosa NECK : Supple, no tenderness CHEST : Decreased breath sounds, no tenderness HEART : RRR, systolic murmur ABDOMEN: Some distention, nontender EXTREMITIES : No LE swelling/tenderness, no other conspicuous deformities noted NEUROLOGIC : Coherent, no facial asymmetry, restless, sudden involuntary extr emity jerking/twitching, no other gross focality Results & Data Results & Data ([facility]) Vital Signs (Past 12 Hours) Vital Signs Temp Pulse Resp BP Pulse Ox 06/06/20 22:00 95 H 20 99 06/06/20 21:00 92 H 22 99 06/06/20 20:43 93 H 23 131/67 99 06/06/20 19:48 37.0 C 84 22 110/62 90 Laboratory Results Laboratory Results WBC 9.95 K/uL (4.8-10.8) 06/06/20 20:48 RBC 3.03 M/uL (4.7-6.1) L 06/06/20 20:48 Hgb 8.9 g/dL (14.0-18.0) L 06/06/20 20:48 Hct 28.3 % (42-52) L 06/06/20 20:48 MCV 93.4 fL (80-100) 06/06/20 20:48 MCH 29.4 pg (25-34) 06/06/20 20:48 MCHC 31.4 g/dL (32-36) L 06/06/20 20:48 RDW Std Deviation 64.2 fL (36.4-46.3) H 06/06/20 20:48 RDW Coeff of Silvano 19.4 % (11.5-14.5) H 06/06/20 20:48 Plt Count 180 K/uL (130-400) 06/06/20 20:48 MPV 10.9 fL (7.4-10.4) H 06/06/20 20:48 Immature Gran % (Auto) 0.4 % 06/06/20 20:48 Neut % (Auto) 75.0 % 06/06/20 20:48 Lymph % (Auto) 12.7 % 06/06/20 20:48 Daniels % (Auto) 7.4 % 06/06/20 20:48 Eos % (Auto) 4.3 % 06/06/20 20:48 Baso % (Auto) 0.2 % 06/06/20 20:48 Neut # (Auto) 7.46 K/uL (1.4-6.5) H 06/06/20 20:48 Lymph # (Auto) 1.26 K/uL (1.2-3.4) 06/06/20 20:48 Daniels # (Auto) 0.74 K/uL (0.11-0.59) H 06/06/20 20:48 Eos # (Auto) 0.43 K/uL (0-0.5) 06/06/20 20:48 Baso # (Auto) 0.02 K/uL (0-0.2) 06/06/20 20:48 Immature Gran # (Auto) 0.04 K/uL (0.00-0.02) H 06/06/20 20:48 Absolute Nucleated RBC 0.02 K/uL (0-0) H 06/06/20 20:48 Nucleated RBC % (auto) 0.2 % 06/06/20 20:48 PT 10.8 Seconds (9.0-12.0) 06/06/20 20:48 INR 1.0 (0.9-1.1) 06/06/20 20:48 APTT 26.6 Seconds (21.0-31.0) 06/06/20 20:48 PTT Ratio 1.0 06/06/20 20:48 Sodium 133 mmol/L (136-145) L 06/06/20 20:48 Potassium 4.4 mmol/L (3.5-5.1) 06/06/20 20:48 Chloride 98 mmol/L (98-107) 06/06/20 20:48 Carbon Dioxide 31 mmol/L (21-32) 06/06/20 20:48 Anion Gap 4.0 (3-11) 06/06/20 20:48 BUN 22 mg/dl (7-18) H 06/06/20 20:48 Creatinine 1.29 mg/dl (0.6-1.4) 06/06/20 20:48 Est Cr Clr Drug Dosing Not Reportable 06/06/20 20:48 Est GFR ( Amer) 61.6 06/06/20 20:48 Est GFR (Non-Af Amer) 53.1 06/06/20 20:48 BUN/Creatinine Ratio 16.7 (10-20) 06/06/20 20:48 Glucose 130 mg/dl (70-99) H 06/06/20 20:48 Calcium 8.3 mg/dl (8.5-10.1) L 06/06/20 20:48 Phosphorus 3.2 mg/dl (2.5-4.9) 06/06/20 20:48 Magnesium 2.1 mg/dl (1.8-2.4) 06/06/20 20:48 Total Bilirubin 0.2 mg/dl (0.2-1) 06/06/20 20:48 AST 21 U/L (15-37) 06/06/20 20:48 ALT 23 U/L (12-78) 06/06/20 20:48 Alkaline Phosphatase 102 U/L (45-117) 06/06/20 20:48 Troponin I 0.086 ng/ml (0-0.045) H* 06/06/20 20:48 Total Protein 7.3 gm/dl (6.4-8.2) 06/06/20 20:48 Albumin 3.1 gm/dl (3.4-5.0) L 06/06/20 20:48 Globulin 4.2 gm/dl (2.5-4.0) H 06/06/20 20:48 Albumin/Globulin Ratio 0.7 (0.9-2) L 06/06/20 20:48 POC Stool Occult Blood Positive (Negative) A 06/06/20 Unknown Blood Type O Positive 06/06/20 20:48 Antibody Screen NEGATIVE 06/06/20 20:[address] abdomen pelvis initial read: Bibasilar infiltrates superimposed on emphysema correlate for pneumonia. Diffuse edema/anasarca. Peripancreatic fluid. Distended urinary bladder with wall thickening consider out obstruction from prostatomegaly. Rule out cystitis. Stable mild right ureteral hydronephrosis, nodular thickening both adrenal glands consider hyperplasia. Atherosclerosis. Stable infrarenal aortic iliac ectasia. Stable chronic short segment distal aortic dissection. Severely narrowed iliac arteries. Stable L5 spondylosis with grade 2 anterolisthesis. Chest x-ray as per my interpretation interstitial congestion EKG as per my interpretation : Rate 95, NSR, normal axis, ST depression anterolateral leads Code Status & VTE Plan VTE Prophylaxis Plan VTE Prophylaxis will be ordered: Yes
[2020-06-06] MEDS ORDERED: IOVERSOL 100ml IV ONE (23:45)
[2020-06-07] MEDS ORDERED: CARBOHYDRATES FOR HYPOGLYCEMIA PO PRN (00:07)
[2020-06-07] MEDS ORDERED: PROMETHAZINE HCL 12.5 MG in SODIUM CHLORIDE 0.9% 50 ML IV PRN (00:07)
[2020-06-07] MEDS ORDERED: OXYCODONE HCL IR 5 MG TAB (IMMEDIATE RELEASE) PO PRN (00:07)
[2020-06-07] MEDS ORDERED: GLUCOSE 40% GEL 15 GM TUBE PO PRN (00:07)
[2020-06-07] MEDS ORDERED: DEXTROSE 50% 50 ML SYRINGE IV PRN (00:07)
[2020-06-07] MEDS ORDERED: GLUCAGON FOR INJ 1 MG VIAL SQ PRN (00:07)
[2020-06-07] MEDS ORDERED: ACETAMINOPHEN 325 MG TAB PO PRN (00:07)
[2020-06-07] MEDS ORDERED: SODIUM CHLORIDE 0.9% 250 ML IV PRN (00:07)
[2020-06-07] MEDS ORDERED: GLUCOSE 10 TABS/TUBE PO PRN (00:07)
[2020-06-07] MEDS ORDERED: bisacodyL 5 MG TABEC PO PRN (00:37)
[2020-06-07] MEDS: INSULIN ASPART 100 UNITS/ML 3 ML PEN SC SCH ×5 (01:04→20:25)
[2020-06-07] MEDS: SODIUM CHLORIDE 0.9% 1000ML 1,000 ML IV SCH (01:25)
[2020-06-07] MEDS ORDERED: LORazepam 0.5 MG TAB PO STA (03:12)
[2020-06-07] MEDS: PANTOprazole 40 MG in DEXTROSE 5% 100 ML IV SCH ×4 (05:07→20:21)
[2020-06-07 05:14] LABS: Appearance Urine Clear (Clear); Bilirubin Urine Negative (Negative); Blood Urine Negative (Negative); Color Urine Yellow; Glucose Urine UA Negative (Negative); Ketones Urine Negative (Negative); Leukocyte Esterase Urine Negative (Negative); Nitrite Urine Negative (Negative); Protein Urine Negative (Negative); Specific Gravity Urine > 1.045 (1.000-1.030); Urobilinogen Urine Negative (Negative)
[2020-06-07 07:22] LABS: Basophils # (auto) 0.02 K/uL (0-0.2); Basophils % (auto) 0.3 %; Eosinophils # (auto) 0.33 K/uL (0-0.5); Eosinophils % (auto) 4.2 %; Hematocrit (blood only) 29.7 % (42-52); Hemoglobin 9.4 g/dL (14.0-18.0); Immature Granulocytes # (auto) 0.03 K/uL (0.00-0.02); Immature Granulocytes % (auto) 0.4 %; Lymphocytes # (auto) 1.35 K/uL (1.2-3.4); Lymphocytes % (auto) 17.2 %; Mean Corpuscular Hgb Conc 31.6 g/dL (32-36); Mean Corpuscular Volume 91.7 fL (80-100); Mean Platelet Volume 9.8 fL (7.4-10.4); Monocytes # (auto) 0.61 K/uL (0.11-0.59); Monocytes % (auto) 7.8 %; Neutrophils # (auto) 5.51 K/uL (1.4-6.5); Neutrophils % (auto) 70.1 %; Nucleated RBC # (auto) 0.02 K/uL (0-0); Nucleated RBC % (auto) 0.2 %; Platelet Count 138 K/uL (130-400); RDW Coefficient of Variation 18.5 % (11.5-14.5); RDW Standard Deviation 59.4 fL (36.4-46.3); Red Blood Count 3.24 M/uL (4.7-6.1); White Blood Count 7.85 K/uL (4.8-10.8)
--- NOTE | 2020-06-07 07:35 | CT Scan Report ---
CT abd pelvis IV con only CT DOSE: 794.86 mGy.cm HISTORY: abd pain TECHNIQUE: Multiaxial CT images of the abdomen and pelvis were performed following the use of intrave nous contrast. A dose lowering technique was utilized adhering to the principles of ALARA. COMPARISON STUDY: None. FINDINGS: Bibasilar atelectatic and infiltrative change. Small right pleural effusion. The liver spleen and pancreas appear unremarkable. Mild wall thickening of components of the proximal to mid small bowel. Mild chronic right hydroureteronephrosis. Trace body wall anasarca. Slight infiltrative change of the mesentery. Bladder is midline. No significant free fluid within the cul-de-sac. The colonic pattern is considered nonobstructive. Normal appendix. IMPRESSION: 1. Proximal to mid small bowel suggestive of a nonspecific enteritis. 2. Mild chronic right hydroureteronephrosis. 3. Bibasilar parenchymal infiltrate combined with a small right effusion. 4. Mild chronic colonic diverticulosis. ACT 112: Negative or not required by law. The above report was generated using voice recognition software. It may contain grammatical, syntax or spelling errors. Electronically signed by: Lico Rodas M.D. 06/07/2020 7:34 AM
[2020-06-07 07:55] LABS: BUN Creatinine Ratio 18.9 (10-20); Calcium 7.8 mg/dl (8.5-10.1); Creatinine Clr Calc Pharmacy 53.4 ml/min; Potassium 4.5 mmol/L (3.5-5.1)
[2020-06-07] MEDS: PYRIDOXINE HCL 50 MG TAB PO SCH (08:23)
[2020-06-07] MEDS: CYANOCOBALAMIN 500 MCG TABLET (VITAMIN B-12) PO SCH (08:23)
--- NOTE | 2020-06-07 10:42 | Gastrointestinal Consultation ---
Date of Consultation June 07, 2020 Assessment & Plan (1) Anemia: 79 yo male with multiple co-morbidities including chronic anemia, known GI AVMs, O2 dep COPD (still smoking), CAD, PVD, and metastatic bladder cancer admitted with on-going weakness. Note of hemoccult positive stool. No BM since yesterday. Known AVMs. - Continue with PPI gtt. - No s/s of on-going gross bleeding. - Full liquid diet - Will plan for possible repeat EGD Tuesday. Sooner if needed. - Follow H/H. (2) Orthostasis: (3) Elevated troponin: History of Present Illness Reason for Consultation: abd pain; dark stool Attending Physician: Jose Manuel Mora MD History of Present Illness 79 yo male with multiple comorbidities including CHF, CAD, PVD, HTN, COPD (on chronic O2), h/o metastatic bladder ancer s/p XRT and chemo (Keytruda), Tourette's syndrome, adrenal hyperplasia, chronic anemia (baseline hgb approx 10) and AVMs. He was admitted recently for generalized weakness and episodes of shaking and orthosasis. Admitted again overnight for generalized decline. Noted to have slow decline in H/H. Reports of dark stools for a few weeks. On iron supplements at home. Stools reported to be hemoccult positive. He just had an EGD and EUS on 05/02 by and was noted to have non-bleeding gastric AVM x2. Last BM was yesterday. No diarrhea. No nausea or vomiting. BUN at baseline. Hgb stable over the last week (9.2 - 8.3 - 8.9 - 9.4). He was started on PPI gtt on arrival. Allergies Allergy/AdvReac Type Severity Reaction Status Date / Time No Known Allergies Allergy Verified 06/06/20 21:12 Home Medications Home Medications Medication Instructions Recorded Confirmed Type Anoro Ellipta 1 inh INHALATION PM 02/03/19 06/06/20 History albuterol sulfate [Ventolin HFA] 2 puff INHALATION QID PRN 02/03/19 06/06/20 History aspirin 81 mg PO QPM 02/03/19 06/06/20 History atorvastatin 40 mg PO QDD 02/03/19 06/06/20 History betamethasone, augmented 1 applic TOPICAL BID PRN 02/03/19 06/06/20 History [Diprolene] cholecalciferol (vitamin D3) 1,000 unit PO QAM 02/03/19 06/06/20 History [Vitamin D3] lutein 20 mg PO Q2D 02/03/19 06/06/20 History nitroglycerin [Nitrostat] 0.4 mg SUBLINGUAL UD PRN 02/03/19 06/06/20 History oxybutynin chloride 5 mg PO QDD 02/03/19 06/06/20 History pyridoxine (vitamin B6) [Vitamin 100 mg PO QAM 02/03/19 06/06/20 History B-6] acetaminophen [Tylenol Extra 1,000 mg PO BID PRN 04/28/20 06/06/20 History Strength] ascorbic acid (vitamin C) [Vitamin 500 mg PO DAILY 04/28/20 06/06/20 History C] bisacodyl 5 mg PO QPM PRN 04/28/20 06/06/20 History latanoprost 1 drp OPL HS 04/28/20 06/06/20 History omeprazole 20 mg PO QAM 04/28/20 06/06/20 History cyanocobalamin (vitamin B-12) 0 mcg PO DAILY 06/06/20 06/06/20 History [Vitamin B-12] docusate sodium 100 mg PO BID 06/06/20 06/06/20 History ferrous sulfate 325 mg PO DAILY 06/06/20 06/06/20 History polyethylene glycol 3350 [Miralax] 17 g PO HS 06/06/20 06/06/20 History Patient History Medical History Anemia Bladder cancer Dx'ed 2017- s/p chemo and XRT CAD (coronary artery disease) cath 07/2018 - 100% RCA occlusion, s/p AI to LAD Carotid atherosclerosis s/p CEAs bilaterally CKD (chronic kidney disease), stage III COPD (chronic obstructive pulmonary disease) Degenerative disc disease DM type 2 (diabetes mellitus, type 2) Dyslipidemia GI bleed 07/27/2019--? 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 - EF 45-49%, grade I diastolic dysfunction Transient ischemic attack (TIA) 2010--no neurologist, no deficits Surgical History History of bladder surgery TURBT History of cardiac cath 07/26/2018 @ [facility] [place] with 1 stent placed History of cataract surgery bilt History of colonoscopy History of cosmetic plastic surgery to remove droopy skin around neck History of cystoscopy History of esophagogastroduodenoscopy (EGD) History of heart artery stent 1 stent placed History of left-sided carotid endarterectomy 2010 History of right-sided carotid endarterectomy June 2019 History of thoracentesis History of tooth extraction all teeth Status post surgical removal and fulguration of bladder neoplasm Family History Mother Stroke Family history of diabetes mellitus Sister Family history of diabetes mellitus 2 Other No family history of adverse response to anesthesia Social History Smoking Status: Current some day smoker Cigarettes Per Day: 20-30; Second Hand Exposure: No; Hx Alcohol Use: No Hx Substance Use: No Preferred Language: Uzbek Communication Ability: Effective Bsw Required: No Beliefs That Will Affect Care: None Current Living Situation: Spouse Other Information That Helps Us Care for You: No Feels Safe at Home: Yes Safety Concerns: Feels Safe At This Time Review of Systems Review of Systems: All systems reviewed & are unremarkable except as noted in HPI & below Physical Exam Constitutional: WD/WN, vitals as above Respiratory: normal respiratory effort, lungs clear to auscultation Cardiovascular: RRR, no murmur, no edema Gastrointestinal (Abdomen): normal bowel sounds, soft, nontender, no hepatosplenomegaly Results & Data ([facility]) Vital Signs (Past 12 Hours) Vital Signs Temp Pulse Pulse Resp BP BP Pulse Ox 06/07/20 07:57 36.5 C 94 H 20 105/60 93 06/07/20 02:50 36.6 C 90 18 136/73 96 06/07/20 01:50 36.7 C 92 H 18 136/73 94 06/07/20 01:20 36.6 C 90 18 106/63 94 06/07/20 01:10 92 H 06/07/20 01:05 36.5 C 91 H 18 99/61 L 95 06/07/20 00:49 36.5 C 90 18 92/56 L 93 06/07/20 00:03 36.7 C 88 18 94/60 L 92 06/06/20 22:54 94 H 20 102/63 99 (1) Anemia Anemia type: unspecified type Qualified Code(s): D64.9 - Anemia, unspecified
[2020-06-07] MEDS ORDERED: Nursing to Pharmacy Communication SCH (11:15)
[2020-06-07 12:53] LABS: Hematocrit (blood only) 31.5 % (42-52); Hemoglobin 10.1 g/dL (14.0-18.0)
--- NOTE | 2020-06-07 13:33 | Electrocardiogram Report ---
Test Reason : Blood Pressure : / mmHG Vent. Rate : 092 BPM Atrial Rate : 092 BPM P-R Int : 128 ms QRS Dur : 090 ms QT Int : 376 ms P-R-T Axes : 005 051 -28 degrees QTc Int : 464 ms Normal sinus rhythm with sinus arrhythmia Prolonged QT Abnormal ECG When compared with ECG of 23-MAY-2020 11:01, T wave amplitude has decreased in Anterior leads Confirmed by Clement Perez ([id number]) on 06/07/2020 1:33:26 PM Referred By: REFERRED SELF Confirmed By:Clement Perez
--- NOTE | 2020-06-07 15:59 | Hospitalist Progress Note ---
Date of Service June 07, 2020 Assessment & Plan (1) Orthostasis: Orthostatic hypotension Symptomatic anemia Acute upper GI bleeding H/O AVMs, internal hemorrhoids, colonic diverticulosis --CT ABD:Proximal to mid small bowel suggestive of a nonspecific enteritis. Mild chronic right hydroureteronephrosis. Bibasilar parenchymal infiltrate combined with a small right effusion. Mild chronic colonic diverticulosis. Orthostasis likely due to Anemia Oxybutynin held S/P 1 Unit PRBCs Monitor H&H and transfuse PRBCs as needed Received gentle IV fluids Continue Protonix Drip Diet as tolerated Appreciate GI input Likely EGD on Tuesday unless clinically deteriorates Fall Precautions Presyncopal Episodes No known seizure like activity Monitor on Tele for arrhythmias Anemia contributing EEG pending Consider Cardiology eval Monitor Physical deconditioning Generalized weakness Secondary to comorbidities/Immunotherapy PT/OT Chronic Diastolic heart failure Last EF: 50-55% off diuretics due to Hypotension Monitor volume status CAD S/P S/P AI to LAD in 06/2019 Held Aspirin due to GI bleeding Continue Lipitor COPD Ongoing tobacco abuse Chronic Oxygen Dependency: 2 liters at baseline Bibasilar parenchymal infiltrate--on CT--likely chronic Continue home inhalers [employer] to quit smoking Check Procalcitonin DM Type II HbA1C: 6.07 Mar 2020 Off metformin secondary to worsening renal functions Continue ISS while hospitalized Monitor BGs H/O Metastatic bladder cancer S/P Chemoradiation Ongoing immunotherapy (Keytruda) Follows with [facility] and Dr Franks Last dose of Keytruda on 06/03/20 H/O Tourette's syndrome Intermittent Behavioral changes as per family Monitor DVT Px: SCDs RE GI bleed Code Status Full code Disposition PT/OT prior to discharge Admission and Anticipated Discharge Date Admission Date: June 06, 2020 Subjective Patient is seen and examined at bedside States having black-colored stool Reports tiredness, dyspnea on exertion Denies nausea, vomiting, abdominal pain Also denies chest pain, shortness of breath Discussed with GI today On Protonix drip Offers no other complaints Review of Systems Review of Systems: All systems reviewed & are unremarkable except as noted in HPI & below Physical Exam Physical Exam: Physical Exam: Vitals signs as noted above General Appearance:Chronic ill appearing, no apparent distress Head: normocephalic, Atraumatic Eyes: normal inspection, EOMI Neck: supple, Trachea midline Respiratory/Chest: Normal breath sounds, CTA Cardiovascular: S1, S2, No murmur Abdomen/GI:Soft, Non tender, Distended, Bowel sounds present Extremities/Musculoskelatal:normal inspection, no edema Neurologic/Psych:AAOX3, grossly no focal neurological deficits Skin: normal color, warm Results & Data Results & Data ([facility]) Vital Signs (Past 12 Hours) Vital Signs Temp Pulse Resp BP Pulse Ox 06/07/20 14:48 36.6 C 89 20 116/68 95 06/07/20 11:44 36.4 C L 90 20 119/71 94 06/07/20 07:57 36.5 C 94 H 20 105/60 93 Laboratory Results Short CBC 06/06/20 06/07/20 06/07/20 Range/Units 20:48 07:01 12:27 WBC 9.95 7.85 (4.8-10.8) K/uL Hgb 8.9 L 9.4 L 10.1 L (14.0-18.0) g/dL Hct 28.3 L 29.7 L 31.5 L (42-52) % Plt Count 180 138 (130-400) K/uL BMP 06/06/20 06/07/20 20:48 07:01 Sodium 133 L 133 L Potassium 4.4 4.5 Chloride 98 100 Carbon Dioxide 31 28 BUN 22 H 21 H Creatinine 1.29 1.12 Glucose 130 H 100 H Calcium 8.3 L 7.8 L Cardiac Enzymes 06/06/20 Range/Units 20:48 Troponin I 0.086 H* (0-0.045) ng/ml Liver Function 06/06/20 Range/Units 20:48 Total Bilirubin 0.2 (0.2-1) mg/dl AST 21 (15-37) U/L ALT 23 (12-78) U/L Alkaline Phosphatase 102 (45-117) U/L Albumin 3.1 L (3.4-5.0) gm/dl Urine 06/07/20 Range/Units 04:46 Urine Color Yellow Urine Appearance Clear (Clear) Urine pH 5.0 (4.5-7.5) Ur Specific [place] > 1.045 H (1.000-1.030) Urine Protein Negative (Negative) Urine Glucose (UA) Negative (Negative)
[2020-06-07] MEDS ORDERED: OXYBUTYNIN CHLORIDE 5 MG TAB PO SCH (16:30)
[2020-06-07] MEDS: ATORVASTATIN 40 MG TAB PO SCH (17:13)
[2020-06-07 18:24] LABS: Hematocrit (blood only) 32.2 % (42-52); Hemoglobin 10.1 g/dL (14.0-18.0)
[2020-06-07] MEDS: UMECLIDINIUM/VILANTEROL 62.5/25MCG 7 PUFFS/INHALER INH SCH (20:24)
[2020-06-07] MEDS: LATANOPROST 0.005% OP SOLN 2.5 ML BTL OPL SCH (20:26)
[2020-06-07] MEDS ORDERED: LORazepam 0.5 MG TAB PO PRN (23:07)
[2020-06-08] MEDS: PANTOprazole 40 MG in DEXTROSE 5% 100 ML IV SCH ×5 (00:45→19:59)
[2020-06-08 06:02] LABS: Hematocrit (blood only) 30.7 % (42-52); Hemoglobin 9.6 g/dL (14.0-18.0); Mean Corpuscular Hemoglobin 29.1 pg (25-34); Mean Corpuscular Hgb Conc 31.3 g/dL (32-36); Mean Platelet Volume 10.3 fL (7.4-10.4); Platelet Count 151 K/uL (130-400); RDW Coefficient of Variation 18.9 % (11.5-14.5); RDW Standard Deviation 61.9 fL (36.4-46.3); White Blood Count 7.52 K/uL (4.8-10.8)
[2020-06-08 06:30] LABS: Calcium 7.8 mg/dl (8.5-10.1); Creatinine Clr Calc Pharmacy 48.7 ml/min; Est GFR (African American) 65.2; Est GFR (Non-African American) 56.3; Potassium 4.3 mmol/L (3.5-5.1)
[2020-06-08] MEDS: PYRIDOXINE HCL 50 MG TAB PO SCH (07:50)
[2020-06-08] MEDS: CYANOCOBALAMIN 500 MCG TABLET (VITAMIN B-12) PO SCH (07:50)
[2020-06-08] MEDS: INSULIN ASPART 100 UNITS/ML 3 ML PEN SC SCH ×4 (08:24→20:04)
[2020-06-08] MEDS: ATORVASTATIN 40 MG TAB PO SCH (15:32)
--- NOTE | 2020-06-08 16:20 | Hospitalist Progress Note ---
Date of Service June 08, 2020 Assessment & Plan (1) Orthostasis: Orthostatic hypotension Symptomatic anemia Acute upper GI bleeding H/O AVMs, internal hemorrhoids, colonic diverticulosis --CT ABD:Proximal to mid small bowel suggestive of a nonspecific enteritis. Mild chronic right hydroureteronephrosis. Bibasilar parenchymal infiltrate combined with a small right effusion. Mild chronic colonic diverticulosis. Orthostasis likely due to Anemia Oxybutynin held S/P 1 Unit PRBCs Monitor H&H and transfuse PRBCs as needed Received gentle IV fluids Continue Protonix Drip Appreciate GI input Likely EGD tomorrow Fall Precautions +Melena today (Currently off Iron supplements) Denies dizziness NPO after midnight Presyncopal Episodes No known seizure like activity Monitor on Tele for arrhythmias Anemia contributing EEG pending Consider Cardiology eval Monitor No issues on monitor Physical deconditioning Generalized weakness Secondary to comorbidities/Immunotherapy PT/OT Chronic Diastolic heart failure Last EF: 50-55% off diuretics due to Hypotension Monitor volume status CAD S/P S/P AI to LAD in 06/2019 Held Aspirin due to GI bleeding Continue Lipitor COPD Ongoing tobacco abuse Chronic Oxygen Dependency: 2 liters at baseline Bibasilar parenchymal infiltrate--on CT--likely chronic Continue home inhalers 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 Normal Procalcitonin DM Type II HbA1C: 6.07 Mar 2020 Off metformin secondary to worsening renal functions Continue ISS while hospitalized Monitor BGs H/O Metastatic bladder cancer S/P Chemoradiation Ongoing immunotherapy (Keytruda) Follows with Ro Lavern and Dr Franks Last dose of Keytruda on 06/03/20 H/O Tourette's syndrome Intermittent Behavioral changes as per family Monitor DVT Px: SCDs RE GI bleed Code Status Full code Disposition PT/OT prior to discharge Admission and Anticipated Discharge Date Admission Date: June 06, 2020 Subjective Patient is seen and examined at bedside Had Black colored stool today per patient Currently off Iron supplements Mild abd discomfort Eager to get discharged Denies chest pain, SOB, dizziness, nausea Discussed with patient's daughter today On Protonix drip Review of Systems Review of Systems: All systems reviewed & are unremarkable except as noted in HPI & below Physical Exam Physical Exam: Physical Exam: Vitals signs as noted above General Appearance:Chronic ill appearing, no apparent distress Head: normocephalic, Atraumatic Eyes: normal inspection, EOMI Neck: supple, Trachea midline Respiratory/Chest: Normal breath sounds, CTA Cardiovascular: S1, S2, No murmur Abdomen/GI:Soft, Non tender, Distended, Bowel sounds present Extremities/Musculoskelatal:normal inspection, no edema Neurologic/Psych:AAOX3, grossly no focal neurological deficits Skin: normal color, warm Results & Data Results & Data ([facility]) Vital Signs (Past 12 Hours) Vital Signs Temp Pulse Resp BP Pulse Ox 06/08/20 15:24 36.5 C 101 H 20 123/71 92 06/08/20 11:23 36.6 C 78 20 123/69 97 Laboratory Results Short CBC 06/07/20 06/08/20 Range/Units 18:12 05:35 WBC 7.52 (4.8-10.8) K/uL Hgb 10.1 L 9.6 L (14.0-18.0) g/dL Hct 32.2 L 30.7 L (42-52) % Plt Count 151 (130-400) K/uL BMP 06/08/20 05:35 Sodium 134 L Potassium 4.3 Chloride 100 Carbon Dioxide 30 BUN 21 H Creatinine 1.23 Glucose 107 H Calcium 7.8 L
[2020-06-08] MEDS: UMECLIDINIUM/VILANTEROL 62.5/25MCG 7 PUFFS/INHALER INH SCH (20:00)
[2020-06-08] MEDS: LATANOPROST 0.005% OP SOLN 2.5 ML BTL OPL SCH (20:00)
[2020-06-08 20:02] LABS: Hematocrit (blood only) 30.3 % (42-52); Hemoglobin 9.4 g/dL (14.0-18.0)
[2020-06-09] MEDS: PANTOprazole 40 MG in DEXTROSE 5% 100 ML IV SCH ×5 (01:04→23:23)
[2020-06-09] MEDS ORDERED: Nursing to Pharmacy Communication SCH (03:30)
[2020-06-09] MEDS: INSULIN ASPART 100 UNITS/ML 3 ML PEN SC SCH ×4 (06:13→23:51)
[2020-06-09 09:09] LABS: BUN Creatinine Ratio 14.6 (10-20); Creatinine Clr Calc Pharmacy 39.6 ml/min; Est GFR (African American) 50.9; Est GFR (Non-African American) 43.9; Potassium 4.1 mmol/L (3.5-5.1)
--- NOTE | 2020-06-09 09:57 | Anesthesiology Consultation ---
Date of Service June 09, 2020 Patient was last tested for Covid 19 on 05/01/20 and was negative. He has had no Covid 19 exposure and has not had any symptoms of Covid 19. Assessment & Plan (1) Encounter for pre-operative examination: Chart Review Chart Review: Acceptable Risk for Surgery and Patient NOT seen in Pre Admission Testing Consults Requested none History Surgery Operation Date: 06/09/20 15:55 Proposed Procedures p Esophagogastroduodenoscopy Dr Deidre Connor Height/Weight Height: 5 ft 8 in Weight: 72.8 kg Allergies Allergy/AdvReac Type Severity Reaction Status Date / Time No Known Allergies Allergy Verified 06/06/20 21:12 Medications Home Medications Medication Instructions Recorded Confirmed Last Taken Anoro Ellipta 1 inh INHALATION PM 02/03/19 06/06/20 05/01/20 06:00 albuterol sulfate [Ventolin HFA] 2 puff INHALATION QID PRN 02/03/19 06/06/20 05/01/20 06:00 aspirin 81 mg PO QPM 02/03/19 06/06/20 05/01/20 06:00 atorvastatin 40 mg PO QDD 02/03/19 06/06/20 05/01/20 06:00 betamethasone, augmented 1 applic TOPICAL BID PRN 02/03/19 06/06/20 05/01/20 06:00 [Diprolene] cholecalciferol (vitamin D3) 1,000 unit PO QAM 02/03/19 06/06/20 05/01/20 06:00 [Vitamin D3] lutein 20 mg PO Q2D 02/03/19 06/06/20 05/01/20 06:00 nitroglycerin [Nitrostat] 0.4 mg SUBLINGUAL UD PRN 02/03/19 06/06/20 05/01/20 06:00 oxybutynin chloride 5 mg PO QDD 02/03/19 06/06/20 05/01/20 06:00 pyridoxine (vitamin B6) [Vitamin 100 mg PO QAM 02/03/19 06/06/20 05/01/20 06:00 B-6] acetaminophen [Tylenol Extra 1,000 mg PO BID PRN 04/28/20 06/06/20 05/01/20 06:00 Strength] ascorbic acid (vitamin C) [Vitamin 500 mg PO DAILY 04/28/20 06/06/20 05/01/20 06:00 C] bisacodyl 5 mg PO QPM PRN 04/28/20 06/06/20 05/01/20 06:00 latanoprost 1 drp OPL HS 04/28/20 06/06/20 05/01/20 06:00 omeprazole 20 mg PO QAM 04/28/20 06/06/20 05/01/20 06:00 cyanocobalamin (vitamin B-12) 0 mcg PO DAILY 06/06/20 06/06/20 Unknown [Vitamin B-12] docusate sodium 100 mg PO BID 06/06/20 06/06/20 Unknown ferrous sulfate 325 mg PO DAILY 06/06/20 06/06/20 Unknown polyethylene glycol 3350 [Miralax] 17 g PO HS 06/06/20 06/06/20 Unknown Active Medications Generic Name Dose Route Start Last Admin Trade Name Freq PRN Reason Stop Dose Admin Atorvastatin Calcium 40 mg 06/07/20 16:30 06/08/20 15:32 Lipitor PO 07/07/20 16:29 40 mg QDD DALJIT Administration Cyanocobalamin 1,000 mcg 06/07/20 09:00 06/08/20 07:50 Vitamin B-12 PO 07/07/20 08:59 1,000 mcg DAILY DALJIT Administration Pantoprazole Sodium 40 mg/ 100 mls @ 20 mls/hr 06/06/20 21:13 06/09/20 06:13 Dextrose IV 07/06/20 21:12 8 mg/hr Q5H DALJIT 20 mls/hr Administration 8 MG/HR Sodium Chloride 1,000 mls @ 75 mls/hr 06/07/20 00:07 06/07/20 23:05 Nss 1000ml IV 07/07/20 00:06 Infused .[id number] DALJIT Infusion Insulin Aspart 0 units 06/09/20 06:00 06/09/20 06:13 Novolog Flexpen SC 07/09/20 05:59 Not Given Q6 DALJIT Latanoprost 1 drops 06/07/20 21:00 06/08/20 20:00 Xalatan Oph OPL 07/07/20 20:59 1 drops HS DALJIT Administration Lorazepam 0.25 mg 06/07/20 23:07 06/07/20 23:30 Ativan PO 07/07/20 23:06 0.25 mg HS PRN Administration Insomnia Pyridoxine HCl 100 mg 06/07/20 09:00 06/08/20 07:50 Vitamin B-6 PO 07/07/20 08:59 100 mg QAM DALJIT Administration Umeclidinium/Vilanterol 1 puffs 06/07/20 21:00 06/08/20 20:00 Anoro Ellipta 62.5/25 Mcg Inh INH 07/07/20 20:59 1 puffs PM DALJIT Administration NPO Date Last Intake of Fluids: 06/08/20 Time Last Intake of Fluids: 23:59 Date Last Intake of Solids: 06/08/20 Time Last Intake of Solids: 23:59 Past Medical History Medical History Anemia Bladder cancer Dx'ed 2017- s/p chemo and XRT CAD (coronary artery disease) cath 07/2018 - 100% RCA occlusion, s/p AI to LAD Carotid atherosclerosis s/p CEAs bilaterally CKD (chronic kidney disease), stage III COPD (chronic obstructive pulmonary disease) Degenerative disc disease DM type 2 (diabetes mellitus, type 2) Dyslipidemia GI bleed 07/27/2019--? 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 - EF 45-49%, grade I diastolic dysfunction Transient ischemic attack (TIA) 2010--no neurologist, no deficits Past Family History Family History Mother Stroke Family history of diabetes mellitus Sister Family history of diabetes mellitus 2 Other No family history of adverse response to anesthesia Past Surgical History Surgical History History of bladder surgery TURBT History of cardiac cath 07/26/2018 [place] [facility] [place] History of cataract surgery bilt History of colonoscopy History of cosmetic plastic surgery to remove droopy skin around neck History of cystoscopy History of esophagogastroduodenoscopy (EGD) History of heart artery stent 1 stent placed History of left-sided carotid endarterectomy 2010 History of right-sided carotid endarterectomy June 2019 History of thoracentesis History of tooth extraction all teeth Status post surgical removal and fulguration of bladder neoplasm Social History Smoking Status: Current some day smoker tobacco type: cigarettes Smoking cigarettes per day: 20-30 Hx Alcohol Use: No Hx Substance Use: No substance use type: does not use Physical Exam Vital Signs Last Vital Signs Temp 36.5 C 06/09/20 07:04 Pulse 98 H 06/09/20 09:53 Resp 22 06/09/20 07:04 BP 107/69 06/09/20 07:04 Pulse Ox 92 06/09/20 07:04 Testing Laboratory Results 06/09/20 08:27 06/09/20 08:27 PT 10.8 Seconds (9.0-12.0) 06/06/20 20:48 INR 1.0 (0.9-1.1) 06/06/20 20:48 APTT 26.6 Seconds (21.0-31.0) 06/06/20 20:48 Urine Color Yellow 06/07/20 04:46 Urine Appearance Clear (Clear) 06/07/20 04:46 Urine pH 5.0 (4.5-7.5) 06/07/20 04:46 Ur Specific [place] > 1.045 (1.000-1.030) H 06/07/20 04:46 Urine Protein Negative (Negative) 06/07/20 04:46 Urine Glucose (UA) Negative (Negative) 06/07/20 04:46 Urine Ketones Negative (Negative) 06/07/20 04:46 Urine Nitrite Negative (Negative) 06/07/20 04:46 Ur Leukocyte Esterase Negative (Negative) 06/07/20 04:46 Blood Type O Positive 06/06/20 20:48 Antibody Screen NEGATIVE 06/06/20 20:48 06/09/20 06/09/20 07:54 06:03 POC Glucose 128 H 122 H
--- NOTE | 2020-06-09 10:46 | History & Physical Report ---
Date of Service June 09, 2020 History of Present Illness Primary Care Provider: Donal Crabtree MD Anemia, h/o gastric AVM's. CV: RRR Resp: CTA Abd: soft A/P: EGD today Allergies Allergy/AdvReac Type Severity Reaction Status Date / Time No Known Allergies Allergy Verified 06/09/20 10:20 Home Medications Home Medications Medication Instructions Recorded Confirmed Type Anoro Ellipta 1 inh INHALATION PM 02/03/19 06/06/20 History albuterol sulfate [Ventolin HFA] 2 puff INHALATION QID PRN 02/03/19 06/06/20 History aspirin 81 mg PO QPM 02/03/19 06/06/20 History atorvastatin 40 mg PO QDD 02/03/19 06/06/20 History betamethasone, augmented 1 applic TOPICAL BID PRN 02/03/19 06/06/20 History [Diprolene] cholecalciferol (vitamin D3) 1,000 unit PO QAM 02/03/19 06/06/20 History [Vitamin D3] lutein 20 mg PO Q2D 02/03/19 06/06/20 History nitroglycerin [Nitrostat] 0.4 mg SUBLINGUAL UD PRN 02/03/19 06/06/20 History oxybutynin chloride 5 mg PO QDD 02/03/19 06/06/20 History pyridoxine (vitamin B6) [Vitamin 100 mg PO QAM 02/03/19 06/06/20 History B-6] acetaminophen [Tylenol Extra 1,000 mg PO BID PRN 04/28/20 06/06/20 History Strength] ascorbic acid (vitamin C) [Vitamin 500 mg PO DAILY 04/28/20 06/06/20 History C] bisacodyl 5 mg PO QPM PRN 04/28/20 06/06/20 History latanoprost 1 drp OPL HS 04/28/20 06/06/20 History omeprazole 20 mg PO QAM 04/28/20 06/06/20 History cyanocobalamin (vitamin B-12) 0 mcg PO DAILY 06/06/20 06/06/20 History [Vitamin B-12] docusate sodium 100 mg PO BID 06/06/20 06/06/20 History ferrous sulfate 325 mg PO DAILY 06/06/20 06/06/20 History polyethylene glycol 3350 [Miralax] 17 g PO HS 06/06/20 06/06/20 History Past Med/Surg History Medical History Anemia Bladder cancer Dx'ed 2017- s/p chemo and XRT CAD (coronary artery disease) cath 07/2018 - 100% RCA occlusion, s/p AI to LAD Carotid atherosclerosis s/p CEAs bilaterally CKD (chronic kidney disease), stage III COPD (chronic obstructive pulmonary disease) Degenerative disc disease DM type 2 (diabetes mellitus, type 2) Dyslipidemia GI bleed 07/27/2019--? 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 - EF 45-49%, grade I diastolic dysfunction Transient ischemic attack (TIA) 2010--no neurologist, no deficits Surgical History History of bladder surgery TURBT History of cardiac cath 07/26/2018 @ [facility] [place] with 1 stent placed History of cataract surgery bilt History of colonoscopy History of cosmetic plastic surgery to remove droopy skin around neck History of cystoscopy History of esophagogastroduodenoscopy (EGD) History of heart artery stent 1 stent placed History of left-sided carotid endarterectomy 2010 History of right-sided carotid endarterectomy June 2019 History of thoracentesis History of tooth extraction all teeth Status post surgical removal and fulguration of bladder neoplasm Family History Mother Stroke Family history of diabetes mellitus Sister Family history of diabetes mellitus 2 Other No family history of adverse response to anesthesia Social History Smoking Status: Current some day smoker Cigarettes Per Day: 20-30; Second Hand Exposure: No; Hx Alcohol Use: No Hx Substance Use: No Preferred Language: Nauruan Communication Ability: Effective 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
[2020-06-09] MEDS ORDERED: PHENYLEPHRINE 100MCG/ML 5ML SYR ONE (11:58)
[2020-06-09] MEDS ORDERED: LIDOCAINE HCL 2% 2 ML VIAL/AMP(20MG/ML) INFIL ONE (11:58)
[2020-06-09] MEDS ORDERED: PROPOFOL IV EMULSION 10 MG/ML 20 ML VIAL IV ONE (11:58)
--- NOTE | 2020-06-09 12:26 | Anesthesiology Progress Note ---
Date of Service June 09, 2020 Anesthesia Post Procedure Vital Signs Vital Signs: Temp Pulse Pulse Resp BP BP Pulse Ox 06/09/20 09:53 98 H 06/09/20 07:04 36.5 C 82 22 107/69 92 06/09/20 04:00 36.5 C 89 19 127/91 91 06/09/20 02:46 97 H 06/08/20 22:51 36.5 C 93 H 18 133/77 91 06/08/20 19:00 36.5 C 67 19 135/76 97 06/08/20 15:24 36.5 C 101 H 20 123/71 92 06/08/20 14:21 91 H Transfer of Care Handoff Completed per policy Notes Mental Status: alert / awake / arousable Patient Amnestic to Procedure: Yes Nausea / Vomiting: adequately controlled Pain: adequately controlled Airway Patency, RR, SpO2: stable & adequate BP & HR: stable & adequate Hydration State: stable & adequate Anesthetic Complications: no major complications apparent and Pt Satisfied with anesthetic care Notes: During the procedure, I was called to the room by the SCALE BALANCER because the patient's stomach had been perforated during polyp removal. Dr. Connor was quickly able to clip the perforation. The patient was given cefoxitin 2 gm IV. The patient's vital signs remained stable and the procedure was completed. The patient was recovered in the room due to not having a recent Covid 19 test. He is awake and his vital signs are stable. The patient will undergo a CT scan to evaluate the perforation and then will be transferred to the PCU for closer monitoring. I spoke with Dr. Mora and Dr. Connor who both agree with the plan.
--- NOTE | 2020-06-09 13:04 | CT Scan Report ---
CT SCAN OF THE ABDOMEN WITHOUT IV CONTRAST CLINICAL HISTORY: Gastric perforation. COMPARISON STUDY: Abdominal CT dated 06/06/2020. TECHNIQUE: CT scan of the abdomen is performed from the lung bases to the pelvic inlet. Images are re viewed in the axial, sagittal, and coronal planes. IV contrast was not administered for this examinat ion. A dose lowering technique was utilized adhering to the principles of ALARA. CT DOSE: 210.85 mGy.cm FINDINGS: Lung bases: The heart is enlarged and without pericardial effusion. The coronary arteries are densely calcified. There are small pleural effusions with dependent consolidation. Calcified pleural plaque is again seen at both lung bases. Liver: The unenhanced liver is normal in size, contour, and attenuation. There is no intrahepatic philip iary ductal dilatation. Gallbladder: Unremarkable. Spleen: Normal in size and attenuation. Pancreas: The unenhanced pancreas is moderately atrophic and grossly unremarkable. Adrenal glands: Bilateral adrenal adenomas measure up to 2.4 cm. Kidneys: The unenhanced kidneys are atrophic and without hydronephrosis. There are no renal calculi i dentified. There is no evidence of contour deforming renal mass lesion. Abdominal vasculature: There is advanced atherosclerotic calcification of the abdominal aorta. An inf rarenal abdominal aneurysm measures up to 2.9 cm. Stomach and bowel: There is a small hiatal hernia. Numerous surgical clips are now seen in the region of the gastric fundus. No organized perigastric fluid collection is identified. The duodenum is norm al in configuration. There is no evidence of bowel obstruction. Moderate fecal retention is noted in the colon. Peritoneum: A moderate volume of intraperitoneal free air is seen in the upper abdomen. There is trac e perihepatic and perisplenic ascites. Lymphadenopathy: None. Skeletal structures: The skeletal structures are osteopenic. No lytic or blastic lesions are seen. Mi ld lumbosacral spondylosis is noted. There are bilateral pars defects at L5. IMPRESSION: 1. A moderate volume of intraperitoneal free air is now seen in the upper abdomen. This is consistent with the reported history of visceral perforation. 2. Numerous surgical clips are now seen in the region of the gastric fundus. 3. No organized perigastric fluid collection is identified. 4. There is trace perisplenic and perihepatic ascites. 5. There is a 2.9 cm infrarenal abdominal aneurysm. 6. Moderate constipation. 7. Small pleural effusions with bibasilar consolidation. Correlate clinically for evidence of pneumon ia/aspiration pneumonitis. 8. Additional findings as above. ACT 112: Negative or not required by law. Electronically signed by: Delvis Covarrubias M.D. 06/09/2020 1:03 PM
[2020-06-09] MEDS ORDERED: PIPERACILL/TAZOBAC CONSULT ACTIVE PRN (13:08)
[2020-06-09] MEDS ORDERED: PIPERACILLIN/TAZOBACTAM 3.375 GM in DEXTROSE 5% 100 ML IV ONE (13:15)
[2020-06-09] MEDS: SODIUM CHLORIDE 0.9% 1000ML 1,000 ML IV SCH ×2 (13:18→23:23)
[2020-06-09] MEDS: CYANOCOBALAMIN 500 MCG TABLET (VITAMIN B-12) PO SCH (13:53)
[2020-06-09] MEDS: PYRIDOXINE HCL 50 MG TAB PO SCH (13:53)
--- NOTE | 2020-06-09 13:57 | GI REPORT ---
Patient Name: Adrian Arce Procedure Date: 06/09/2020 10:31 AM Date of : 1940 Admit Type: Inpatient Age: 79 Gender: Male Attending MD: Jamal Connor MD Procedure: Upper GI endoscopy Providers: Jamal Connor MD Referring MD: Zelalem Donohue Indications: Recent gastrointestinal bleeding, abnormal capsule endoscopy Medicines: See the Anesthesia note for documentation of the administered medications Complications: No immediate complications. Estimated Blood Loss: Estimated blood loss: none. Procedure: Pre-Anesthesia Assessment: - ASA Grade Assessment: III - A patient with severe systemic disease. After obtaining informed consent, the endoscope was passed under direct vision. Throughout the procedure, the patient's blood pressure, pulse, and oxygen saturations were monitored continuously.The upper GI endoscopy was accomplished without difficulty. The Endoscope was introduced through the mouth, and advanced to the fourth part of duodenum. The patient tolerated the procedure well. Findings: The esophagus was normal There were multiple small non bleeding AVM's in the stomach. 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 A clip was placed on one of the APC sites in the gastric body. There was a small submucosal mass in the low fundus of the stomach, measuring approximately 1 cm in diameter. EMR was perfomed using a band and cap technique. The submucosal mass was easily suctioned into the endoscopy cap and a band was placed below it. The lesion was captured with a hot snare and removed using standard coagulation polypectomy settings. The lesion was cut below the band. There was a perforation, with omentum visible through the defect at the EMR site. This was suctioned into the cap and closed using 12 clips. Clip closure appeared to be complete, as assessed by visual appearance and ease of insufflation of the stomach after clipping. Lesion removed with Flores net. There was variant mucosa in the pre-pyloric antrum. The duodenal bulb was normal. There were two small non bleeding AVM Recommendation: Transfer patient to PCU. ABX, PPI gtt, strict NPO. NGT to suction. CT scan, surgery consult. Yanna Ward MD 06/09/2020 1:57:23 PM This report has been signed electronically. Note Initiated On: 06/09/2020 10:31 AM Number of Addenda: 0 I attest to the content of the Intraoperative Record and orders documented therein, exceptions below {[id number]}
--- NOTE | 2020-06-09 14:05 | Surgery Consultation ---
Date of Consultation June 09, 2020 Assessment & Plan (1) Gastric perforation: This patient had a small gastric perforation during EGD and submucosal resection of a mass. The present time he has no symptoms. There is no pain. There is no evidence of peritonitis. The perforation was closed intraluminally. I agree with conservative care for the present time. I do not feel there is any need for immediate surgical intervention. I agree with NG tube to keep the stomach decompressed. History of Present Illness Requesting Physician: Jamal Connor MD Attending Physician: Jose Manuel Mora MD History of Present Illness I have been asked by Dr. Connor to see this 79-year-old male who underwent an EGD procedure with submucosal resection of a mass in the area of the fundus. During the procedure there was noted to be a perforation that was 8 to 10 mm in length. This was closed with clips. The stomach was reinsufflated and did hold insufflation. At the present time the patient denies abdominal pain. He has no nausea. In fact he is quite hungry and wants to eat. He has an extensive past medical history. He is never had previous gastric surgery. In fact he has had no previous abdominal procedures other than cystoscopy. He has not had fever. He has not vomited since the procedure. Allergies Allergy/AdvReac Type Severity Reaction Status Date / Time No Known Allergies Allergy Verified 06/09/20 10:20 Home Medications Home Medications Medication Instructions Recorded Confirmed Type Anoro Ellipta 1 inh INHALATION PM 02/03/19 06/06/20 History albuterol sulfate [Ventolin HFA] 2 puff INHALATION QID PRN 02/03/19 06/06/20 History aspirin 81 mg PO QPM 02/03/19 06/06/20 History atorvastatin 40 mg PO QDD 02/03/19 06/06/20 History betamethasone, augmented 1 applic TOPICAL BID PRN 02/03/19 06/06/20 History [Diprolene] cholecalciferol (vitamin D3) 1,000 unit PO QAM 02/03/19 06/06/20 History [Vitamin D3] lutein 20 mg PO Q2D 02/03/19 06/06/20 History nitroglycerin [Nitrostat] 0.4 mg SUBLINGUAL UD PRN 02/03/19 06/06/20 History oxybutynin chloride 5 mg PO QDD 02/03/19 06/06/20 History pyridoxine (vitamin B6) [Vitamin 100 mg PO QAM 02/03/19 06/06/20 History B-6] acetaminophen [Tylenol Extra 1,000 mg PO BID PRN 04/28/20 06/06/20 History Strength] ascorbic acid (vitamin C) [Vitamin 500 mg PO DAILY 04/28/20 06/06/20 History C] bisacodyl 5 mg PO QPM PRN 04/28/20 06/06/20 History latanoprost 1 drp OPL HS 04/28/20 06/06/20 History omeprazole 20 mg PO QAM 04/28/20 06/06/20 History cyanocobalamin (vitamin B-12) 0 mcg PO DAILY 06/06/20 06/06/20 History [Vitamin B-12] docusate sodium 100 mg PO BID 06/06/20 06/06/20 History ferrous sulfate 325 mg PO DAILY 06/06/20 06/06/20 History polyethylene glycol 3350 [Miralax] 17 g PO HS 06/06/20 06/06/20 History Patient History Medical History Anemia Bladder cancer Dx'ed 2017- s/p chemo and XRT CAD (coronary artery disease) cath 07/2018 - 100% RCA occlusion, s/p AI to LAD Carotid atherosclerosis s/p CEAs bilaterally CKD (chronic kidney disease), stage III COPD (chronic obstructive pulmonary disease) Degenerative disc disease DM type 2 (diabetes mellitus, type 2) Dyslipidemia GI bleed 07/27/2019--? 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 - EF 45-49%, grade I diastolic dysfunction Transient ischemic attack (TIA) 2010--no neurologist, no deficits Surgical History History of bladder surgery TURBT History of cardiac cath 07/26/[place] [facility] [place] History of cataract surgery bilt History of colonoscopy History of cosmetic plastic surgery to remove droopy skin around neck History of cystoscopy History of esophagogastroduodenoscopy (EGD) History of heart artery stent 1 stent placed History of left-sided carotid endarterectomy 2010 History of right-sided carotid endarterectomy June 2019 History of thoracentesis History of tooth extraction all teeth Status post surgical removal and fulguration of bladder neoplasm Family History Mother Stroke Family history of diabetes mellitus Sister Family history of diabetes mellitus 2 Other No family history of adverse response to anesthesia Social History Smoking Status: Current some day smoker Cigarettes Per Day: 20-30; Second Hand Exposure: No; Hx Alcohol Use: No Hx Substance Use: No Preferred Language: Macedonian Communication Ability: Effective 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 Beliefs That Will Affect Care: None Current Living Situation: Spouse Other Information That Helps Us Care for You: No Feels Safe at Home: Yes Safety Concerns: Feels Safe At This Time Review of Systems Review of Systems: All systems reviewed & are unremarkable except as noted in HPI & below Physical Exam Constitutional: no acute distress Neck: trachea midline Respiratory: normal respiratory effort, lungs clear to auscultation Cardiovascular: Rate/Rhythm: regular rate and regular rhythm Gastrointestinal (Abdomen): Inspection/Auscultation: + abdomen distended (Mild) Percussion/Palpation: abdomen soft; abdomen nontender Skin: no rashes, warm and dry Lymphatic: no cervical lymphadenopathy Results & Data Vital Signs (Past 12 Hours) Vital Signs Temp Pulse Pulse Resp BP BP Pulse Ox 06/09/20 13:36 86 06/09/20 13:00 36.6 C 88 20 105/64 90 06/09/20 12:33 88 24 112/79 92 06/09/20 12:18 90 24 132/81 96 06/09/20 12:03 89 24 148/91 H 100 06/09/20 11:58 96 H 25 H 129/81 96 06/09/20 11:53 96 H 24 153/82 H 96 06/09/20 09:53 98 H 06/09/20 07:04 36.5 C 82 22 107/69 92 06/09/20 04:00 36.5 C 89 19 127/91 91 06/09/20 02:46 97 H Laboratory Results 06/09/20 06/09/20 06/09/20 Range/Units 08:27 08:27 07:54 Hgb 10.0 L (14.0-18.0) g/dL Hct 32.0 L (42-52) % Sodium 133 L (136-145) mmol/L Potassium 4.1 (3.5-5.1) mmol/L Chloride 99 (98-107) mmol/L Carbon Dioxide 27 (21-32) mmol/L Anion Gap 7.0 (3-11) BUN 22 H (7-18) mg/dl Creatinine 1.51 H (0.6-1.4) mg/dl Est Cr Clr Drug Dosing 39.6 ml/min Est GFR ( Amer) 50.9 Est GFR (Non-Af Amer) 43.9 BUN/Creatinine Ratio 14.6 (10-20) Glucose 137 H (70-99) mg/dl POC Glucose 128 H (70-99) mg/dl Calcium 8.0 L (8.5-10.1) mg/dl 06/09/20 06/08/20 06/08/20 Range/Units 06:03 19:56 19:53 Hgb 9.4 L (14.0-18.0) g/dL Hct 30.3 L (42-52) % Sodium (136-145) mmol/L Potassium (3.5-5.1) mmol/L Chloride (98-107) mmol/L Carbon Dioxide (21-32) mmol/L Anion Gap (3-11) BUN (7-18) mg/dl Creatinine (0.6-1.4) mg/dl Est Cr Clr Drug Dosing ml/min Est GFR ( Amer) Est GFR (Non-Af Amer) BUN/Creatinine Ratio (10-20) Glucose (70-99) mg/dl POC Glucose 122 H 163 H (70-99) mg/dl Calcium (8.5-10.1) mg/dl 06/08/20 Range/Units 16:28 Hgb (14.0-18.0) g/dL Hct (42-52) % Sodium (136-145) mmol/L Potassium (3.5-5.1) mmol/L Chloride (98-107) mmol/L Carbon Dioxide (21-32) mmol/L Anion Gap (3-11) BUN (7-18) mg/dl Creatinine (0.6-1.4) mg/dl Est Cr Clr Drug Dosing ml/min Est GFR ( Amer) Est GFR (Non-Af Amer) BUN/Creatinine Ratio (10-20) Glucose (70-99) mg/dl POC Glucose 121 H (70-99) mg/dl Calcium (8.5-10.1) mg/dl Diagnostic Findings EGD as above
--- NOTE | 2020-06-09 14:15 | XRay Report ---
XR chest 1V portable HISTORY: 79 years-old Male NG PLACEMENT acute anemia. COMPARISON: CT abdomen of same day TECHNIQUE: Portable AP view of the chest FINDINGS: Cardiac silhouette is moderately enlarged. Calcified plaque of the thoracic aortic arch. Small pleura l effusions. No pneumothorax. Pulmonary vascular congestion with interstitial coarsening. Bibasilar a nd right midlung ill-defined opacities. Questioned pneumoperitoneum. Degenerative changes of the shou lders and spine. IMPRESSION: 1. Cardiomegaly with pulmonary vascular congestion. 2. Small pleural effusions with bibasilar and right midlung consolidation suggestive of atelectasis v ersus pneumonitis. 3. Pneumoperitoneum is better characterized on comparison CT study of same day. ACT 112: Negative or not required by law. The above report was generated using voice recognition software. It may contain grammatical, syntax o r spelling errors. Electronically signed by: Saqib Sepulveda M.D. 06/09/2020 2:13 PM
--- NOTE | 2020-06-09 15:09 | XRay Report ---
XR chest 1V portable CLINICAL HISTORY: ng placement COMPARISON STUDY: 06/09/2020 FINDINGS: The heart is enlarged. There is a nasogastric tube with its tip projected over the gastric cardia. There are left upper quadrant surgical clips. There is stable bibasilar interstitial opacitie s.[ IMPRESSION: 1. Stable bibasilar interstitial opacities 2. Persistent cardiomegaly 3. Interval placement of nasogastric tube the tip of which projects over the gastric cardia ACT 112: Negative or not required by law. Electronically signed by: Parrish Cutler M.D. 06/09/2020 3:08 PM
--- NOTE | 2020-06-09 17:18 | Hospitalist Progress Note ---
Date of Service June 09, 2020 Assessment & Plan (1) Orthostasis: Orthostatic hypotension Symptomatic acute blood loss anemia Acute upper GI bleeding H/O AVMs, internal hemorrhoids, colonic diverticulosis --CT ABD:Proximal to mid small bowel suggestive of a nonspecific enteritis. Mild chronic right hydroureteronephrosis. Bibasilar parenchymal infiltrate combined with a small right effusion. Mild chronic colonic diverticulosis. Orthostasis likely due to Anemia --S/P EGD:multiple small non bleeding AVM's in stomach. A clip was placed on one of the APC sites in the gastric body. Small submucosal mass in the low fundus of the stomach S/P EMR resulting in perforation which was clip closured. Oxybutynin held S/P 1 Unit PRBCs Monitor H&H and transfuse PRBCs as needed Continue Protonix Drip Appreciate GI input Fall Precautions Strict NPO for now Gastric Perforation small gastric perforation during EGD/Submucosal resection of a mass Currently no evidence of peritonitis Conservative management Appreciate Surgery input Continue empiric antibiotics Continue IV fluids, bowel rest, NG tube Presyncopal Episodes No known seizure like activity Monitor on Tele for arrhythmias Anemia contributing EEG pending Consider Cardiology eval Monitor No issues on monitor Physical deconditioning Generalized weakness Secondary to comorbidities/Immunotherapy PT/OT Chronic Diastolic heart failure Last EF: 50-55% off diuretics due to Hypotension Monitor volume status CAD S/P S/P AI to LAD in 06/2019 Held Aspirin due to GI bleeding Continue Lipitor COPD Chronic hypoxic respiratory failure Ongoing tobacco abuse Chronic Oxygen Dependency: 2 liters at baseline Bibasilar parenchymal infiltrate--on CT--likely chronic Continue home inhalers Nebs PRN Proofer to quit smoking Normal Procalcitonin DM Type II HbA1C: 6.07 Mar 2020 Off metformin secondary to worsening renal functions Continue ISS while hospitalized Monitor BGs H/O Metastatic bladder cancer S/P Chemoradiation Ongoing immunotherapy (Keytruda) Follows with [facility] and Dr Franks Last dose of Keytruda on 06/03/20 H/O Tourette's syndrome Intermittent Behavioral changes as per family Monitor DVT Px: SCDs RE GI bleed Code Status Full code Disposition PT/OT prior to discharge Admission and Anticipated Discharge Date Admission Date: June 06, 2020 Subjective Patient is seen and examined at bedside Had EGD today Sustained a small gastric perforation during EGD and submucosal resection of the mass Denies any significant abdominal pain, nausea NG tube placed Family at bedside Discussed with GI today Will keep him NPO Denies chest pain, SOB, dizziness Review of Systems Review of Systems: All systems reviewed & are unremarkable except as noted in HPI & below Physical Exam Physical Exam: Physical Exam: Vitals signs as noted above General Appearance:Chronic ill appearing, no apparent distress Head: normocephalic, Atraumatic Eyes: normal inspection, EOMI Neck: supple, Trachea midline Respiratory/Chest: Normal breath sounds, CTA Cardiovascular: S1, S2, No murmur Abdomen/GI:Soft, Non tender, Distended, Bowel sounds present Extremities/Musculoskelatal:normal inspection, no edema Neurologic/Psych:AAOX3, grossly no focal neurological deficits Skin: normal color, warm Results & Data Results & Data ([facility]) Vital Signs (Past 12 Hours) Vital Signs Temp Pulse Pulse Resp BP BP Pulse Ox 06/09/20 15:59 92 H 18 144/78 H 93 06/09/20 15:30 36.6 C 86 18 122/80 94 06/09/20 15:00 87 18 117/78 94 06/09/20 14:31 86 19 125/77 89 L 06/09/20 13:36 86 06/09/20 13:00 36.6 C 88 20 105/64 90 06/09/20 12:33 88 24 112/79 92 06/09/20 12:18 90 24 132/81 96 06/09/20 12:03 89 24 148/91 H 100 06/09/20 11:58 96 H 25 H 129/81 96 06/09/20 11:53 96 H 24 153/82 H 96 06/09/20 09:53 98 H 06/09/20 07:04 36.5 C 82 22 107/69 92 Laboratory Results Short CBC 06/08/20 06/09/20 Range/Units 19:53 08:27 Hgb 9.4 L 10.0 L (14.0-18.0) g/dL Hct 30.3 L 32.0 L (42-52) % BMP 06/09/20 08:27 Sodium 133 L Potassium 4.1 Chloride 99 Carbon Dioxide 27 BUN 22 H Creatinine 1.51 H Glucose 137 H Calcium 8.0 L
[2020-06-09] MEDS: PIPERACILLIN/TAZOBACTAM 3.375 GM in DEXTROSE 5% 100 ML IV SCH (20:02)
[2020-06-09] MEDS: MoRPHine SULFATE 2 MG/ML CARP IV PRN (20:13)
[2020-06-09] MEDS: LATANOPROST 0.005% OP SOLN 2.5 ML BTL OPL SCH (22:06)
[2020-06-09] MEDS: UMECLIDINIUM/VILANTEROL 62.5/25MCG 7 PUFFS/INHALER INH SCH (22:07)
[2020-06-10] MEDS: ACETAMINOPHEN 1000 MG/100 ML IV IV PRN (00:39)
[2020-06-10] MEDS: PIPERACILLIN/TAZOBACTAM 3.375 GM in DEXTROSE 5% 100 ML IV SCH ×3 (03:51→19:52)
[2020-06-10] MEDS: PANTOprazole 40 MG in DEXTROSE 5% 100 ML IV SCH ×4 (03:51→19:41)
[2020-06-10] MEDS: INSULIN ASPART 100 UNITS/ML 3 ML PEN SC SCH ×4 (06:13→21:02)
[2020-06-10 06:31] LABS: Basophils # (auto) 0.02 K/uL (0-0.2); Basophils % (auto) 0.2 %; Eosinophils # (auto) 0.15 K/uL (0-0.5); Eosinophils % (auto) 1.8 %; Immature Granulocytes # (auto) 0.01 K/uL (0.00-0.02); Immature Granulocytes % (auto) 0.1 %; Lymphocytes # (auto) 1.19 K/uL (1.2-3.4); Mean Corpuscular Hemoglobin 29.1 pg (25-34); Mean Corpuscular Volume 93.9 fL (80-100); Mean Platelet Volume 10.2 fL (7.4-10.4); Monocytes # (auto) 0.81 K/uL (0.11-0.59); Monocytes % (auto) 9.5 %; Neutrophils # (auto) 6.35 K/uL (1.4-6.5); Neutrophils % (auto) 74.4 %; Platelet Count 156 K/uL (130-400); RDW Coefficient of Variation 19.3 % (11.5-14.5); Red Blood Count 3.09 M/uL (4.7-6.1); White Blood Count 8.53 K/uL (4.8-10.8)
[2020-06-10 07:10] LABS: BUN Creatinine Ratio 18.2 (10-20); Calcium 6.8 mg/dl (8.5-10.1); Creatinine Clr Calc Pharmacy 38.6 ml/min; Est GFR (African American) 49.3; Est GFR (Non-African American) 42.5; Magnesium 1.9 mg/dl (1.8-2.4)
[2020-06-10] MEDS ORDERED: CALCIUM GLUCONATE 10% 1,000 MG in SODIUM CHLORIDE 0.9% 50 ML IV ONE (08:30)
--- NOTE | 2020-06-10 09:00 | XRay Report ---
XR KUB/Abdomen 1 view CLINICAL HISTORY: Gastric Perforation pain COMPARISON STUDY: 05/22/2020 FINDINGS: Nasogastric tube placed in the gastric fundus. Nonobstructive bowel pattern. No secondary e vidence for free air. Probable infiltrative changes right base. IMPRESSION: 1. Nasogastric tube placed the gastric fundus. 2. Nonobstructive bowel pattern. 3. Probable infiltrate right base. ACT 112: Negative or not required by law. The above report was generated using voice recognition software. It may contain grammatical, syntax or spelling errors. Electronically signed by: Lico Roads M.D. 06/10/2020 8:59 AM
[2020-06-10] MEDS: MoRPHine SULFATE 2 MG/ML CARP IV PRN (11:31)
--- NOTE | 2020-06-10 11:34 | Gastroenterology Progress Note ---
Date of Service June 10, 2020 Assessment & Plan (1) Anemia: Continue Protonix drip. Continue to carefully monitor outputs. Cont NG and NPO. UGI with gastrografin. Present on Admission?: Yes Admission and Anticipated Discharge Date Admission Date: June 06, 2020 Supervising Physician Co-Signing Physician Notes Attg add (late entry from 11 am): I interviewed and examined pt, reviewed chart and labs. Events noted. Pt without abdominal pain, asking for food, asking to go home. VS stable. On exam, mild distended abdomen, non tender. I do not appreciate tympany. Labs show normal WBC, Hgb 9 from 9-10. Path reviewed with Dr. 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 Will request UGIS and if no extrav, then removed NGT and adv diet to clears. Cont PPI gtt with plans to transition to BID PPI, empiric abx x 3-5 days. Subjective 79 yr old male admitted for weakness. Chronic anemia and occult (+) stool. Hb on 06/06 8.9 + one unit of RBCs -> 9.0 this morning. EGD yesterday with multiple gastric AVMs, 8 treated with APC, endoscopy resection of a gastric mass with small perforation, clipped. CT after procedure w/o evidence of perforation. This morning has NG in place draining bilious colored fluid. Patient is sitting up at the bedside asking to eat and go home. Denies any nausea vomiting or abdominal pain. Review of Systems Review of Systems: ROS: Gen: Denies weakness, fevers, weight loss Eyes: No eye redness, or pain, no recent vision changes Resp: No SOB, no cough Cardio: No palpitations/irregular beats, no chest pain GI: No abdominal pain, no nausea/vomiting : Denies pain on urination Skin: No jaundice, itching or new rashes Constitutional: +weakness, weight loss, denies fevers Physical Exam Constitutional: WD/WN, vitals as above Eyes: PERRL, conjunctivae normal, anicteric sclerae ENMT: external ear and nose normal, oropharynx normal Neck: trachea midline, no thyromegaly Respiratory: normal respiratory effort, lungs clear to auscultation Cardiovascular: RRR, no murmur, no edema Gastrointestinal (Abdomen): Percussion/Palpation: abdomen soft; abdomen nontender mild distention, no masses Musculoskeletal: no cyanosis or clubbing, extremities motor strength 5/5 Neurologic: patellar DTR's 2+ bilat, sensation intact Psychiatric: A+Ox3, euthymic affect Lymphatic: no cervical or axillary lymphadenopathy Results & Data ([facility]) Vital Signs (Past 12 Hours) Vital Signs Temp Pulse Pulse Resp BP Pulse Ox 06/10/20 10:45 36.4 C L 85 18 103/63 96 06/10/20 08:00 80 06/10/20 07:05 36.6 C 85 20 102/69 96 06/10/20 04:12 84 88/66 L 06/10/20 02:44 36.6 C 72 21 87/55 L 97 06/09/20 23:57 93 H 06/09/20 23:27 36.8 C 93 H 20 152/79 H 95 Diagnostic Findings EGD 06/09/20 Dr. Connor: The esophagus was normal There were multiple small non bleeding AVM's in the stomach. 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 A clip was placed on one of the APC sites in the gastric body. There was a small submucosal mass in the low fundus of the stomach, measuring approximately 1 cm in diameter. EMR was perfomed using a band and cap technique. The submucosal mass was easily suctioned into the endoscopy cap and a band was placed below it. The lesion was captured with a hot snare and removed using standard coagulation polypectomy settings. The lesion was cut below the band. There was a perforation, with omentum visible through the defect at the EMR site. This was suctioned into the cap and closed using 12 clips. Clip closure appeared to be complete, as assessed by visual appearance and ease of insufflation of the stomach after clipping. Lesion removed with Flores net. There was variant mucosa in the pre-pyloric antrum. The duodenal bulb was normal. There were two small non bleeding AVM (1) Anemia Anemia type: unspecified type Qualified Code(s): D64.9 - Anemia, unspecified
--- NOTE | 2020-06-10 12:17 | Electroencephalogram ---
EEG Procedure Note Date of Service June 10, 2020 Start / End Times Start Time: 07:21 End Time: 07:[address] Christiano Galindo History A 79 year old M with unresponsive episodes. EEG performed for evaluation of epileptiform activity. Home Medication List Home Medications Medication Instructions Recorded Confirmed Type Anoro Ellipta 1 inh INHALATION PM 02/03/19 06/06/20 History albuterol sulfate [Ventolin HFA] 2 puff INHALATION QID PRN 02/03/19 06/06/20 History aspirin 81 mg PO QPM 02/03/19 06/06/20 History atorvastatin 40 mg PO QDD 02/03/19 06/06/20 History betamethasone, augmented 1 applic TOPICAL BID PRN 02/03/19 06/06/20 History [Diprolene] cholecalciferol (vitamin D3) 1,000 unit PO QAM 02/03/19 06/06/20 History [Vitamin D3] lutein 20 mg PO Q2D 02/03/19 06/06/20 History nitroglycerin [Nitrostat] 0.4 mg SUBLINGUAL UD PRN 02/03/19 06/06/20 History oxybutynin chloride 5 mg PO QDD 02/03/19 06/06/20 History pyridoxine (vitamin B6) [Vitamin 100 mg PO QAM 02/03/19 06/06/20 History B-6] acetaminophen [Tylenol Extra 1,000 mg PO BID PRN 04/28/20 06/06/20 History Strength] ascorbic acid (vitamin C) [Vitamin 500 mg PO DAILY 04/28/20 06/06/20 History C] bisacodyl 5 mg PO QPM PRN 04/28/20 06/06/20 History latanoprost 1 drp OPL HS 04/28/20 06/06/20 History omeprazole 20 mg PO QAM 04/28/20 06/06/20 History cyanocobalamin (vitamin B-12) 0 mcg PO DAILY 06/06/20 06/06/20 History [Vitamin B-12] docusate sodium 100 mg PO BID 06/06/20 06/06/20 History ferrous sulfate 325 mg PO DAILY 06/06/20 06/06/20 History polyethylene glycol 3350 [Miralax] 17 g PO HS 06/06/20 06/06/20 History Inpatient Medication List Acetaminophen (Ofirmev) 1,000 mg IV Q8H PRN PRN Reason: Pain or Fever Stop: 06/12/20 13:05 Last Admin: 06/10/20 00:39 Dose: 1,000 mg Documented by: [id number] Pantoprazole Sodium 40 mg/ (Dextrose) 100 mls @ 20 mls/hr IV Q5H [facility] Stop: 07/06/20 21:12 Last Admin: 06/10/20 08:35 Dose: 8 mg/hr, 20 mls/hr Documented by: [id number] Infusion: 06/10/20 08:35 Dose: 8 mg/hr, 20 mls/hr Documented by: [id number] Admin: 06/10/20 03:51 Dose: 8 mg/hr, 20 mls/hr Documented by: [id number] Infusion: 06/10/20 03:51 Dose: 8 mg/hr, 20 mls/hr Documented by: [id number] Admin: 06/09/20 23:23 Dose: 8 mg/hr, 20 mls/hr Documented by: [id number] Infusion: 06/09/20 23:23 Dose: 8 mg/hr, 20 mls/hr Documented by: [id number] Admin: 06/09/20 18:28 Dose: 8 mg/hr, 20 mls/hr Documented by: [id number] Infusion: 06/09/20 18:28 Dose: 8 mg/hr, 20 mls/hr Documented by: [id number] Admin: 06/09/20 13:49 Dose: 8 mg/hr, 20 mls/hr Documented by: [id number] Infusion: 06/09/20 13:49 Dose: 0 mg/hr, 0 mls/hr Documented by: [id number] Infusion: 06/09/20 10:15 Dose: 0 mg/hr, 0 mls/hr Documented by: [id number] Admin: 06/09/20 06:13 Dose: 8 mg/hr, 20 mls/hr Documented by: [id number] Infusion: 06/09/20 06:04 Dose: 8 mg/hr, 20 mls/hr Documented by: [id number] Admin: 06/09/20 01:04 Dose: 8 mg/hr, 20 mls/hr Documented by: [id number] Infusion: 06/09/20 00:59 Dose: 8 mg/hr, 20 mls/hr Documented by: [id number] Admin: 06/08/20 19:59 Dose: 8 mg/hr, 20 mls/hr Documented by: [id number] Infusion: 06/08/20 19:59 Dose: 8 mg/hr, 20 mls/hr Documented by: [id number] Admin: 06/08/20 15:04 Dose: 8 mg/hr, 20 mls/hr Documented by: [id number] Infusion: 06/08/20 15:04 Dose: 8 mg/hr, 20 mls/hr Documented by: [id number] Admin: 06/08/20 10:22 Dose: 8 mg/hr, 20 mls/hr Documented by: [id number] Infusion: 06/08/20 10:22 Dose: 0 mg/hr, 0 mls/hr Documented by: [id number] Admin: 06/08/20 05:28 Dose: 8 mg/hr, 20 mls/hr Documented by: [id number] Infusion: 06/08/20 05:28 Dose: 8 mg/hr, 20 mls/hr Documented by: [id number] Admin: 06/08/20 00:45 Dose: 8 mg/hr, 20 mls/hr Documented by: [id number] Infusion: 06/08/20 00:45 Dose: 8 mg/hr, 20 mls/hr Documented by: [id number] Admin: 06/07/20 20:21 Dose: 8 mg/hr, 20 mls/hr Documented by: [id number] Infusion: 06/07/20 20:16 Dose: 8 mg/hr, 20 mls/hr Documented by: [id number] Admin: 06/07/20 15:16 Dose: 8 mg/hr, 20 mls/hr Documented by: [id number] Infusion: 06/07/20 15:16 Dose: 0 mg/hr, 0 mls/hr Documented by: [id number] Admin: 06/07/20 10:06 Dose: 8 mg/hr, 20 mls/hr Documented by: [id number] Infusion: 06/07/20 10:06 Dose: 0 mg/hr, 0 mls/hr Documented by: [id number] Admin: 06/07/20 05:07 Dose: 8 mg/hr, 20 mls/hr Documented by: [id number] Admin: 06/06/20 21:35 Dose: Not Given Documented by: [id number] Sodium Chloride (Nss 1000ml) 1,000 mls @ 75 mls/hr IV .[id number] [facility] Stop: 07/07/20 00:06 Last Admin: 06/09/20 23:23 Dose: 75 mls/hr Documented by: [id number] Infusion: 06/09/20 23:23 Dose: 75 mls/hr Documented by: [id number] Admin: 06/09/20 13:18 Dose: 75 mls/hr Documented by: [id number] Infusion: 06/07/20 23:05 Dose: 0 mls/hr Documented by: [id number] Infusion: 06/07/20 15:33 Dose: 0 mls/hr Documented by: [id number] Admin: 06/07/20 01:25 Dose: 50 mls/hr Documented by: [id number] Piperacillin Sod/Tazobactam (Sod 3.375 gm/ Dextrose) 115 mls @ 28.75 mls/hr IV Q8H [facility]ALJIT; Protocol Stop: 06/19/20 19:59 Last Admin: 06/10/20 11:31 Dose: 28.8 mls/hr Documented by: [id number] Infusion: 06/10/20 07:51 Dose: 0 mls/hr Documented by: [id number] Admin: 06/10/20 03:51 Dose: 28.8 mls/hr Documented by: [id number] Infusion: 06/10/20 00:02 Dose: 0 mls/hr Documented by: [id number] Admin: 06/09/20 20:02 Dose: 28.8 mls/hr Documented by: [id number] Insulin Aspart (Novolog Flexpen) 0 units SC Q6 [facility] Stop: 07/09/20 05:59 Last Admin: 06/10/20 12:06 Dose: Not Given Documented by: [id number] Cosigned by: [id number] Admin: 06/10/20 06:13 Dose: Not Given Documented by: [id number] Cosigned by: [id number] Admin: 06/09/20 23:51 Dose: Not Given Documented by: [id number] Cosigned by: [id number] Admin: 06/09/20 18:09 Dose: Not Given Documented by: [id number] Cosigned by: [id number] Admin: 06/09/20 13:49 Dose: Not Given Documented by: [id number] Cosigned by: [id number] Admin: 06/09/20 06:13 Dose: Not Given Documented by: [id number] Cosigned by: [id number] Latanoprost (Xalatan Oph) 1 drops OPL HS [facility] Stop: 07/07/20 20:59 Last Admin: 06/09/20 22:06 Dose: 1 drops Documented by: [id number] Admin: 06/08/20 20:00 Dose: 1 drops Documented by: [id number] Admin: 06/07/20 20:26 Dose: 1 drops Documented by: [id number] Morphine Sulfate (Morphine Sulfate) 2 mg IV Q6H PRN PRN Reason: Pain Stop: 06/23/20 13:05 Last Admin: 06/10/20 11:31 Dose: 2 mg Documented by: [id number] Admin: 06/09/20 20:13 Dose: 2 mg Documented by: [id number] Umeclidinium/Vilanterol (Anoro Ellipta 62.5/25 Mcg Inh) 1 puffs INH PM [facility]AL[facility] Stop: 07/07/20 20:59 Last Admin: 06/09/20 22:07 Dose: 1 puffs Documented by: [id number] Admin: 06/08/20 20:00 Dose: 1 puffs Documented by: [id number] Admin: 06/07/20 20:24 Dose: 1 puffs Documented by: [id number] Discontinued Medications Atorvastatin Calcium (Lipitor) 40 mg PO QDD [facility]AL[facility] Stop: 07/07/20 16:29 Last Admin: 06/08/20 15:32 Dose: 40 mg Documented by: [id number] Admin: 06/07/20 17:13 Dose: 40 mg Documented by: [id number] Cyanocobalamin (Vitamin B-12) 1,000 mcg PO DAILY [facility] Stop: 07/07/20 08:59 Last Admin: 06/09/20 13:53 Dose: Not Given Documented by: [id number] Admin: 06/08/20 07:50 Dose: 1,000 mcg Documented by: [id number] Admin: 06/07/20 08:23 Dose: 1,000 mcg Documented by: [id number] Pantoprazole Sodium 40 mg/ (Dextrose) 100 mls @ 20 mls/hr IV Q5H [facility] Stop: 06/07/20 01:44 Last Infusion: 06/07/20 01:29 Dose: 0 mg/hr, 0 mls/hr Documented by: [id number] Admin: 06/06/20 21:35 Dose: 8 mg/hr, 20 mls/hr Documented by: [id number] Pantoprazole Sodium 40 mg/ (Syringe) 10 mls @ 5 mls/min IV NOW ONE Stop: 06/06/20 20:44 Last Admin: 06/06/20 21:01 Dose: Not Given Documented by: [id number] Pantoprazole Sodium (Protonix Bolus/Drip) 0 mls @ 1 mls/hr IV ONE STA Stop: 06/06/20 20:59 Last Admin: 06/06/20 21:18 Dose: Not Given Documented by: [id number] Pantoprazole Sodium 80 mg/ (Dextrose) 120 mls @ 400 mls/hr IV NOW ONE Stop: 06/06/20 21:15 Last Infusion: 06/06/20 21:49 Dose: 0 mls/hr Documented by: [id number] Admin: 06/06/20 21:17 Dose: 400 mls/hr Documented by: [id number] Piperacillin Sod/Tazobactam (Sod 3.375 gm/ Dextrose) 115 mls @ 230 mls/hr IV NOW ONE; Protocol Stop: 06/09/20 13:44 Last Infusion: 06/09/20 15:20 Dose: 0 mls/hr Documented by: [id number] Admin: 06/09/20 14:47 Dose: 230 mls/hr Documented by: [id number] Calcium Gluconate 1,000 mg/ (Sodium Chloride) 60 mls @ 240 mls/hr IV ONE ONE Stop: 06/10/20 08:44 Last Infusion: 06/10/20 10:23 Dose: 0 mls/hr Documented by: [id number] Admin: 06/10/20 10:08 Dose: 240 mls/hr Documented by: [id number] Insulin Aspart (Novolog Flexpen) 0 units SC Q6 [facility]AL[facility] Stop: 07/07/20 00:44 Last Admin: 06/07/20 05:56 Dose: Not Given Documented by: [id number] Cosigned by: [id number] Admin: 06/07/20 01:04 Dose: 2 units Documented by: [id number] Cosigned by: [id number] Insulin Aspart (Novolog Flexpen) 0 units SC ACHS [facility] Stop: 07/07/20 11:29 Last Admin: 06/08/20 20:04 Dose: 1 units Documented by: [id number] Cosigned by: [id number] Admin: 06/08/20 17:23 Dose: 2 units Documented by: [id number] Cosigned by: [id number] Admin: 06/08/20 12:21 Dose: 3 units Documented by: [id number] Cosigned by: [id number] Admin: 06/08/20 08:24 Dose: 3 units Documented by: [id number] Cosigned by: [id number] Admin: 06/07/20 20:25 Dose: 1 units Documented by: [id number] Cosigned by: [id number] Admin: 06/07/20 17:13 Dose: 3 units Documented by: [id number] Cosigned by: [id number] Admin: 06/07/20 12:23 Dose: Not Given Documented by: [id number] Cosigned by: [id number] Ioversol (Optiray 320 100ml) 94 ml IV ONCE ONE Stop: 06/06/20 23:46 Last Admin: 06/06/20 23:46 Dose: 94 ml Documented by: [id number] Lidocaine HCl (Xylocaine 2%) Confirm Administered Dose 4 ml INFIL .STK-MED ONE Stop: 06/09/20 11:59 Last Admin: 06/09/20 13:17 Dose: Not Given Documented by: [id number] Lorazepam (Ativan) 0.25 mg PO NOW STA Stop: 06/07/20 03:13 Last Admin: 06/07/20 03:22 Dose: 0.25 mg Documented by: [id number] Lorazepam (Ativan) 0.25 mg PO HS PRN PRN Reason: Insomnia Stop: 07/07/20 23:06 Last Admin: 06/07/20 23:30 Dose: 0.25 mg Documented by: [id number] Phenylephrine HCl (Denilson-Synephrine 500mcg/5ml) Confirm Administered Dose 100 mcg .ROUTE .STK-MED ONE Stop: 06/09/20 11:59 Last Admin: 06/09/20 13:17 Dose: Not Given Documented by: [id number] Propofol (Diprivan) Confirm Administered Dose 400 mg IV .STK-MED ONE Stop: 06/09/20 11:59 Last Admin: 06/09/20 13:17 Dose: Not Given Documented by: [id number] Pyridoxine HCl (Vitamin B-6) 100 mg PO QAM [facility] Stop: 07/07/20 08:59 Last Admin: 06/09/20 13:53 Dose: Not Given Documented by: [id number] Admin: 06/08/20 07:50 Dose: 100 mg Documented by: [id number] Admin: 06/07/20 08:23 Dose: 100 mg Documented by: [id number] Description This is a 21 electrode EEG with a single channel dedicated to limited EKG. The electrodes were placed in accordance with the International 10-20 system. Report: At the onset of the EEG the patient is drowsy. The background is symmetric and consist of 6-7 theta activity with intermixed delta activity. Drowsiness is characterized by reduced myogenic artifact and increase delta activity. Photic stimulation does not induce any abnormalities. No stage II sleep transient are seen. IMPRESSION: This is an abnormal awake and drowsy routine EEG due to mild generalized background slowing suggestive of a mild non specific encephalopathy. No focal slowing or epileptiform activity is recorded.
[2020-06-10] MEDS: SODIUM CHLORIDE 0.9% 1000ML 1,000 ML IV SCH (12:55)
--- NOTE | 2020-06-10 13:08 | Surgery Progress Note ---
Date of Service June 10, 2020 Assessment & Plan (1) Gastric perforation: This patient had a small gastric perforation during EGD and submucosal resection of a mass. The perforation was closed intraluminally. Afebrile, vitals stable, hypotensive evening shift no leukocytosis KUB today showing no secondary evidence of free air abdomen is soft but distended today, no evidence of peritonitis Plan: No acute surgical intervention required at this time would continue NGT for stomach decompression given distention Dr. Connor planning for upper GI with gastrografin today keep NPO, diet advancement and NGT management per GI will follow along Dr. Chung has seen and examined pt, agrees with above Supervising Physician Co-Signing Physician Notes I interviewed and examined this patient I agree with the above note. He is hungry. He has no evidence of peritonitis by exam and has minimal pain. Discussed with Dr. Connor. Plan is for contrast study tomorrow. No evidence for surgical intervention at this time. Subjective ready to go home, would like to eat states he has some abdominal pain but not severe passing small amounts of gas , no bowel movement Physical Exam Constitutional: WD/WN, vitals as above not ill appearing Respiratory: normal respiratory effort; no respiratory distress Gastrointestinal (Abdomen): Inspection/Auscultation: + abdomen distended (moderate distention) Percussion/Palpation: abdomen soft; abdomen nontender, no guarding and abdomen not rigid Skin: no rashes, warm and dry Psychiatric: Orientation: alert and oriented x 3 Results & Data Vital Signs (Past 12 Hours) Vital Signs Temp Pulse Pulse Resp BP Pulse Ox 06/10/20 10:45 36.4 C L 85 18 103/63 96 06/10/20 08:00 80 06/10/20 07:05 36.6 C 85 20 102/69 96 06/10/20 04:12 84 88/66 L 06/10/20 02:44 36.6 C 72 21 87/55 L 97 Laboratory Results 06/10/20 06/10/20 06/10/20 Range/Units 11:23 05:59 05:57 WBC 8.53 (4.8-10.8) K/uL RBC 3.09 L (4.7-6.1) M/uL Hgb 9.0 L (14.0-18.0) g/dL Hct 29.0 L (42-52) % MCV 93.9 (80-100) fL MCH 29.1 (25-34) pg MCHC 31.0 L (32-36) g/dL RDW Std Deviation 64.0 H (36.4-46.3) fL RDW Coeff of Silvano 19.3 H (11.5-14.5) % Plt Count 156 (130-400) K/uL MPV 10.2 (7.4-10.4) fL Immature Gran % (Auto) 0.1 % Neut % (Auto) 74.4 % Lymph % (Auto) 14.0 % Throckmorton % (Auto) 9.5 % Eos % (Auto) 1.8 % Baso % (Auto) 0.2 % Neut # (Auto) 6.35 (1.4-6.5) K/uL Lymph # (Auto) 1.19 L (1.2-3.4) K/uL Th[place]morton # (Auto) 0.81 H (0.11-0.59) K/uL Eos # (Auto) 0.15 (0-0.5) K/uL Baso # (Auto) 0.02 (0-0.2) K/uL Immature Gran # (Auto) 0.01 (0.00-0.02) K/uL Sodium (136-145) mmol/L Potassium (3.5-5.1) mmol/L Chloride (98-107) mmol/L Carbon Dioxide (21-32) mmol/L Anion Gap (3-11) BUN (7-18) mg/dl Creatinine (0.6-1.4) mg/dl Est Cr Clr Drug Dosing ml/min Est GFR ( Amer) Est GFR (Non-Af Amer) BUN/Creatinine Ratio (10-20) Glucose (70-99) mg/dl POC Glucose 125 H 134 H (70-99) mg/dl Calcium (8.5-10.1) mg/dl Magnesium (1.8-2.4) mg/dl 06/10/20 06/09/20 06/09/20 Range/Units 05:57 23:30 17:54 WBC (4.8-10.8) K/uL RBC (4.7-6.1) M/uL Hgb (14.0-18.0) g/dL Hct (42-52) % MCV (80-100) fL MCH (25-34) pg MCHC (32-36) g/dL RDW Std Deviation (36.4-46.3) fL RDW Coeff of Silvano (11.5-14.5) % Plt Count (130-400) K/uL MPV (7.4-10.4) fL Immature Gran % (Auto) % Neut % (Auto) % Lymph % (Auto) % Th[place]morton % (Auto) % Eos % (Auto) % Baso % (Auto) % Neut # (Auto) (1.4-6.5) K/uL Lymph # (Auto) (1.2-3.4) K/uL Th[place]morton # (Auto) (0.11-0.59) K/uL Eos # (Auto) (0-0.5) K/uL Baso # (Auto) (0-0.2) K/uL Immature Gran # (Auto) (0.00-0.02) K/uL Sodium 135 L (136-145) mmol/L Potassium 5.0 D (3.5-5.1) mmol/L Chloride 103 (98-107) mmol/L Carbon Dioxide 27 (21-32) mmol/L Anion Gap 5.0 (3-11) BUN 28 H (7-18) mg/dl Creatinine 1.55 H (0.6-1.4) mg/dl Est Cr Clr Drug Dosing 38.6 ml/min Est GFR ( Amer) 49.3 Est GFR (Non-Af Amer) 42.5 BUN/Creatinine Ratio 18.2 (10-20) Glucose 122 H (70-99) mg/dl POC Glucose 147 H 141 H (70-99) mg/dl Calcium 6.8 L (8.5-10.1) mg/dl Magnesium 1.9 (1.8-2.4) mg/dl 06/09/20 Range/Units 13:18 WBC (4.8-10.8) K/uL RBC (4.7-6.1) M/uL Hgb (14.0-18.0) g/dL Hct (42-52) % MCV (80-100) fL MCH (25-34) pg MCHC (32-36) g/dL RDW Std Deviation (36.4-46.3) fL RDW Coeff of Silvano (11.5-14.5) % Plt Count (130-400) K/uL MPV (7.4-10.4) fL Immature Gran % (Auto) % Neut % (Auto) % Lymph % (Auto) % Th[place]morton % (Auto) % Eos % (Auto) % Baso % (Auto) % Neut # (Auto) (1.4-6.5) K/uL Lymph # (Auto) (1.2-3.4) K/uL [place]morton # (Auto) (0.11-0.59) K/uL Eos # (Auto) (0-0.5) K/uL Baso # (Auto) (0-0.2) K/uL Immature Gran # (Auto) (0.00-0.02) K/uL Sodium (136-145) mmol/L Potassium (3.5-5.1) mmol/L Chloride (98-107) mmol/L Carbon Dioxide (21-32) mmol/L Anion Gap (3-11) BUN (7-18) mg/dl Creatinine (0.6-1.4) mg/dl Est Cr Clr Drug Dosing ml/min Est GFR ( Amer) Est GFR (Non-Af Amer) BUN/Creatinine Ratio (10-20) Glucose (70-99) mg/dl POC Glucose 118 H (70-99) mg/dl Calcium (8.5-10.1) mg/dl Magnesium (1.8-2.4) mg/dl Diagnostic Findings XR KUB/Abdomen 1 view CLINICAL HISTORY: Gastric Perforation pain COMPARISON STUDY: 05/22/2020 FINDINGS: Nasogastric tube placed in the gastric fundus. Nonobstructive bowel pattern. No secondary evidence for free air. Probable infiltrative changes right base. IMPRESSION: 1. Nasogastric tube placed the gastric fundus. 2. Nonobstructive bowel pattern. 3. Probable infiltrate right base.
--- NOTE | 2020-06-10 14:46 | Fluoroscopy Report ---
[place] GI series CLINICAL HISTORY: 79 years-old Male with EGD with gastric perf and clip repair yesterday. Recent EGD with gastric fundal mass resection and perforation. TECHNIQUE: A limited upper GI series was performed following administration of Gastrografin. Multip le spot fluoroscopic images were obtained and provided for review. COMPARISON STUDY: CT abdomen 06/09/2020, 06/06/2020 FLUOROSCOPY TIME: 0.7 minutes. 19 images were submitted for review. FINDINGS: Multiple surgical clip devices project over the gastric fundus. Enteric tube is noted with distal tip projecting over the gastric cardia. Pleural effusions with cardiomegaly. No definite pneumatosis or pneumoperitoneum identified. Upon administration of Gastrografin through the enteric tube, no extravasation of the contrast is deshawn ntified to suggest continued perforation. Minimal contrast is noted pooling around the enteric tube a t the level of the distal esophagus. Contrast is noted flowing into the distal gastric lumen. The duo denum and proximal jejunum was not evaluated on this limited study. IMPRESSION: No extravasation of contrast to suggest continued gastric perforation. ACT 112: Negative or not required by law. The above report was generated using voice recognition software. It may contain grammatical, syntax o r spelling errors. Electronically signed by: Saqib Sepulveda M.D. 06/10/2020 2:45 PM
--- NOTE | 2020-06-10 16:08 | Hospitalist Progress Note ---
Date of Service June 10, 2020 Assessment & Plan (1) Orthostasis: Orthostatic hypotension Symptomatic acute blood loss anemia Acute upper GI bleeding H/O AVMs, internal hemorrhoids, colonic diverticulosis --CT ABD:Proximal to mid small bowel suggestive of a nonspecific enteritis. Mild chronic right hydroureteronephrosis. Bibasilar parenchymal infiltrate combined with a small right effusion. Mild chronic colonic diverticulosis. Orthostasis likely due to Anemia --S/P EGD:multiple small non bleeding AVM's in stomach. A clip was placed on one of the APC sites in the gastric body. Small submucosal mass in the low fundus of the stomach S/P EMR resulting in perforation which was clip closured. Oxybutynin held S/P 1 Unit PRBCs Monitor H&H and transfuse PRBCs as needed Continue Protonix Drip Appreciate GI input Fall Precautions Continue bowel rest Closely monitor for hemodynamic changes Continue IV fluids Gastric Perforation small gastric perforation during EGD/Submucosal resection of a mass --Upper GI series:No extravasation of contrast to suggest continued gastric pe rforation. --KUB: Nasogastric tube placed the gastric fundus. Nonobstructive bowel pattern. Probable infiltrate right base. Currently no evidence of peritonitis Conservative management Appreciate Surgery input Continue empiric antibiotics Continue IV fluids, bowel rest, NG tube Kub today showed no evidence of free air Presyncopal Episodes No known seizure like activity Monitor on Tele for arrhythmias Anemia contributing EEG: This is an abnormal awake and drowsy routine EEG due to mild generalized background slowing suggestive of a mild non specific encephalopathy. No focal slowing or epileptiform activity is recorded. Consider Cardiology eval Monitor No issues on monitor Physical deconditioning Generalized weakness Secondary to comorbidities/Immunotherapy PT/OT Chronic Diastolic heart failure Last EF: 50-55% off diuretics due to Hypotension Monitor volume status CAD S/P S/P AI to LAD in 06/2019 Held Aspirin due to GI bleeding Continue Lipitor COPD Chronic hypoxic respiratory failure Ongoing tobacco abuse Chronic Oxygen Dependency: 2 liters at baseline Bibasilar parenchymal infiltrate--on CT--likely chronic Continue home inhalers Nebs PRN Hospice Coordinator to quit smoking Normal Procalcitonin DM Type II HbA1C: 6.07 Mar 2020 Off metformin secondary to worsening renal functions Continue ISS while hospitalized Monitor BGs H/O Metastatic bladder cancer S/P Chemoradiation Ongoing immunotherapy (Keytruda) Follows with [facility] and Dr Franks Last dose of Keytruda on 06/03/20 H/O Tourette's syndrome Intermittent Behavioral changes as per family Monitor DVT Px: SCDs RE GI bleed Code Status Full code Disposition PT/OT prior to discharge Admission and Anticipated Discharge Date Admission Date: June 06, 2020 Subjective Patient is seen and examined at bedside Had GI series today Had a very brief period of LOC when sitting down today afternoon as per RN Updated Patient's about the event Patient currently alert, awake, oriented Denies any chest pain, SOB, abd pain, nausea, dizziness Requests for removal of NG tube Review of Systems Review of Systems: All systems reviewed & are unremarkable except as noted in HPI & below Physical Exam Physical Exam: Physical Exam: Vitals signs as noted above General Appearance:Chronic ill appearing, no apparent distress Head: normocephalic, Atraumatic Eyes: normal inspection, EOMI Neck: supple, Trachea midline Respiratory/Chest: Normal breath sounds, CTA Cardiovascular: S1, S2, No murmur Abdomen/GI:Soft, Non tender, mild distention, Bowel sounds present Extremities/Musculoskelatal:normal inspection, no edema Neurologic/Psych:AAOX3, grossly no focal neurological deficits Skin: normal color, warm Results & Data Results & Data ([facility]) Vital Signs (Past 12 Hours) Vital Signs Temp Pulse Pulse Resp BP BP Pulse Ox 06/10/20 15:38 36.3 C L 86 18 157/82 H 94 06/10/20 10:45 36.4 C L 85 18 103/63 96 06/10/20 08:00 80 06/10/20 07:05 36.6 C 85 20 102/69 96 06/10/20 04:12 84 88/66 L Laboratory Results Short CBC 06/10/20 Range/Units 05:57 WBC 8.53 (4.8-10.8) K/uL Hgb 9.0 L (14.0-18.0) g/dL Hct 29.0 L (42-52) % Plt Count 156 (130-400) K/uL BMP 06/10/20 05:57 Sodium 135 L Potassium 5.0 D Chloride 103 Carbon Dioxide 27 BUN 28 H Creatinine 1.55 H Glucose 122 H Calcium 6.8 L
[2020-06-10] MEDS: UMECLIDINIUM/VILANTEROL 62.5/25MCG 7 PUFFS/INHALER INH SCH (19:53)
[2020-06-10] MEDS: LATANOPROST 0.005% OP SOLN 2.5 ML BTL OPL SCH (19:54)
[2020-06-10] MEDS ORDERED: Nursing to Pharmacy Communication SCH (20:45)
[2020-06-11] MEDS: PANTOprazole 40 MG in DEXTROSE 5% 100 ML IV SCH ×3 (00:07→10:32)
[2020-06-11] MEDS: SODIUM CHLORIDE 0.9% 1000ML 1,000 ML IV SCH (02:45)
[2020-06-11] MEDS: ACETAMINOPHEN 1000 MG/100 ML IV IV PRN (04:24)
[2020-06-11] MEDS: PIPERACILLIN/TAZOBACTAM 3.375 GM in DEXTROSE 5% 100 ML IV SCH ×2 (04:25→11:19)
[2020-06-11] MEDS ORDERED: XOPENEX/ATROVENT 1.25mg/0.5MG NEB COMBO NEB STA (05:06)
[2020-06-11] MEDS ORDERED: methylPREDNISolone 20 MG in SYRINGE 0 ML IV STA (05:07)
[2020-06-11] MEDS ORDERED: MAGNESIUM SULFATE / D5W 1 GM/100 ML BAG IV ONE (05:12)
[2020-06-11] MEDS ORDERED: LEVALBUTEROL 1.25MG/0.5ML NEB INH STA (05:13)
[2020-06-11] MEDS ORDERED: IPRATROPIUM BROMIDE NEB SOLN 0.02% 2.5 ML VIAL INH STA (05:13)
[2020-06-11 06:24] LABS: Basophils # (auto) 0.02 K/uL (0-0.2); Basophils % (auto) 0.2 %; Eosinophils # (auto) 0.06 K/uL (0-0.5); Eosinophils % (auto) 0.6 %; Hematocrit (blood only) 30.5 % (42-52); Hemoglobin 9.4 g/dL (14.0-18.0); Immature Granulocytes # (auto) 0.04 K/uL (0.00-0.02); Immature Granulocytes % (auto) 0.4 %; Lymphocytes # (auto) 0.72 K/uL (1.2-3.4); Mean Corpuscular Hemoglobin 28.8 pg (25-34); Mean Corpuscular Hgb Conc 30.8 g/dL (32-36); Mean Corpuscular Volume 93.6 fL (80-100); Mean Platelet Volume 10.3 fL (7.4-10.4); Monocytes # (auto) 1.81 K/uL (0.11-0.59); Monocytes % (auto) 17.6 %; Neutrophils # (auto) 7.62 K/uL (1.4-6.5); Neutrophils % (auto) 74.2 %; Nucleated RBC # (auto) 0.02 K/uL (0-0); Nucleated RBC % (auto) 0.2 %; Platelet Count 163 K/uL (130-400); RDW Coefficient of Variation 19.2 % (11.5-14.5); RDW Standard Deviation 64.9 fL (36.4-46.3); Red Blood Count 3.26 M/uL (4.7-6.1); White Blood Count 10.27 K/uL (4.8-10.8)
[2020-06-11 06:27] LABS: Base Excess ABG -5.5 mEq/L (-9-1.8); HCO3 ABG 19 mmol/L (19-24); Oxygen Saturation ABG 88.1 % (90-95); PCO2 ABG 34 mmHg (35-46); PO2 ABG 61 mmHg (80-95); pH ABG 7.37 (7.35-7.45)
[2020-06-11 06:35] LABS: Partial Thromboplastin Ratio 1.1; Partial Thromboplastin Time 29.3 Seconds (21.0-31.0)
[2020-06-11 06:40] LABS: Allen Test Pos (Pos)
[2020-06-11 06:44] LABS: Albumin Level 2.5 gm/dl (3.4-5.0); BUN Creatinine Ratio 18.7 (10-20); Calcium 6.6 mg/dl (8.5-10.1); Est GFR (African American) 39.3; Est GFR (Non-African American) 33.9; Magnesium 2.1 mg/dl (1.8-2.4); Potassium 5.5 mmol/L (3.5-5.1)
[2020-06-11 06:46] LABS: Albumin Globulin Ratio 0.6 (0.9-2); Bilirubin,Total 0.8 mg/dl (0.2-1); Total Protein 6.5 gm/dl (6.4-8.2)
[2020-06-11] MEDS ORDERED: DEXTROSE 50% 50 ML SYRINGE IV ONE (06:54)
[2020-06-11] MEDS ORDERED: ACETAMINOPHEN 325 MG TAB PO PRN (06:55)
[2020-06-11] MEDS ORDERED: CALCIUM GLUCONATE 10% 10 ML VIAL IV STA (06:58)
--- NOTE | 2020-06-11 07:07 | XRay Report ---
XR chest 1V portable CLINICAL HISTORY: sob dyspnea COMPARISON STUDY: 06/09/2020 FINDINGS: Stable right and to a lesser extent left basilar interstitial infiltrative change. Minimal upper lungs remain clear. The heart remains moderately enlarged. IMPRESSION: Right and to a lesser extent left basilar interstitial infiltrates. No significant han e from the prior study. ACT 112: Negative or not required by law. The above report was generated using voice recognition software. It may contain grammatical, syntax or spelling errors. Electronically signed by: Lico Rodas M.D. 06/11/2020 7:06 AM
[2020-06-11] MEDS ORDERED: INSULIN HUMAN REGULAR PER UNIT 10 UNITS in SYRINGE 9.9 ML IV ONE (07:15)
--- NOTE | 2020-06-11 07:26 | Surgery Progress Note ---
Date of Service June 11, 2020 Assessment & Plan (1) Gastric perforation: No evidence of leak on contrast study yesterday No abdominal pain Certainly no evidence of peritonitis Medical problems as per internal medicine service Subjective Had episodes of orthostatic hypotension H&H is stable Denies abdominal pain Denies nausea and vomiting even since NG was removed Result of GI contrast study noted, no evidence of leak Physical Exam Gastrointestinal (Abdomen): Inspection/Auscultation: + abdomen distended (Mild) and normal bowel sounds Percussion/Palpation: abdomen soft Results & Data Vital Signs (Past 12 Hours) Vital Signs Temp Pulse Pulse Resp BP Pulse Ox 06/11/20 07:16 36.4 C L 93 H 21 95/60 L 97 06/11/20 05:25 64 20 94 06/11/20 02:50 36.6 C 89 18 119/69 94 06/10/20 23:37 37 C 87 20 105/56 L 99 06/10/20 23:00 88 Laboratory Results 06/11/20 06/11/20 06/11/20 Range/Units 07:02 06:14 05:53 WBC (4.8-10.8) K/uL RBC (4.7-6.1) M/uL Hgb (14.0-18.0) g/dL Hct (42-52) % MCV (80-100) fL MCH (25-34) pg MCHC (32-36) g/dL RDW Std Deviation (36.4-46.3) fL RDW Coeff of Silvano (11.5-14.5) % Plt Count (130-400) K/uL MPV (7.4-10.4) fL Immature Gran % (Auto) % Neut % (Auto) % Lymph % (Auto) % [place] % (Auto) % Eos % (Auto) % Baso % (Auto) % Neut # (Auto) (1.4-6.5) K/uL Lymph # (Auto) (1.2-3.4) K/uL [place] # (Auto) (0.11-0.59) K/uL Eos # (Auto) (0-0.5) K/uL Baso # (Auto) (0-0.2) K/uL Immature Gran # (Auto) (0.00-0.02) K/uL Absolute Nucleated RBC (0-0) K/uL Nucleated RBC % (auto) % APTT 29.3 (21.0-31.0) Seconds PTT Ratio 1.1 ABG pH 7.37 (7.35-7.45) ABG pCO2 34 L (35-46) mmHg ABG pO2 61 L (80-95) mmHg ABG HCO3 19 (19-24) mmol/L ABG O2 Saturation 88.1 L (90-95) % ABG Base Excess -5.5 (-9-1.8) mEq/L Ayden Test Pos (Pos) Barometric Pressure 732.8 mm/Hg Oxygen Given 4L Sodium (136-145) mmol/L Potassium (3.5-5.1) mmol/L Chloride (98-107) mmol/L Carbon Dioxide (21-32) mmol/L Anion Gap (3-11) BUN (7-18) mg/dl Creatinine (0.6-1.4) mg/dl Est Cr Clr Drug Dosing ml/min Est GFR ( Amer) Est GFR (Non-Af Amer) BUN/Creatinine Ratio (10-20) Glucose (70-99) mg/dl POC Glucose (70-99) mg/dl Calcium (8.5-10.1) mg/dl Ionized Calcium (1.12-1.32) mmol/L Phosphorus Pending Magnesium (1.8-2.4) mg/dl Total Bilirubin (0.2-1) mg/dl AST (15-37) U/L ALT (12-78) U/L Alkaline Phosphatase (45-117) U/L Total Creatine Kinase Pending Total Protein (6.4-8.2) gm/dl Albumin (3.4-5.0) gm/dl Globulin (2.5-4.0) gm/dl Albumin/Globulin Ratio (0.9-2) 06/11/20 06/11/20 06/11/20 Range/Units 05:53 05:53 05:53 WBC 10.27 (4.8-10.8) K/uL RBC 3.26 L (4.7-6.1) M/uL Hgb 9.4 L (14.0-18.0) g/dL Hct 30.5 L (42-52) % MCV 93.6 (80-100) fL MCH 28.8 (25-34) pg MCHC 30.8 L (32-36) g/dL RDW Std Deviation 64.9 H (36.4-46.3) fL RDW Coeff of Silvano 19.2 H (11.5-14.5) % Plt Count 163 (130-400) K/uL MPV 10.3 (7.4-10.4) fL Immature Gran % (Auto) 0.4 % Neut % (Auto) 74.2 % Lymph % (Auto) 7.0 % [place] % (Auto) 17.6 % Eos % (Auto) 0.6 % Baso % (Auto) 0.2 % Neut # (Auto) 7.62 H (1.4-6.5) K/uL Lymph # (Auto) 0.72 L (1.2-3.4) K/uL [place] # (Auto) 1.81 H (0.11-0.59) K/uL Eos # (Auto) 0.06 (0-0.5) K/uL Baso # (Auto) 0.02 (0-0.2) K/uL Immature Gran # (Auto) 0.04 H (0.00-0.02) K/uL Absolute Nucleated RBC 0.02 H (0-0) K/uL Nucleated RBC % (auto) 0.2 % APTT (21.0-31.0) Seconds PTT Ratio ABG pH (7.35-7.45) ABG pCO2 (35-46) mmHg ABG pO2 (80-95) mmHg ABG HCO3 (19-24) mmol/L ABG O2 Saturation (90-95) % ABG Base Excess (-9-1.8) mEq/L Ayden Test (Pos) Barometric Pressure mm/Hg Oxygen Given Sodium 135 L (136-145) mmol/L Potassium 5.5 H (3.5-5.1) mmol/L Chloride 105 (98-107) mmol/L Carbon Dioxide 22 (21-32) mmol/L Anion Gap 8.0 (3-11) BUN 35 H (7-18) mg/dl Creatinine 1.87 H D (0.6-1.4) mg/dl Est Cr Clr Drug Dosing 32.0 ml/min Est GFR ( Amer) 39.3 Est GFR (Non-Af Amer) 33.9 BUN/Creatinine Ratio 18.7 (10-20) Glucose 144 H (70-99) mg/dl POC Glucose (70-99) mg/dl Calcium 6.6 L (8.5-10.1) mg/dl Ionized Calcium 0.94 L (1.12-1.32) mmol/L Phosphorus Magnesium 2.1 (1.8-2.4) mg/dl Total Bilirubin 0.8 (0.2-1) mg/dl AST 130 H (15-37) U/L ALT 147 H (12-78) U/L Alkaline Phosphatase 103 (45-117) U/L Total Creatine Kinase Total Protein 6.5 (6.4-8.2) gm/dl Albumin 2.5 L (3.4-5.0) gm/dl Globulin 4.0 (2.5-4.0) gm/dl Albumin/Globulin Ratio 0.6 L (0.9-2) 06/10/20 06/10/20 06/10/20 Range/Units 20:12 18:02 13:53 WBC (4.8-10.8) K/uL RBC (4.7-6.1) M/uL Hgb (14.0-18.0) g/dL Hct (42-52) % MCV (80-100) fL MCH (25-34) pg MCHC (32-36) g/dL RDW Std Deviation (36.4-46.3) fL RDW Coeff of Silvano (11.5-14.5) % Plt Count (130-400) K/uL MPV (7.4-10.4) fL Immature Gran % (Auto) % Neut % (Auto) % Lymph % (Auto) % [place] % (Auto) % Eos % (Auto) % Baso % (Auto) % Neut # (Auto) (1.4-6.5) K/uL Lymph # (Auto) (1.2-3.4) K/uL [place] # (Auto) (0.11-0.59) K/uL Eos # (Auto) (0-0.5) K/uL Baso # (Auto) (0-0.2) K/uL Immature Gran # (Auto) (0.00-0.02) K/uL Absolute Nucleated RBC (0-0) K/uL Nucleated RBC % (auto) % APTT (21.0-31.0) Seconds PTT Ratio ABG pH (7.35-7.45) ABG pCO2 (35-46) mmHg ABG pO2 (80-95) mmHg ABG HCO3 (19-24) mmol/L ABG O2 Saturation (90-95) % ABG Base Excess (-9-1.8) mEq/L Ayden Test (Pos) Barometric Pressure mm/Hg Oxygen Given Sodium (136-145) mmol/L Potassium (3.5-5.1) mmol/L Chloride (98-107) mmol/L Carbon Dioxide (21-32) mmol/L Anion Gap (3-11) BUN (7-18) mg/dl Creatinine (0.6-1.4) mg/dl Est Cr Clr Drug Dosing ml/min Est GFR ( Amer) Est GFR (Non-Af Amer) BUN/Creatinine Ratio (10-20) Glucose (70-99) mg/dl POC Glucose 235 H 114 H 131 H (70-99) mg/dl Calcium (8.5-10.1) mg/dl Ionized Calcium (1.12-1.32) mmol/L Phosphorus Magnesium (1.8-2.4) mg/dl Total Bilirubin (0.2-1) mg/dl AST (15-37) U/L ALT (12-78) U/L Alkaline Phosphatase (45-117) U/L Total Creatine Kinase Total Protein (6.4-8.2) gm/dl Albumin (3.4-5.0) gm/dl Globulin (2.5-4.0) gm/dl Albumin/Globulin Ratio (0.9-2) 06/10/20 Range/Units 11:23 WBC (4.8-10.8) K/uL RBC (4.7-6.1) M/uL Hgb (14.0-18.0) g/dL Hct (42-52) % MCV (80-100) fL MCH (25-34) pg MCHC (32-36) g/dL RDW Std Deviation (36.4-46.3) fL RDW Coeff of Silvano (11.5-14.5) % Plt Count (130-400) K/uL MPV (7.4-10.4) fL Immature Gran % (Auto) % Neut % (Auto) % Lymph % (Auto) % [place] % (Auto) % Eos % (Auto) % Baso % (Auto) % Neut # (Auto) (1.4-6.5) K/uL Lymph # (Auto) (1.2-3.4) K/uL [place] # (Auto) (0.11-0.59) K/uL Eos # (Auto) (0-0.5) K/uL Baso # (Auto) (0-0.2) K/uL Immature Gran # (Auto) (0.00-0.02) K/uL Absolute Nucleated RBC (0-0) K/uL Nucleated RBC % (auto) % APTT (21.0-31.0) Seconds PTT Ratio ABG pH (7.35-7.45) ABG pCO2 (35-46) mmHg ABG pO2 (80-95) mmHg ABG HCO3 (19-24) mmol/L ABG O2 Saturation (90-95) % ABG Base Excess (-9-1.8) mEq/L Ayden Test (Pos) Barometric Pressure mm/Hg Oxygen Given Sodium (136-145) mmol/L Potassium (3.5-5.1) mmol/L Chloride (98-107) mmol/L Carbon Dioxide (21-32) mmol/L Anion Gap (3-11) BUN (7-18) mg/dl Creatinine (0.6-1.4) mg/dl Est Cr Clr Drug Dosing ml/min Est GFR ( Amer) Est GFR (Non-Af Amer) BUN/Creatinine Ratio (10-20) Glucose (70-99) mg/dl POC Glucose 125 H (70-99) mg/dl Calcium (8.5-10.1) mg/dl Ionized Calcium (1.12-1.32) mmol/L Phosphorus Magnesium (1.8-2.4) mg/dl Total Bilirubin (0.2-1) mg/dl AST (15-37) U/L ALT (12-78) U/L Alkaline Phosphatase (45-117) U/L Total Creatine Kinase Total Protein (6.4-8.2) gm/dl Albumin (3.4-5.0) gm/dl Globulin (2.5-4.0) gm/dl Albumin/Globulin Ratio (0.9-2)
[2020-06-11] MEDS ORDERED: CALCIUM GLUCONATE 10% 2,000 MG in SODIUM CHLORIDE 0.9% 50 ML IV ONE (07:30)
[2020-06-11 07:59] LABS: Phosphorus 3.3 mg/dl (2.5-4.9)
[2020-06-11] MEDS: INSULIN ASPART 100 UNITS/ML 3 ML PEN SC SCH ×6 (08:58→20:36)
--- NOTE | 2020-06-11 10:29 | Ultrasound Report ---
US renal/blad retro comp HISTORY: Renal insufficiency renal failure COMPARISON: None. FINDINGS: Right kidney: Maximum dimension 10.7 cm. No evidence for hydronephrosis. 1 cm upper pole cyst. Normal corticomedullary differentiation and cortical thickness. Left kidney: Maximum dimension 11.3 cm. No evidence for hydronephrosis. Normal corticomedullary diff erentiation and cortical thickness. Bladder: No bladder wall thickening. The bilateral ureteral jets were identified. IMPRESSION: Normal renal ultrasound. No evidence for hydronephrosis. Small right renal cyst. Incidental note is m junior of a trace amount of perihepatic ascites. ACT 112: Negative or not required by law. The above report was generated using voice recognition software. It may contain grammatical, syntax or spelling errors. Electronically signed by: Lico Rodas M.D. 06/11/2020 10:27 AM
[2020-06-11 11:05] LABS: Albumin Level 2.6 gm/dl (3.4-5.0); Calcium 7.4 mg/dl (8.5-10.1); Creatinine Clr Calc Pharmacy 28.6 ml/min; Est GFR (African American) 34.4; Est GFR (Non-African American) 29.6; Potassium 4.9 mmol/L (3.5-5.1)
[2020-06-11 11:07] LABS: Albumin Globulin Ratio 0.6 (0.9-2); Bilirubin,Total 0.7 mg/dl (0.2-1); Globulin 4.1 gm/dl (2.5-4.0); Total Protein 6.7 gm/dl (6.4-8.2)
[2020-06-11] MEDS: ALBUT/IPRATROP 3MG/0.5MG NEB 3 ML VIAL NEB SCH ×3 (11:08→19:01)
--- NOTE | 2020-06-11 11:55 | Gastroenterology Progress Note ---
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 Now with microperforation from endoscopic mucosal resection. 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 Continue Protonix IV BID. Full liquids po. Will continue to follow. Attg add (late entry, pt seen on 06/11)I interviewed and examined pt, reviewed chart and labs. 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 He is without any GI symptoms, although LFT's and creat increased. ? related to hypotension from SVT? Uls, follow labs. Admission and Anticipated Discharge Date Admission Date: June 06, 2020 Subjective VM's in the stomach. 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 A clip was placed on one of the APC sites in the gastric body. There was a small submucosal mass in the low fundus of the stomach, measuring approximately 1 cm in diameter. EMR was perfomed using a band and cap technique. T 79 yr old male underwent EGD for melena: AVMs APC'ed, one clipped; one 1cm submucosal mass endoscopically resected with micro perforation during the proced ure. CT on 06/09 and UGI with gastrografin w/o evidence of free air or extravasation. Today: Pt feels well and would like to go home. Tolerating clear liquids well po. + acute worsening of renal function Ct 1.5 on arrival ->2.1 today. Review of Systems Review of Systems: ROS: Gen: Denies weakness, fevers, weight loss Eyes: No eye redness, or pain, no recent vision changes Resp: No SOB, no cough Cardio: No palpitations/irregular beats, no chest pain GI: No abdominal pain, no nausea/vomiting : Denies pain on urination Skin: No jaundice, itching or new rashes Physical Exam Constitutional: WD/WN, vitals as above Eyes: PERRL, conjunctivae normal, anicteric sclerae ENMT: external ear and nose normal, oropharynx normal Neck: trachea midline, no thyromegaly Respiratory: normal respiratory effort, lungs clear to auscultation Cardiovascular: RRR, no murmur, no edema Gastrointestinal (Abdomen): Percussion/Palpation: abdomen soft; abdomen nontender Musculoskeletal: no cyanosis or clubbing, extremities motor strength 5/5 Neurologic: patellar DTR's 2+ bilat, sensation intact Psychiatric: A+Ox3, euthymic affect Lymphatic: no cervical or axillary lymphadenopathy Results & Data ([facility]) Vital Signs (Past 12 Hours) Vital Signs Temp Pulse Pulse Resp BP BP Pulse Ox 06/11/20 11:25 36.3 C L 84 18 142/83 H 94 06/11/20 11:08 74 20 100 06/11/20 08:00 82 06/11/20 07:16 36.4 C L 93 H 21 95/60 L 97 06/11/20 05:25 64 20 94 06/11/20 02:50 36.6 C 89 18 119/69 94 (1) Anemia Anemia type: unspecified type Qualified Code(s): D64.9 - Anemia, unspecified
--- NOTE | 2020-06-11 12:17 | Cardiology Consultation ---
Date of Consultation June 11, 2020 Assessment & Plan (1) Ischemic cardiomyopathy: (2) Systolic and diastolic CHF, chronic: (3) PSVT (paroxysmal supraventricular tachycardia): The patient was admitted for gastrointestinal bleeding, and underwent complex endoscopic based intervention earlier this hospital stay. His hemoglobin has been stable. He had completed a year of dual antiplatelet therapy status post PCI of the LAD. His aspirin however is on hold at present which I think is ne cessary, but this will need to be reassessed daily as he recovers. The patient has recent loss of consciousness episodes. He had been seen by primary care about a month ago, and his medications including metoprolol and furosemide were discontinued due to concerns of orthostatic hypotension. His spouse tells me that his systolic blood pressure at home recently has been just around 100 mm Hg, However recent readings in the hospital are significantly higher than this. He has been receiving Zosyn due to concerns of Pneumonia. But I am concerned that he is volume overloaded, and despite the fact that his creatinine has trended up to 2 mg/dl , I recommend treating him with furosemide. After he received 20 of furosemide I reassessed him and he was improved. Recommend finding an alternative to IV antibiotic, as he does not appear septic, and he is able to swallow oral medications. This will help us in terms of his fluid balance. I was asked to see him regarding episodes of supraventricular tachycardia. At the time of his code purple episode on 06/11/2020 when he slumped over in a chair momentarily and was difficult to arouse, There is no associated arrhythmia on telemetry. Several hours later at 1705 he did have a 21 beat run of narrow complex tachycardia consistent with supraventricular tachycardia. In the meantime, he had another episode that was a 6 beat run of narrow complex tachycardia last evening at 3, and several additional very brief episodes. I do see a 7 beat run of wide-complex tachycardia today 06/11/2020 and 1258 which correlates With when he was short of breath, but not with the syncopal episodes. He does have a known RCA territory scar and low normal to mild LV systolic dysfunction is noted in his history. Treatment with typical guideline-based med ication therapy for congestive heart failure has been limited due to his perceived low blood pressure. And this will be reassessed. Findings, plan, and history reviewed with spouse at the bedside. History of Present Illness Attending Physician: Rachael Quintero MD History of Present Illness Adrian Arce is a 79 year old male seen in cardiology consultation per the request of Dr Mora for the evaluation of near syncope episodes and supraventricular tachycardia. The patient presented via the emergency room last week on 06/06/2020 with recent complaint of dark tarry stools and abdominal discomfort. He had been having intermittent spells at home of decreased responsiveness. He had been found to have recent lightheadedness with standing consistent with orthostatic hypotension. Due to concerns of upper gastrointestinal bleeding he underwent EGD on 06/09/2020 with findings of multiple small nonbleeding AV malformations in the stomach as well as a submucosal mass which was captured with a hot snare and was removed. Multiple clips were placed. He received a unit of packed red blood cells on , with lowest hemoglobin this admission of 8.9, most recent level of 9.4 g/dL today. Yesterday afternoon, a "Code Purple" alarm was called when the patient had a brief episode of loss of consciousness while sitting down. Per review of the record, nursing note dated 06/10/2020, 1404 described that the patient was ambulating into a wheelchair and became unresponsive when sitting down. A nasogastric tube had been in place at the time of the event. Oxygen saturation was stable. I see no arrhythmia events that took place at around that time. The patient was found to have a 21 beat episode of supraventricular tachycardia on 06/10/2020 at 17: 05 with heart rates in the range of 160 bpm. Last evening, 06/10/2019 at 21: 23 a 6 beat run of supraventricular tachycardia noted. The patient's past medical history is notable for complex coronary heart disease as well as bladder carcinoma. His primary computer programmer chief is Dr. Gallardo of our practice and his most recent outpatient cardiology follow-up visit had been on 12/07/2019 with Sagrario Hurt PA-C of our practice. At the end of May 2018, he received chemotherapy and then had a syncopal episode which resulted in a hospital admission. After he was admitted he was noted to have had a non STEMI. He presented late and because he had just received chemotherapy with cisplatin along with severe peripheral vascular disease a conservative approach was pursued from a coronary heart disease standpoint at that time. He had previously undergone partial cystectomy, and repeat surgical cystectomy had been planned. Subsequently, his cancer treatment was changed from a surgical approach to chemotherapy with local radiation. He has received that treatment through [facility] and completed his course of radiation and chemotherapy . In July of 2018 the patient underwent cardiac catheterization that revealed diffuse coronary artery disease with 100% occlusion of the right coronary artery and an 80% stenosis of the LAD. A drug-eluting stent was successfully placed in the LAD. He has been treated with diuretic therapy for systolic/diastolic heart failure. A transthoracic echocardiogram performed at [facility] on 07/03/2019 with findings of mild left ventricular systolic dysfunction, LVEF 45 to 49% with mild right ventricular systolic dysfunction. Mild aortic valve sclerosis without stenosis noted. Moderate mitral regurgitation. A large sized septal, inferior, and posterior wall motion abnormality in the RCA territory noted at that time. An echocardiogram had recently been performed at [place] on 05/23/2020 with findings of moderate concentric left ventricular hypertrophy, moderate sized septal, inferior, and posterior wall motion abnormality hypokinesis to akinesis of the segments in the right coronary artery territory, LVEF graded as 50-55%, grade 1 diastolic dysfunction, moderate aortic root dilatation, mild to moderate mitral regurgitation, mild to moderate tricuspid regurgitation, right ventricular systolic pressure elevated in the range of 40-50 mm Hg. History is otherwise notable for carotid disease status post right carotid endarterectomy (2018, [facility], Dr Benitez), left CEA (2010, Dr Emerson) with carotid duplex in August 2019 revealing moderate 50-69% stenosis of the right internal carotid artery and moderate left internal carotid artery stenosis in the range of 50-69%. 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 Allergies Allergy/AdvReac Type Severity Reaction Status Date / Time No Known Allergies Allergy Verified 06/09/20 10:20 Home Medications Home Medications Medication Instructions Recorded Confirmed Type Anoro Ellipta 1 inh INHALATION PM 02/03/19 06/06/20 History albuterol sulfate [Ventolin HFA] 2 puff INHALATION QID PRN 02/03/19 06/06/20 History aspirin 81 mg PO QPM 02/03/19 06/06/20 History atorvastatin 40 mg PO QDD 02/03/19 06/06/20 History betamethasone, augmented 1 applic TOPICAL BID PRN 02/03/19 06/06/20 History [Diprolene] cholecalciferol (vitamin D3) 1,000 unit PO QAM 02/03/19 06/06/20 History [Vitamin D3] lutein 20 mg PO Q2D 02/03/19 06/06/20 History nitroglycerin [Nitrostat] 0.4 mg SUBLINGUAL UD PRN 02/03/19 06/06/20 History oxybutynin chloride 5 mg PO QDD 02/03/19 06/06/20 History pyridoxine (vitamin B6) [Vitamin 100 mg PO QAM 02/03/19 06/06/20 History B-6] acetaminophen [Tylenol Extra 1,000 mg PO BID PRN 04/28/20 06/06/20 History Strength] ascorbic acid (vitamin C) [Vitamin 500 mg PO DAILY 04/28/20 06/06/20 History C] bisacodyl 5 mg PO QPM PRN 04/28/20 06/06/20 History latanoprost 1 drp OPL HS 04/28/20 06/06/20 History omeprazole 20 mg PO QAM 04/28/20 06/06/20 History cyanocobalamin (vitamin B-12) 0 mcg PO DAILY 06/06/20 06/06/20 History [Vitamin B-12] docusate sodium 100 mg PO BID 06/06/20 06/06/20 History ferrous sulfate 325 mg PO DAILY 06/06/20 06/06/20 History polyethylene glycol 3350 [Miralax] 17 g PO HS 06/06/20 06/06/20 History Patient History Medical History Anemia Bladder cancer Dx'ed 2017- s/p chemo and XRT CAD (coronary artery disease) cath 07/2018 - 100% RCA occlusion, s/p AI to LAD Carotid atherosclerosis s/p CEAs bilaterally CKD (chronic kidney disease), stage III COPD (chronic obstructive pulmonary disease) Degenerative disc disease DM type 2 (diabetes mellitus, type 2) Dyslipidemia GI bleed 07/27/2019--? 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 - EF 45-49%, grade I diastolic dysfunction Transient ischemic attack (TIA) 2010--no neurologist, no deficits Surgical History History of bladder surgery TURBT History of cardiac cath 07/26/2018 @ [facility] with 1 stent placed History of cataract surgery bilt History of colonoscopy History of cosmetic plastic surgery to remove droopy skin around neck History of cystoscopy History of esophagogastroduodenoscopy (EGD) History of heart artery stent 1 stent placed History of left-sided carotid endarterectomy 2010 History of right-sided carotid endarterectomy June 2019 History of thoracentesis History of tooth extraction all teeth Status post surgical removal and fulguration of bladder neoplasm Family History Mother Stroke Family history of diabetes mellitus Sister Family history of diabetes mellitus 2 Other No family history of adverse response to anesthesia Social History Smoking Status: Current some day smoker Cigarettes Per Day: 20-30; Second Hand Exposure: No; Hx Alcohol Use: No Hx Substance Use: No Preferred Language: Bahraini Communication Ability: Effective Hand Ii Cutter Required: No Beliefs That Will Affect Care: None Current Living Situation: Spouse Other Information That Helps Us Care for You: No Feels Safe at Home: Yes Safety Concerns: Feels Safe At This Time Physical Exam Physical Exam: Temp Pulse Resp BP Pulse Ox 36.3 C L 86 20 136/85 96 06/11/20 16:06 06/11/20 16:06 06/11/20 16:06 06/11/20 16:06 06/11/20 16:06 Constitutional: WD/WN, vitals as above Respiratory: Decreased breath sounds bilaterally at the bases Cardiovascular: Rate/Rhythm: regular rate Heart Sounds: no murmur Vessels: no JVD Extremities: no edema Gastrointestinal (Abdomen): normal bowel sounds, soft, nontender, no hepatosplenomegaly Neurologic: Findings consistent with his known diagnosis of Tourette syndrome, no focal deficits Results & Data ([facility]) Vital Signs (Past 12 Hours) Vital Signs Temp Pulse Pulse Resp BP BP Pulse Ox 06/11/20 11:25 36.3 C L 84 18 142/83 H 94 06/11/20 11:08 74 20 100 06/11/20 08:00 82 06/11/20 07:16 36.4 C L 93 H 21 95/60 L 97 06/11/20 05:25 64 20 94 06/11/20 02:50 36.6 C 89 18 119/69 94 Laboratory Results Cardiac Enzymes 06/11/20 06/11/20 Range/Units 05:53 10:30 AST 130 H 382 H (15-37) U/L Coagulation 06/11/20 Range/Units 05:53 APTT 29.3 (21.0-31.0) Seconds CBC 06/11/20 Range/Units 05:53 WBC 10.27 (4.8-10.8) K/uL RBC 3.26 L (4.7-6.1) M/uL Hgb 9.4 L (14.0-18.0) g/dL Hct 30.5 L (42-52) % Plt Count 163 (130-400) K/uL Neut # (Auto) 7.62 H (1.4-6.5) K/uL Lymph # (Auto) 0.72 L (1.2-3.4) K/uL [place] # (Auto) 1.81 H (0.11-0.59) K/uL Eos # (Auto) 0.06 (0-0.5) K/uL Baso # (Auto) 0.02 (0-0.2) K/uL Comprehensive Metabolic Panel 06/11/20 06/11/20 Range/Units 05:53 10:30 Sodium 135 L 135 L (136-145) mmol/L Potassium 5.5 H 4.9 (3.5-5.1) mmol/L Chloride 105 104 (98-107) mmol/L Carbon Dioxide 22 23 (21-32) mmol/L BUN 35 H 35 H (7-18) mg/dl Creatinine 1.87 H D 2.09 H (0.6-1.4) mg/dl Glucose 144 H 161 H (70-99) mg/dl Calcium 6.6 L 7.4 L (8.5-10.1) mg/dl AST 130 H 382 H (15-37) U/L ALT 147 H 352 H (12-78) U/L Alkaline Phosphatase 103 108 (45-117) U/L Total Protein 6.5 6.7 (6.4-8.2) gm/dl Albumin 2.5 L 2.6 L (3.4-5.0) gm/dl Intake and Output 06/11/20 06/11/20 06/11/20 06:59 14:59 22:59 Intake Total 1224.334 / 3638.751 1321.253 / 1321.253 Output Total 175 / 946 203 / 203 Balance 1049.334 / 2692.751 1118.253 / 1118.253 Intake: IV 1164.334 / 3038.751 441.253 / 441.253 Calcium Gluconate 10% 2,000 mg 70 / 70 In Nss 50 ml @ 280 mls/hr IV TODAY@0730 ONE Rx#:[id number] MAGNESIUM SULFATE / D5W 1 gm In 100 / 100 100 ml @ 50 mls/hr IV ONE ONE Rx#:[id number] Protonix 40 mg In D5 100 ml @ 8 177.667 / 465.001 106.333 / 106.333 MG/HR 20 mls/hr IV Q5H [facility] Rx# :[id number] Zosyn 3.375 gm In D5 100 ml @ 115 / 345 164.92 / 164.92 28.75 mls/hr IV Q8H [facility] Rx#: [id number] Nss 1000ML 1,000 ml @ 75 mls/hr 871.667 / 2168.750 0 / 0 IV .[id number] [facility] Rx#:[id number] Oral 60 / 600 880 / 880 Output: Urine 175 / 875 200 / 200 # Bowel Movements 3 / 3 Other: Weight 72.9 kg Diagnostic Findings EKG performed 06/06/2020 at 2034 and reviewed independently: Normal sinus rhythm at 92 bpm, inferior lateral repolarization changes, slightly less prominent compared to May,. Also relatively unchanged compared to 07/27/2019.
[2020-06-11] MEDS ORDERED: FUROSEMIDE 20 MG in SYRINGE 0 ML IV ONE (13:15)
--- NOTE | 2020-06-11 15:16 | Hospitalist Progress Note ---
Date of Service June 11, 2020 Assessment & Plan (1) Orthostasis: Orthostatic hypotension Symptomatic acute blood loss anemia Acute upper GI bleeding H/O AVMs, internal hemorrhoids, colonic diverticulosis S/P EGD:multiple small non bleeding AVM's in stomach. A clip was placed on one of the APC sites in the gastric body. Small submucosal mass in the low fundus of the stomach S/P EMR resulting in perforation which was clip closured. S/P 1 Unit PRBCs Continue Protonix Drip Appreciate GI input and recommendation Received general amount of IV fluid for suspected SONYA Gastric Perforation small gastric perforation during EGD/Submucosal resection of a mass --Upper GI series:No extravasation of contrast to suggest continued gastric perforation. --KUB: Nasogastric tube placed the gastric fundus. Nonobstructive bowel pattern. Probable infiltrate right base. Currently no evidence of peritonitis on initial antibiotic of Zosyn has been discontinued Conservative management Appreciate Surgery input Received IV fluids, bowel rest, NG tube Kub today showed no evidence of free air Acute kidney injury On chronic kidney disease Creatinine is 1.51 on admission and went up to 2.09 as of 06/11/2020 Received a small dose 20 mg Lasix today Monitor creatinine Presyncopal Episodes No known seizure like activity Monitor on Tele for arrhythmias Anemia contributing EEG: This is an abnormal awake and drowsy routine EEG due to mild generalized background slowing suggestive of a mild non specific encephalopathy. No focal slowing or epileptiform activity is recorded. Appreciate cardiology input and recommendation Physical deconditioning Generalized weakness Secondary to comorbidities/Immunotherapy PT/OT Chronic Diastolic heart failure Last EF: 50-55% Blood pressure seems to be stable and the patient has more shortness of breath and requires more oxygen Recently did not show any florid pulmonary edema We will try small dose of Lasix as per cardiology Monitor creatinine CAD S/P S/P AI to LAD in 06/2019 Held Aspirin due to GI bleeding Continue Lipitor Likely to need aspirin following discharge COPD Chronic hypoxic respiratory failure Ongoing tobacco abuse Chronic Oxygen Dependency: 2 liters at baseline Bibasilar parenchymal infiltrate--on CT--likely chronic Continue home inhalers Nebs PRN Alliances Consultant to quit smoking Refused to have nicotine patch for now DM Type II HbA1C: 6.07 Mar 2020 Off metformin secondary to worsening renal functions Continue ISS while hospitalized Monitor BGs H/O Metastatic bladder cancer S/P Chemoradiation Ongoing immunotherapy (Keytruda) Follows with Jayjay Puckett and Dr Franks Last dose of Keytruda on 06/03/20 H/O Tourette's syndrome Intermittent Behavioral changes as per family Monitor DVT Px: SCDs RE GI bleed Code Status Full code Disposition PT/OT prior to discharge Discussed with the in detail and answered all of her questions Admission and Anticipated Discharge Date Admission Date: June 06, 2020 Subjective The patient was seen and examined in the telemetry unit He complains of shortness of breath of breath with more anxiety of pounds Denies any chest pain and/or palpitation Denies any abdominal pain, nausea and or vomiting Review of Systems Review of Systems: All systems reviewed and are unremarkable except as noted below Constitutional: + problem reported (Disease understanding) Eyes: as per Subjective / HPI Ear, Nose, Mouth, Throat: as per Subjective / HPI Respiratory: as per Subjective / HPI Cardiovascular: + dyspnea at rest and + dyspnea on exertion; no chest pain and no orthopnea Gastrointestinal: no abdominal pain, no nausea and no vomiting Neurologic: + unsteadiness Physical Exam Physical Exam: Lying in bed with moderate shortness of breath at rest Constitutional: well developed, well nourished, + acute distress (Shortness of breath) and + ill appearing Eyes: PERRL, conjunctivae normal, anicteric sclerae ENMT: external ear and nose normal, oropharynx normal Neck: trachea midline, no thyromegaly Respiratory: + respiratory distress (Moderate distress at rest) Auscultation: + diminished lung sounds and + crackles (Minimal crackles at the bases) Cardiovascular: Rate/Rhythm: regular rate and regular rhythm Heart Sounds: no murmur Gastrointestinal (Abdomen): Inspection/Auscultation: abdomen normal to inspection and normal bowel sounds; abdomen not distended Pe rcussion/Palpation: abdomen soft; abdomen nontender Musculoskeletal: No acute arthritis involving any joints Neurologic: moves all extremities; no focal motor deficits Alert, awake and oriented x3 Results & Data Results & Data ([facility]) Vital Signs (Past 12 Hours) Vital Signs Temp Pulse Pulse Resp BP BP Pulse Ox 06/11/20 11:25 36.3 C L 84 18 142/83 H 94 06/11/20 11:08 74 20 100 06/11/20 08:00 82 06/11/20 07:16 36.4 C L 93 H 21 95/60 L 97 06/11/20 05:25 64 20 94 Laboratory Results Short CBC 06/11/20 Range/Units 05:53 WBC 10.27 (4.8-10.8) K/uL Hgb 9.4 L (14.0-18.0) g/dL Hct 30.5 L (42-52) % Plt Count 163 (130-400) K/uL BMP 06/11/20 06/11/20 05:53 10:30 Sodium 135 L 135 L Potassium 5.5 H 4.9 Chloride 105 104 Carbon Dioxide 22 23 BUN 35 H 35 H Creatinine 1.87 H D 2.09 H Glucose 144 H 161 H Calcium 6.6 L 7.4 L Cardiac Enzymes 06/11/20 Range/Units 07:02 Total Creatine Kinase 101 (39-308) U/L Liver Function 06/11/20 06/11/20 Range/Units 05:53 10:30 Total Bilirubin 0.8 0.7 (0.2-1) mg/dl AST 130 H 382 H (15-37) U/L ALT 147 H 352 H (12-78) U/L Alkaline Phosphatase 103 108 (45-117) U/L Albumin 2.5 L 2.6 L (3.4-5.0) gm/dl Medications Administered Current Inpatient Medications Acetaminophen (Tylenol) 325 mg PO Q6H PRN PRN Reason: Mild Pain Stop: 07/11/20 06:54 Albuterol (Duoneb) 3 ml NEB Q4R PRN PRN Reason: Shortness Of Breath Or Wheezing Stop: 07/07/20 14:59 Albuterol (Duoneb) 3 ml NEB QIDR [facility] Stop: 07/11/20 10:59 Last Admin: 06/11/20 11:08 Dose: 3 ml Documented by: Dextrose (Dextrose 50%) 25 - 50 ml IV UD PRN; Protocol PRN Reason: Hypoglycemia Protocol Stop: 07/07/20 00:06 Glucagon (Glucagen) 1 mg SQ UD PRN; Protocol PRN Reason: Hypoglycemia Protocol Stop: 07/07/20 00:06 Glucose (Dex4 Glucose) 4 - 8 tabs PO UD PRN; Protocol PRN Reason: Hypoglycemia Protocol Stop: 07/07/20 00:06 Glucose (Glucose 40%) 15 - 30 gm PO UD PRN; Protocol PRN Reason: Hypoglycemia Protocol Stop: 07/07/20 00:06 Promethazine HCl 12.5 mg/ (Sodium Chloride) 50.5 mls @ 202 mls/hr IV Q6H PRN PRN Reason: Nausea And Vomiting Stop: 07/07/20 00:06 Pantoprazole Sodium 40 mg/ (Syringe) 10 mls @ 5 mls/min IV BID DALJIT Stop: 07/11/20 20:59 Insulin Aspart (Novolog Flexpen) 0 units SC ACHS DALJIT Stop: 07/10/20 20:59 Last Admin: 06/11/20 12:20 Dose: 2 units Documented by: Latanoprost (Xalatan Oph) 1 drops OPL HS DALJIT Stop: 07/07/20 20:59 Last Admin: 06/10/20 19:54 Dose: 1 drops Documented by: Miscellaneous (Carbohydrates For Hypoglycemia) 15 - 30 gm PO UD PRN PRN Reason: Hypoglycemia Protocol Stop: 07/07/20 00:06 Umeclidinium/Vilanterol (Anoro Ellipta 62.5/25 Mcg Inh) 1 puffs INH PM DALJIT Stop: 07/07/20 20:59 Last Admin: 06/10/20 19:53 Dose: 1 puffs Documented by:
[2020-06-11] MEDS: LATANOPROST 0.005% OP SOLN 2.5 ML BTL OPL SCH (20:22)
[2020-06-11] MEDS: UMECLIDINIUM/VILANTEROL 62.5/25MCG 7 PUFFS/INHALER INH SCH (20:22)
[2020-06-11] MEDS: PANTOprazole 40 MG in SYRINGE 0 ML IV SCH (20:23)
[2020-06-11] MEDS: ALBUT/IPRATROP 3MG/0.5MG NEB 3 ML VIAL NEB PRN (21:05)
[2020-06-12 05:59] LABS: Hematocrit (blood only) 29.3 % (42-52); Hemoglobin 9.2 g/dL (14.0-18.0); Mean Corpuscular Hemoglobin 29.2 pg (25-34); Mean Corpuscular Hgb Conc 31.4 g/dL (32-36); Mean Platelet Volume 10.8 fL (7.4-10.4); Nucleated RBC # (auto) 0.08 K/uL (0-0); Nucleated RBC % (auto) 0.7 %; Platelet Count 188 K/uL (130-400); RDW Coefficient of Variation 19.2 % (11.5-14.5); RDW Standard Deviation 64.1 fL (36.4-46.3); Red Blood Count 3.15 M/uL (4.7-6.1); White Blood Count 11.52 K/uL (4.8-10.8)
[2020-06-12] MEDS: ALBUT/IPRATROP 3MG/0.5MG NEB 3 ML VIAL NEB SCH ×5 (06:13→23:25)
[2020-06-12 06:23] LABS: Basophils # (auto) 0.02 K/uL (0-0.2); Basophils % (auto) 0.2 %; Echinocytes 1+; Eosinophils # (auto) 0.14 K/uL (0-0.5); Eosinophils % (auto) 1.2 %; Immature Granulocytes # (auto) 0.07 K/uL (0.00-0.02); Immature Granulocytes % (auto) 0.6 %; Lymphocytes # (auto) 1.54 K/uL (1.2-3.4); Lymphocytes % (auto) 13.4 %; Monocytes # (auto) 1.27 K/uL (0.11-0.59); Neutrophils # (auto) 8.48 K/uL (1.4-6.5); Neutrophils % (auto) 73.6 %; Polychromasia 1+; Schistocytes 1+; Target Cells 1+
[2020-06-12 06:37] LABS: BUN Creatinine Ratio 21.1 (10-20); Calcium 7.7 mg/dl (8.5-10.1); Creatinine Clr Calc Pharmacy 33.3 ml/min; Est GFR (African American) 41.2; Est GFR (Non-African American) 35.5; Magnesium 2.4 mg/dl (1.8-2.4); Phosphorus 2.8 mg/dl (2.5-4.9); Potassium 4.6 mmol/L (3.5-5.1)
--- NOTE | 2020-06-12 07:21 | Surgery Progress Note ---
Date of Service June 12, 2020 Assessment & Plan (1) Gastric perforation: No peritonitis. No clinical evidence of continuing leak Tolerated full liquid diet Can advance as tolerated No need for surgical intervention at this time. Subjective Awake and alert Seems less confused this morning Tolerated full liquid diet Minimal abdominal discomfort No nausea or vomiting Passing flatus Had bowel movement Physical Exam Gastrointestinal (Abdomen): Percussion/Palpation: + abdomen tender (Minimal tenderness) and abdomen soft Results & Data Vital Signs (Past 12 Hours) Vital Signs Temp Pulse Pulse Resp BP Pulse Ox 06/12/20 06:17 107 H 20 92 06/12/20 03:35 36.3 C L 87 18 138/72 94 06/12/20 00:00 101 H 06/11/20 23:27 36.8 C 90 18 101/57 L 98 06/11/20 21:08 100 H 18 97
[2020-06-12] MEDS: PANTOprazole 40 MG in SYRINGE 0 ML IV SCH ×2 (08:16→20:50)
[2020-06-12] MEDS: INSULIN ASPART 100 UNITS/ML 3 ML PEN SC SCH ×4 (08:17→20:51)
[2020-06-12 09:02] LABS: Albumin Level 2.7 gm/dl (3.4-5.0); Bilirubin Direct 0.2 mg/dl (0-0.2); Bilirubin,Total 0.4 mg/dl (0.2-1); Total Protein 6.5 gm/dl (6.4-8.2)
[2020-06-12 10:12] LABS: Hepatitis B Surface Antigen Neg (Neg)
[2020-06-12 10:40] LABS: Hepatitis C IgG 13Yrs+Old_Rflx Neg (Neg)
--- NOTE | 2020-06-12 11:28 | Hospitalist Progress Note ---
Date of Service June 12, 2020 Assessment & Plan (1) Orthostasis: Orthostatic hypotension Symptomatic acute blood loss anemia Acute upper GI bleeding H/O AVMs, internal hemorrhoids, colonic diverticulosis S/P EGD:multiple small non bleeding AVM's in stomach. A clip was placed on one of the APC sites in the gastric body. Small submucosal mass in the low fundus of the stomach S/P EMR resulting in perforation which was clip closured. S/P 1 Unit PRBCs Continue Protonix Drip Appreciate GI input and recommendation Received general amount of IV fluid for suspected SONYA Has been feeling a lot better today PT and OT have been ordered Gastric Perforation small gastric perforation during EGD/Submucosal resection of a mass --Upper GI series:No extravasation of contrast to suggest continued gastric perforation. --KUB: Nasogastric tube placed the gastric fundus. Nonobstructive bowel pattern. Probable infiltrate right base. Currently no evidence of peritonitis on initial antibiotic of Zosyn has been discontinued Conservative management Appreciate Surgery input Received IV fluids, bowel rest, NG tube Kub showed no evidence of free air No signs of continued perforation Diet advanced as tolerated Likely discharge tomorrow Acute kidney injury On chronic kidney disease Creatinine is 1.51 on admission and went up to 2.09 as of 06/11/2020 Received a small dose 20 mg Lasix today Creatinine is slightly better at 1.80 as of 06/12/2020 Presyncopal Episodes No known seizure like activity Monitor on Tele for arrhythmias Anemia contributing EEG: This is an abnormal awake and drowsy routine EEG due to mild generalized background slowing suggestive of a mild non specific encephalopathy. No focal slowing or epileptiform activity is recorded. Appreciate cardiology input and recommendation Was advised to take time to start any activity from sitting or lying position Physical deconditioning Generalized weakness Secondary to comorbidities/Immunotherapy PT/OT-ordered Chronic Diastolic heart failure Last EF: 50-55% Blood pressure seems to be stable and the patient has more shortness of breath and requires more oxygen Recently did not show any florid pulmonary edema We will try small dose of Lasix as per cardiology Will try 20 mg of Lasix IV today Monitor creatinine CAD S/P S/P AI to LAD in 06/2019 Held Aspirin due to GI bleeding Continue Lipitor Aspirin 81 mg has been added from 06/12/2020 and will be continued as an outpatient COPD Chronic hypoxic respiratory failure Ongoing tobacco abuse Chronic Oxygen Dependency: 2 liters at baseline Bibasilar parenchymal infiltrate--on CT--likely chronic Continue home inhalers Nebs PRN [employer] to quit smoking Refused to have nicotine patch for now DM Type II HbA1C: 6.07 Mar 2020 Off metformin secondary to worsening renal functions Continue ISS while hospitalized Monitor BGs H/O Metastatic bladder cancer S/P Chemoradiation Ongoing immunotherapy (Keytruda) Follows with Jayjay Puckett and Dr Franks Last dose of Keytruda on 06/03/20 H/O Tourette's syndrome Intermittent Behavioral changes as per family Monitor DVT Px: SCDs RE GI bleed Code Status Full code Disposition PT/OT prior to discharge Discussed with the in detail and answered all of her questions Admission and Anticipated Discharge Date Admission Date: June 06, 2020 Subjective The patient was seen and examined in the telemetry unit He complains of shortness of breath of breath with more anxiety of pounds Denies any chest pain and/or palpitation Denies any abdominal pain, nausea and or vomiting 06/12/2020 The patient was seen and examined in telemetry unit He has been feeling much better today with decreasing shortness of breath and anxiety Denies any chest pain and/or palpitation, no abdominal pain, nausea and or vomiting No dizziness on standing Review of Systems Review of Systems: All systems reviewed and are unremarkable except as noted below Constitutional: + malaise Ear, Nose, Mouth, Throat: as per Subjective / HPI Cardiovascular: + dyspnea on exertion; no chest pain, no dyspnea at rest and no orthopnea Neurologic: + unsteadiness Physical Exam Physical Exam: Lying in bed with moderate shortness of breath at rest Constitutional: well developed, well nourished, + acute distress (Minimal shortness of breath at rest) and + ill appearing Eyes: PERRL, conjunctivae normal, anicteric sclerae ENMT: external ear and nose normal, oropharynx normal Neck: trachea midline, no thyromegaly Respiratory: + respiratory distress (Moderate distress at rest) Auscultation: + diminished lung sounds and + crackles (Moderate crackles at the bases) Cardiovascular: Rate/Rhythm: regular rate and regular rhythm Heart Sounds: no murmur Gastrointestinal (Abdomen): Inspection/Auscultation: abdomen normal to inspection and normal bowel sounds; abdomen not distended Percussion/Palpation: abdomen soft; abdomen nontender Musculoskeletal: No acute arthritis involving any joints Neurologic: moves all extremities; no focal motor deficits Alert, awake and oriented x3. Psychiatric: Affect: + anxious affect Results & Data Results & Data ([facility]) Vital Signs (Past 12 Hours) Vital Signs Temp Pulse Pulse Resp BP BP Pulse Ox 06/12/20 11:03 85 18 146/74 H 93 06/12/20 07:24 36.5 C 88 18 105/60 92 06/12/20 06:17 107 H 20 92 06/12/20 03:35 36.3 C L 87 18 138/72 94 06/12/20 00:00 101 H 06/11/20 23:27 36.8 C 90 18 101/57 L 98 Laboratory Results Short CBC 06/12/20 Range/Units 05:47 WBC 11.52 H (4.8-10.8) K/uL Hgb 9.2 L (14.0-18.0) g/dL Hct 29.3 L (42-52) % Plt Count 188 (130-400) K/uL BMP 06/12/20 05:47 Sodium 135 L Potassium 4.6 Chloride 103 Carbon Dioxide 25 BUN 38 H Creatinine 1.80 H Glucose 123 H Calcium 7.7 L Liver Function 06/12/20 Range/Units 05:47 Total Bilirubin 0.4 (0.2-1) mg/dl Direct Bilirubin 0.2 (0-0.2) mg/dl AST 198 H (15-37) U/L ALT 345 H (12-78) U/L Alkaline Phosphatase 111 (45-117) U/L Albumin 2.7 L (3.4-5.0) gm/dl Medications Administered Current Inpatient Medications Acetaminophen (Tylenol) 325 mg PO Q6H PRN PRN Reason: Mild Pain Stop: 07/11/20 06:54 Albuterol (Duoneb) 3 ml NEB Q4R PRN PRN Reason: Shortness Of Breath Or Wheezing Stop: 07/07/20 14:59 Last Admin: 06/11/20 21:05 Dose: 3 ml Documented by: Albuterol (Duoneb) 3 ml NEB QIDR [facility] Stop: 07/11/20 10:59 Last Admin: 06/12/20 06:13 Dose: 3 ml Documented by: Aspirin (Ecotrin Ectab) 81 mg PO QAM [facility] Stop: 07/12/20 11:29 Dextrose (Dextrose 50%) 25 - 50 ml IV UD PRN; Protocol PRN Reason: Hypoglycemia Protocol Stop: 07/07/20 00:06 Glucagon (Glucagen) 1 mg SQ UD PRN; Protocol PRN Reason: Hypoglycemia Protocol Stop: 07/07/20 00:06 Glucose (Dex4 Glucose) 4 - 8 tabs PO UD PRN; Protocol PRN Reason: Hypoglycemia Protocol Stop: 07/07/20 00:06 Glucose (Glucose 40%) 15 - 30 gm PO UD PRN; Protocol PRN Reason: Hypoglycemia Protocol Stop: 07/07/20 00:06 Promethazine HCl 12.5 mg/ (Sodium Chloride) 50.5 mls @ 202 mls/hr IV Q6H PRN PRN Reason: Nausea And Vomiting Stop: 07/07/20 00:06 Pantoprazole Sodium 40 mg/ (Syringe) 10 mls @ 5 mls/min IV BID [facility] Stop: 07/11/20 20:59 Last Admin: 06/12/20 08:16 Dose: 5 mls/min Documented by: Furosemide 20 mg/ Syringe 2 mls @ 4 mls/min IV ONE ONE Stop: 06/12/20 11:31 Insulin Aspart (Novolog Flexpen) 0 units SC ACHS [facility] Stop: 07/10/20 20:59 Last Admin: 06/12/20 08:17 Dose: Not Given Documented by: Latanoprost (Xalatan Oph) 1 drops OPL HS [facility] Stop: 07/07/20 20:59 Last Admin: 06/11/20 20:22 Dose: 1 drops Documented by: Miscellaneous (Carbohydrates For Hypoglycemia) 15 - 30 gm PO UD PRN PRN Reason: Hypoglycemia Protocol Stop: 07/07/20 00:06 Umeclidinium/Vilanterol (Anoro Ellipta 62.5/25 Mcg Inh) 1 puffs INH PM [facility] Stop: 07/07/20 20:59 Last Admin: 06/11/20 20:22 Dose: 1 puffs Documented by:
[2020-06-12] MEDS ORDERED: FUROSEMIDE 20 MG in SYRINGE 0 ML IV ONE (11:30)
[2020-06-12] MEDS: ASPIRIN 81 MG ECTAB PO SCH (12:27)
--- NOTE | 2020-06-12 13:51 | Gastroenterology Progress Note ---
Date of Service June 12, 2020 Assessment & Plan (1) Anemia: BID PPI. Advance to soft diet. (2) Gastric perforation: (3) Elevated LFTs: Liver US Lipase Admission and Anticipated Discharge Date Admission Date: June 06, 2020 Supervising Physician Co-Signing Physician Notes Attg add: I interviewed and examined pt, reviewed chart and labs. Pt with no complaints, benign abd exam, improved LFT's/creat. F/u uls, no further recs. OK for d/c from GI perspective tomorrow. Continue PPI once daily for 1 month. Will need monthly monitoring of CBC given h/o recurrent AVM's. Subjective Mr. Arec is a 79 yr old male with PSVTs, Touretts, CKD3, ischemic cardiomyopathy, HTN, DM2. EGD for melena on 06/10: AVMs APC'ed, one clipped; one 1cm submucosal mass endoscopically resected with micro perforation during the procedure. CT on 06/09 and UGI with gastrografin w/o evidence of free air or extravasation. LFTs noted to be elevated, improved today: AST 130->382->198; ALT 147->352->345. T bili and Alk Phos normal. Today: Pt feels well and would like to go home. Tolerating clear liquids well po. + acute worsening of renal function during hospitalization, with improvement today. Cr 1.5 ->2.1 ->1.8. Review of Systems Review of Systems: ROS: Gen: Denies weakness, fevers, weight loss Eyes: No eye redness, or pain, no recent vision changes Resp: No SOB, no cough Cardio: No palpitations/irregular beats, no chest pain GI: No abdominal pain, no nausea/vomiting : Denies pain on urination Skin: No jaundice, itching or new rashes Physical Exam Constitutional: WD/WN, vitals as above Eyes: PERRL, conjunctivae normal, anicteric sclerae ENMT: external ear and nose normal, oropharynx normal Neck: trachea midline, no thyromegaly Respiratory: normal respiratory effort, lungs clear to auscultation Cardiovascular: RRR, no murmur, no edema Gastrointestinal (Abdomen): Percussion/Palpation: abdomen soft; abdomen nontender Musculoskeletal: no cyanosis or clubbing, extremities motor strength 5/5 Neurologic: patellar DTR's 2+ bilat, sensation intact Psychiatric: A+Ox3, euthymic affect Lymphatic: no cervical or axillary lymphadenopathy Results & Data ([facility]) Vital Signs (Past 12 Hours) Vital Signs Temp Pulse Resp BP BP Pulse Ox 06/12/20 11:39 79 18 96 06/12/20 11:03 85 18 146/74 H 93 06/12/20 07:24 36.5 C 88 18 105/60 92 06/12/20 06:17 107 H 20 92 06/12/20 03:35 36.3 C L 87 18 138/72 94
--- NOTE | 2020-06-12 14:55 | Cardiology Progress Note ---
Date of Service June 12, 2020 Assessment & Plan (1) GIB (gastrointestinal bleeding): (2) Gastric perforation: (3) PSVT (paroxysmal supraventricular tachycardia): (4) CAD (coronary artery disease): Appreciate GI input. Resume ASA 81 mg with caution given h/o LAD stent in 2018. No additional loss of postural tone episodes since 06/10. BP on the higher side. Add back low dose beta lisbet. Furosemide given this am. Will reassess tomorrow. Subjective Patient feeling better. Less short of breath (no SOB at present). Telemetry reveals SR in the 80s with no additional tachycardia. Physical Exam Physical Exam: Temp Pulse Resp BP Pulse Ox 36.5 C 79 18 146/74 H 96 06/12/20 07:24 06/12/20 11:39 06/12/20 11:39 06/12/20 11:03 06/12/20 11:39 Constitutional: WD/WN, vitals as above Respiratory: normal respiratory effort, lungs clear to auscultation Cardiovascular: RRR, no murmur, no edema Neurologic: PERRL, EOMI, accommodation nl, no face palsy, no dysarthria Results & Data Vital Signs (Past 12 Hours) Vital Signs Temp Pulse Resp BP BP Pulse Ox 06/12/20 11:39 79 18 96 06/12/20 11:03 85 18 146/74 H 93 06/12/20 07:24 36.5 C 88 18 105/60 92 06/12/20 06:17 107 H 20 92 06/12/20 03:35 36.3 C L 87 18 138/72 94 Laboratory Results Cardiac Enzymes 06/12/20 Range/Units 05:47 AST 198 H (15-37) U/L CBC 06/12/20 Range/Units 05:47 WBC 11.52 H (4.8-10.8) K/uL RBC 3.15 L (4.7-6.1) M/uL Hgb 9.2 L (14.0-18.0) g/dL Hct 29.3 L (42-52) % Plt Count 188 (130-400) K/uL Neut # (Auto) 8.48 H (1.4-6.5) K/uL Lymph # (Auto) 1.54 (1.2-3.4) K/uL [place] # (Auto) 1.27 H (0.11-0.59) K/uL Eos # (Auto) 0.14 (0-0.5) K/uL Baso # (Auto) 0.02 (0-0.2) K/uL Comprehensive Metabolic Panel 06/12/20 06/12/20 Range/Units 05:47 05:47 Sodium 135 L (136-145) mmol/L Potassium 4.6 (3.5-5.1) mmol/L Chloride 103 (98-107) mmol/L Carbon Dioxide 25 (21-32) mmol/L BUN 38 H (7-18) mg/dl Creatinine 1.80 H (0.6-1.4) mg/dl Glucose 123 H (70-99) mg/dl Calcium 7.7 L (8.5-10.1) mg/dl Direct Bilirubin 0.2 (0-0.2) mg/dl AST 198 H (15-37) U/L ALT 345 H (12-78) U/L Alkaline Phosphatase 111 (45-117) U/L Total Protein 6.5 (6.4-8.2) gm/dl Albumin 2.7 L (3.4-5.0) gm/dl Intake and Output 06/11/20 06/12/20 06/12/20 22:59 06:59 14:59 Intake Total 440 / 1861.253 100 / 1861.253 Output Total 200 / 403 Balance 240 / 1458.253 100 / 1458.253 Intake: Oral 440 / 1420 100 / 1420 Output: Urine 200 / 400 Other: # Unmeasured Voids 1 125 Weight 75.1 kg (1) GIB (gastrointestinal bleeding) GI bleed type/associated pathology: unspecified gastrointestinal hemorrhage type Qualified Code(s): K92.2 - Gastrointestinal hemorrhage, unspecified
--- NOTE | 2020-06-12 16:14 | Ultrasound Report ---
US abdomen limited CLINICAL HISTORY: elevated LFTs COMPARISON STUDY: CT scan dated 06/09/2020 FINDINGS: Pancreas appear normal as visualized. Portions were obscured due to bowel gas shadowing. No focal hepatic masses were visualized. There is trace perihepatic fluid. There is no ductal dilatat ion. No gallstones are visualized. There is mild gallbladder wall thickening. There is no ductal dilatation. The common bile duct measures 4 mm. There is a 1 cm right renal cyst. There is no hydronephrosis. IMPRESSION: 1. No hepatic masses identified. No ductal dilatation 2. Gallbladder wall thickening. No calculi identified 3. Trace upper abdominal ascites ACT 112: Negative or not required by law. Electronically signed by: Parrish Cutler M.D. 06/12/2020 4:13 PM
[2020-06-12] MEDS: UMECLIDINIUM/VILANTEROL 62.5/25MCG 7 PUFFS/INHALER INH SCH (20:47)
[2020-06-12] MEDS: LATANOPROST 0.005% OP SOLN 2.5 ML BTL OPL SCH (20:51)
[2020-06-13] MEDS: ALBUT/IPRATROP 3MG/0.5MG NEB 3 ML VIAL NEB SCH ×5 (01:33→19:14)
[2020-06-13 02:58] LABS: Hepatitis A Antibody IgM NON-REACTIVE (NON-REACTIVE); Hepatitis B Core Antibody IgM NON-REACTIVE (NON-REACTIVE)
[2020-06-13 05:58] LABS: Basophils # (auto) 0.02 K/uL (0-0.2); Basophils % (auto) 0.2 %; Eosinophils # (auto) 0.14 K/uL (0-0.5); Eosinophils % (auto) 1.4 %; Hematocrit (blood only) 27.5 % (42-52); Hemoglobin 8.8 g/dL (14.0-18.0); Immature Granulocytes # (auto) 0.13 K/uL (0.00-0.02); Immature Granulocytes % (auto) 1.3 %; Lymphocytes # (auto) 1.31 K/uL (1.2-3.4); Lymphocytes % (auto) 12.8 %; Mean Corpuscular Volume 90.8 fL (80-100); Mean Platelet Volume 9.6 fL (7.4-10.4); Monocytes % (auto) 11.8 %; Neutrophils # (auto) 7.41 K/uL (1.4-6.5); Neutrophils % (auto) 72.5 %; Nucleated RBC # (auto) 0.14 K/uL (0-0); Nucleated RBC % (auto) 1.3 %; Platelet Count 162 K/uL (130-400); RDW Coefficient of Variation 19.1 % (11.5-14.5); RDW Standard Deviation 62.9 fL (36.4-46.3); Red Blood Count 3.03 M/uL (4.7-6.1); White Blood Count 10.21 K/uL (4.8-10.8)
[2020-06-13 06:36] LABS: BUN Creatinine Ratio 24.5 (10-20); Calcium 7.8 mg/dl (8.5-10.1); Creatinine Clr Calc Pharmacy 31.2 ml/min; Est GFR (African American) 38.1; Est GFR (Non-African American) 32.8; Potassium 4.2 mmol/L (3.5-5.1)
--- NOTE | 2020-06-13 07:29 | Hospitalist Progress Note ---
Date of Service June 13, 2020 Assessment & Plan (1) Orthostasis: Orthostatic hypotension Symptomatic acute blood loss anemia Acute upper GI bleeding H/O AVMs, internal hemorrhoids, colonic diverticulosis S/P EGD:multiple small non bleeding AVM's in stomach. A clip was placed on one of the APC sites in the gastric body. Small submucosal mass in the low fundus of the stomach S/P EMR resulting in perforation which was clip closured. S/P 1 Unit PRBCs Continue Protonix Drip Appreciate GI input and recommendation Received general amount of IV fluid for suspected SONYA No more orthostatic changes Has been getting PT and OT and doing reasonably well but requiring more oxygen to sustain saturation Gastric Perforation small gastric perforation during EGD/Submucosal resection of a mass --Upper GI series:No extravasation of contrast to suggest continued gastric perforation. --KUB: Nasogastric tube placed the gastric fundus. Nonobstructive bowel pattern. Probable infiltrate right base. Currently no evidence of peritonitis on initial antibiotic of Zosyn has been discontinued Conservative management Appreciate Surgery input Received IV fluids, bowel rest, NG tube Kub showed no evidence of free air No signs of continued perforation Diet advanced as tolerated Surgery signed off Acute kidney injury On chronic kidney disease Creatinine is 1.51 on admission and went up to 2.09 as of 06/11/2020 Received a small dose 20 mg Lasix today Creatinine is slightly better at 1.80 as of 06/12/2020 Creatinine remains elevated at 1.9 today We will continue with a small dose of oral Lasix of 20 mg daily Presyncopal Episodes No known seizure like activity Monitor on Tele for arrhythmias Anemia contributing EEG: This is an abnormal awake and drowsy routine EEG due to mild generalized background slowing suggestive of a mild non specific encephalopathy. No focal slowing or epileptiform activity is recorded. Appreciate cardiology input and recommendation Was advised to take time to start any activity from sitting or lying position No more dizziness and/or presyncope with ambulation Physical deconditioning Generalized weakness Secondary to comorbidities/Immunotherapy PT/[id number] to be discharged home Acute on chronic combined systolic and diastolic CHF Chronic Diastolic heart failure Last EF: 50-55% Blood pressure seems to be stable and the patient has more shortness of breath and requires more oxygen Recently did not show any florid pulmonary edema We will try small dose of Lasix as per cardiology Will try 20 mg of Lasix IV today Will give 20 mg of oral Lasix daily CAD S/P S/P AI to LAD in 06/2019 Held Aspirin due to GI bleeding Continue Lipitor Aspirin 81 mg has been added from 06/12/2020 and will be continued as an outpatient Has been started on a small dose of beta-lisbet with metoprolol succinate 12.5 mg daily Advised increased ambulation COPD Chronic hypoxic respiratory failure Ongoing tobacco abuse Chronic Oxygen Dependency: 2 liters at baseline Bibasilar parenchymal infiltrate--on CT--likely chronic Continue home inhalers Nebs PRN [employer] to quit smoking Refused to have nicotine patch for now DM Type II HbA1C: 6.07 Mar 2020 Off metformin secondary to worsening renal functions Continue ISS while hospitalized Monitor BGs H/O Metastatic bladder cancer S/P Chemoradiation Ongoing immunotherapy (Keytruda) Follows with [facility] and Dr Franks Last dose of Keytruda on 06/03/20 H/O Tourette's syndrome Intermittent Behavioral changes as per family Monitor DVT Px: SCDs RE GI bleed Code Status Full code Disposition PT/OT prior to discharge Discussed with the in detail and answered all of her questions Will discuss with the this afternoon Admission and Anticipated Discharge Date Admission Date: June 06, 2020 Subjective The patient was seen and examined in the telemetry unit He complains of shortness of breath of breath with more anxiety of pounds Denies any chest pain and/or palpitation Denies any abdominal pain, nausea and or vomiting 06/12/2020 The patient was seen and examined in telemetry unit He has been feeling much better today with decreasing shortness of breath and anxiety Denies any chest pain and/or palpitation, no abdominal pain, nausea and or vomiting No dizziness on standing 06/13/2020 The patient was seen and examined in telemetry unit Remains stable in bed and wants to go home Any exertion causes shortness of breath with requirement of more oxygen up to 6 L Not yet ready to be discharged Review of Systems Review of Systems: All systems reviewed and are unremarkable except as noted below Constitutional: + malaise Respiratory: + dyspnea on exertion Cardiovascular: + dyspnea on exertion; no chest pain, no dyspnea at rest and no orthopnea Neurologic: + unsteadiness Physical Exam Physical Exam: Lying in bed with moderate shortness of breath at rest Constitutional: well developed, well nourished, + acute distress (Minimal shortness of breath at rest) and + ill appearing Eyes: PERRL, conjunctivae normal, anicteric sclerae ENMT: external ear and nose normal, oropharynx normal Neck: trachea midline, no thyromegaly Respiratory: + respiratory distress (Moderate distress at rest) Auscultation: + diminished lung sounds and + crackles (Minimal crackles at the bases) Cardiovascular: Rate/Rhythm: regular rate and regular rhythm Heart Sounds: no murmur Gastrointestinal (Abdomen): Inspection/Auscultation: abdomen normal to inspection, + abdomen distended (Mild distention) and normal bowel sounds (Sluggish) Percussion/Palpation: abdomen soft; abdomen nontender Neurologic: moves all extremities; no focal motor deficits Psychiatric: Affect: + anxious affect Results & Data Results & Data ([facility]) Vital Signs (Past 12 Hours) Vital Signs Temp Pulse Pulse Resp BP BP Pulse Ox 06/13/20 07:06 87 20 90 06/13/20 03:58 36.4 C L 86 18 113/69 91 06/13/20 01:34 55 L 18 92 06/13/20 00:00 89 06/12/20 23:25 84 18 92 06/12/20 23:16 36.8 C 87 20 102/53 L 91 06/12/20 20:07 37.0 C 95 H 24 116/56 L 92 Laboratory Results Short CBC 06/13/20 Range/Units 05:35 WBC 10.21 (4.8-10.8) K/uL Hgb 8.8 L (14.0-18.0) g/dL Hct 27.5 L (42-52) % Plt Count 162 (130-400) K/uL BMP 06/13/20 05:35 Sodium 135 L Potassium 4.2 Chloride 102 Carbon Dioxide 27 BUN 47 H Creatinine 1.92 H Glucose 135 H Calcium 7.8 L Liver Function 06/13/20 Range/Units 05:35 Total Bilirubin 0.3 (0.2-1) mg/dl Direct Bilirubin 0.2 (0-0.2) mg/dl AST 114 H (15-37) U/L ALT 289 H (12-78) U/L Alkaline Phosphatase 124 H (45-117) U/L Albumin 2.6 L (3.4-5.0) gm/dl Medications Administered Current Inpatient Medications Acetaminophen (Tylenol) 325 mg PO Q6H PRN PRN Reason: Mild Pain Stop: 07/11/20 06:54 Last Admin: 06/13/20 09:08 Dose: 325 mg Documented by: Albuterol (Duoneb) 3 ml NEB Q4R PRN PRN Reason: Shortness Of Breath Or Wheezing Stop: 07/07/20 14:59 Last Admin: 06/11/20 21:05 Dose: 3 ml Documented by: Albuterol (Duoneb) 3 ml NEB QIDR [facility] Stop: 07/11/20 10:59 Last Admin: 06/13/20 11:12 Dose: 3 ml Documented by: Aspirin (Ecotrin Ectab) 81 mg PO QAM [facility] Stop: 07/12/20 11:29 Last Admin: 06/13/20 08:35 Dose: 81 mg Documented by: Dextrose (Dextrose 50%) 25 - 50 ml IV UD PRN; Protocol PRN Reason: Hypoglycemia Protocol Stop: 07/07/20 00:06 Furosemide (Lasix) 20 mg PO QAM [facility] Stop: 07/13/20 10:59 Last Admin: 06/13/20 12:13 Dose: 20 mg Documented by: Glucagon (Glucagen) 1 mg SQ UD PRN; Protocol PRN Reason: Hypoglycemia Protocol Stop: 07/07/20 00:06 Glucose (Dex4 Glucose) 4 - 8 tabs PO UD PRN; Protocol PRN Reason: Hypoglycemia Protocol Stop: 07/07/20 00:06 Glucose (Glucose 40%) 15 - 30 gm PO UD PRN; Protocol PRN Reason: Hypoglycemia Protocol Stop: 07/07/20 00:06 Promethazine HCl 12.5 mg/ (Sodium Chloride) 50.5 mls @ 202 mls/hr IV Q6H PRN PRN Reason: Nausea And Vomiting Stop: 07/07/20 00:06 Pantoprazole Sodium 40 mg/ (Syringe) 10 mls @ 5 mls/min IV BID [facility] Stop: 07/11/20 20:59 Last Admin: 06/13/20 08:51 Dose: 5 mls/min Documented by: Insulin Aspart (Novolog Flexpen) 0 units SC ACHS [facility] Stop: 07/10/20 20:59 Last Admin: 06/13/20 12:13 Dose: Not Given Documented by: Latanoprost (Xalatan Oph) 1 drops OPL HS [facility] Stop: 07/07/20 20:59 Last Admin: 06/12/20 20:51 Dose: 1 drops Documented by: Metoprolol Succinate (Toprol Xl) 12.5 mg PO QAM [facility] Stop: 07/13/20 08:59 Last Admin: 06/13/20 08:35 Dose: 12.5 mg Documented by: Miscellaneous (Carbohydrates For Hypoglycemia) 15 - 30 gm PO UD PRN PRN Reason: Hypoglycemia Protocol Stop: 07/07/20 00:06 Polyethylene Glycol (Miralax Powder Packet) 17 gm PO DAILY [facility] Stop: 07/13/20 09:05 Last Admin: 06/13/20 09:54 Dose: 17 gm Documented by: Umeclidinium/Vilanterol (Anoro Ellipta 62.5/25 Mcg Inh) 1 puffs INH PM [facility] Stop: 07/07/20 20:59 Last Admin: 06/12/20 20:47 Dose: 1 puffs Documented by:
[2020-06-13] MEDS: INSULIN ASPART 100 UNITS/ML 3 ML PEN SC SCH ×4 (08:34→20:56)
[2020-06-13] MEDS: ASPIRIN 81 MG ECTAB PO SCH (08:35)
[2020-06-13] MEDS: METOPROLOL SUCC 25MG EXT REL TAB PO SCH (08:35)
[2020-06-13] MEDS: PANTOprazole 40 MG in SYRINGE 0 ML IV SCH ×2 (08:51→20:58)
--- NOTE | 2020-06-13 08:53 | Surgery Progress Note ---
Date of Service June 13, 2020 Assessment & Plan (1) Gastric perforation: afebrile, no leukocytosis, vitals stable. No peritonitis. No clinical evidence of leak Tolerated Diabetic diet No need for surgical intervention at this time, will sign off Dr. Chung has seen patient and agrees with above. Subjective feeling well today sitting up at bedside, just finished breakfast, ate entire tray denies abdominal pain, nausea, or vomiting Physical Exam Constitutional: WD/WN, vitals as above no acute distress Respiratory: normal respiratory effort; no respiratory distress Skin: no rashes, warm and dry Psychiatric: Orientation: alert and oriented x 3 Results & Data Vital Signs (Past 12 Hours) Vital Signs Temp Pulse Pulse Resp BP BP Pulse Ox 06/13/20 08:00 81 06/13/20 07:49 37.0 C 80 18 110/56 L 98 06/13/20 07:06 87 20 90 06/13/20 03:58 36.4 C L 86 18 113/69 91 06/13/20 01:34 55 L 18 92 06/13/20 00:00 89 06/12/20 23:25 84 18 92 06/12/20 23:16 36.8 C 87 20 102/53 L 91 Laboratory Results 06/13/20 06/13/20 06/13/20 Range/Units 07:35 05:35 05:35 WBC (4.8-10.8) K/uL RBC (4.7-6.1) M/uL Hgb (14.0-18.0) g/dL Hct (42-52) % MCV (80-100) fL MCH (25-34) pg MCHC (32-36) g/dL RDW Std Deviation (36.4-46.3) fL RDW Coeff of Silvano (11.5-14.5) % Plt Count (130-400) K/uL MPV (7.4-10.4) fL Immature Gran % (Auto) % Neut % (Auto) % Lymph % (Auto) % [place] % (Auto) % Eos % (Auto) % Baso % (Auto) % Neut # (Auto) (1.4-6.5) K/uL Lymph # (Auto) (1.2-3.4) K/uL [place] # (Auto) (0.11-0.59) K/uL Eos # (Auto) (0-0.5) K/uL Baso # (Auto) (0-0.2) K/uL Immature Gran # (Auto) (0.00-0.02) K/uL Absolute Nucleated RBC (0-0) K/uL Nucleated RBC % (auto) % Sodium 135 L (136-145) mmol/L Potassium 4.2 (3.5-5.1) mmol/L Chloride 102 (98-107) mmol/L Carbon Dioxide 27 (21-32) mmol/L Anion Gap 6.0 (3-11) BUN 47 H (7-18) mg/dl Creatinine 1.92 H (0.6-1.4) mg/dl Est Cr Clr Drug Dosing 31.2 ml/min Est GFR ( Amer) 38.1 Est GFR (Non-Af Amer) 32.8 BUN/Creatinine Ratio 24.5 H (10-20) Glucose 135 H (70-99) mg/dl POC Glucose 166 H (70-99) mg/dl Calcium 7.8 L (8.5-10.1) mg/dl Total Bilirubin Pending (0.2-1) mg/dl Direct Bilirubin Pending (0-0.2) mg/dl AST Pending (15-37) U/L ALT Pending (12-78) U/L Alkaline Phosphatase Pending (45-117) U/L Total Protein Pending (6.4-8.2) gm/dl Albumin Pending (3.4-5.0) gm/dl Lipase (73-393) U/L Hepatitis A IgM Ab (NON-REACTIVE) Hep Bs Antigen (Neg) Hep B Core IgM Ab (NON-REACTIVE) Hepatitis C Antibody (Neg) 06/13/20 06/12/20 06/12/20 Range/Units 05:35 20:07 16:25 WBC 10.21 (4.8-10.8) K/uL RBC 3.03 L (4.7-6.1) M/uL Hgb 8.8 L (14.0-18.0) g/dL Hct 27.5 L (42-52) % MCV 90.8 (80-100) fL MCH 29.0 (25-34) pg MCHC 32.0 (32-36) g/dL RDW Std Deviation 62.9 H (36.4-46.3) fL RDW Coeff of Silvano 19.1 H (11.5-14.5) % Plt Count 162 (130-400) K/uL MPV 9.6 (7.4-10.4) fL Immature Gran % (Auto) 1.3 % Neut % (Auto) 72.5 % Lymph % (Auto) 12.8 % [place] % (Auto) 11.8 % Eos % (Auto) 1.4 % Baso % (Auto) 0.2 % Neut # (Auto) 7.41 H (1.4-6.5) K/uL Lymph # (Auto) 1.31 (1.2-3.4) K/uL [place] # (Auto) 1.20 H (0.11-0.59) K/uL Eos # (Auto) 0.14 (0-0.5) K/uL Baso # (Auto) 0.02 (0-0.2) K/uL Immature Gran # (Auto) 0.13 H (0.00-0.02) K/uL Absolute Nucleated RBC 0.14 H (0-0) K/uL Nucleated RBC % (auto) 1.3 % Sodium (136-145) mmol/L Potassium (3.5-5.1) mmol/L Chloride (98-107) mmol/L Carbon Dioxide (21-32) mmol/L Anion Gap (3-11) BUN (7-18) mg/dl Creatinine (0.6-1.4) mg/dl Est Cr Clr Drug Dosing ml/min Est GFR ( Amer) Est GFR (Non-Af Amer) BUN/Creatinine Ratio (10-20) Glucose (70-99) mg/dl POC Glucose 182 H 116 H (70-99) mg/dl Calcium (8.5-10.1) mg/dl Total Bilirubin (0.2-1) mg/dl Direct Bilirubin (0-0.2) mg/dl AST (15-37) U/L ALT (12-78) U/L Alkaline Phosphatase (45-117) U/L Total Protein (6.4-8.2) gm/dl Albumin (3.4-5.0) gm/dl Lipase (73-393) U/L Hepatitis A IgM Ab (NON-REACTIVE) Hep Bs Antigen (Neg) Hep B Core IgM Ab (NON-REACTIVE) Hepatitis C Antibody (Neg) 06/12/20 06/12/20 06/12/20 Range/Units 11:08 09:09 09:09 WBC (4.8-10.8) K/uL RBC (4.7-6.1) M/uL Hgb (14.0-18.0) g/dL Hct (42-52) % MCV (80-100) fL MCH (25-34) pg MCHC (32-36) g/dL RDW Std Deviation (36.4-46.3) fL RDW Coeff of Silvano (11.5-14.5) % Plt Count (130-400) K/uL MPV (7.4-10.4) fL Immature Gran % (Auto) % Neut % (Auto) % Lymph % (Auto) % [place] % (Auto) % Eos % (Auto) % Baso % (Auto) % Neut # (Auto) (1.4-6.5) K/uL Lymph # (Auto) (1.2-3.4) K/uL [place] # (Auto) (0.11-0.59) K/uL Eos # (Auto) (0-0.5) K/uL Baso # (Auto) (0-0.2) K/uL Immature Gran # (Auto) (0.00-0.02) K/uL Absolute Nucleated RBC (0-0) K/uL Nucleated RBC % (auto) % Sodium (136-145) mmol/L Potassium (3.5-5.1) mmol/L Chloride (98-107) mmol/L Carbon Dioxide (21-32) mmol/L Anion Gap (3-11) BUN (7-18) mg/dl Creatinine (0.6-1.4) mg/dl Est Cr Clr Drug Dosing ml/min Est GFR ( Amer) Est GFR (Non-Af Amer) BUN/Creatinine Ratio (10-20) Glucose (70-99) mg/dl POC Glucose 219 H (70-99) mg/dl Calcium (8.5-10.1) mg/dl Total Bilirubin (0.2-1) mg/dl Direct Bilirubin (0-0.2) mg/dl AST (15-37) U/L ALT (12-78) U/L Alkaline Phosphatase (45-117) U/L Total Protein (6.4-8.2) gm/dl Albumin (3.4-5.0) gm/dl Lipase (73-393) U/L Hepatitis A IgM Ab NON-REACTIVE (NON-REACTIVE) Hep Bs Antigen Neg (Neg) Hep B Core IgM Ab NON-REACTIVE (NON-REACTIVE) Hepatitis C Antibody Neg (Neg) 06/12/20 06/12/20 Range/Units 05:47 05:47 WBC (4.8-10.8) K/uL RBC (4.7-6.1) M/uL Hgb (14.0-18.0) g/dL Hct (42-52) % MCV (80-100) fL MCH (25-34) pg MCHC (32-36) g/dL RDW Std Deviation (36.4-46.3) fL RDW Coeff of Silvano (11.5-14.5) % Plt Count (130-400) K/uL MPV (7.4-10.4) fL Immature Gran % (Auto) % Neut % (Auto) % Lymph % (Auto) % [place] % (Auto) % Eos % (Auto) % Baso % (Auto) % Neut # (Auto) (1.4-6.5) K/uL Lymph # (Auto) (1.2-3.4) K/uL [place] # (Auto) (0.11-0.59) K/uL Eos # (Auto) (0-0.5) K/uL Baso # (Auto) (0-0.2) K/uL Immature Gran # (Auto) (0.00-0.02) K/uL Absolute Nucleated RBC (0-0) K/uL Nucleated RBC % (auto) % Sodium (136-145) mmol/L Potassium (3.5-5.1) mmol/L Chloride (98-107) mmol/L Carbon Dioxide (21-32) mmol/L Anion Gap (3-11) BUN (7-18) mg/dl Creatinine (0.6-1.4) mg/dl Est Cr Clr Drug Dosing ml/min Est GFR ( Amer) Est GFR (Non-Af Amer) BUN/Creatinine Ratio (10-20) Glucose (70-99) mg/dl POC Glucose (70-99) mg/dl Calcium (8.5-10.1) mg/dl Total Bilirubin 0.4 (0.2-1) mg/dl Direct Bilirubin 0.2 (0-0.2) mg/dl AST 198 H (15-37) U/L ALT 345 H (12-78) U/L Alkaline Phosphatase 111 (45-117) U/L Total Protein 6.5 (6.4-8.2) gm/dl Albumin 2.7 L (3.4-5.0) gm/dl Lipase 47 L (73-393) U/L Hepatitis A IgM Ab (NON-REACTIVE) Hep Bs Antigen (Neg) Hep B Core IgM Ab (NON-REACTIVE) Hepatitis C Antibody (Neg)
[2020-06-13 09:06] LABS: Albumin Level 2.6 gm/dl (3.4-5.0); Bilirubin Direct 0.2 mg/dl (0-0.2); Bilirubin,Total 0.3 mg/dl (0.2-1); Total Protein 6.3 gm/dl (6.4-8.2)
[2020-06-13] MEDS: POLYETHYLENE (MIRALAX) 17 GM PACK PO SCH (09:54)
--- NOTE | 2020-06-13 09:55 | Gastroenterology Progress Note ---
Date of Service June 13, 2020 Assessment & Plan (1) Anemia: BID PPI. Needs monthly CBC. No specific repeat EGD planned, will consider if anemia or melena. GI will sign off. No GI contraindication to discharge. (2) Gastric perforation: (3) Elevated LFTs: Improving. Possibly caused by cefoxitin or zosyn vs. brief passage of gallbladder sludge. No evidence of obstruction. Recheck LFTs in 1-2 weeks. Admission and Anticipated Discharge Date Admission Date: June 06, 2020 Supervising Physician Co-Signing Physician Notes Attg add: I interviewed and examined pt, reviewed chart and labs. Pt without new complaints - he has VASQUEZ, but no abdominal pain. He is carly meals, and is without evidence of recurrent GIB. HGb slightly lower than yesterday, LFT's improved. ULS shows GB wall thick but no stones or dilation. Creat increased from yesterday. 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 No further f/u. Increased LFT's - etiology unclear -- sludge, due to eating after prolonged NPO? ischemia related to OH? Pt without symptoms and LFT's trending down, will cont to follow. MRCP if re-spike. Subjective 79 male admitted on 06/08 for symptomatic anemia. EGD on 06/10: AVMs APC'ed, one clipped; one 1cm submucosal mass endoscopically resected with micro perforation during the procedure. CT on 06/09 and UGI with gastrografin w/o evidence of free air or extravasation. LFTs noted to be elevated, improving past 2 days, no abdominal pain. AST 382->198->114; ALT 352->345->289. T bili and Alk Phos normal. Biliary US 06/12 with mild gallbladder wall thickening but no stones or philip duct dilation. Today: Pt feels well and would like to go home. Tolerating clear liquids well po. + acute worsening of renal function during hospitalization, with improvement today. Cr 1.5 ->2.1 ->1.8. Review of Systems Review of Systems: ROS: Gen: Denies weakness, fevers, weight loss Eyes: No eye redness, or pain, no recent vision changes Resp: pt mentions SOB with walking, no cough Cardio: No palpitations/irregular beats, no chest pain GI: No abdominal pain, no nausea/vomiting : Denies pain on urination Skin: No jaundice, itching or new rashes Physical Exam Constitutional: WD/WN, vitals as above Eyes: PERRL, conjunctivae normal, anicteric sclerae ENMT: external ear and nose normal, oropharynx normal Neck: trachea midline, no thyromegaly Respiratory: normal respiratory effort, lungs clear to auscultation Cardiovascular: RRR, no murmur, no edema Gastrointestinal (Abdomen): Percussion/Palpation: abdomen soft; abdomen nontender Musculoskeletal: no cyanosis or clubbing, extremities motor strength 5/5 Neurologic: patellar DTR's 2+ bilat, sensation intact Psychiatric: A+Ox3, euthymic affect Lymphatic: no cervical or axillary lymphadenopathy Results & Data ([facility]) Vital Signs (Past 12 Hours) Vital Signs Temp Pulse Pulse Resp BP BP Pulse Ox 06/13/20 08:00 81 06/13/20 07:49 37.0 C 80 18 110/56 L 98 06/13/20 07:06 87 20 90 06/13/20 03:58 36.4 C L 86 18 113/69 91 06/13/20 01:34 55 L 18 92 06/13/20 00:00 89 06/12/20 23:25 84 18 92 06/12/20 23:16 36.8 C 87 20 102/53 L 91
--- NOTE | 2020-06-13 09:58 | Cardiology Progress Note ---
Date of Service June 13, 2020 Assessment & Plan (1) GIB (gastrointestinal bleeding): Hemoglobin stable. (2) Elevated LFTs: (3) PSVT (paroxysmal supraventricular tachycardia): Continue low-dose metoprolol succinate 12.5 mg daily. (4) Ischemic cardiomyopathy: Cardiac catheterization with findings of chronic RCA occlusion and 90% LAD occlusion, 2019 for which patient underwent drug-eluting stent to the LAD about a year ago in 2019. Patient back on aspirin. He has a history of low normal to mild LV systolic dysfunction, with congestive heart failure in past thoracentesis at [facility]. He has had 3 GI bleed episodes. Continue aspirin 81 mg daily. He is completed a year of clopidogrel. Continue Protonix. Continue low-dose furosemide, currently no orthostasis. Subjective Patient states that he is eager for discharge. He however is still requiring significant oxygen requirement. Telemetry reveals sinus rhythm for the most part in the range of 60 bpm, but he does have occasional PACs, PVCs, and brief asymptomatic runs of SVT. Review of Systems Review of Systems: All systems reviewed & are unremarkable except as noted in HPI & below Physical Exam Physical Exam: Temp Pulse Resp BP Pulse Ox 37.0 C 81 18 110/56 L 98 06/13/20 07:49 06/13/20 08:00 06/13/20 07:49 06/13/20 07:49 06/13/20 07:49 Respiratory: Mildly decreased breath sounds in the bases, certainly the rales noted earlier this hospital stay have improved Cardiovascular: RRR, no murmur, no edema Neurologic: PERRL, EOMI, accommodation nl, no face palsy, no dysarthria Results & Data Vital Signs (Past 12 Hours) Vital Signs Temp Pulse Pulse Resp BP BP Pulse Ox 06/13/20 08:00 81 06/13/20 07:49 37.0 C 80 18 110/56 L 98 06/13/20 07:06 87 20 90 06/13/20 03:58 36.4 C L 86 18 113/69 91 06/13/20 01:34 55 L 18 92 06/13/20 00:00 89 06/12/20 23:25 84 18 92 06/12/20 23:16 36.8 C 87 20 102/53 L 91 Laboratory Results Cardiac Enzymes 06/13/20 Range/Units 05:35 AST 114 H (15-37) U/L CBC 06/13/20 Range/Units 05:35 WBC 10.21 (4.8-10.8) K/uL RBC 3.03 L (4.7-6.1) M/uL Hgb 8.8 L (14.0-18.0) g/dL Hct 27.5 L (42-52) % Plt Count 162 (130-400) K/uL Neut # (Auto) 7.41 H (1.4-6.5) K/uL Lymph # (Auto) 1.31 (1.2-3.4) K/uL [place] # (Auto) 1.20 H (0.11-0.59) K/uL Eos # (Auto) 0.14 (0-0.5) K/uL Baso # (Auto) 0.02 (0-0.2) K/uL Comprehensive Metabolic Panel 06/13/20 06/13/20 Range/Units 05:35 05:35 Sodium 135 L (136-145) mmol/L Potassium 4.2 (3.5-5.1) mmol/L Chloride 102 (98-107) mmol/L Carbon Dioxide 27 (21-32) mmol/L BUN 47 H (7-18) mg/dl Creatinine 1.92 H (0.6-1.4) mg/dl Glucose 135 H (70-99) mg/dl Calcium 7.8 L (8.5-10.1) mg/dl Direct Bilirubin 0.2 (0-0.2) mg/dl AST 114 H (15-37) U/L ALT 289 H (12-78) U/L Alkaline Phosphatase 124 H (45-117) U/L Total Protein 6.3 L (6.4-8.2) gm/dl Albumin 2.6 L (3.4-5.0) gm/dl Intake and Output 06/12/20 06/13/20 06/13/20 22:59 06:59 14:59 Intake Total 400 / 1530 250 / 1530 Output Total 300 / 925 175 / 925 Balance 100 / 605 75 / 605 Intake: Oral 400 / 1530 250 / 1530 Output: Urine 300 / 925 175 / 925 Other: Weight 76 kg (1) GIB (gastrointestinal bleeding) GI bleed type/associated pathology: unspecified gastrointestinal hemorrhage type Qualified Code(s): K92.2 - Gastrointestinal hemorrhage, unspecified
[2020-06-13] MEDS: FUROSEMIDE 20 MG TAB PO SCH (12:13)
[2020-06-13] MEDS ORDERED: methylPREDNISolone 40 MG in SYRINGE 0 ML IV ONE (15:00)
--- NOTE | 2020-06-13 15:16 | XRay Report ---
XR chest 1V portable CLINICAL HISTORY: Congestive failure COMPARISON STUDY: 06/11/2020 FINDINGS: The heart remains enlarged. There are persistent bibasilar interstitial opacities trace ple ural effusions are suspected.[Underlying emphysema is suspected. IMPRESSION: Cardiomegaly and persistent basilar interstitial opacities similar to the prior study ACT 112: Negative or not required by law. Electronically signed by: Parrish Cutler M.D. 06/13/2020 3:15 PM
[2020-06-13] MEDS ORDERED: FUROSEMIDE 20 MG in SYRINGE 0 ML IV ONE (16:00)
[2020-06-13] MEDS: BUDESONIDE 0.5 MG/2 ML VIAL (PULMICORT) NEB SCH (19:14)
[2020-06-13] MEDS: LATANOPROST 0.005% OP SOLN 2.5 ML BTL OPL SCH (20:55)
[2020-06-13] MEDS: UMECLIDINIUM/VILANTEROL 62.5/25MCG 7 PUFFS/INHALER INH SCH (20:59)
[2020-06-13] MEDS: ALBUT/IPRATROP 3MG/0.5MG NEB 3 ML VIAL NEB PRN (22:11)
--- NOTE | 2020-06-13 22:26 | Hospitalist Progress Note ---
Date of Service June 13, 2020 Assessment & Plan Admission and Anticipated Discharge Date Admission Date: June 06, 2020 Subjective Patient was orthostatic. SBP 90's and on standing dropped to 70's. Will start on fluids. Thank you Results & Data Results & Data ([facility]) Vital Signs (Past 12 Hours) Vital Signs Temp Pulse Pulse Resp BP BP Pulse Ox 06/13/20 22:11 89 20 95 06/13/20 19:27 36.4 C L 75 24 136/75 90 06/13/20 19:16 75 22 90 06/13/20 16:00 84 06/13/20 15:19 36.6 C 80 24 116/67 91 06/13/20 15:15 80 18 91 06/13/20 12:05 36.9 C 76 18 102/57 L 96 06/13/20 11:13 71 20 94
[2020-06-13] MEDS ORDERED: SODIUM CHLORIDE 0.9% 1000ML 1,000 ML IV SCH (22:30)
[2020-06-14] MEDS ORDERED: SODIUM CHLORIDE 0.9% 500 ML IV SCH (00:30)
[2020-06-14 00:54] LABS: Basophils # (auto) 0.01 K/uL (0-0.2); Basophils % (auto) 0.1 %; Hematocrit (blood only) 29.4 % (42-52); Hemoglobin 9.3 g/dL (14.0-18.0); Immature Granulocytes # (auto) 0.16 K/uL (0.00-0.02); Immature Granulocytes % (auto) 1.8 %; Lymphocytes # (auto) 0.47 K/uL (1.2-3.4); Lymphocytes % (auto) 5.4 %; Mean Corpuscular Hgb Conc 31.6 g/dL (32-36); Mean Corpuscular Volume 91.6 fL (80-100); Mean Platelet Volume 10.8 fL (7.4-10.4); Monocytes # (auto) 0.46 K/uL (0.11-0.59); Monocytes % (auto) 5.2 %; Neutrophils # (auto) 7.67 K/uL (1.4-6.5); Neutrophils % (auto) 87.5 %; Nucleated RBC # (auto) 0.31 K/uL (0-0); Nucleated RBC % (auto) 3.6 %; Platelet Count 170 K/uL (130-400); RDW Coefficient of Variation 19.4 % (11.5-14.5); RDW Standard Deviation 63.4 fL (36.4-46.3); Red Blood Count 3.21 M/uL (4.7-6.1); White Blood Count 8.77 K/uL (4.8-10.8)
[2020-06-14 01:13] LABS: BUN Creatinine Ratio 23.2 (10-20); Calcium 7.9 mg/dl (8.5-10.1); Creatinine Clr Calc Pharmacy 25.5 ml/min; Est GFR (African American) 29.8; Est GFR (Non-African American) 25.7; Magnesium 2.1 mg/dl (1.8-2.4); Potassium 4.4 mmol/L (3.5-5.1)
[2020-06-14 01:16] LABS: Echinocytes 1+; Polychromasia 1+
[2020-06-14] MEDS: ALBUT/IPRATROP 3MG/0.5MG NEB 3 ML VIAL NEB PRN (01:46)
[2020-06-14] MEDS: BUDESONIDE 0.5 MG/2 ML VIAL (PULMICORT) NEB SCH ×2 (06:59→20:02)
[2020-06-14] MEDS: ALBUT/IPRATROP 3MG/0.5MG NEB 3 ML VIAL NEB SCH ×3 (06:59→15:08)
[2020-06-14] MEDS: METOPROLOL SUCC 25MG EXT REL TAB PO SCH (07:05)
[2020-06-14] MEDS: POLYETHYLENE (MIRALAX) 17 GM PACK PO SCH (07:05)
[2020-06-14] MEDS: FUROSEMIDE 20 MG TAB PO SCH (07:06)
[2020-06-14] MEDS: INSULIN ASPART 100 UNITS/ML 3 ML PEN SC SCH ×4 (08:48→20:51)
[2020-06-14] MEDS: PANTOprazole 40 MG in SYRINGE 0 ML IV SCH ×2 (08:49→20:56)
[2020-06-14] MEDS: ASPIRIN 81 MG ECTAB PO SCH (08:49)
[2020-06-14] MEDS: methylPREDNISolone 40 MG in SYRINGE 0 ML IV SCH ×2 (11:17→17:46)
--- NOTE | 2020-06-14 11:29 | XRay Report ---
XR KUB/Abdomen 1 view CLINICAL HISTORY: r/o Intestinal Obstruction COMPARISON STUDY: 06/10/2020 FINDINGS: The soft tissues, psoas shadows, renal outlines and intestinal gas pattern appear normal. T here is no evidence for bowel obstruction. No abnormal abdominal calcifications are seen. IMPRESSION: Normal study. ACT 112: Negative or not required by law. The above report was generated using voice recognition software. It may contain grammatical, syntax or spelling errors. Electronically signed by: Lico Rodas M.D. 06/14/2020 11:28 AM
--- NOTE | 2020-06-14 13:39 | Cardiology Progress Note ---
Date of Service June 14, 2020 Assessment & Plan (1) GIB (gastrointestinal bleeding): Hemoglobin stable. (2) Elevated LFTs: (3) PSVT (paroxysmal supraventricular tachycardia): Continue low-dose metoprolol succinate 12.5 mg daily. (4) Ischemic cardiomyopathy: Cardiac catheterization with findings of chronic RCA occlusion and 90% LAD occlusion, 2019 for which patient underwent drug-eluting stent to the LAD about a year ago in 2019. Patient back on aspirin. He has a history of low normal to mild LV systolic dysfunction, with congestive heart failure [place] [facility] He has had 3 GI bleed episodes. Continue aspirin 81 mg daily. He is completed a year of clopidogrel. Continue Protonix. Continue low-dose furosemide, currently no orthostasis. (5) Orthostasis: Recurrent. We will hold Lasix and metoprolol. We will give 500 cc of normal saline x1 now. Agree with steroids given the possibility of autonomic dysfunction. May require the addition of Midodrin and Florinef Subjective Patient seen and examined, chart reviewed. Patient currently receiving nebulizer treatment but states he still feels short of breath. He is lying in bed and nursing reports patient being uncooperative with trying to increase his activity and posture. He denies chest pain, palpitations. Patient remains orthostatic and a.m. meds held. Telemetry reviewed: Normal sinus rhythm without arrhythmia, presyncopal events correlate with normal sinus rhythm. Review of Systems Review of Systems: All systems reviewed & are unremarkable except as noted in HPI & below Physical Exam Physical Exam: General: Awake, alert and oriented x 3. No acute distress. HEENT: Normocephalic, atraumatic. Pupils equal, round and reactive to light and accommodation. Extraocular muscles are intact. Anicteric sclera. Moist mucous membranes. Neck: No JVD. No bruit. Cardiovascular: Regular. Positive S-4. Normal S-1 and S-2. No S-3. No murmurs or rubs. Pulmonary: Poor air movement with decreased respiratory effort. Bibasilar dry crackles present Abdomen: Bowel sounds x 4, soft. No rebound, guarding or tenderness. No organomegaly. Extremities: No clubbing, cyanosis or edema. +2 pedal pulses bilaterally. Skin: Warm and dry. Results & Data Vital Signs (Past 12 Hours) Vital Signs Temp Pulse Pulse Resp BP Pulse Ox 08/08/20 11:33 36.3 C L 75 18 123/61 91 06/14/20 11:02 87 20 93 06/14/20 08:00 85 06/14/20 07:21 36.9 C 84 18 100/64 92 06/14/20 06:59 76 20 92 06/14/20 05:56 117/74 06/14/20 02:17 36.6 C 88 20 96/59 L 91 06/14/20 01:46 92 H 20 91 (1) GIB (gastrointestinal bleeding) GI bleed type/associated pathology: unspecified gastrointestinal hemorrhage type Qualified Code(s): K92.2 - Gastrointestinal hemorrhage, unspecified
[2020-06-14] MEDS ORDERED: SODIUM CHLORIDE 0.9% 1000ML 500 ML IV ONE ×2 (14:31→18:02)
--- NOTE | 2020-06-14 14:36 | Hospitalist Progress Note ---
Date of Service June 14, 2020 Assessment & Plan (1) Orthostasis: Orthostatic hypotension Symptomatic acute blood loss anemia Acute upper GI bleeding H/O AVMs, internal hemorrhoids, colonic diverticulosis S/P EGD:multiple small non bleeding AVM's in stomach. A clip was placed on one of the APC sites in the gastric body. Small submucosal mass in the low fundus of the stomach S/P EMR resulting in perforation which was clip closured. S/P 1 Unit PRBCs Continue Protonix Drip Appreciate GI input and recommendation Received general amount of IV fluid for suspected SONYA No more orthostatic changes Has been getting PT and OT and doing reasonably well but requiring more oxygen to sustain saturation Looks more dehydration with low blood pressure We will hold off any Lasix for now and restrict oral fluid to 1500 mL in a day Gastric Perforation small gastric perforation during EGD/Submucosal resection of a mass --Upper GI series:No extravasation of contrast to suggest continued gastric perforation. --KUB: Nasogastric tube placed the gastric fundus. Nonobstructive bowel pattern. Probable infiltrate right base. Currently no evidence of peritonitis on initial antibiotic of Zosyn has been discontinued Conservative management Appreciate Surgery input Received IV fluids, bowel rest, NG tube Kub showed no evidence of free air No signs of continued perforation Diet advanced as tolerated Surgery signed off Acute kidney injury On chronic kidney disease Creatinine is 1.51 on admission and went up to 2.09 as of 06/11/2020 Received a small dose 20 mg Lasix today Creatinine is slightly better at 1.80 as of 06/12/2020 Creatinine remains elevated at 1.9 today We will continue with a small dose of oral Lasix of 20 mg daily Received another dose of 20 mg IV Lasix last afternoon Creatinine went up to more than 2.3 this morning Will ask for nephrology evaluation Presyncopal Episodes No known seizure like activity Monitor on Tele for arrhythmias Anemia contributing EEG: This is an abnormal awake and drowsy routine EEG due to mild generalized background slowing suggestive of a mild non specific encephalopathy. No focal slowing or epileptiform activity is recorded. Appreciate cardiology input and recommendation Was advised to take time to start any activity from sitting or lying position No more dizziness and/or presyncope with ambulation Physical deconditioning Generalized weakness Secondary to comorbidities/Immunotherapy PT/[id number] to be discharged home Acute on chronic combined systolic and diastolic CHF Chronic Diastolic heart failure Last EF: 50-55% Blood pressure seems to be stable and the patient has more shortness of breath and requires more oxygen Recently did not show any florid pulmonary edema We will try small dose of Lasix as per cardiology Will try 20 mg of Lasix IV today Will give 20 mg of oral Lasix daily No more Lasix until kidney function improves CAD S/P S/P AI to LAD in 06/2019 Held Aspirin due to GI bleeding Continue Lipitor Aspirin 81 mg has been added from 06/12/2020 and will be continued as an outpatient Has been started on a small dose of beta-lisbet with metoprolol succinate 12.5 mg daily Advised increased ambulation COPD Chronic hypoxic respiratory failure Ongoing tobacco abuse Chronic Oxygen Dependency: 2 liters at baseline Bibasilar parenchymal infiltrate--on CT--likely chronic Has been getting intravenous Solu-Medrol since yesterday and nebulized bronchodilators Steroid inhalers have been added DM Type II HbA1C: 6.07 Mar 2020 Off metformin secondary to worsening renal functions Continue ISS while hospitalized Monitor BGs H/O Metastatic bladder cancer S/P Chemoradiation Ongoing immunotherapy (Keytruda) Follows with [facility] and Dr Franks Last dose of Keytruda on 06/03/20 H/O Tourette's syndrome Intermittent Behavioral changes as per family Monitor DVT Px: SCDs RE GI bleed Code Status Full code Disposition PT/OT prior to discharge Discussed with the in detail and answered all of her questions Discussed with the and will have more discussions when she is here physically Admission and Anticipated Discharge Date Admission Date: June 06, 2020 Subjective The patient was seen and examined in the telemetry unit He complains of shortness of breath of breath with more anxiety of pounds Denies any chest pain and/or palpitation Denies any abdominal pain, nausea and or vomiting 06/12/2020 The patient was seen and examined in telemetry unit He has been feeling much better today with decreasing shortness of breath and anxiety Denies any chest pain and/or palpitation, no abdominal pain, nausea and or vomiting No dizziness on standing 06/13/2020 The patient was seen and examined in telemetry unit Remains stable in bed and wants to go home Any exertion causes shortness of breath with requirement of more oxygen up to 6 L Not yet ready to be discharged 06/14/2020 Patient was seen and examined in telemetry unit He has had low blood pressure last night with dizziness on standing Received normal saline bolus and blood pressure went up more than 100 systolic Remains shortness of breath this morning without any symptoms Has been having frequent bowel movement Review of Systems Review of Systems: All systems reviewed and are unremarkable except as noted below Respiratory: + cough, + dyspnea and + dyspnea on exertion Cardiovascular: + problem reported (Low blood pressure with ambulation) Physical Exam Physical Exam: Lying in bed with moderate shortness of breath at rest Constitutional: well developed, well nourished, + acute distress (Minimal shortness of breath at rest) and + ill appearing Eyes: PERRL, conjunctivae normal, anicteric sclerae ENMT: external ear and nose normal, oropharynx normal Neck: trachea midline, no thyromegaly Respiratory: + respiratory distress (Moderate distress at rest) Auscultation: + diminished lung sounds, + crackles (Minimal to moderate crackles bilaterally at the bases) and + wheezes (Minimal wheezing) Cardiovascular: Rate/Rhythm: regular rate and regular rhythm Heart Sounds: no murmur Gastrointestinal (Abdomen): Inspection/Auscultation: abdomen normal to inspection, + abdomen distended (Mild distention) and normal bowel sounds (Sluggish) Percussion/Palpation: abdomen soft; abdomen nontender Musculoskeletal: No acute arthritis involving any joints Neurologic: moves all extremities; no focal motor deficits Alert, awake and oriented x3 Psychiatric: Affect: + anxious affect Results & Data Results & Data ([facility]) Vital Signs (Past 12 Hours) Vital Signs Temp Pulse Pulse Resp BP Pulse Ox 06/14/20 11:33 36.3 C L 75 18 123/61 91 06/14/20 11:02 87 20 93 06/14/20 08:00 85 06/14/20 07:21 36.9 C 84 18 100/64 92 06/14/20 06:59 76 20 92 06/14/20 05:56 117/74 Laboratory Results Short CBC 06/14/20 Range/Units 00:28 WBC 8.77 (4.8-10.8) K/uL Hgb 9.3 L (14.0-18.0) g/dL Hct 29.4 L (42-52) % Plt Count 170 (130-400) K/uL BMP 06/14/20 00:28 Sodium 135 L Potassium 4.4 Chloride 102 Carbon Dioxide 21 BUN 55 H Creatinine 2.35 H D Glucose 162 H Calcium 7.9 L Medications Administered Current Inpatient Medications Acetaminophen (Tylenol) 325 mg PO Q6H PRN PRN Reason: Mild Pain Stop: 07/11/20 06:54 Last Admin: 06/13/20 09:08 Dose: 325 mg Documented by: Albuterol (Duoneb) 3 ml NEB Q4R PRN PRN Reason: Shortness Of Breath Or Wheezing Stop: 07/07/20 14:59 Last Admin: 06/14/20 01:46 Dose: 3 ml Documented by: Albuterol (Duoneb) 3 ml NEB QIDR [facility] Stop: 07/11/20 10:59 Last Admin: 06/14/20 11:01 Dose: 3 ml Documented by: Aspirin (Ecotrin Ectab) 81 mg PO QAM [facility] Stop: 07/12/20 11:29 Last Admin: 06/14/20 08:49 Dose: 81 mg Documented by: Budesonide (Pulmicort Respules) 0.5 mg NEB BIDR [facility] Stop: 07/13/20 18:59 Last Admin: 06/14/20 06:59 Dose: 0.5 mg Documented by: Dextrose (Dextrose 50%) 25 - 50 ml IV UD PRN; Protocol PRN Reason: Hypoglycemia Protocol Stop: 07/07/20 00:06 Furosemide (Lasix) [facility] Stop: 07/13/20 10:59 Last Admin: 06/14/20 07:06 Dose: Not Given Documented by: Glucagon (Glucagen) 1 mg SQ UD PRN; Protocol PRN Reason: Hypoglycemia Protocol Stop: 07/07/20 00:06 Glucose (Dex4 Glucose) 4 - 8 tabs PO UD PRN; Protocol PRN Reason: Hypoglycemia Protocol Stop: 07/07/20 00:06 Glucose (Glucose 40%) 15 - 30 gm PO UD PRN; Protocol PRN Reason: Hypoglycemia Protocol Stop: 07/07/20 00:06 Promethazine HCl 12.5 mg/ (Sodium Chloride) 50.5 mls @ 202 mls/hr IV Q6H PRN PRN Reason: Nausea And Vomiting Stop: 07/07/20 00:06 Pantoprazole Sodium 40 mg/ (Syringe) 10 mls @ 5 mls/min IV BID [facility] Stop: 07/11/20 20:59 Last Admin: 06/14/20 08:49 Dose: 5 mls/min Documented by: Methylprednisolone 40 mg/ (Syringe) 0.64 mls @ 1.5 mls/min IV Q8H [facility] Stop: 07/14/20 09:59 Last Admin: 06/14/20 11:17 Dose: 1.5 mls/min Documented by: Sodium Chloride (Nss 1000ml) 500 mls @ 999 mls/hr IV .Q31M ONE Stop: 06/14/20 15:01 Insulin Aspart (Novolog Flexpen) 0 units SC ACHS [facility] Stop: 07/10/20 20:59 Last Admin: 06/14/20 13:42 Dose: Not Given Documented by: Latanoprost (Xalatan Oph) 1 drops OPL HS [facility] Stop: 07/07/20 20:59 Last Admin: 06/13/20 20:55 Dose: 1 drops Documented by: Metoprolol Succinate (Toprol Xl) 12.5 mg PO QAM [facility] Stop: 07/13/20 08:59 Last Admin: 06/14/20 07:05 Dose: Not Given Documented by: Miscellaneous (Carbohydrates For Hypoglycemia) 15 - 30 gm PO UD PRN PRN Reason: Hypoglycemia Protocol Stop: 07/07/20 00:06 Polyethylene Glycol (Miralax Powder Packet) 17 gm PO DAILY [facility] Stop: 07/13/20 09:05 Last Admin: 06/14/20 07:05 Dose: Not Given Documented by: Umeclidinium/Vilanterol (Anoro Ellipta 62.5/25 Mcg Inh) 1 puffs INH PM [facility]AL[facility] Stop: 07/07/20 20:59 Last Admin: 06/13/20 20:59 Dose: 1 puffs Documented by:
[2020-06-14] MEDS ORDERED: TRAZODONE HCL 50 MG TAB PO PRN (18:47)
--- NOTE | 2020-06-14 18:48 | Communication Note ---
Date of Service: June 14, 2020 notified by Nursing pt became severe hypotensive while sitting on edge of bed SBP in low 60's , pt felt dizzy and lightheaded ordered for NSS 500 ml IV bolus seen pt at bedside very anxious , pt not able to void for past 5 hrs bladder USG shows > 500 ml urine ordered for Magdaleno reveiwed pt's note , concern for possible adrenal insufficiency causing severe orhtostatic hypotension changed IV solu medrol to IV hydrocortisione 100 mg IV q 8hrs updated to Primary attending Dr Leon Solis MD
[2020-06-14] MEDS: UMECLIDINIUM/VILANTEROL 62.5/25MCG 7 PUFFS/INHALER INH SCH (20:50)
[2020-06-14] MEDS: LATANOPROST 0.005% OP SOLN 2.5 ML BTL OPL SCH (20:56)
[2020-06-14 23:56] VITALS: TEMP 97.5
[2020-06-15] MEDS ORDERED: HYDROCORTISONE SOD 100 MG in SYRINGE 0 ML IV SCH (02:00)
[2020-06-15 04:17] VITALS: O2SAT 93
[2020-06-15 07:23] LABS: Calcium 8.1 mg/dl (8.5-10.1); Creatinine Clr Calc Pharmacy 16.3 ml/min; Est GFR (African American) 17.4; Magnesium 2.3 mg/dl (1.8-2.4); Potassium 5.6 mmol/L (3.5-5.1)
[2020-06-15] MEDS ORDERED: SODIUM POLYSTYRENE SULFONATE 15G/60ML SUSP PO STA (07:42)
[2020-06-15] MEDS: BUDESONIDE 0.5 MG/2 ML VIAL (PULMICORT) NEB SCH (07:43)
[2020-06-15] MEDS: POLYETHYLENE (MIRALAX) 17 GM PACK PO SCH (07:52)
[2020-06-15] MEDS: ASPIRIN 81 MG ECTAB PO SCH (07:52)
[2020-06-15] MEDS: PANTOprazole 40 MG in SYRINGE 0 ML IV SCH (07:53)
[2020-06-15] MEDS ORDERED: DEXTROSE 50% 50 ML SYRINGE IV ONE (07:55)
[2020-06-15] MEDS: INSULIN ASPART 100 UNITS/ML 3 ML PEN SC SCH (07:56)
[2020-06-15] MEDS ORDERED: INSULIN HUMAN REGULAR PER UNIT 10 UNITS in SYRINGE 9.9 ML IV ONE (08:00)
[2020-06-15 08:48] VITALS: BP 82/47; PULSE 68
[2020-06-15] MEDS ORDERED: SODIUM BICARB 8.4% INJ 50 MEQ/50 ML SYR IV ONE ×2 (09:24→17:18)
[2020-06-15] MEDS ORDERED: EPINEPHrine (STAT use only) 2 MG in D5W 250 ML IV STA (09:27)
--- NOTE | 2020-06-15 09:40 | Nephrology Consultation ---
Date of Consultation June 15, 2020 Assessment & Plan (1) Acute renal failure: Patient with acute renal failure likely due to ischemic ATN in setting of hypotension for the past several days. Patient is anuric this morning and just suffered a cardiac arrest. Resuscitation is ongoing. I discussed with the that his chances of surviving the cardiac arrest are minimal. Even if patient survives he needs urgent dialysis which will be very difficult to accomplish with persistent hypotension. Patient would like resuscitation continued and see if patient survives cardiac arrest. She is still leaning towards full support. If patient survives cardiac arrest on most ICU, will attempt dialysis. (2) Cardiac arrest: Cardiac arrest likely respiratory arrest in setting of GI bleed and aspiration. CPR is ongoing. If there is return of spontaneous circulation patient will likely go to ICU. He will need dialysis once blood pressure allows. Case discussed with the ICU attending and Dr. Quintero History of Present Illness Reason for Consultation: Acute renal failure Requesting Physician: Rachael Quintero MD Attending Physician: Rachael Quintero MD History of Present Illness This is a 79-year-old male with multiple medical problems including metastatic muscle invasive urothelial bladder cancer status post chemotherapy in 2018 now on Keytruda at [facility], type 2 diabetes, COPD, CHF with EF of 50%, coronary disease status post drug-eluting stents to the LAD about 2 years ago and GI bleed who was admitted on 06/06/2020 with melena stools and anemia. He underwent EGD on 06/09/2020 which was complicated by perforation during removal of a 1 cm submucosal mass. Since then he has been intermittently hypotensive and dizzy. His creatinine on admission was 1.2 which increased to 1.5 on 06/09/2020 and has been progressively worsening to 3.6 today. His BUN is 88 and potassium of 5.6. He has been making urine about 450 mL in the past 24 hours but no urine today. While talking to the patient this morning, he was asking complained of shortness of breath but denied any pain. His phone rang and he asked to talk to his . While answering the phone I noted that the patient was not replying the . Quick assessment reviewed cardiac arrest and CPR was started immediately. Patient has been intermittently regaining bowels and losing it. He has been through multiple rounds of CPR. is now at the bedside and still requesting full support. Allergies Allergy/AdvReac Type Severity Reaction Status Date / Time No Known Allergies Allergy Verified 06/09/20 10:20 Home Medications Home Medications Medication Instructions Recorded Confirmed Type Anoro Ellipta 1 inh INHALATION PM 02/03/19 06/06/20 History albuterol sulfate [Ventolin HFA] 2 puff INHALATION QID PRN 02/03/19 06/06/20 History aspirin 81 mg PO QPM 02/03/19 06/06/20 History atorvastatin 40 mg PO QDD 02/03/19 06/06/20 History betamethasone, augmented 1 applic TOPICAL BID PRN 02/03/19 06/06/20 History [Diprolene] cholecalciferol (vitamin D3) 1,000 unit PO QAM 02/03/19 06/06/20 History [Vitamin D3] lutein 20 mg PO Q2D 02/03/19 06/06/20 History nitroglycerin [Nitrostat] 0.4 mg SUBLINGUAL UD PRN 02/03/19 06/06/20 History oxybutynin chloride 5 mg PO QDD 02/03/19 06/06/20 History pyridoxine (vitamin B6) [Vitamin 100 mg PO QAM 02/03/19 06/06/20 History B-6] acetaminophen [Tylenol Extra 1,000 mg PO BID PRN 04/28/20 06/06/20 History Strength] ascorbic acid (vitamin C) [Vitamin 500 mg PO DAILY 04/28/20 06/06/20 History C] bisacodyl 5 mg PO QPM PRN 04/28/20 06/06/20 History latanoprost 1 drp OPL HS 04/28/20 06/06/20 History omeprazole 20 mg PO QAM 04/28/20 06/06/20 History cyanocobalamin (vitamin B-12) 0 mcg PO DAILY 06/06/20 06/06/20 History [Vitamin B-12] docusate sodium 100 mg PO BID 06/06/20 06/06/20 History ferrous sulfate 325 mg PO DAILY 06/06/20 06/06/20 History polyethylene glycol 3350 [Miralax] 17 g PO HS 06/06/20 06/06/20 History Patient History Medical History Anemia Bladder cancer Dx'ed 2018- s/p chemo and XRT CAD (coronary artery disease) cath 07/2018 - 100% RCA occlusion, s/p AI to LAD Carotid atherosclerosis s/p CEAs bilaterally CKD (chronic kidney disease), stage III COPD (chronic obstructive pulmonary disease) Degenerative disc disease DM type 2 (diabetes mellitus, type 2) Dyslipidemia GI bleed 07/27/2019--? 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 - EF 45-49%, grade I diastolic dysfunction Transient ischemic attack (TIA) 2010--no neurologist, no deficits Surgical History History of bladder surgery TURBT History of cardiac cath 07/26/2018 @ [facility] [place] with 1 stent placed History of cataract surgery bilt History of colonoscopy History of cosmetic plastic surgery to remove droopy skin around neck History of cystoscopy History of esophagogastroduodenoscopy (EGD) History of heart artery stent 1 stent placed History of left-sided carotid endarterectomy 2010 History of right-sided carotid endarterectomy June 2019 History of thoracentesis History of tooth extraction all teeth Status post surgical removal and fulguration of bladder neoplasm Family History Mother Stroke Family history of diabetes mellitus Sister Family history of diabetes mellitus 2 Other No family history of adverse response to anesthesia Social History Smoking Status: Current some day smoker Cigarettes Per Day: 20-30; Second Hand Exposure: No; Hx Alcohol Use: No Hx Substance Use: No Preferred Language: Japanese Communication Ability: Effective Medical Language Specialist Required: No Beliefs That Will Affect Care: None Current Living Situation: Spouse Other Information That Helps Us Care for You: No Feels Safe at Home: Yes Safety Concerns: Feels Safe At This Time Review of Systems Review of Systems: All systems reviewed & are unremarkable except as noted in HPI & below Physical Exam Physical Exam: General exam: Patient in respiratory distress, He is intubated HEENT: Pupils are equal and reactive to light Neck: No JVD, neck is supple trachea is midline Respiratory system: Clear breath sounds bilaterally. Gastrointestinal: Abdomen is soft, distended, non tender, bowel sounds are present CVS: Regular rate and rhythm. No murmurs, rubs or gallops Musculoskeletal: No joint or muscle tenderness Extremities: Non tender, no edema, peripheral pulses are present Neuro: Unresponsive Skin: No rashes Results & Data Vital Signs (Past 12 Hours) Vital Signs Temp Pulse Resp BP Pulse Ox 06/15/20 08:43 68 23 82/47 L 06/15/20 07:47 79 20 93 06/15/20 03:16 88 20 122/80 93 06/14/20 22:37 36.4 C L 86 24 98/57 L 90 Laboratory Results 06/15/20 06:06
--- NOTE | 2020-06-15 09:45 | Procedure Note ---
Procedure Note Date of Service June 15, 2020 Note INTUBATION PROCEDURE NOTE: Dr. Cristian Bills A time-out was completed verifying correct patient, procedure, site, positioning. Patient was evaluated and required intubation for cardiac arrest. Sedative agent used: None Paralysis agent used: None Emergent consent was implied given patients rapidly declining clinical status and need for airway protection. []Consent signed and placed on chart. Number of attempts: 2 Grade view: 3 I initially attempted to intubate the patient with a direct laryngoscope utilizing a MAC 4 blade. Patient had very significant emesis interview was unable to be obtained as the patient was undergoing CPR. And then switched over to video laryngoscope and was able to get a grade 1 view the video and intubated the patient successfully with a size 7-1/2 tube. The patient was easily ventilated using [id number] to achieve adequate oxygenation. A 7-1/2 Icelandic endotracheal tube was placed under video laryngoscope to 24 cm at the lip. The stylette was removed and balloon was inflated with 10mL of air. Appropriate Colorimetric change was appreciated. Bilateral breath sounds were heard without air sounds in the abdomen. Unfortunately, CPR continued and the patient at 9:35 AM. Coding CPT Codes Resuscitation - Resuscitation: 33154 Endotracheal Intubation, emergency ([id number]) [facility] [place] Procedure Codes (Charges) Resuscitation Resuscitation: 75432 Endotracheal Intubation, emergency
--- NOTE | 2020-06-15 09:48 | Procedure Note ---
Procedure Note Date of Service June 15, 2020 Note A CODE FABIO was called around 9 AM. I responded to the CODE BLUE. CPR was undertaken and the patient was found to be in a PEA rhythm. Multiple doses of epinephrine were given. I was told that he had hyperkalemia and indeed his potassium was 5.6 this morning. 1 g of calcium chloride and 2 A of bicarbonate were given. Pulses were able to be obtained on numerous occasions, but the pulses were very thready and he would frequently lose pulses with resumption of CPR. No shocks were given. Towards the latter half of the code, we started him on an epinephrine drip. I did intubate him during this CODE BLUE event. There was massive emesis noted that was dark brown and black. I had a lengthy discussion with the patient's at bedside. He has a history of stage IV bladder cancer, CKD stage V and heart disease. is in agreement to stopping ACLS protocol. Patient was pronounced at 9:35 AM. Family was offered support. Coding CPT Codes Resuscitation - Resuscitation: 13043 Heart/lung resuscitation CPR ([id number]) [facility] [place] Procedure Codes (Charges) Resuscitation Resuscitation: 40451 Heart/lung resuscitation CPR
--- NOTE | 2020-06-15 12:49 | Hospitalist Progress Note ---
Date of Service June 15, 2020 Assessment & Plan (1) Orthostasis: AGUSTINA MCCARTHY called in at 0900 hours I saw him around 830 and asked the nurse to get arterial blood gas and also going to order for CT of the abdomen and pelvis. Was going to update the as requested by the Patient and that I have been doing for the last few days. Ordered insulin plus dextrose for high Potassium of 5.6 early this AM , Around 9:00 while the patient being evaluated by supervisor malt house, the patient coded The monitor strips showed frequent pauses with the heart rate went as low as 30 just before unconsciousness episode and the Agustina Mccarthy was called Resuscitative measures were carried out for about 30 minutes without any success The was present during the time of the code and when this called off The patient was pronounced at 093 5 hours on 06/15/2020 Causes of : Ischemic cardiomyopathy Acute renal failure COPD GI bleed Stage IV bladder cancer Discussed with the in detail. She felt satisfied obtained and was okay. Below are the other significant medical conditions that he he was being cared for in the hospital: Orthostatic hypotension Symptomatic acute blood loss anemia Acute upper GI bleeding H/O AVMs, internal hemorrhoids, colonic diverticulosis S/P EGD:multiple small non bleeding AVM's in stomach. A clip was placed on one of the APC sites in the gastric body. Small submucosal mass in the low fundus of the stomach S/P EMR resulting in perforation which was clip closured. S/P 1 Unit PRBCs Continue Protonix Drip Appreciate GI input and recommendation Received general amount of IV fluid for suspected SONYA No more orthostatic changes Has been getting PT and OT and doing reasonably well but requiring more oxygen to sustain saturation Looks more dehydration with low blood pressure We will hold off any Lasix for now and restrict oral fluid to 1500 mL in a day Gastric Perforation small gastric perforation during EGD/Submucosal resection of a mass --Upper GI series:No extravasation of contrast to suggest continued gastric perforation. --KUB: Nasogastric tube placed the gastric fundus. Nonobstructive bowel pattern. Probable infiltrate right base. Currently no evidence of peritonitis on initial antibiotic of Zosyn has been discontinued Conservative management Appreciate Surgery input Received IV fluids, bowel rest, NG tube Kub showed no evidence of free air No signs of continued perforation Diet advanced as tolerated Surgery signed off Acute kidney injury On chronic kidney disease Creatinine is 1.51 on admission and went up to 2.09 as of 06/11/2020 Received a small dose 20 mg Lasix today Creatinine is slightly better at 1.80 as of 06/12/2020 Creatinine remains elevated at 1.9 today We will continue with a small dose of oral Lasix of 20 mg daily Received another dose of 20 mg IV Lasix last afternoon Creatinine went up to more than 2.3 this morning Will ask for nephrology evaluation Presyncopal Episodes No known seizure like activity Monitor on Tele for arrhythmias Anemia contributing EEG: This is an abnormal awake and drowsy routine EEG due to mild generalized background slowing suggestive of a mild non specific encephalopathy. No focal slowing or epileptiform activity is recorded. Appreciate cardiology input and recommendation Was advised to take time to start any activity from sitting or lying position No more dizziness and/or presyncope with ambulation Physical deconditioning Generalized weakness Secondary to comorbidities/Immunotherapy [id number] to be discharged home Acute on chronic combined systolic and diastolic CHF Chronic Diastolic heart failure Last EF: 50-55% Blood pressure seems to be stable and the patient has more shortness of breath and requires more oxygen Recently did not show any florid pulmonary edema We will try small dose of Lasix as per cardiology Will try 20 mg of Lasix IV today Will give 20 mg of oral Lasix daily No more Lasix until kidney function improves CAD S/P S/P AI to LAD in 06/2019 Held Aspirin due to GI bleeding Continue Lipitor Aspirin 81 mg has been added from 06/12/2020 and will be continued as an outpatient Has been started on a small dose of beta-lisbet with metoprolol succinate 12.5 mg daily Advised increased ambulation COPD Chronic hypoxic respiratory failure Ongoing tobacco abuse Chronic Oxygen Dependency: 2 liters at baseline Bibasilar parenchymal infiltrate--on CT--likely chronic Has been getting intravenous Solu-Medrol since yesterday and nebulized bronchodilators Steroid inhalers have been added DM Type II HbA1C: 6.07 Mar 2020 Off metformin secondary to worsening renal functions Continue ISS while hospitalized Monitor BGs H/O Metastatic bladder cancer S/P Chemoradiation Ongoing immunotherapy (Keytruda) Follows with [facility] and Dr Franks Last dose of Keytruda on 06/03/20 H/O Tourette's syndrome Intermittent Behavioral changes as per family Monitor DVT Px: SCDs RE GI bleed Code Status Full code Disposition PT/OT prior to discharge Discussed with the in detail and answered all of her questions Discussed with the and will have more discussions when she is here physically Admission and Anticipated Discharge Date Admission Date: June 06, 2020 Subjective The patient was seen and examined in the telemetry unit He complains of shortness of breath of breath with more anxiety of pounds Denies any chest pain and/or palpitation Denies any abdominal pain, nausea and or vomiting 06/12/2020 The patient was seen and examined in telemetry unit He has been feeling much better today with decreasing shortness of breath and anxiety Denies any chest pain and/or palpitation, no abdominal pain, nausea and or vomiting No dizziness on standing 06/13/2020 The patient was seen and examined in telemetry unit Remains stable in bed and wants to go home Any exertion causes shortness of breath with requirement of more oxygen up to 6 L Not yet ready to be discharged 06/14/2020 Patient was seen and examined in telemetry unit He has had low blood pressure last night with dizziness on standing Received normal saline bolus and blood pressure went up more than 100 systolic Remains shortness of breath this morning without any symptoms Has been having frequent bowel movement 06/15/2020 The patient was seen and examined in telemetry unit He complains to have more shortness of breath and complained generalized abdominal pain with some distention He did not have any fever and/or chills He was hemodynamically stable during my examination this morning around 8:30 AM Review of Systems Review of Systems: All systems reviewed and are unremarkable except as noted below Constitutional: + malaise Eyes: as per Subjective / HPI Ear, Nose, Mouth, Throat: as per Subjective / HPI Respiratory: + cough, + dyspnea and + dyspnea on exertion Cardiovascular: + problem reported (Low blood pressure with ambulation) Gastrointestinal: + abdominal pain and + bloating; no nausea and no vomiting Abdominal distention Neurologic: + unsteadiness Physical Exam Physical Exam: Lying in bed with moderate shortness of breath at rest with significant apprehension Constitutional: well developed, well nourished, + acute distress (Minimal shortness of breath at rest), + ill appearing, + in distress and + lethargic Eyes: PERRL, conjunctivae normal, anicteric sclerae ENMT: external ear and nose normal, oropharynx normal Neck: trachea midline, no thyromegaly Respiratory: + respiratory distress (Moderate distress at rest) Auscultation: + diminished lung sounds and + crackles (Very minimal crackles at the bases); no wheezes (Minimal wheezing) Cardiovascular: Rate/Rhythm: regular rate and regular rhythm Heart Sounds: no murmur Gastrointestinal (Abdomen): Inspection/Auscultation: abdomen normal to inspection, + abdomen distended (Mild distention) and normal bowel sounds (Sluggish) Percussion/Palpation: abdomen soft; abdomen nontender Musculoskeletal: No acute arthritis involving any joints Neurologic: moves all extremities; no focal motor deficits Psychiatric: Affect: + anxious affect Results & Data Results & Data ([facility]) Vital Signs (Past 12 Hours) Vital Signs Pulse Resp BP Pulse Ox 06/15/20 08:43 68 23 82/47 L 06/15/20 07:47 79 20 93 06/15/20 03:16 88 20 122/80 93 Laboratory Results BMP 06/15/20 06:06 Sodium 133 L Potassium 5.6 H D Chloride 101 Carbon Dioxide 18 L BUN 88 H D Creatinine 3.67 H D Glucose 152 H Calcium 8.1 L Medications Administered Current Inpatient Medications Acetaminophen (Tylenol) 325 mg PO Q6H PRN PRN Reason: Mild Pain Stop: 07/11/20 06:54 Last Admin: 06/13/20 09:08 Dose: 325 mg Documented by: Albuterol (Duoneb) 3 ml NEB Q4R PRN PRN Reason: Shortness Of Breath Or Wheezing Stop: 07/07/20 14:59 Last Admin: 06/14/20 01:46 Dose: 3 ml Documented by: Aspirin (Ecotrin Ectab) 81 mg PO QAM COUNT INCLUDES THE [facility] Stop: 07/12/20 11:29 Last Admin: 06/15/20 07:52 Dose: 81 mg Documented by: Budesonide (Pulmicort Respules) 0.5 mg NEB BIDR COUNT INCLUDES THE [facility] Stop: 07/13/20 18:59 Last Admin: 06/15/20 07:43 Dose: 0.5 mg Documented by: Dextrose (Dextrose 50%) 25 - 50 ml IV UD PRN; Protocol PRN Reason: Hypoglycemia Protocol Stop: 07/07/20 00:06 Furosemide (Lasix) 20 mg PO QAM COUNT INCLUDES THE [facility] Stop: 07/13/20 10:59 Last Admin: 06/14/20 07:06 Dose: Not Given Documented by: Glucagon (Glucagen) 1 mg SQ UD PRN; Protocol PRN Reason: Hypoglycemia Protocol Stop: 07/07/20 00:06 Glucose (Dex4 Glucose) 4 - 8 tabs PO UD PRN; Protocol PRN Reason: Hypoglycemia Protocol Stop: 07/07/20 00:06 Glucose (Glucose 40%) 15 - 30 gm PO UD PRN; Protocol PRN Reason: Hypoglycemia Protocol Stop: 07/07/20 00:06 Promethazine HCl 12.5 mg/ (Sodium Chloride) 50.5 mls @ 202 mls/hr IV Q6H PRN PRN Reason: Nausea And Vomiting Stop: 07/07/20 00:06 Pantoprazole Sodium 40 mg/ (Syringe) 10 mls @ 5 mls/min IV BID DALJIT Stop: 07/11/20 20:59 Last Admin: 06/15/20 07:53 Dose: 5 mls/min Documented by: Hydrocortisone Sodium (Succinate 100 mg/ Syringe) 2 mls @ 4 mls/min IV Q8H DALJIT Stop: 07/15/20 01:59 Last Admin: 06/15/20 01:40 Dose: 4 mls/min Documented by: Insulin Aspart (Novolog Flexpen) 0 units SC ACHS DALJIT Stop: 07/10/20 20:59 Last Admin: 06/15/20 07:56 Dose: Not Given Documented by: Latanoprost (Xalatan Oph) 1 drops OPL HS DALJIT Stop: 07/07/20 20:59 Last Admin: 06/14/20 20:56 Dose: 1 drops Documented by: Metoprolol Succinate (Toprol Xl) 12.5 mg PO QAM DALJIT Stop: 07/13/20 08:59 Last Admin: 06/14/20 07:05 Dose: Not Given Documented by: Miscellaneous (Carbohydrates For Hypoglycemia) 15 - 30 gm PO UD PRN PRN Reason: Hypoglycemia Protocol Stop: 07/07/20 00:06 Polyethylene Glycol (Miralax Powder Packet) 17 gm PO DAILY DALJIT Stop: 07/13/20 09:05 Last Admin: 06/15/20 07:52 Dose: Not Given Documented by: Trazodone HCl (Desyrel) 50 mg PO HS PRN PRN Reason: sleep Stop: 07/14/20 20:59 Last Admin: 06/14/20 22:37 Dose: 50 mg Documented by: Umeclidinium/Vilanterol (Anoro Ellipta 62.5/25 Mcg Inh) 1 puffs INH PM DALJIT Stop: 07/07/20 20:59 Last Admin: 06/14/20 20:50 Dose: 1 puffs Documented by:
--- NOTE | 2020-06-15 16:20 | Electrocardiogram Report ---
Test Reason : Blood Pressure : / mmHG Vent. Rate : 118 BPM Atrial Rate : 117 BPM P-R Int : 000 ms QRS Dur : 150 ms QT Int : 382 ms P-R-T Axes : 000 099 -48 degrees QTc Int : 535 ms Poor data quality, interpretation may be adversely affected Ventricular tachycardia Rightward axis Abnormal ECG When compared with ECG of 06-JUN-2020 20:34, Ventricular tachycardia has replaced sinus rhythm Confirmed by Stu Medina ([id number]) on 06/15/2020 4:19:39 PM Referred By: REFERRED SELF Confirmed By:Josiah Medina
[2020-06-15] MEDS ORDERED: CALCIUM CHLORIDE 10% 10 ML SYR IV ONE (17:18)
--- NOTE | 2020-06-16 07:53 | Discharge Summary ---
Date of Service June 16, 2020 Admission HPI Per Admitting Provider History obtained from patient, family, and records. Medical history significant for chronic diastolic heart failure (EF 50-55%, TTE 2019), CAD status post stent, VHD (mild to moderate MR/TR 2019 TTE), PVD status post surgery, hypertension, hyperlipidemia, COPD, ongoing tobacco abuse, DM 2 diet-controlled, chronic anemia (baseline hemoglobin of 10), hx metastatic bladder cancer status post surgery status post chemoradiation ongoing immunotherapy (Keytruda), hx Tourette's syndrome, history gastric/colonic AVMs, colonic polyps, internal hemorrhoids as per records, history of adrenal hyperplasia as per records. Patient noted to have dark tarry stools with minimal abdominal discomfort the last few weeks. No headache. No OTC NSAID intake other than home aspirin. Episodic spells noted at home by in the last 6 weeks described as patient having decreased responsiveness for a few moments. No actual grand mal seizures/incontinence/tongue biting symptoms noted. Patient with some arm/hand shaking and mouth dropping open. Heart rate would be normal to fast as per patient . Usually related to exertion. Patient without chest pain. Some shortness of breath/fatigue with exertion as per patient. Last confinement 2 weeks ago for weakness and lightheadedness occurring with standing. Symptoms attributed to orthostasis. Patient discharged home. Patient still with episodic weakness/lightheadedness symptoms at home after discharge as per . BP still low and patient still with weakness/shaking as per PCP note from 2 weeks ago. PCP stopped BP meds. [facility] administrative receptionist contacted via Ask-a-Doc by PCP for episodic hypotension, adrenal nodularity on outpatient CAT scans. Hormonal evaluation recommended by specialist. [facility] ER visit a few days ago. Hemoglobin noted to be trending down in the last week as per . 9.2 (06/01) to 8.3 (06/03) Stools noted to be melanotic without emesis. Outpatient stool Hemoccult noted to be positive. Outpatient hemoglobin yesterday noted to be 8.4. Patient directed by PCP to ER. PPI bolus drip initiated at the ER for UGI B. Orthostatic vitals noted to be positive at the ER. Medical History as above 2019 EGD medium-sized hiatal hernia, 2 nonbleeding angiectasia's of the stomach. 2018 colonoscopy showed single nonbleeding colonic angiectasia. Internal hemorrhoids. Nodular mucosa at distal transverse colon. Surgical History : Cataract surgery, thromboendarterectomy, urologic procedures, bladder tumor fulguration Family History : Diabetes, heart disease Personal/Social history : 1 pack daily, no EtOH intake, businessman Principal Diagnosis Causes of : Ischemic cardiomyopathy Acute renal failure COPD GI bleed Stage IV bladder cancer Discharge Data Allergies Allergy/AdvReac Type Severity Reaction Status Date / Time No Known Allergies Allergy Verified 06/09/20 10:20 Consultations 06/06/20 21:47 ED Decision to Admit Stat 06/07/20 00:07 Consult Gastroenterology Routine 06/09/20 13:06 Consult General Surgery Routine 06/11/20 07:00 Consult Cardiology Routine 06/14/20 09:44 Consult Nephrology Routine Procedures Performed Operation Date: 06/09/20 15:55 Actual Procedures p EGD Hemostasis - Irphan E Gaslightwala Ordered Studies 06/06/20 22:48 CT abd pelvis IV con only Urgent 06/09/20 11:45 CT abdomen wo con Stat 06/11/20 08:00 US renal/blad retro comp Routine 06/12/20 15:30 US abdomen limited Routine Hospital Course (1) Orthostasis: AGUSTINA FABIO called in at 0900 hours I saw him around 830 and asked the nurse to get arterial blood gas and also going to order for CT of the abdomen and pelvis. Was going to update the as requested by the Patient and that I have been doing for the last few days. Ordered insulin plus dextrose for high Potassium of 5.6 early this AM , Around 9:00 while the patient being evaluated by music promoter, the patient coded The monitor strips showed frequent pauses with the heart rate went as low as 30 just before unconsciousness episode and the Agustina Caballero was called Resuscitative measures were carried out for about 30 minutes without any success The was present during the time of the code and when this called off The patient was pronounced at 093 5 hours on 06/15/2020 Causes of : Ischemic cardiomyopathy Acute renal failure COPD GI bleed Stage IV bladder cancer Discussed with the in detail. She felt satisfied obtained and was okay. Below are the other significant medical conditions that he he was being cared for in the hospital: Orthostatic hypotension Symptomatic acute blood loss anemia Acute upper GI bleeding H/O AVMs, internal hemorrhoids, colonic diverticulosis S/P EGD:multiple small non bleeding AVM's in stomach. A clip was placed on one of the APC sites in the gastric body. Small submucosal mass in the low fundus of the stomach S/P EMR resulting in perforation which was clip closured. S/P 1 Unit PRBCs Continue Protonix Drip Appreciate GI input and recommendation Received general amount of IV fluid for suspected SONYA No more orthostatic changes Has been getting PT and OT and doing reasonably well but requiring more oxygen to sustain saturation Looks more dehydration with low blood pressure We will hold off any Lasix for now and restrict oral fluid to 1500 mL in a day Gastric Perforation small gastric perforation during EGD/Submucosal resection of a mass --Upper GI series:No extravasation of contrast to suggest continued gastric perforation. --KUB: Nasogastric tube placed the gastric fundus. Nonobstructive bowel pattern. Probable infiltrate right base. Currently no evidence of peritonitis on initial antibiotic of Zosyn has been discontinued Conservative management Appreciate Surgery input Received IV fluids, bowel rest, NG tube Kub showed no evidence of free air No signs of continued perforation Diet advanced as tolerated Surgery signed off Acute kidney injury On chronic kidney disease Creatinine is 1.51 on admission and went up to 2.09 as of 06/11/2020 Received a small dose 20 mg Lasix today Creatinine is slightly better at 1.80 as of 06/12/2020 Creatinine remains elevated at 1.9 today We will continue with a small dose of oral Lasix of 20 mg daily Received another dose of 20 mg IV Lasix last afternoon Creatinine went up to more than 2.3 this morning Will ask for nephrology evaluation Presyncopal Episodes No known seizure like activity Monitor on Tele for arrhythmias Anemia contributing EEG: This is an abnormal awake and drowsy routine EEG due to mild generalized background slowing suggestive of a mild non specific encephalopathy. No focal slowing or epileptiform activity is recorded. Appreciate cardiology input and recommendation Was advised to take time to start any activity from sitting or lying position No more dizziness and/or presyncope with ambulation Physical deconditioning Generalized weakness Secondary to comorbidities/Immunotherapy PT/[id number] to be discharged home Acute on chronic combined systolic and diastolic CHF Chronic Diastolic heart failure Last EF: 50-55% Blood pressure seems to be stable and the patient has more shortness of breath and requires more oxygen Recently did not show any florid pulmonary edema We will try small dose of Lasix as per cardiology Will try 20 mg of Lasix IV today Will give 20 mg of oral Lasix daily No more Lasix until kidney function improves CAD S/P S/P AI to LAD in 06/2019 Held Aspirin due to GI bleeding Continue Lipitor Aspirin 81 mg has been added from 06/12/2020 and will be continued as an outpatient Has been started on a small dose of beta-lisbet with metoprolol succinate 12.5 mg daily Advised increased ambulation COPD Chronic hypoxic respiratory failure Ongoing tobacco abuse Chronic Oxygen Dependency: 2 liters at baseline Bibasilar parenchymal infiltrate--on CT--likely chronic Has been getting intravenous Solu-Medrol since yesterday and nebulized bronchodilators Steroid inhalers have been added DM Type II HbA1C: 6.07 Mar 2020 Off metformin secondary to worsening renal functions Continue ISS while hospitalized Monitor BGs H/O Metastatic bladder cancer S/P Chemoradiation Ongoing immunotherapy (Keytruda) Follows with [facility] and Dr Franks Last dose of Keytruda on 06/03/20 H/O Tourette's syndrome Intermittent Behavioral changes as per family Monitor DVT Px: SCDs RE GI bleed Code Status Full code Disposition PT/OT prior to discharge Discussed with the in detail and answered all of her questions Discussed with the and will have more discussions when she is here physically Total Time Total Time Spent Total Time Spent (In Minutes): 35 minutes Total Time Includes: Communication With Other Providers and Other (Communication with the ) Discharge Plan Discharge Items Patient Disposition: Reason For Visit: ANEMIA; GI BLEED Discharge Diagnosis: Causes of : Ischemic cardiomyopathy Acute renal failure COPD GI bleed Stage IV bladder cancer Follow-up/Referrals: Donal Crabtree MD [Primary Care Provider] - 06/20/20 11:20 am (06/20/2020 11:20 AM Provider Babak Fontenot DO Department General Internal Medicine [facility] ) Addtl Attending Provider Instructions: Communicated with the Family members specially the Stand-Alone Forms: My [facility] Admission Data Admit Date/Time: 06/06/20 22:52 Other DC Date/Time DO NOT enter until pt leaves facility: 06/15/20 17:19
== END 2020-06-15 17:19 | disposition expired | DRG 326 ==
LOC: ED 19:39 → 2W 22:52 → SUATTDRO 22:52 → 2W 23:16 → 2S 06-09 12:37 → 2E 06-14 19:03